=== PATIENT | female | born 1975 | race Caucasian/White ===

== ENCOUNTER 2016-11-12 19:14 | Emergency (ER) | payer OTHER ==
[2016-11-12] MEDS ORDERED: SODIUM CHLORIDE 0.9% 1,000 ML IV STA (20:38)
[2016-11-12] MEDS ORDERED: ONDANSETRON 4 MG/2 ML VIAL IVP STA (20:39)
[2016-11-12 20:53] LABS: Basophils # (A) 0.1 k/uL (0-0.2); Basophils % (A) 0 %; CH 33.6; Eosinophils # (A) 0.1 k/uL (0-0.7); Eosinophils % (A) 1 %; HCT 42.3 % (34.0-46.0); HDW 2.37; HGB 14.1 gm/dL (11.4-16.0); Luc # (Auto) 0.33; Luc % (Auto) 3; Lymphocytes # (A) 3.6 k/uL (1.0-4.8); Lymphocytes % (A) 29 %; MCH 33.1 pg (25.0-35.0); MCHC 33.4 g/dL (31.0-37.0); MCV 99.3 fL (80.0-100.0); Monocytes # (A) 0.6 k/uL (0-1.0); Monocytes % (A) 5 %; Neutrophils # (A) 7.9 k/uL (1.3-7.7); Neutrophils % (A) 63 %; RBC 4.26 m/uL (3.80-5.40); RDW 13.4 % (11.5-15.5); WBC 12.7 k/uL (3.8-10.6)
[2016-11-12 20:54] LABS: Appearance,Urine Clear (Clear); Bilirubin,Urine Negative (Negative); Glucose,Urine (UA) Negative (Negative); Ketones,Urine Negative (Negative); Leukocyte Esterase,Urine Negative (Negative); Nitrite,Urine Negative (Negative); PH, Urine 5.5 (5.0-8.0); Protein,Urine Negative (Negative); Specific Gravity,Urine 1.005 (1.001-1.035); UA Billing (MACRO vs. MICRO) CHEM; Urobilinogen,Urine <2.0 mg/dL (<2.0)
[2016-11-12 21:01] LABS: ALT 31 U/L (9-52); AST 17 U/L (14-36); Alkaline Phosphatase 68 U/L (38-126); Amylase <30 U/L (30-110); Anion Gap 12 mmol/L; Blood Urea Nitrogen 17 mg/dL (7-17); Calcium 9.4 mg/dL (8.4-10.2); Carbon Dioxide 19 mmol/L (22-30); Chloride 109 mmol/L (98-107); Glucose 88 mg/dL (74-99); INR 0.9 (<1.1); Non-African American GFR(MDRD) 55 (>60 ml/min/1.73 sqM); Partial Thromboplastin Time 25.3 sec (22.0-30.0); Potassium 4.7 mmol/L (3.5-5.1); Prothrombin Time 9.3 sec (9.0-12.0); Sodium 140 mmol/L (137-145); Total Bilirubin 0.3 mg/dL (0.2-1.3); Total Protein 7.2 g/dL (6.3-8.2)
--- NOTE | 2016-11-12 21:02 | XR ---
EXAMINATION TYPE: XR KUB DATE OF EXAM: 11/12/2016 8:57 PM COMPARISON: 07/12/2016 HISTORY: Abdominal pain TECHNIQUE: 2 views FINDINGS: There is no sign of intestinal obstruction or pneumoperitoneum. Fecal pattern is normal. Th ere are clips from cholecystectomy. There are clips from tubal ligation. There is no sign of a mass. There is a slight lumbar levoscoliosis. Lung bases are clear. IMPRESSION: Nonacute abdomen. No change.
[2016-11-12] MEDS ORDERED: MORPHINE SULFATE 4 MG/ML SYRINGE IVP STA (21:47)
[2016-11-12] MEDS ORDERED: METOCLOPRAMIDE 5 MG/ML 2 ML VIAL IVP STA (21:47)
--- NOTE | 2016-11-12 21:50 | ED ---
Abdominal Pain HPI - General Chief Complaint: Abdominal Pain Stated Complaint: Back Pain Time Seen by Provider: 11/12/16 20:34 Source: patient, RN notes reviewed Mode of arrival: ambulatory Limitations: no limitations - History of Present Illness Initial Comments: 41-year-old female presents emergency Department chief complaint abdominal pain. Patient states that she started having nausea vomiting swelling. Patient states her stomach feels upset. Patient denies chest pain or shortness breath. Patient has appears or chills. Patient states that she's had her prior cholecystomy, hernia repair. Patient states that she's had normal bowel movements. Patient states she had no fevers no chills no dysuria no hematuria. Patient denies any headache or dizziness. Nothing makes his symptoms feel better or worse at this time no sick contacts. - Related Data Home Medications Medication Instructions Recorded Confirmed Atenolol [Tenormin] 25 mg PO DAILY 05/13/14 11/12/16 Pantoprazole Sodium [Protonix] 40 mg PO BID 05/13/14 11/12/16 Spironolactone [Aldactone] 50 mg PO BID 05/13/14 11/12/16 Topiramate [Topamax] 100 mg PO BID 05/13/14 11/12/16 metFORMIN HCL [Glucophage] 500 mg PO BID 05/13/14 11/12/16 Fluticasone Nasal [place] [Flonase 1 spray EA NOSTRIL DAILY PRN 07/10/15 11/12/16 Nasal [place]] Levothyroxine Sodium [Synthroid] 88 mcg PO DAILY 07/10/15 11/12/16 Baclofen [Lioresal] 10 mg PO TID PRN 08/13/16 11/12/16 Loratadine 10 mg PO DAILY 08/13/16 11/12/16 Minocycline HCl [Minocin] 100 mg PO Q12HR 08/13/16 11/12/16 Acetaminophen with Codeine 1 - 2 tab PO Q4H PRN 11/12/16 11/12/16 [Tylenol w/codeine #3] Celecoxib [CeleBREX] 200 mg PO DAILY 11/12/16 11/12/16 Fluconazole [Diflucan] 150 mg PO ONCE 11/12/16 11/12/16 Nystatin 100,000 Unit/gm Powd 1 applic TOPICAL BID 11/12/16 11/12/16 [Mycostatin Powder] Previous Rx's Medication Instructions Recorded SILVER sulfADIAZINE CREAM 1 applic TOPICAL BID #1 tub 09/17/16 [Silvadene Cream] Ondansetron Odt [Zofran Odt] 4 mg PO Q8HR PRN #10 tab 11/12/16 Allergies Allergy/AdvReac Type Severity Reaction Status Date / Time prednisone Allergy CAUSES Verified 11/12/16 20:50 HANDS AND FEET TO SWELL sulfamethoxazole Allergy Anaphylaxis Verified 11/12/16 20:50 [From Bactrim] trimethoprim [From Bactrim] Allergy Anaphylaxis Verified 11/12/16 20:50 penicillin V AdvReac Unknown STATES IT Verified 11/12/16 20:50 REACTS WITH HER TENORMIN cephalexin monohydrate AdvReac " I AM Verified 11/12/16 20:50 [From Keflex] IMMUNE TO IT" PER PT Review of Systems ROS Statement: Those systems with pertinent positive or pertinent negative responses have been documented in the HPI. ROS Other: All systems not noted in ROS Statement are negative. Past Medical History Past Medical History: Diabetes Mellitus, GERD/Reflux, Hyperlipidemia, Hypertension, Osteoarthritis (OA), Skin Disorder, Thyroid Disorder Additional Past Medical History / Comment(s): HEART MURMUR, LEAKY HEART VALVES, (STATES PRE-MEDICATED PRIOR TO PROCEDURES) , HX OF DIVERTICULITIS, BRONCHIECTASIS, MIGRAINES, HX OF STOMACH ULCERS,OVARIAN SYNDROME, HIDRADENITIS ( SKIN DISORDER-TAKES MINOCIN FOR THIS), FINGER NAIL FUNGUS., PT STATES IRREGULAR HEART BEAT WITH 3 BEATS IN A ROW. History of Any Multi-Drug Resistant Organisms: None Reported Past Surgical History: Cholecystectomy, Hernia Repair, Orthopedic Surgery, Tubal Ligation, Uterine Ablation Additional Past Surgical History / Comment(s): lt foot surgery. lt bunionectomy. bilat CTR. colonoscopy,egd Past Anesthesia/Blood Transfusion Reactions: No Reported Reaction, Motion Sickness Past Psychological History: Anxiety Smoking Status: Current every day smoker Past Alcohol Use History: None Reported Additional Past Alcohol Use History / Comment(s): SMOKES 1PPD. STARTED SMOKING AT AGE 20. Past Drug Use History: None Reported - Past Family History Father Family Medical History: Cancer Additional Family Medical History / Comment(s): LIVER CANCER General Exam Limitations: no limitations General appearance: alert, in no apparent distress Head exam: Present: atraumatic, normocephalic, normal inspection Respiratory exam: Present: normal lung sounds bilaterally. Absent: respiratory distress, wheezes, rales, rhonchi, stridor Cardiovascular Exam: Present: regular rate, normal rhythm, normal heart sounds. Absent: systolic murmur, diastolic murmur, rubs, gallop, clicks GI/Abdominal exam: Present: soft, tenderness (Mild tenderness in the mid abdomen ), normal bowel sounds. Absent: distended, guarding, rebound, rigid Back exam: Present: full ROM. Absent: tenderness, CVA tenderness (R), CVA tenderness (L) Neurological exam: Present: alert, oriented X3, CN II-XII intact Skin exam: Present: warm, dry, intact, normal color. Absent: rash Course Vital Signs 11/12/16 19:24 Temperature 98.7 F Pulse Rate 70 Respiratory 20 Rate Blood Pressure 116/73 O2 Sat by Pulse 100 Oximetry Medical Decision Making - Medical Decision Making 41-year-old female presented emergency from for abdominal pain nausea vomiting. Patient x-ray does not show any evidence of obstruction. Patient's lab work within normal it's. Patient we discharge with antinausea medication. - Lab Data Result diagrams: 11/12/16 20:20 11/12/16 20:20 Lab Results 11/12/16 11/12/16 11/12/16 Range/Units 20:20 20:20 20:20 WBC 12.7 H (3.8-10.6) k/uL RBC 4.26 (3.80-5.40) m/uL Hgb 14.1 (11.4-16.0) gm/dL Hct 42.3 (34.0-46.0) % MCV 99.3 (80.0-100.0) fL MCH 33.1 (25.0-35.0) pg MCHC 33.4 (31.0-37.0) g/dL RDW 13.4 (11.5-15.5) % Plt Count 278 (150-450) k/uL Neutrophils % 63 % Lymphocytes % 29 % Monocytes % 5 % Eosinophils % 1 % Basophils % 0 % Neutrophils # 7.9 H (1.3-7.7) k/uL Lymphocytes # 3.6 (1.0-4.8) k/uL Monocytes # 0.6 (0-1.0) k/uL Eosinophils # 0.1 (0-0.7) k/uL Basophils # 0.1 (0-0.2) k/uL PT 9.3 (9.0-12.0) sec INR 0.9 (<1.1) APTT 25.3 (22.0-30.0) sec Sodium 140 (137-145) mmol/L Potassium 4.7 (3.5-5.1) mmol/L Chloride 109 H (98-107) mmol/L Carbon Dioxide 19 L (22-30) mmol/L Anion Gap 12 mmol/L BUN 17 (7-17) mg/dL Creatinine 1.10 H (0.52-1.04) mg/dL Est GFR (MDRD) Af Amer >60 (>60 ml/min/1.73 sqM) Est GFR (MDRD) Non-Af 55 (>60 ml/min/1.73 sqM) Glucose 88 (74-99) mg/dL Calcium 9.4 (8.4-10.2) mg/dL Total Bilirubin 0.3 (0.2-1.3) mg/dL AST 17 (14-36) U/L ALT 31 (9-52) U/L Alkaline Phosphatase 68 (38-126) U/L Troponin I (0.000-0.034) ng/mL Total Protein 7.2 (6.3-8.2) g/dL Albumin 4.0 (3.5-5.0) g/dL Amylase <30 L (30-110) U/L Lipase 188 (23-300) U/L Urine Color Urine Appearance (Clear) Urine pH (5.0-8.0) Ur Specific [place] (1.001-1.035) Urine Protein (Negative) Urine Glucose (UA) (Negative) Urine Ketones (Negative) Urine Blood (Negative) Urine Nitrate (Negative) Urine Bilirubin (Negative) Urine Urobilinogen (<2.0) mg/dL Ur Leukocyte Esterase (Negative) 11/12/16 11/12/16 Range/Units 20:20 20:20 WBC (3.8-10.6) k/uL RBC (3.80-5.40) m/uL Hgb (11.4-16.0) gm/dL Hct (34.0-46.0) % MCV (80.0-100.0) fL MCH (25.0-35.0) pg MCHC (31.0-37.0) g/dL RDW (11.5-15.5) % Plt Count (150-450) k/uL Neutrophils % % Lymphocytes % % Monocytes % % Eosinophils % % Basophils % % Neutrophils # (1.3-7.7) k/uL Lymphocytes # (1.0-4.8) k/uL Monocytes # (0-1.0) k/uL Eosinophils # (0-0.7) k/uL Basophils # (0-0.2) k/uL PT (9.0-12.0) sec INR (<1.1) APTT (22.0-30.0) sec Sodium (137-145) mmol/L Potassium (3.5-5.1) mmol/L Chloride (98-107) mmol/L Carbon Dioxide (22-30) mmol/L Anion Gap mmol/L BUN (7-17) mg/dL Creatinine (0.52-1.04) mg/dL Est GFR (MDRD) Af Amer (>60 ml/min/1.73 sqM) Est GFR (MDRD) Non-Af (>60 ml/min/1.73 sqM) Glucose (74-99) mg/dL Calcium (8.4-10.2) mg/dL Total Bilirubin (0.2-1.3) mg/dL AST (14-36) U/L ALT (9-52) U/L Alkaline Phosphatase (38-126) U/L Troponin I <0.012 (0.000-0.034) ng/mL Total Protein (6.3-8.2) g/dL Albumin (3.5-5.0) g/dL Amylase (30-110) U/L Lipase (23-300) U/L Urine Color Light Yellow Urine Appearance Clear (Clear) Urine pH 5.5 (5.0-8.0) Ur Specific [place] 1.005 (1.001-1.035) Urine Protein Negative (Negative) Urine Glucose (UA) Negative (Negative) Urine Ketones Negative (Negative) Urine Blood Negative (Negative) Urine Nitrate Negative (Negative) Urine Bilirubin Negative (Negative) Urine Urobilinogen <2.0 (<2.0) mg/dL Ur Leukocyte Esterase Negative (Negative) 11/12/16 21:49 EKG performed at 20:30 sinus bradycardia with a rate of 50. CO interval 172 QRS duration 92 QT/QTC 438/429 11/12/16 21:50 Disposition Clinical Impression: Abdominal pain, Nausea & vomiting Disposition: HOME SELF-CARE Condition: Stable Instructions: Abdominal Pain (ED) Additional Instructions: Please return to the Emergency Department if symptoms worsen or any other concerns. Prescriptions: Ondansetron Odt [Zofran Odt] 4 mg PO Q8HR PRN #10 tab PRN Reason: Nausea Time of Disposition: 21:49
[2016-11-12 22:23] VITALS: BP 132/65; PULSE 87; RESP 18; TEMP 97
== END 2016-11-12 22:33 | disposition home or self-care (01) ==
LOC: EC 19:14
DX: R10.9 Unspecified abdominal pain (principal); R11.2 Nausea with vomiting, unspecified; I10 Essential (primary) hypertension; Z79.899 Other long term (current) drug therapy; Z79.84 Long term (current) use of oral hypoglycemic drugs; E11.9 Type 2 diabetes mellitus without complications; E07.9 Disorder of thyroid, unspecified; Z88.0 Allergy status to penicillin; Z88.2 Allergy status to sulfonamides; Z88.8 Allergy status to other drugs, medicaments and biological substances; M19.90 Unspecified osteoarthritis, unspecified site; L73.2 Hidradenitis suppurativa; F41.9 Anxiety disorder, unspecified; F17.200 Nicotine dependence, unspecified, uncomplicated; K21.9 Gastro-esophageal reflux disease without esophagitis
CPT/HCPCS: 36415; 93005; 80053; 82150; 83690; 84484; 85025; 85610; 85730; 81003; 74000; 96374; 96375 ×2; 96361; 99284; J2270; J2765; J2405

== ENCOUNTER 2016-11-15 02:24 | Emergency (ER) | payer OTHER ==
[2016-11-15 02:30] VITALS: RESP 18
[2016-11-15] MEDS ORDERED: SODIUM CHLORIDE 0.9% 1,000 ML IV STA (03:01)
[2016-11-15] MEDS ORDERED: ONDANSETRON 4 MG/2 ML VIAL IVP STA (03:01)
[2016-11-15] MEDS ORDERED: HYDROmorphone 1 MG/ML 1 ML SYRINGE IVP STA (03:01)
[2016-11-15] MEDS ORDERED: MAG HYDROX/AL HYDROX/SIMETH 30 ML, HYOSCYAMINE ELIXIR 10 ML, CIMETIDINE HCL 300 MG PO STA ×3 (03:09)
[2016-11-15] MEDS ORDERED: SODIUM CHLORIDE 0.9% 1,000 ML IV ONE (03:10)
--- NOTE | 2016-11-15 03:16 | ED ---
Abdominal Pain HPI - General Chief Complaint: Abdominal Pain Stated Complaint: abd/back pain Time Seen by Provider: 11/15/16 02:57 Source: patient, RN notes reviewed, old records reviewed Mode of arrival: ambulatory Limitations: no limitations - History of Present Illness Initial Comments: Patient is a 41-year-old female with chief complaint of epigastric and right upper quadrant abdominal pain for the past 3 days. Patient reports that nothing changes the pain. She states that the same since she was seen in the 4 days ago. She also reports that she's not had a bowel movement in the past 3 days. Patient reports that she also has symptoms of GERD. She denies any fever or chills. She denies any dysuria or hematuria or vaginal discharge. She reports that she's had cholecystectomy, tubal ligation and knee repairs. She denies any vomiting or nausea since being prescribed the nausea medication at home. - Related Data Home Medications Medication Instructions Recorded Confirmed Atenolol [Tenormin] 25 mg PO DAILY 05/13/14 11/12/16 Pantoprazole Sodium [Protonix] 40 mg PO BID 05/13/14 11/12/16 Spironolactone [Aldactone] 50 mg PO BID 05/13/14 11/12/16 Topiramate [Topamax] 100 mg PO BID 05/13/14 11/12/16 metFORMIN HCL [Glucophage] 500 mg PO BID 05/13/14 11/12/16 Fluticasone Nasal [place] [Flonase 1 spray EA NOSTRIL DAILY PRN 07/10/15 11/12/16 Nasal [place]] Levothyroxine Sodium [Synthroid] 88 mcg PO DAILY 07/10/15 11/12/16 Baclofen [Lioresal] 10 mg PO TID PRN 08/13/16 11/12/16 Loratadine 10 mg PO DAILY 08/13/16 11/12/16 Minocycline HCl [Minocin] 100 mg PO Q12HR 08/13/16 11/12/16 Acetaminophen with Codeine 1 - 2 tab PO Q4H PRN 11/12/16 11/12/16 [Tylenol w/codeine #3] Celecoxib [CeleBREX] 200 mg PO DAILY 11/12/16 11/12/16 Fluconazole [Diflucan] 150 mg PO ONCE 11/12/16 11/12/16 Nystatin 100,000 Unit/gm Powd 1 applic TOPICAL BID 11/12/16 11/12/16 [Mycostatin Powder] Previous Rx's Medication Instructions Recorded SILVER sulfADIAZINE CREAM 1 applic TOPICAL BID #1 tub 09/17/16 [Silvadene Cream] Ondansetron Odt [Zofran Odt] 4 mg PO Q8HR PRN #10 tab 11/12/16 Allergies Allergy/AdvReac Type Severity Reaction Status Date / Time prednisone Allergy CAUSES Verified 11/15/16 02:30 HANDS AND FEET TO SWELL sulfamethoxazole Allergy Anaphylaxis Verified 11/15/16 02:30 [From Bactrim] trimethoprim [From Bactrim] Allergy Anaphylaxis Verified 11/15/16 02:30 penicillin V AdvReac Unknown STATES IT Verified 11/15/16 02:30 REACTS WITH HER TENORMIN cephalexin monohydrate AdvReac " I AM Verified 11/15/16 02:30 [From Keflex] IMMUNE TO IT" PER PT Review of Systems ROS Statement: Those systems with pertinent positive or pertinent negative responses have been documented in the HPI. ROS Other: All systems not noted in ROS Statement are negative. Past Medical History Past Medical History: Diabetes Mellitus, GERD/Reflux, Hyperlipidemia, Hypertension, Osteoarthritis (OA), Skin Disorder, Thyroid Disorder Additional Past Medical History / Comment(s): HEART MURMUR, LEAKY HEART VALVES, (STATES PRE-MEDICATED PRIOR TO PROCEDURES) , HX OF DIVERTICULITIS, BRONCHIECTASIS, MIGRAINES, HX OF STOMACH ULCERS,OVARIAN SYNDROME, HIDRADENITIS ( SKIN DISORDER-TAKES MINOCIN FOR THIS), FINGER NAIL FUNGUS., PT STATES IRREGULAR HEART BEAT WITH 3 BEATS IN A ROW. History of Any Multi-Drug Resistant Organisms: None Reported Past Surgical History: Cholecystectomy, Hernia Repair, Orthopedic Surgery, Tubal Ligation, Uterine Ablation Additional Past Surgical History / Comment(s): lt foot surgery. lt bunionectomy. bilat CTR. colonoscopy,egd Past Anesthesia/Blood Transfusion Reactions: No Reported Reaction, Motion Sickness Past Psychological History: Anxiety Smoking Status: Current every day smoker Past Alcohol Use History: None Reported Additional Past Alcohol Use History / Comment(s): SMOKES 1PPD. STARTED SMOKING AT AGE 20. Past Drug Use History: None Reported - Past Family History Father Family Medical History: Cancer Additional Family Medical History / Comment(s): LIVER CANCER General Exam - General Exam Comments Initial Comments: Patient is an obese 41 year old female, she is in no acute distress. Limitations: no limitations General appearance: alert, in no apparent distress Head exam: Present: atraumatic, normocephalic, normal inspection Eye exam: Present: normal appearance, PERRL, EOMI. Absent: scleral icterus, conjunctival injection, periorbital swelling ENT exam: Present: normal exam, mucous membranes moist, TM's normal bilaterally , normal external ear exam Neck exam: Present: normal inspection. Absent: tenderness, meningismus, lymphadenopathy Respiratory exam: Present: normal lung sounds bilaterally. Absent: respiratory distress, wheezes, rales, rhonchi, stridor Cardiovascular Exam: Present: regular rate, normal rhythm, normal heart sounds. Absent: systolic murmur, diastolic murmur, rubs, gallop, clicks GI/Abdominal exam: Present: soft, tenderness (mild epigastric tenderness.), normal bowel sounds. Absent: distended, guarding, rebound, rigid Extremities exam: Present: normal inspection, full ROM, normal capillary refill. Absent: tenderness, pedal edema, joint swelling, calf tenderness Back exam: Present: normal inspection Neurological exam: Present: alert, oriented X3, CN II-XII intact Psychiatric exam: Present: normal affect, normal mood Skin exam: Present: warm, dry, intact, normal color. Absent: rash Course Vital Signs 11/15/16 11/15/16 02:28 04:29 Temperature 98 F 97 F L Pulse Rate 66 78 Respiratory 18 18 Rate Blood Pressure 137/74 144/69 O2 Sat by Pulse 99 97 Oximetry Medical Decision Making - Medical Decision Making Patient is a 41 year old female with one week of epigastric abdominal pain, she denies vomiting, and last bowel movement was 3 days ago. PAtient was in the EC 3 days ago, labs compared to initial visit show no acute abnormality and are unchanged. Patient given pain medication, and nausea medication in EC. Patient advised to follow up with PCP. REturn parameters discussed. Patient has no significant tenderness in the EC and no signs of distress. Patient was arguing with daughter during entire EC stay. - Lab Data Result diagrams: 11/15/16 03:24 11/15/16 03:24 Lab Results 11/15/16 11/15/16 11/15/16 Range/Units 03:24 03:24 03:50 WBC 12.1 H (3.8-10.6) k/uL RBC 3.96 (3.80-5.40) m/uL Hgb 13.1 (11.4-16.0) gm/dL Hct 39.2 (34.0-46.0) % MCV 99.0 (80.0-100.0) fL MCH 33.0 (25.0-35.0) pg MCHC 33.4 (31.0-37.0) g/dL RDW 13.5 (11.5-15.5) % Plt Count 230 (150-450) k/uL Neutrophils % 66 % Lymphocytes % 25 % Monocytes % 5 % Eosinophils % 1 % Basophils % 1 % Neutrophils # 8.1 H (1.3-7.7) k/uL Lymphocytes # 3.1 (1.0-4.8) k/uL Monocytes # 0.7 (0-1.0) k/uL Eosinophils # 0.1 (0-0.7) k/uL Basophils # 0.1 (0-0.2) k/uL Sodium 138 (137-145) mmol/L Potassium 4.9 (3.5-5.1) mmol/L Chloride 108 H (98-107) mmol/L Carbon Dioxide 19 L (22-30) mmol/L Anion Gap 11 mmol/L BUN 14 (7-17) mg/dL Creatinine 1.00 (0.52-1.04) mg/dL Est GFR (MDRD) Af Amer >60 (>60 ml/min/1.73 sqM) Est GFR (MDRD) Non-Af >60 (>60 ml/min/1.73 sqM) Glucose 103 H (74-99) mg/dL Calcium 9.3 (8.4-10.2) mg/dL Total Bilirubin 0.4 (0.2-1.3) mg/dL AST 21 (14-36) U/L ALT 30 (9-52) U/L Alkaline Phosphatase 50 (38-126) U/L Total Protein 6.9 (6.3-8.2) g/dL Albumin 3.9 (3.5-5.0) g/dL Amylase <30 L (30-110) U/L Lipase 163 (23-300) U/L Urine Color Light Yellow Urine Appearance Clear (Clear) Urine pH 5.5 (5.0-8.0) Ur Specific [place] 1.005 (1.001-1.035) Urine Protein Negative (Negative) Urine Glucose (UA) Negative (Negative) Urine Ketones Negative (Negative) Urine Blood Negative (Negative) Urine Nitrate Negative (Negative) Urine Bilirubin Negative (Negative) Urine Urobilinogen <2.0 (<2.0) mg/dL Ur Leukocyte Esterase Negative (Negative) - Radiology Data Overall non obstructive bowel pattern. Disposition Clinical Impression: Abdominal pain, Constipation Disposition: HOME SELF-CARE Condition: Good Instructions: Abdominal Pain (ED), Constipation (ED) Additional Instructions: Patient advised to follow up with primary care provider within the next 2-3 days. Return to the EC if any alarming signs or symptoms occur. Continue at home nausea medication. Remain hydrated. advised to take stool softeners and to remain hydrated and have a diet rich in fruits and vegetables and high fiber foods. Referrals: Jose Lund MD [Primary Care Provider] - 1-2 days Time of Disposition: 04:20
[2016-11-15 03:36] LABS: Basophils # (A) 0.1 k/uL (0-0.2); Basophils % (A) 1 %; CH 33.7; CHCM 34.2; Eosinophils # (A) 0.1 k/uL (0-0.7); Eosinophils % (A) 1 %; HCT 39.2 % (34.0-46.0); HDW 2.47; HGB 13.1 gm/dL (11.4-16.0); Luc # (Auto) 0.15; Luc % (Auto) 1; Lymphocytes # (A) 3.1 k/uL (1.0-4.8); Lymphocytes % (A) 25 %; MCHC 33.4 g/dL (31.0-37.0); Mean Platelet Volume 7.9; Monocytes # (A) 0.7 k/uL (0-1.0); Monocytes % (A) 5 %; Neutrophils # (A) 8.1 k/uL (1.3-7.7); Neutrophils % (A) 66 %; RBC 3.96 m/uL (3.80-5.40); RDW 13.5 % (11.5-15.5); WBC 12.1 k/uL (3.8-10.6)
[2016-11-15 03:44] LABS: ALT 30 U/L (9-52); AST 21 U/L (14-36); Alkaline Phosphatase 50 U/L (38-126); Amylase <30 U/L (30-110); Anion Gap 11 mmol/L; Blood Urea Nitrogen 14 mg/dL (7-17); Calcium 9.3 mg/dL (8.4-10.2); Carbon Dioxide 19 mmol/L (22-30); Chloride 108 mmol/L (98-107); Glucose 103 mg/dL (74-99); Non-African American GFR(MDRD) >60 (>60 ml/min/1.73 sqM); Sodium 138 mmol/L (137-145); Total Bilirubin 0.4 mg/dL (0.2-1.3); Total Protein 6.9 g/dL (6.3-8.2)
[2016-11-15 03:45] LABS: Potassium 4.9 mmol/L (3.5-5.1)
--- NOTE | 2016-11-15 04:01 | XR ---
EXAMINATION TYPE: XR KUB DATE OF EXAM: 11/15/2016 3:31 AM CLINICAL HISTORY: Upper abdominal pain TECHNIQUE: Single supine KUB image of the abdomen is obtained. COMPARISON: 11/12/2016 FINDINGS: Scattered gas is seen in non-distended small bowel loops. Gas and fecal material is seen in non-distended colon. There is no visceromegaly, pneumoperitoneum, or abnormal calcification appr eciated. The lung bases are clear and the osseous structures are intact. Surgical clips are noted in the right upper abdomen with cholecystectomy changes. Tubal ligation clips are also noted in the pel vis. IMPRESSION: Overall nonobstructive bowel gas pattern. No significant interval change.
[2016-11-15 04:04] LABS: Appearance,Urine Clear (Clear); Bilirubin,Urine Negative (Negative); Glucose,Urine (UA) Negative (Negative); Ketones,Urine Negative (Negative); Leukocyte Esterase,Urine Negative (Negative); Nitrite,Urine Negative (Negative); PH, Urine 5.5 (5.0-8.0); Protein,Urine Negative (Negative); Specific Gravity,Urine 1.005 (1.001-1.035); UA Billing (MACRO vs. MICRO) CHEM; Urobilinogen,Urine <2.0 mg/dL (<2.0)
[2016-11-15 04:30] VITALS: BP 144/69; PULSE 78; TEMP 97
== END 2016-11-15 04:31 | disposition home or self-care (01) ==
LOC: EC 02:24
DX: K59.00 Constipation, unspecified (principal); E11.9 Type 2 diabetes mellitus without complications; K21.9 Gastro-esophageal reflux disease without esophagitis; I10 Essential (primary) hypertension; E07.9 Disorder of thyroid, unspecified; L73.2 Hidradenitis suppurativa; M19.90 Unspecified osteoarthritis, unspecified site; R01.1 Cardiac murmur, unspecified; I49.9 Cardiac arrhythmia, unspecified; F17.200 Nicotine dependence, unspecified, uncomplicated; Z88.0 Allergy status to penicillin; Z88.1 Allergy status to other antibiotic agents; Z88.2 Allergy status to sulfonamides; Z88.8 Allergy status to other drugs, medicaments and biological substances; Z79.84 Long term (current) use of oral hypoglycemic drugs; Z79.899 Other long term (current) drug therapy
CPT/HCPCS: 99284; 96374; 96375; 96361; 36415; 80053; 82150; 83690; 85025; 81003; 74000; J2405; J1170

== ENCOUNTER → 2016-11-25 | Outpatient (CLI) | payer OTHER ==
--- NOTE | 2016-11-25 08:25 | CT ---
EXAMINATION TYPE: CT abdomen pelvis wo con DATE OF EXAM: 11/25/2016 7:59 AM COMPARISON: 07/12/2016 HISTORY: Lt abdomen pain with nausea and vomiting since Ventral hernia Surgery, August 2016 CT DLP: 1094 mGycm Automated exposure control for dose reduction was used. TECHNIQUE: Helical acquisition of images was performed from the lung bases through the pelvis. FINDINGS: LUNG BASES- HEART: Enlarged there subsegmental atelectasis at both lung bases. LIVER/GB- Previous cholecystectomy noted. Liver measures 24 cm compatible with hepatomegaly PANCREAS- No gross abnormality is seen. SPLEEN- No gross abnormality is seen. ADRENALS- No gross abnormality is seen. KIDNEYS/BLADDER- no hydronephrosis nephrolithiasis or renal mass. BOWEL- bowel gas pattern nonspecific. Diverticulosis of the colon seen. LYMPH NODES- No greater than 1cm abdominal or pelvic lymph nodes are appreciated. OSSEOUS STRUCTURES- degenerative changes spine noted. Posterior disc bulging L2-3 and L3-4. Canal alem nosis not excluded. OTHER- there is small amount of remaining inflammation region of previous surgery for hernia. Tiny fa t-containing periumbilical hernia is also noted.. IMPRESSION: SMALL AMOUNT RESIDUAL INFLAMMATION IS SEEN AT THE SITE OF RECENT OR PREVIOUS SURGERY ALONG THE RIGHT ANTERIOR ABDOMINAL WALL. NO DEFINITE RECURRENT HERNIA. A GASTRIC DISTENTION CORRELATE FOR GASTROPARESIS. ALTHOUGH A GASTRIC OUTLET OBSTRUCTION NOT ENTIRELY EXCLUDED, NO DEFINITE EVIDENCE FOR OBSTRUCTION..
== END | disposition home or self-care (01) ==
LOC: RADCTMAIN 07:33
PROVIDERS: ATTEND Surgery
DX: K29.60 Other gastritis without bleeding (principal)
CPT/HCPCS: 74176

== ENCOUNTER → 2016-12-29 | Outpatient (CLI) | payer OTHER ==
--- NOTE | 2016-12-29 13:27 | FL ---
EXAMINATION TYPE: FL UGI DATE OF EXAM: 12/29/2016 12:25 PM COMPARISON: CT abdomen pelvis November 25, 2016. HISTORY: Nausea and vomiting for one month. History of GERD, ulcers, and IBS. On gastric medicine for long time. History of recent ventral wall hernia repair surgery one month ago. TECHNIQUE: A double contrast UGI study is performed. A total of 55 seconds of fluoroscopic time was utilized. FINDINGS: [employer] image of the abdomen shows no gross abnormality. Cholecystectomy clips are redemonst rated. The esophagus shows normal motility and emptying into the stomach. No evidence of hiatal hernia or s tricture noted. The stomach shows suboptimal distention with mild to moderate diffuse prominence of gastric folds. N o evidence of any mass or tho ulcer disease. A few episodes of gastroesophageal reflux are seen dur ing real-time performance of study. The duodenal bulb, sweep, and proximal small bowel loops are felt within normal limits. IMPRESSION: Mild to moderate diffuse gastritis with visualization of gastroesophageal reflux. No chanel k ulcer disease.
== END ==
LOC: RADFLWHC 11:11
PROVIDERS: ATTEND Internal Medicine Gastroenterology
DX: K29.70 Gastritis, unspecified, without bleeding (principal); K21.9 Gastro-esophageal reflux disease without esophagitis
CPT/HCPCS: 74240

== ENCOUNTER 2017-01-23 18:27 | Observation (INO) | payer OTHER ==
[2017-01-23] MEDS ORDERED: SODIUM CHLORIDE 0.9% 500 ML IV STA (18:46)
--- NOTE | 2017-01-23 18:55 | ED ---
General Adult HPI - General Chief complaint: Chest Pain Stated complaint: CHEST PAIN Time Seen by Provider: 01/23/17 18:38 Source: patient, RN notes reviewed Mode of arrival: wheelchair Limitations: no limitations - History of Present Illness Initial comments: Patient is a 41-year-old F[employer] chief complaint of chest pain radiating from her sternum towards the back of her spine for approximately one day. She reports that she has a heavy feeling on her chest. She reports also some left upper quadrant abdominal pain the past few days. Patient also reports is also had some neck pain and saw her neurologist in [place] and had a neck examined. Patient reports that since a neurologist pressed on her neck she's had slurred speech. She presents that she went to [facility] 2 days ago and had a full workup, including CT brain of her slurred speech. Patient reports that she sent home with Tylenol 3 for neck pain and discharged. Patient also reports that over the past few days she has been more forgetful. She reports that she has words that she wants to say what is unable to verbalize them. Patient denies any changes in vision, hearing taste bowel or bladder dysfunction. She reports she is able to walk without any dizziness or off balance is. She does state she does feel weak. Per [facility] medical chart she reported that she completed high school and has not been considered a special need individual. - Related Data Home Medications Medication Instructions Recorded Confirmed Atenolol [Tenormin] 25 mg PO DAILY 05/13/14 01/23/17 Pantoprazole Sodium [Protonix] 40 mg PO BID 05/13/14 01/23/17 Spironolactone [Aldactone] 50 mg PO BID 05/13/14 01/23/17 Topiramate [Topamax] 100 mg PO BID 05/13/14 01/23/17 metFORMIN HCL [Glucophage] 500 mg PO BID 05/13/14 01/23/17 Fluticasone Nasal [place] [Flonase 1 spray EA NOSTRIL DAILY PRN 07/10/15 01/23/17 Nasal [place]] Levothyroxine Sodium [Synthroid] 88 mcg PO DAILY 07/10/15 01/23/17 Baclofen [Lioresal] 10 mg PO TID PRN 08/13/16 01/23/17 Loratadine 10 mg PO DAILY 08/13/16 01/23/17 Minocycline HCl [Minocin] 100 mg PO Q12HR 08/13/16 01/23/17 Nystatin 100,000 Unit/gm Powd 1 applic TOPICAL BID 11/12/16 01/23/17 [Mycostatin Powder] Gemfibrozil [Lopid] 600 mg PO AC-BID 01/23/17 01/23/17 Ipratropium/Albuterol Sulfate 1 puff INHALATION RT-BID 01/23/17 01/23/17 [Combivent Respimat Inhaler] Lactulose 10 gm PO BID PRN 01/23/17 01/23/17 Sucralfate [Carafate] 1 gm PO ACHS 01/23/17 01/23/17 Allergies Allergy/AdvReac Type Severity Reaction Status Date / Time cephalexin monohydrate Allergy Rash/Hives Verified 01/23/17 19:50 [From Keflex] prednisone Allergy Swelling Verified 01/23/17 19:50 of Feet sulfamethoxazole Allergy Anaphylaxis Verified 01/23/17 19:50 [From Bactrim] trimethoprim [From Bactrim] Allergy Anaphylaxis Verified 01/23/17 19:50 penicillin V AdvReac Unknown STATES IT Verified 01/23/17 18:33 REACTS WITH HER TENORMIN Review of Systems ROS Statement: Those systems with pertinent positive or pertinent negative responses have been documented in the HPI. ROS Other: All systems not noted in ROS Statement are negative. Past Medical History Past Medical History: Diabetes Mellitus, GERD/Reflux, Hyperlipidemia, Hypertension, Osteoarthritis (OA), Skin Disorder, Thyroid Disorder Additional Past Medical History / Comment(s): HEART MURMUR, LEAKY HEART VALVES, (STATES PRE-MEDICATED PRIOR TO PROCEDURES) , HX OF DIVERTICULITIS, BRONCHIECTASIS, MIGRAINES, HX OF STOMACH ULCERS,OVARIAN SYNDROME, HIDRADENITIS ( SKIN DISORDER-TAKES MINOCIN FOR THIS), FINGER NAIL FUNGUS., PT STATES IRREGULAR HEART BEAT WITH 3 BEATS IN A ROW. History of Any Multi-Drug Resistant Organisms: None Reported Past Surgical History: Cholecystectomy, Hernia Repair, Orthopedic Surgery, Tubal Ligation, Uterine Ablation Additional Past Surgical History / Comment(s): lt foot surgery. lt bunionectomy. bilat CTR. colonoscopy,egd Past Anesthesia/Blood Transfusion Reactions: No Reported Reaction, Motion Sickness Past Psychological History: Anxiety Smoking Status: Current every day smoker Past Alcohol Use History: None Reported Additional Past Alcohol Use History / Comment(s): SMOKES 1PPD. STARTED SMOKING AT AGE 20. Past Drug Use History: None Reported - Past Family History Father Family Medical History: Cancer Additional Family Medical History / Comment(s): LIVER CANCER General Exam - General Exam Comments Initial Comments: 41-year-old female. Patient does not appear to be in any acute distress. Limitations: no limitations General appearance: alert, in no apparent distress Head exam: Present: atraumatic, normocephalic, normal inspection Eye exam: Present: normal appearance, PERRL, EOMI. Absent: scleral icterus, conjunctival injection, periorbital swelling ENT exam: Present: normal exam, normal oropharynx, mucous membranes moist Neck exam: Present: normal inspection. Absent: tenderness, meningismus, lymphadenopathy Respiratory exam: Present: normal lung sounds bilaterally. Absent: respiratory distress, wheezes, rales, rhonchi, stridor Cardiovascular Exam: Present: regular rate, normal rhythm, normal heart sounds. Absent: systolic murmur, diastolic murmur, rubs, gallop, clicks GI/Abdominal exam: Present: soft, normal bowel sounds. Absent: distended, tenderness, guarding, rebound, rigid Extremities exam: Present: normal inspection, full ROM, normal capillary refill. Absent: tenderness, pedal edema, joint swelling, calf tenderness Back exam: Present: normal inspection, full ROM Neurological exam: Present: alert, oriented X3, CN II-XII intact Expanded Patient oriented to: Present: person, place, time Speech: Absent: fluid speech (Patient has a slight slur to her speech.) Cranial nerves: EOM's Intact: Normal, Gag Reflex: Normal, Tongue Deviation: Normal, Facial Sensation: Normal Cerebellar function: Finger to Nose: Normal Upper motor neuron: Pronator Drift: Normal Sensory exam: Upper Extremity Light Touch: Normal, Lower Extremity Light Touch: Normal Motor strength exam: RUE: 5, LUE: 5, RLE: 5, LLE: 5 Eye Response: (4) open spontaneously Motor Response: (6) obeys commands Verbal Response: (5) oriented Garcia Total: 15 Psychiatric exam: Present: normal affect, normal mood Skin exam: Present: warm, dry, intact, normal color. Absent: rash Course Vital Signs 01/23/17 01/23/17 18:34 21:31 Temperature 98.2 F Pulse Rate 78 54 L Respiratory 20 16 Rate Blood Pressure 118/71 108/59 O2 Sat by Pulse 97 100 Oximetry EKG Findings - EKG Comments: EKG Findings:: EKG shows normal sinus rhythm. Consider ST and T wave abnormality consider anterior ischemia. Ventricular rate of 61 bpm. NV interval 142 ms. QRS duration 96 ms. QT/QTc is 448/450 ms. Patient does have T-wave inversion in V1 through V4. Medical Decision Making - Medical Decision Making Patient is a 41-year-old male multiple chief complaints including chest pain and some slurred speech. Records were obtained from [facility]. She did receive a CT of her brain at that time which showed no acute abnormalities. Patient's urine drug screen is also negative at that time. Lab work including heart enzymes 2 days ago were negative. Today lab work is all reviewed to be normal this time. Patient still continues to complain of the chest pain and heaviness. Patient has no significant neurological deficits at this time but there is evidence of a change in her speech. I reviewed the course from 2 days ago when she was seen in the [facility]. At that time they did talk to neurologist Dr. Hernandez. They considered a CTA of the head and neck the patient's GFR was decreased with an elevated creatinine. At that time they did not think the risk was low but is not warranted based on her minimal symptomology and the fact that she is beyond immediate treatment. There is possibility MRI could be completed. They discussed in their notes that she does have the slurred speech and it is unclear the exact cause of that. The emergency department at that time there was no significant recent cause a TIA including A. fib or swelling of her legs from a DVT. Patient at this time will be admitted with neurology consult due to her slurred speech and and repeat cardiac enzymes. Patient agrees with treatment plan will comply. - Lab Data Result diagrams: 01/23/17 19:00 01/23/17 19:00 Lab Results 01/23/17 01/23/17 01/23/17 Range/Units 19:00 19:00 19:00 WBC 10.2 (3.8-10.6) k/uL RBC 4.35 (3.80-5.40) m/uL Hgb 14.4 (11.4-16.0) gm/dL Hct 43.6 (34.0-46.0) % MCV 100.2 H (80.0-100.0) fL MCH 33.2 (25.0-35.0) pg MCHC 33.1 (31.0-37.0) g/dL RDW 13.2 (11.5-15.5) % Plt Count 240 (150-450) k/uL Neutrophils % 63 % Lymphocytes % 29 % Monocytes % 5 % Eosinophils % 1 % Basophils % 1 % Neutrophils # 6.5 (1.3-7.7) k/uL Lymphocytes # 2.9 (1.0-4.8) k/uL Monocytes # 0.5 (0-1.0) k/uL Eosinophils # 0.1 (0-0.7) k/uL Basophils # 0.1 (0-0.2) k/uL PT (9.0-12.0) sec INR (<1.1) APTT (22.0-30.0) sec Sodium 142 (137-145) mmol/L Potassium 4.7 (3.5-5.1) mmol/L Chloride 107 (98-107) mmol/L Carbon Dioxide 20 L (22-30) mmol/L Anion Gap 15 mmol/L BUN 14 (7-17) mg/dL Creatinine 1.10 H (0.52-1.04) mg/dL Est GFR (MDRD) Af Amer >60 (>60 ml/min/1.73 sqM) Est GFR (MDRD) Non-Af 55 (>60 ml/min/1.73 sqM) Glucose 88 (74-99) mg/dL Calcium 9.6 (8.4-10.2) mg/dL Magnesium 1.9 (1.6-2.3) mg/dL Total Bilirubin 0.7 (0.2-1.3) mg/dL AST 30 (14-36) U/L ALT 28 (9-52) U/L Alkaline Phosphatase 67 (38-126) U/L Total Creatine Kinase 82 (30-135) U/L CK-MB (CK-2) 0.4 (0.0-2.4) ng/mL CK-MB (CK-2) Rel Index 0.5 Troponin I <0.012 (0.000-0.034) ng/mL Total Protein 8.1 (6.3-8.2) g/dL Albumin 4.5 (3.5-5.0) g/dL Amylase 39 (30-110) U/L Lipase 165 (23-300) U/L 01/23/17 Range/Units 19:00 WBC (3.8-10.6) k/uL RBC (3.80-5.40) m/uL Hgb (11.4-16.0) gm/dL Hct (34.0-46.0) % MCV (80.0-100.0) fL MCH (25.0-35.0) pg MCHC (31.0-37.0) g/dL RDW (11.5-15.5) % Plt Count (150-450) k/uL Neutrophils % % Lymphocytes % % Monocytes % % Eosinophils % % Basophils % % Neutrophils # (1.3-7.7) k/uL Lymphocytes # (1.0-4.8) k/uL Monocytes # (0-1.0) k/uL Eosinophils # (0-0.7) k/uL Basophils # (0-0.2) k/uL PT 10.1 (9.0-12.0) sec INR 1.0 (<1.1) APTT 26.3 (22.0-30.0) sec Sodium (137-145) mmol/L Potassium (3.5-5.1) mmol/L Chloride (98-107) mmol/L Carbon Dioxide (22-30) mmol/L Anion Gap mmol/L BUN (7-17) mg/dL Creatinine (0.52-1.04) mg/dL Est GFR (MDRD) Af Amer (>60 ml/min/1.73 sqM) Est GFR (MDRD) Non-Af (>60 ml/min/1.73 sqM) Glucose (74-99) mg/dL Calcium (8.4-10.2) mg/dL Magnesium (1.6-2.3) mg/dL Total Bilirubin (0.2-1.3) mg/dL AST (14-36) U/L ALT (9-52) U/L Alkaline Phosphatase (38-126) U/L Total Creatine Kinase (30-135) U/L CK-MB (CK-2) (0.0-2.4) ng/mL CK-MB (CK-2) Rel Index Troponin I (0.000-0.034) ng/mL Total Protein (6.3-8.2) g/dL Albumin (3.5-5.0) g/dL Amylase (30-110) U/L Lipase (23-300) U/L Disposition Clinical Impression: Chest pain, Slurred speech Disposition: ADMITTED IP TO THIS HOSP Condition: Good Referrals: Jose Lund MD [Primary Care Provider] - 1-2 days Time of Disposition: 21:22
[2017-01-23 19:18] LABS: Basophils # (A) 0.1 k/uL (0-0.2); Basophils % (A) 1 %; CH 34.3; CHCM 34.3; Eosinophils # (A) 0.1 k/uL (0-0.7); Eosinophils % (A) 1 %; HCT 43.6 % (34.0-46.0); HDW 2.42; HGB 14.4 gm/dL (11.4-16.0); Luc # (Auto) 0.19; Luc % (Auto) 2; Lymphocytes # (A) 2.9 k/uL (1.0-4.8); Lymphocytes % (A) 29 %; MCH 33.2 pg (25.0-35.0); MCHC 33.1 g/dL (31.0-37.0); MCV 100.2 fL (80.0-100.0); Mean Platelet Volume 7.5; Monocytes # (A) 0.5 k/uL (0-1.0); Monocytes % (A) 5 %; Neutrophils # (A) 6.5 k/uL (1.3-7.7); Neutrophils % (A) 63 %; RBC 4.35 m/uL (3.80-5.40); RDW 13.2 % (11.5-15.5); WBC 10.2 k/uL (3.8-10.6); WBC (Perox) 9.88
[2017-01-23 19:29] LABS: Partial Thromboplastin Time 26.3 sec (22.0-30.0); Prothrombin Time 10.1 sec (9.0-12.0)
[2017-01-23] MEDS ORDERED: KETOROLAC 30 MG/ML 1 ML VIAL IVP STA (19:32)
[2017-01-23] MEDS ORDERED: MORPHINE SULFATE 2 MG/ML SYRINGE IVP ONE (19:32)
[2017-01-23 19:35] LABS: ALT 28 U/L (9-52); AST 30 U/L (14-36); Alkaline Phosphatase 67 U/L (38-126); Amylase 39 U/L (30-110); Anion Gap 15 mmol/L; Blood Urea Nitrogen 14 mg/dL (7-17); Calcium 9.6 mg/dL (8.4-10.2); Carbon Dioxide 20 mmol/L (22-30); Chloride 107 mmol/L (98-107); Glucose 88 mg/dL (74-99); Magnesium 1.9 mg/dL (1.6-2.3); Non-African American GFR(MDRD) 55 (>60 ml/min/1.73 sqM); Potassium 4.7 mmol/L (3.5-5.1); Sodium 142 mmol/L (137-145); Total Bilirubin 0.7 mg/dL (0.2-1.3); Total Protein 8.1 g/dL (6.3-8.2)
--- NOTE | 2017-01-23 19:37 | XR ---
EXAMINATION TYPE: XR chest 2V DATE OF EXAM: 01/23/2017 7:25 PM COMPARISON: 11/10/2015 HISTORY: Chest pain TECHNIQUE: Frontal and lateral views of the chest are obtained. FINDINGS: Heart and mediastinum are normal. Lungs are clear. Diaphragm is normal. Bony thorax is int act. There are chest leads. IMPRESSION: Normal chest. No change.
[2017-01-23 19:42] LABS: Creatine Kinase 82 U/L (30-135)
[2017-01-23 19:55] LABS: Creatine Kinase MB 0.4 ng/mL (0.0-2.4); Troponin I <0.012 ng/mL (0.000-0.034)
[2017-01-23] MEDS ORDERED: MORPHINE SULFATE 4 MG/ML SYRINGE IV PRN (21:22)
[2017-01-23] MEDS ORDERED: ONDANSETRON 4 MG/2 ML VIAL IVP PRN (21:22)
[2017-01-23] MEDS ORDERED: traMADol 50 MG TAB PO PRN (21:22)
[2017-01-23] MEDS ORDERED: NALOXONE 0.4 MG/ML 1 ML VIAL IV PRN (21:22)
[2017-01-23] MEDS ORDERED: ASPIRIN 81 MG CHEW PO STA (21:34)
[2017-01-23 22:39] VITALS: RESP 18; BMI 35.9
[2017-01-23] MEDS: SODIUM CHLORIDE 0.9% 1,000 ML IV SCH (23:05)
[2017-01-24 00:59] LABS: Creatine Kinase 58 U/L (30-135)
[2017-01-24 01:12] LABS: Creatine Kinase MB 0.3 ng/mL (0.0-2.4); Troponin I <0.012 ng/mL (0.000-0.034)
[2017-01-24] MEDS ORDERED: SODIUM CHLORIDE 0.9% 1,000 ML IV ONE (05:27)
[2017-01-24] MEDS: SODIUM CHLORIDE 0.9% 1,000 ML IV SCH ×2 (05:57→17:03)
[2017-01-24 06:22] LABS: Glucose,Whole Blood 83 mg/dL (75-99)
[2017-01-24 08:03] LABS: Creatine Kinase 64 U/L (30-135)
[2017-01-24 08:15] LABS: Creatine Kinase MB 0.4 ng/mL (0.0-2.4); Troponin I <0.012 ng/mL (0.000-0.034)
[2017-01-24] MEDS ORDERED: ENOXAPARIN 40 MG/0.4 ML SYRINGE SQ SCH (09:00)
[2017-01-24 10:58] LABS: Hemoglobin A1C 5.7 % (4.2-6.1)
[2017-01-24 11:56] LABS: Glucose,Whole Blood 109 mg/dL (75-99)
[2017-01-24] MEDS ORDERED: FLUTICASONE 50MCG/SPRAY NASAL 16GM EA NOSTRIL PRN (13:48)
[2017-01-24] MEDS ORDERED: LACTULOSE 20 GM/30 ML CUP PO PRN (13:48)
[2017-01-24] MEDS ORDERED: BACLOFEN 10 MG TAB PO PRN (13:48)
--- NOTE | 2017-01-24 14:57 | P.CNNES ---
History of Present Illness Consult date: 01/24/17 Requesting physician: Aisha Perry Reason for Consult: Slurred speech History of Present Illness: Patient is a pleasant 41-year-old female who is being evaluated by the neurology service today for 2016 per the request of Dr. Perry for slurred speech. Patient is known to our office and was recently seen for cervicalgia. Patient had seen a neurosurgeon in [place] as recommended and had a neck examination which she states caused her increased pain. Patient had increased neck pain 2 days ago and had full workup done at [facility] which was negative for any acute process. Patient complained of ongoing pain and came to [facility] for further investigation. On admission, WBCs were 10.2 rbc's were 4.35, hemoglobin 14.4, and hematocrit 43.6. BUN is 14 with creatinine of 1.1. As previously mentioned, recent studies were negative for any acute process. At the time of my evaluation, patient is resting comfortably in bed and appears to be in no acute distress. Review of Systems REVIEW OF SYSTEMS: Otherwise unremarkable and noncontributory. Past Medical History Past Medical History: Diabetes Mellitus, GERD/Reflux, Hyperlipidemia, Hypertension, Osteoarthritis (OA), Skin Disorder, Thyroid Disorder Additional Past Medical History / Comment(s): HEART MURMUR, LEAKY HEART VALVES, (STATES PRE-MEDICATED PRIOR TO PROCEDURES) , HX OF DIVERTICULITIS, BRONCHIECTASIS, MIGRAINES, HX OF STOMACH ULCERS,OVARIAN SYNDROME, HIDRADENITIS ( SKIN DISORDER-TAKES MINOCIN FOR THIS), FINGER NAIL FUNGUS, History of Any Multi-Drug Resistant Organisms: None Reported Past Surgical History: Cholecystectomy, Hernia Repair, Orthopedic Surgery, Tubal Ligation, Uterine Ablation Additional Past Surgical History / Comment(s): lt foot surgery. lt bunionectomy. bilat CTR. colonoscopy,egd Past Anesthesia/Blood Transfusion Reactions: No Reported Reaction Past Psychological History: Anxiety Smoking Status: Current every day smoker Past Alcohol Use History: None Reported Additional Past Alcohol Use History / Comment(s): SMOKES 1PPD. STARTED SMOKING AT AGE 20. Past Drug Use History: None Reported - Past Family History Mother Family Medical History: Myocardial Infarction (PR) Additional Family Medical History / Comment(s): pacemaker Father Family Medical History: Cancer Additional Family Medical History / Comment(s): LIVER CANCER Medications and Allergies Home Medications Medication Instructions Recorded Confirmed Type Pantoprazole Sodium [Protonix] 40 mg PO BID 05/13/14 01/23/17 History Topiramate [Topamax] 100 mg PO BID 05/13/14 01/23/17 History metFORMIN HCL [Glucophage] 500 mg PO BID 05/13/14 01/23/17 History Fluticasone Nasal [place] [Flonase 1 spray EA NOSTRIL DAILY PRN 07/10/15 01/23/17 History Nasal [place]] Levothyroxine Sodium [Synthroid] 88 mcg PO DAILY 07/10/15 01/23/17 History Baclofen [Lioresal] 10 mg PO TID PRN 08/13/16 01/23/17 History Loratadine 10 mg PO DAILY 08/13/16 01/23/17 History Minocycline HCl [Minocin] 100 mg PO Q12HR 08/13/16 01/23/17 History Nystatin 100,000 Unit/gm Powd 1 applic TOPICAL BID 11/12/16 01/23/17 History [Mycostatin Powder] Gemfibrozil [Lopid] 600 mg PO AC-BID 01/23/17 01/23/17 History Ipratropium/Albuterol Sulfate 1 puff INHALATION RT-BID 01/23/17 01/23/17 History [Combivent Respimat Inhaler] Lactulose 10 gm PO BID PRN 01/23/17 01/23/17 History Sucralfate [Carafate] 1 gm PO ACHS 01/23/17 01/23/17 History Allergies Allergy/AdvReac Type Severity Reaction Status Date / Time cephalexin monohydrate Allergy Rash/Hives Verified 01/23/17 19:50 [From Keflex] prednisone Allergy Swelling Verified 01/23/17 19:50 of Feet sulfamethoxazole Allergy Anaphylaxis Verified 01/23/17 19:50 [From Bactrim] trimethoprim [From Bactrim] Allergy Anaphylaxis Verified 01/23/17 19:50 penicillin V AdvReac Unknown Unknown Verified 01/23/17 22:59 Physical Examination - Vital Signs Vital Signs: Vital Signs Temp Pulse Pulse Resp BP BP Pulse Ox 01/24/17 12:00 98.0 F 69 18 99/53 01/24/17 08:00 97.0 F L 63 18 96/53 01/24/17 06:39 92/52 01/24/17 04:20 97.0 F L 54 L 18 82/38 99 01/24/17 04:15 54 L 18 01/23/17 22:30 97.2 F L 60 18 125/57 100 01/23/17 22:15 98.2 F 60 18 125/57 100 01/23/17 21:31 54 L 16 108/59 100 Intake and Output 01/23/17 01/24/17 01/24/17 22:59 06:59 14:59 Intake Total 1900 180 Balance 1900 180 Intake: Intake, IV Titration 1900 Amount Sodium Chloride 0.9% 1, 900 000 ml @ 120 mls/hr IV . Q8H20M VICKY Rx#:[id number] Sodium Chloride 0.9% 1, 1000 000 ml @ 999 mls/hr IV . Q1H1M ONE Rx#:[id number] Oral 180 Other: # Voids 0 0 1 Weight 89.2 kg 89.2 kg Patient Weight 01/25/17 06:59 Weight 89.2 kg PHYSICAL EXAM: GENERAL APPEARANCE: Patient is a well-developed, female who appears to be in no acute distress. HEENT: Normocephalic, atraumatic, no facial asymmetry is seen. Neck is supple with no masses felt. CARDIOVASCULAR: Regular rate and rhythm. ABDOMEN: Nontender, nondistended. EXTREMITIES: Show no edema or clubbing. NEUROLOGICAL EXAM: Patient is awake, alert, and oriented 3. Speech and language are normal. Strength is full in all 4 extremities. Sensory exam is normal to light touch in all 4 extremities. No facial asymmetry is seen on cranial nerve testing. No tremors or seizure-like activity is noted. Results - Laboratory Findings CBC and BMP: 01/23/17 19:00 01/23/17 19:00 Abnormal Lab Findings: Abnormal Labs 01/24/17 11:52 POC Glucose (mg/dL) 109 H Assessment and Plan Plan: Impression: 1. Slurred speech, resolved 2. Chest pain, resolved 3. Cervicalgia 4. Diabetes mellitus Recommendations: Patient has long history of cervicalgia and is seen in our office. Patient was advised to seek evaluation from neurosurgeon which she did downtown. Patient states after neurosurgery examination she experienced increased pain, slurred speech, and chest pain. [place] [facility] [place] and underwent full evaluation without any evidence of acute pathological process. Patient is stable for discharge at this time from a neurological standpoint. Patient is to follow-up in the office. Thank you for allowing me to participate in the care of your patient. Please feel free to call with any questions or concerns. I performed an examination of the patient and discussed the management with the [employer]. I have reviewed the [employer] P[employer]ER notes and agree with the findings and plan of care.
[2017-01-24 16:24] VITALS: BP 112/55; PULSE 63; TEMP 97.2
[2017-01-24 16:52] LABS: Glucose,Whole Blood 109 mg/dL (75-99)
--- NOTE | 2017-01-24 16:59 | HP ---
DATE OF ADMISSION: HISTORY AND PHYSICAL AND DISCHARGE SUMMARY Patient is a 41-year-old female who came in because of the neck pain and radiating to the chest area. Patient in the past evaluated by neurosurgery in [facility] and patient has chronic neck pain secondary to degenerative neck disease and patient came in with the same pain, which is radiating to the chest area. Patient has a constant pain, sharp in nature, reproducible chest pain, which has gotten better with aspirin and NSAID. Patient had an EKG. Patient denied any shortness of breath, diaphoresis, nausea, vomiting. EKG showed nonspecific ST-T wave changes. Patient denied any premature coronary artery disease. Patient's chest pain is clearly musculoskeletal in nature, will not need any further evaluation for cardiology. Patient had 3 sets of troponins that are negative. The patient was believed to have some speech abnormality, although on exam and as per the patient and patient had did not have any speech abnormality. Patient was evaluated by Neurology. They cleared her for discharge. Patient follows with Dr. Coppola as an outpatient. Patient has an appointment on Thursday. Case was discussed with Dr. Coppola by his nurse practitioner and patient will follow with Dr. Coppola as an outpatient and will be discharged with no further testing will be done. I discontinued patient's atenolol. Patient was on atenolol which I discontinued because of bradycardia, which is sinus bradycardia and also patient was hypotensive and that is contributing to some renal dysfunction as well. Patient takes spironolactone. She says for her pedal edema. Patient has some valvular abnormalities, but beyond that patient's EF is essentially within normal limits. Because of her hypotension and mild renal dysfunction, I am going ahead and discontinuing that medication as well. Patient's hemoglobin A1c is 5.7. REVIEW OF SYSTEMS: CONSTITUTIONAL: No fever, no malaise, no fatigue. HEENT: No recent visual problems or hearing problems. Denied any sore throat. CARDIOVASCULAR: As described in HPI. Patient denied any shortness of breath, orthopnea, PND or palpitations. PULMONARY: No shortness of breath, no cough, no hemoptysis. GASTROINTESTINAL: No diarrhea, no nausea, no vomiting, no abdominal pain. Normoactive bowel sounds. NEUROLOGICAL: As described in HPI. HEMATOLOGICAL: Denies any bleeding or petechiae. GENITOURINARY: Denies any burning micturition, frequency, or urgency. MUSCULOSKELETAL/RHEUMATOLOGICAL: As described in HPI. ENDOCRINE: Denies any polyuria or polydipsia. The rest of the 14 point review of systems is negative. PAST MEDICAL HISTORY: Gastroesophageal reflux disease, diabetes mellitus, hyperlipidemia, hypertension, osteoarthritis, and hypothyroidism. The patient has heart murmur and some valvular abnormalities, polycystic ovarian disease, cholecystectomy, hernia repair, orthopedic surgery, tubal ligation surgery and uterine ablation and anxiety disorder. SOCIAL HISTORY: The patient does smoke 1 pack per day. Denied any alcohol abuse or any drug abuse. FAMILY HISTORY: Mother had myocardial infarction and father had cancer. PHYSICAL EXAMINATION: VITAL SIGNS: Temperature 98.0, pulse of 69, respiratory rate of 18, blood pressure is 99/53, saturating at 99% on room. GENERAL: The patient is alert and oriented x3, not in any acute distress. Well developed, well nourished. HEENT: Pupils are round and equally reacting to light. EOMI. No scleral icterus. No conjunctival pallor. Normocephalic, atraumatic. No pharyngeal erythema. No thyromegaly. CARDIOVASCULAR: S1 and S2 present. No murmurs, rubs, or gallops. PULMONARY: Chest is clear to auscultation, no wheezing or crackles. ABDOMEN: Soft, nontender, nondistended, normoactive bowel sounds. No palpable organomegaly. MUSCULOSKELETAL: No joint swelling or deformity. EXTREMITIES: No cyanosis, clubbing, or pedal edema. NEUROLOGICAL: Gross neurological examination did not reveal any focal deficits. SKIN: No rashes. CHEST EXAMINATION: Patient has reproducible chest pain as well as neck pain. Breath sounds are present bilaterally. No wheezing, no crackles were appreciated. ASSESSMENT AND PLAN: 1. Neck pain and chest pain appears to be purely musculoskeletal, noncardiac in nature. Patient will follow with Dr. Bell as an outpatient. 2. Hypotension because of which I discontinued atenolol, which was started for premature ventricular contractions apparently as per the patient description and also spironolactone will discontinued, which she is using for pedal edema. 3. Questionable slurred speech, which on evaluation I do not believe patient has any slurred speech. Patient does not have any altered speech either. Neurology evaluated the patient. The patient will be discharged today. 4. Diabetes mellitus type 2 with fairly controlled blood sugars. Patient will continue her metformin. 5. Mild acute renal failure, which secondary to diuretic therapy and prerenal azotemia, which improved at this point of time. 6. Gastroesophageal reflux disease. 7. Chronic neck pain, which resolved at this point of time with aspirin and NSAIDs like tramadol which improves her pain. Patient will follow with Dr. Lund in 3 to 7 days; Dr. Coppola as scheduled and Dr. Jay Bell as scheduled. DISCHARGE DIET: Cardiac and ADA 1800 calorie diet.
[2017-01-24] MEDS ORDERED: GEMFIBROZIL 600 MG TAB PO SCH (17:30)
[2017-01-24] MEDS ORDERED: metFORMIN 500 MG TAB PO SCH (17:30)
[2017-01-24] MEDS ORDERED: SUCRALFATE 1 GM TAB PO SCH (17:30)
[2017-01-24] MEDS ORDERED: IPRATROPIUM-ALBUTEROL 3 ML NEB INHALATION SCH (20:00)
[2017-01-24] MEDS ORDERED: PANTOPRAZOLE 40 MG TABLET PO SCH (21:00)
[2017-01-24] MEDS ORDERED: MINOCYCLINE 50 MG CAP PO SCH (21:00)
[2017-01-24] MEDS ORDERED: TOPIRAMATE 100 MG TAB PO SCH (21:00)
[2017-01-24] MEDS ORDERED: NYSTATIN 100,000 UNIT/GM POWD 15 GM TOPICAL SCH (21:00)
[2017-01-25] MEDS ORDERED: LEVOTHYROXINE 88 MCG TAB PO SCH (06:30)
== END 2017-01-24 18:35 | disposition home or self-care (01) ==
LOC: EC 18:27 → 6SEL 21:18
PROVIDERS: ADMIT Internal Medicine; ATTEND Internal Medicine
DX: R07.89 Other chest pain (principal); M47.812 Spondylosis without myelopathy or radiculopathy, cervical region; R47.81 Slurred speech; R10.12 Left upper quadrant pain; E11.9 Type 2 diabetes mellitus without complications; K21.9 Gastro-esophageal reflux disease without esophagitis; E78.5 Hyperlipidemia, unspecified; M19.90 Unspecified osteoarthritis, unspecified site; L73.2 Hidradenitis suppurativa; Z80.0 Family history of malignant neoplasm of digestive organs; E03.9 Hypothyroidism, unspecified; E28.2 Polycystic ovarian syndrome; G89.29 Other chronic pain; I10 Essential (primary) hypertension; F41.9 Anxiety disorder, unspecified; N17.9 Acute kidney failure, unspecified; F17.200 Nicotine dependence, unspecified, uncomplicated; Z82.49 Family history of ischemic heart disease and other diseases of the circulatory system; Z90.49 Acquired absence of other specified parts of digestive tract; Z88.8 Allergy status to other drugs, medicaments and biological substances; Z87.11 Personal history of peptic ulcer disease; Z79.51 Long term (current) use of inhaled steroids; Z79.84 Long term (current) use of oral hypoglycemic drugs; Z88.2 Allergy status to sulfonamides; Z79.899 Other long term (current) drug therapy; Z88.3 Allergy status to other anti-infective agents
CPT/HCPCS: 99285 ×2; 96374 ×2; 96375 ×2; 96361 ×2; 36415; 93005; 80053; 82150; 83036; 82550 ×2; 82553 ×2; 83690; 83735; 84484 ×2; 85025; 85610; 85730; 71020; G0378 ×2; J1885; J2270

== ENCOUNTER → 2017-01-28 | Outpatient (CLI) | payer OTHER ==
--- NOTE | 2017-01-28 08:19 | MR ---
EXAMINATION TYPE: MR cervical spine wo con DATE OF EXAM: 01/28/2017 7:27 AM COMPARISON: NONE HISTORY: neck pain TECHNIQUE: Multiplanar, multisequence images of the cervical spine were acquired. FINDINGS: There is increased signal within the T2 vertebral body on T1 and T2-weighted sequences sugg estive for a hemangioma. C2-C3: No evidence for degenerative disc disease. No disc bulge/herniation or protrusion. No Canal stenosis. Foramina are patent bilaterally. C3-C4: No evidence for degenerative disc disease. No disc bulge/herniation or protrusion. No Canal stenosis. Foramina are patent bilaterally. C4-C5: There is a small left paracentral focal disc bulge with mild to moderate anterior thecal sac c ompression. No cord contact is evident. No spinal canal stenosis or neural foraminal stenosis is pres ent. C5-C6: Broad-based disc herniation is present within the central and left paracentral regions. This h as moderate anterior thecal sac compression. Cord contact is not identified on the left spinal cord f lattening is evident. C6-C7: There is right paracentral broad-based disc bulge with moderate anterior thecal sac compressio n. There may be some compression or displacement of the exiting right nerve root. Correlate with radi cular symptoms. C7-T1: Right paracentral disc bulging is present with mild to moderate anterior thecal sac compressio n. No cord contact is evident. No spinal canal stenosis or neural foraminal stenosis present. Cervical segments are intact. There is normal alignment. Cervical spinal cord is of normal signal. Craniovertebral junction relationships are within normal limits. IMPRESSION: 1. Moderate to large left paracentral disc herniation C5-C6 mass and cord compression. No signal abno rmality within the spinal cord is evident. 2. Multiple additional right paracentral disc bulges at C6-7 and C7-T1 are evident. 3. Small left paracentral focal bulge C4-C5 with moderate thecal sac compression without cord contact .
== END ==
LOC: RADMRIMAIN 06:54
PROVIDERS: ATTEND Internal Medicine
DX: M50.222 Other cervical disc displacement at C5-C6 level (principal)
CPT/HCPCS: 72141

== ENCOUNTER → 2017-02-11 | Outpatient (CLI) | payer OTHER ==
[2017-02-11 16:19] LABS: Blood Urea Nitrogen 12 mg/dL (7-17); Non-African American GFR(MDRD) 50 (>60 ml/min/1.73 sqM)
--- NOTE | 2017-02-12 07:51 | CT ---
CT angiogram of the neck HISTORY: Transient alteration of awareness, dizziness, R 42, R 40.4 Helical acquisition from the skull base through the upper chest following dynamic administration 65 c c Visipaque 320 IV. Three-dimensional reconstructions performed on an alternate workstation The thoracic aorta is patent. There is a two-vessel arch. Innominate artery, left and right common ca rotid arteries, left and right subclavian arteries are patent. The internal and external carotid cindy milan are widely patent bilaterally. Vertebral arteries are patent, the left vertebral artery is domin ant. No evident dissection or vascular malformation. The lung apices are unremarkable. Bones are within normal limits. Degenerative disc changes noted wit hin the spine. Skull base is normal. Orbits show a symmetric appearance. Salivary glands are symmetri c. The airway is patent. Level true and false cords are unremarkable. Thyroid is somewhat atrophic. IMPRESSION: Normal CT angiogram of the neck
== END | disposition home or self-care (01) ==
LOC: RADCTMAIN 15:47
PROVIDERS: ATTEND Psychiatry & Neurology Neurology
DX: R42 Dizziness and giddiness (principal)
CPT/HCPCS: 82565; 84520; 70498; 36415; Q9967

== ENCOUNTER 2017-02-19 15:54 | Emergency (ER) | payer OTHER ==
[2017-02-19 15:58] VITALS: BP 119/74; PULSE 85; RESP 20; TEMP 97.5
--- NOTE | 2017-02-19 16:29 | XR ---
EXAMINATION TYPE: XR hand complete RT DATE OF EXAM: 02/19/2017 4:26 PM CLINICAL HISTORY: pain TECHNIQUE: Frontal, lateral and oblique images of the right hand are obtained. COMPARISON: None. FINDINGS: There is no acute fracture/dislocation evident. The joint spaces appear within normal limi ts. The overlying soft tissue appears unremarkable. IMPRESSION: There is no acute fracture or dislocation ICD 10 NO FRACTURE, INITIAL EVALUATION
--- NOTE | 2017-02-19 16:37 | XR ---
EXAMINATION TYPE: XR lumbar spine 2 or 3V DATE OF EXAM: 02/19/2017 4:26 PM COMPARISON: NONE HISTORY: Pain TECHNIQUE: 3 views FINDINGS: Vertebra have normal alignment. There is narrowing at L5-S1 disc space. Posterior elements appear intact. I see no compression fracture. Sacroiliac joints are normal. IMPRESSION: Spondylosis at L5-S1. No fracture. No change.
--- NOTE | 2017-02-19 17:00 | ED ---
General Adult HPI - General Chief complaint: Fall Stated complaint: Fall. Hand injury Time Seen by Provider: 02/19/17 16:03 Source: patient, RN notes reviewed Mode of arrival: ambulatory Limitations: no limitations - History of Present Illness Initial comments: Patient is a 41-year-old female who presents emergency room today with a chief complaint of fall that occurred just prior to arrival. Doesn't that she fell landing on her butt and she did have her hand out behind her tried to catch himself. Doesn't pain to the right hand. Patient denies any other complaints or symptoms. Denies any head injury or loss consciousness. Patient denies any recent fever, chills, shortness of breath, chest pain, back pain, abdominal pain , nausea or vomiting, numbness or tingling, dysuria or hematuria, constipation or diarrhea, headaches or visual changes, or any other complaints. - Related Data Home Medications Medication Instructions Recorded Confirmed Pantoprazole Sodium [Protonix] 40 mg PO BID 05/13/14 01/23/17 Topiramate [Topamax] 100 mg PO BID 05/13/14 01/23/17 metFORMIN HCL [Glucophage] 500 mg PO BID 05/13/14 01/23/17 Fluticasone Nasal [place] [Flonase 1 spray EA NOSTRIL DAILY PRN 07/10/15 01/23/17 Nasal [place]] Levothyroxine Sodium [Synthroid] 88 mcg PO DAILY 07/10/15 01/23/17 Baclofen [Lioresal] 10 mg PO TID PRN 08/13/16 01/23/17 Loratadine 10 mg PO DAILY 08/13/16 01/23/17 Minocycline HCl [Minocin] 100 mg PO Q12HR 08/13/16 01/23/17 Nystatin 100,000 Unit/gm Powd 1 applic TOPICAL BID 11/12/16 01/23/17 [Mycostatin Powder] Gemfibrozil [Lopid] 600 mg PO AC-BID 01/23/17 01/23/17 Ipratropium/Albuterol Sulfate 1 puff INHALATION RT-BID 01/23/17 01/23/17 [Combivent Respimat Inhaler] Lactulose 10 gm PO BID PRN 01/23/17 01/23/17 Sucralfate [Carafate] 1 gm PO ACHS 01/23/17 01/23/17 Allergies Allergy/AdvReac Type Severity Reaction Status Date / Time cephalexin monohydrate Allergy Rash/Hives Verified 02/19/17 15:58 [From Keflex] prednisone Allergy Swelling Verified 02/19/17 15:58 of Feet sulfamethoxazole Allergy Anaphylaxis Verified 02/19/17 15:58 [From Bactrim] trimethoprim [From Bactrim] Allergy Anaphylaxis Verified 02/19/17 15:58 penicillin V AdvReac Unknown Unknown Verified 02/19/17 15:58 Review of Systems ROS Statement: Those systems with pertinent positive or pertinent negative responses have been documented in the HPI. ROS Other: All systems not noted in ROS Statement are negative. Past Medical History Past Medical History: Diabetes Mellitus, GERD/Reflux, Hyperlipidemia, Hypertension, Osteoarthritis (OA), Skin Disorder, Thyroid Disorder Additional Past Medical History / Comment(s): HEART MURMUR, LEAKY HEART VALVES, (STATES PRE-MEDICATED PRIOR TO PROCEDURES) , HX OF DIVERTICULITIS, BRONCHIECTASIS, MIGRAINES, HX OF STOMACH ULCERS,OVARIAN SYNDROME, HIDRADENITIS ( SKIN DISORDER-TAKES MINOCIN FOR THIS), FINGER NAIL FUNGUS, History of Any Multi-Drug Resistant Organisms: None Reported Past Surgical History: Cholecystectomy, Hernia Repair, Orthopedic Surgery, Tubal Ligation, Uterine Ablation Additional Past Surgical History / Comment(s): lt foot surgery. lt bunionectomy. bilat CTR. colonoscopy,egd Past Anesthesia/Blood Transfusion Reactions: No Reported Reaction Past Psychological History: Anxiety Smoking Status: Current every day smoker Past Alcohol Use History: None Reported Additional Past Alcohol Use History / Comment(s): SMOKES 1PPD. STARTED SMOKING AT AGE 20. Past Drug Use History: None Reported - Past Family History Mother Family Medical History: Myocardial Infarction ([place]) Additional Family Medical History / Comment(s): pacemaker Father Family Medical History: Cancer Additional Family Medical History / Comment(s): LIVER CANCER General Exam - General Exam Comments Initial Comments: General: The patient is awake and alert, in no distress, and does not appear acutely ill. Eye: Pupils are equal, round and reactive to light, extra-ocular movements are intact. No nystagmus. There is normal conjunctiva bilaterally. No signs of icterus. Ears, nose, mouth and throat: There are moist mucous membranes and no oral lesions. Neck: The neck is supple, there is no tenderness or JVD. Cardiovascular: There is a regular rate and rhythm. No murmur, rub or gallop is appreciated. Respiratory: Lungs are clear to auscultation, respirations are non-labored, breath sounds are equal. No wheezes, stridor, rales, or rhonchi. Musculoskeletal: normal appearance of thoracic and lumbar spine. No step-offs forms appreciated. Mild tenderness lower lumbar L3 L4 L5. Patient has normal appearance of the right hand no obvious swelling or bruising. It is tender snuffbox area. No other bony tenderness on exam. Strength 5/5. Sensation intact. Pulses equal bilaterally 2+. Neurological: A&O x 3. CN II-XII intact, There are no obvious motor or sensory deficits. Coordination appears grossly intact. Speech is normal. Skin: Skin is warm and dry and no rashes or lesions are noted. Psychiatric: Cooperative, appropriate mood & affect, normal judgment. Limitations: no limitations Course Vital Signs 02/19/17 15:56 Temperature 97.5 F L Pulse Rate 85 Respiratory 20 Rate Blood Pressure 119/74 O2 Sat by Pulse 100 Oximetry Medical Decision Making - Medical Decision Making x-rays reviewed no fracture of the lumbar spine. Patient's x-ray of the right hand negative. Patient is tender in snuffbox has been splinted in a short arm thumb spica splint. Neurovascular rechecked and intact. Patient will be discharged home and advised follow-up with orthopedics over the next 2 days. Disposition Clinical Impression: Fall, Back strain, Hand injury Disposition: HOME SELF-CARE Condition: Good Instructions: Hand Sprain (ED) Additional Instructions: Please follow-up with orthopedics over the next 2 days. Please see splinted on until follow-up with orthopedics. Please return to emergency room if the symptoms increase or worsen or for any other concerns. Referrals: Jose Lund MD [Primary Care Provider] - 1-2 days Vito Ornelas MD [Medical Doctor] - 1-2 days Time of Disposition: 16:59
== END 2017-02-19 17:10 | disposition home or self-care (01) ==
LOC: EC 15:54
DX: S69.91XA Unspecified injury of right wrist, hand and finger(s), initial encounter (principal); S39.012A Strain of muscle, fascia and tendon of lower back, initial encounter; E78.5 Hyperlipidemia, unspecified; E11.9 Type 2 diabetes mellitus without complications; K21.9 Gastro-esophageal reflux disease without esophagitis; E07.9 Disorder of thyroid, unspecified; L98.9 Disorder of the skin and subcutaneous tissue, unspecified; F17.200 Nicotine dependence, unspecified, uncomplicated; Z79.84 Long term (current) use of oral hypoglycemic drugs; Z79.899 Other long term (current) drug therapy; Z88.0 Allergy status to penicillin; Z88.1 Allergy status to other antibiotic agents; Z88.8 Allergy status to other drugs, medicaments and biological substances; Z87.19 Personal history of other diseases of the digestive system; Z87.09 Personal history of other diseases of the respiratory system; Z86.69 Personal history of other diseases of the nervous system and sense organs; W01.0XXA Fall on same level from slipping, tripping and stumbling without subsequent striking against object, initial encounter
CPT/HCPCS: 29125; 72100; 99283

== ENCOUNTER → 2017-06-26 | Outpatient (CLI) | payer OTHER ==
--- NOTE | 2017-06-26 11:24 | MM ---
Reason for exam: screening (asymptomatic). Last mammogram was performed 5 years and 5 months ago. History: Family history of breast cancer in maternal grandmother at age 50. Benign excisional biopsy of the left breast, July 2011. Benign excisional biopsy of the left breast, December 2010. Benign excisional biopsy of the left breast, 2009. Physical Findings: A clinical breast exam by your physician is recommended on an annual basis and results should be correlated with mammographic findings. MG Diagnostic Mammo w CAD CHAN Bilateral CC and MLO view(s) were taken. Prior study comparison: February 05, 2012, CAD bilateral diagnostic mammogram. January 14, 2010, mammogram, performed at [facility]. The breast tissue is heterogeneously dense. This may lower the sensitivity of mammography. No significant changes when compared with prior studies. ASSESSMENT: Benign, BI-RAD 2 RECOMMENDATION: Routine screening mammogram of both breasts in 1 year. Manage on a clinical basis with regard to nipple discharge.
== END | disposition home or self-care (01) ==
LOC: RADMAMWWP 10:15
PROVIDERS: ATTEND Obstetrics & Gynecology
DX: N64.52 Nipple discharge (principal)

== ENCOUNTER 2017-06-30 20:25 | Emergency (ER) | payer OTHER ==
[2017-06-30 20:33] VITALS: RESP 16; TEMP 97.9
[2017-06-30] MEDS ORDERED: KETOROLAC 30 MG/ML 1 ML VIAL IVP STA (20:47)
[2017-06-30] MEDS ORDERED: SODIUM CHLORIDE 0.9% 500 ML IV STA (20:47)
--- NOTE | 2017-06-30 20:55 | ED ---
Abdominal Pain HPI - General Chief Complaint: Abdominal Pain Stated Complaint: Abd Pain Time Seen by Provider: 06/30/17 20:41 Source: patient, RN notes reviewed Mode of arrival: ambulatory Limitations: no limitations - History of Present Illness Initial Comments: This a 41-year-old female presents emergency Department with chief complaint of lower abdominal pain. Patient states it's her suprapubic region and to her left. States slightly does raise her left flank. Patient denies any dysuria or hematuria. Patient states she's had history kidney stones and diverticulitis. Patient states that she has had some nausea vomiting today. She had no known fever denies any chills. Patient states that she's had multiple prior abdominal surgeries. Patient denies any melena, rectal bleeding. - Related Data Home Medications Medication Instructions Recorded Confirmed Pantoprazole Sodium [Protonix] 40 mg PO BID 05/13/14 06/30/17 Topiramate [Topamax] 100 mg PO BID 05/13/14 06/30/17 metFORMIN HCL [Glucophage] 500 mg PO BID 05/13/14 06/30/17 Fluticasone Nasal [place] [Flonase 2 spray EA NOSTRIL DAILY 07/10/15 06/30/17 Nasal [place]] Levothyroxine Sodium [Synthroid] 88 mcg PO DAILY 07/10/15 06/30/17 Baclofen [Lioresal] 10 mg PO TID PRN 08/13/16 06/30/17 Loratadine 10 mg PO DAILY 08/13/16 06/30/17 Gemfibrozil [Lopid] 600 mg PO AC-BID 01/23/17 06/30/17 Lactulose 10 gm PO BID 01/23/17 06/30/17 Acetaminophen Tab [Tylenol Tab] 1,000 mg PO Q6HR PRN 06/30/17 06/30/17 Dicyclomine [Bentyl] 10 mg PO TID 06/30/17 06/30/17 Furosemide [Lasix] 20 mg PO HS 06/30/17 06/30/17 Furosemide [Lasix] 40 mg PO QAM 06/30/17 06/30/17 Ondansetron [Zofran ODT] 4 mg PO Q8HR PRN 06/30/17 06/30/17 traMADol HCL [Ultram] 50 mg PO Q6HR PRN 06/30/17 06/30/17 Previous Rx's Medication Instructions Recorded Ciprofloxacin HCl [Cipro] 500 mg PO Q12HR #20 tablet 06/30/17 metroNIDAZOLE [Flagyl] 500 mg PO TID #30 tab 06/30/17 Allergies Allergy/AdvReac Type Severity Reaction Status Date / Time cephalexin monohydrate Allergy Rash/Hives Verified 06/30/17 20:51 [From Keflex] prednisone Allergy Swelling Verified 06/30/17 20:51 of Feet sulfamethoxazole Allergy Anaphylaxis Verified 06/30/17 20:51 [From Bactrim] trimethoprim [From Bactrim] Allergy Anaphylaxis Verified 06/30/17 20:51 penicillin V AdvReac Unknown Unknown Verified 06/30/17 20:51 Review of Systems ROS Statement: Those systems with pertinent positive or pertinent negative responses have been documented in the HPI. ROS Other: All systems not noted in ROS Statement are negative. Past Medical History Past Medical History: Diabetes Mellitus, GERD/Reflux, Hyperlipidemia, Hypertension, Osteoarthritis (OA), Skin Disorder, Thyroid Disorder Additional Past Medical History / Comment(s): HEART MURMUR, LEAKY HEART VALVES, (STATES PRE-MEDICATED PRIOR TO PROCEDURES) , HX OF DIVERTICULITIS, BRONCHIECTASIS, MIGRAINES, HX OF STOMACH ULCERS,OVARIAN SYNDROME, HIDRADENITIS ( SKIN DISORDER-TAKES MINOCIN FOR THIS), FINGER NAIL FUNGUS, History of Any Multi-Drug Resistant Organisms: None Reported Past Surgical History: Cholecystectomy, Hernia Repair, Orthopedic Surgery, Tubal Ligation, Uterine Ablation Additional Past Surgical History / Comment(s): lt foot surgery. lt bunionectomy. bilat CTR. colonoscopy,egd Past Anesthesia/Blood Transfusion Reactions: No Reported Reaction Past Psychological History: Anxiety Smoking Status: Current every day smoker Past Alcohol Use History: None Reported Past Drug Use History: None Reported - Past Family History Mother Family Medical History: Myocardial Infarction ([place]) Additional Family Medical History / Comment(s): pacemaker Father Family Medical History: Cancer Additional Family Medical History / Comment(s): LIVER CANCER General Exam Limitations: no limitations General appearance: alert, in no apparent distress Respiratory exam: Present: normal lung sounds bilaterally. Absent: respiratory distress, wheezes, rales, rhonchi, stridor Cardiovascular Exam: Present: regular rate, normal rhythm, normal heart sounds. Absent: systolic murmur, diastolic murmur, rubs, gallop, clicks GI/Abdominal exam: Present: soft, tenderness (Mild to moderate suprapubic left lower quadrant tenderness), normal bowel sounds. Absent: distended, guarding, rebound, rigid Back exam: Absent: CVA tenderness (R), CVA tenderness (L) Skin exam: Present: warm, dry, intact, normal color. Absent: rash Course Vital Signs 06/30/17 06/30/17 20:30 23:02 Temperature 97.9 F Pulse Rate 92 70 Respiratory 16 16 Rate Blood Pressure 121/75 97/57 O2 Sat by Pulse 100 100 Oximetry Medical Decision Making - Medical Decision Making 41-year-old female presented emergency Department chief complaint of lower abdominal pain. Patient appears to have uncomplicated diverticulitis and left ovarian cysts. Patient will be started on Cipro Flagyl. Patient with follow- up with primary care physician in one to 2 days return parameters were discussed. - Lab Data Result diagrams: 06/30/17 21:22 06/30/17 21:22 Lab Results 06/30/17 06/30/17 06/30/17 Range/Units 21:22 21:22 21:22 WBC 12.6 H (3.8-10.6) k/uL RBC 4.49 (3.80-5.40) m/uL Hgb 14.7 (11.4-16.0) gm/dL Hct 43.9 (34.0-46.0) % MCV 97.8 (80.0-100.0) fL MCH 32.7 (25.0-35.0) pg MCHC 33.5 (31.0-37.0) g/dL RDW 14.3 (11.5-15.5) % Plt Count 251 (150-450) k/uL Neutrophils % 72 % Lymphocytes % 19 % Monocytes % 5 % Eosinophils % 2 % Basophils % 0 % Neutrophils # 9.1 H (1.3-7.7) k/uL Lymphocytes # 2.5 (1.0-4.8) k/uL Monocytes # 0.7 (0-1.0) k/uL Eosinophils # 0.2 (0-0.7) k/uL Basophils # 0.1 (0-0.2) k/uL Sodium 141 (137-145) mmol/L Potassium 3.4 L (3.5-5.1) mmol/L Chloride 107 (98-107) mmol/L Carbon Dioxide 20 L (22-30) mmol/L Anion Gap 14 mmol/L BUN 8 (7-17) mg/dL Creatinine 1.20 H (0.52-1.04) mg/dL Est GFR (MDRD) Af Amer >60 (>60 ml/min/1.73 sqM) Est GFR (MDRD) Non-Af 50 (>60 ml/min/1.73 sqM) Glucose 100 H (74-99) mg/dL Calcium 9.3 (8.4-10.2) mg/dL Total Bilirubin 0.4 (0.2-1.3) mg/dL AST 25 (14-36) U/L ALT 43 (9-52) U/L Alkaline Phosphatase 106 (38-126) U/L Total Protein 7.8 (6.3-8.2) g/dL Albumin 4.4 (3.5-5.0) g/dL Amylase 30 (30-110) U/L Lipase 157 (23-300) U/L Urine Color Colorless Urine Appearance Clear (Clear) Urine pH 7.0 (5.0-8.0) Ur Specific [place] 1.001 (1.001-1.035) Urine Protein Negative (Negative) Urine Glucose (UA) Negative (Negative) Urine Ketones Negative (Negative) Urine Blood Negative (Negative) Urine Nitrite Negative (Negative) Urine Bilirubin Negative (Negative) Urine Urobilinogen <2.0 (<2.0) mg/dL Ur Leukocyte Esterase Negative (Negative) Disposition Clinical Impression: Diverticulitis, Ovarian cyst Disposition: HOME SELF-CARE Condition: Stable Instructions: Diverticulitis (ED) Additional Instructions: Please return to the Emergency Department if symptoms worsen or any other concerns. Prescriptions: Ciprofloxacin HCl [Cipro] 500 mg PO Q12HR #20 tablet metroNIDAZOLE [Flagyl] 500 mg PO TID #30 tab Referrals: Jose Lund MD [Primary Care Provider] - 1-2 days Time of Disposition: 23:57
[2017-06-30 21:36] LABS: Basophils # (A) 0.1 k/uL (0-0.2); Basophils % (A) 0 %; CH 34.8; CHCM 35.8; Eosinophils # (A) 0.2 k/uL (0-0.7); Eosinophils % (A) 2 %; HCT 43.9 % (34.0-46.0); HDW 2.66; HGB 14.7 gm/dL (11.4-16.0); Luc # (Auto) 0.14; Luc % (Auto) 1; Lymphocytes # (A) 2.5 k/uL (1.0-4.8); Lymphocytes % (A) 19 %; MCH 32.7 pg (25.0-35.0); MCHC 33.5 g/dL (31.0-37.0); MCV 97.8 fL (80.0-100.0); Mean Platelet Volume 7.9; Monocytes # (A) 0.7 k/uL (0-1.0); Monocytes % (A) 5 %; Neutrophils # (A) 9.1 k/uL (1.3-7.7); Neutrophils % (A) 72 %; RBC 4.49 m/uL (3.80-5.40); RDW 14.3 % (11.5-15.5); WBC 12.6 k/uL (3.8-10.6)
[2017-06-30 21:37] LABS: Appearance,Urine Clear (Clear); Bilirubin,Urine Negative (Negative); Glucose,Urine (UA) Negative (Negative); Ketones,Urine Negative (Negative); Leukocyte Esterase,Urine Negative (Negative); Nitrite,Urine Negative (Negative); Protein,Urine Negative (Negative); Specific Gravity,Urine 1.001 (1.001-1.035); UA Billing (MACRO vs. MICRO) CHEM; Urobilinogen,Urine <2.0 mg/dL (<2.0)
[2017-06-30 21:42] LABS: ALT 43 U/L (9-52); AST 25 U/L (14-36); Alkaline Phosphatase 106 U/L (38-126); Amylase 30 U/L (30-110); Anion Gap 14 mmol/L; Blood Urea Nitrogen 8 mg/dL (7-17); Calcium 9.3 mg/dL (8.4-10.2); Carbon Dioxide 20 mmol/L (22-30); Chloride 107 mmol/L (98-107); Glucose 100 mg/dL (74-99); Non-African American GFR(MDRD) 50 (>60 ml/min/1.73 sqM); Potassium 3.4 mmol/L (3.5-5.1); Sodium 141 mmol/L (137-145); Total Bilirubin 0.4 mg/dL (0.2-1.3); Total Protein 7.8 g/dL (6.3-8.2)
--- NOTE | 2017-06-30 21:43 | XR ---
EXAMINATION TYPE: XR KUB DATE OF EXAM: 06/30/2017 COMPARISON: NONE HISTORY: Pain TECHNIQUE: Single supine KUB image of the abdomen is obtained FINDINGS: Small bowel demonstrates no evidence for dilatation or air fluid levels. Gas and fecal material is seen in non-distended colon. No convincing evidence for pneumoperitoneum. No unusual calcifications. The lung bases are clear. Cholecystectomy clips. Tubal ligation clips. The osseous structures are intact. IMPRESSION: 1. Overall nonobstructive bowel gas pattern.
[2017-06-30] MEDS ORDERED: RX INFO: IV CONTRAST WAS GIVEN 1 EACH MISC MISCELLANE PRN (21:46)
[2017-06-30 23:06] VITALS: BP 97/57; PULSE 70
--- NOTE | 2017-06-30 23:11 | CT ---
EXAM: CT Abdomen and Pelvis With Intravenous Contrast CLINICAL HISTORY: Reason: Pain/hx of diverticulitis Pelvic and left flank pain. TECHNIQUE: Axial computed tomography images of the abdomen and pelvis with intravenous contrast. CTDI is 19.94 mGy and DLP is 1527 mGy-cm. This CT exam was performed using one or more of the following dose reduction techniques: automated exposure control, adjustment of the mA and/or kV according to patient size, and/or use of iterative reconstruction technique. COMPARISON: 11/25/16. FINDINGS: Lower thorax: No acute findings. ABDOMEN: Liver: Unremarkable. No mass. Gallbladder and bile ducts: Cholecystectomy. No ductal dilation. Pancreas: Unremarkable. No mass. No ductal dilation. Spleen: Unremarkable. No splenomegaly. Adrenals: Stable 1 cm left adrenal adenoma. Kidneys and ureters: Unremarkable. No solid mass. No hydronephrosis. Stomach and bowel: Sigmoid diverticulosis. No obstruction. No mucosal thickening. Appendix: Normal appendix. PELVIS: Bladder: Unremarkable. No mass. Reproductive: 3 cm left adnexal cystic lesion, likely left ovarian cyst, new since the prior. Mild adjacent fat stranding. Tubal ligation clips. ABDOMEN and PELVIS: Intraperitoneal space: Minimal free fluid pelvis. No free air. Bones/joints: Degenerative changes of the spine No acute fracture. No dislocation. Soft tissues: Unremarkable. Vasculature: Mild aortoiliac atherosclerotic calcifications. No abdominal aortic aneurysm. Lymph nodes: Unremarkable. No enlarged lymph nodes. IMPRESSION: 3 cm left adnexal cystic lesion, likely left ovarian cyst, new since the prior. Mild adjacent fat stranding. May relate to ruptured cyst or inflammatory process. Abscess left likely. Also consider early adjacent sigmoid diverticulitis in the pelvis. No free air
[2017-06-30] MEDS ORDERED: CIPROFLOXACIN HCL 500 MG TAB PO STA (23:57)
[2017-06-30] MEDS ORDERED: metroNIDAZOLE 500 MG TAB PO STA (23:57)
== END 2017-07-01 00:14 | disposition home or self-care (01) ==
LOC: EC 20:25
DX: K57.92 Diverticulitis of intestine, part unspecified, without perforation or abscess without bleeding (principal); N83.202 Unspecified ovarian cyst, left side; E11.9 Type 2 diabetes mellitus without complications; K21.9 Gastro-esophageal reflux disease without esophagitis; E78.5 Hyperlipidemia, unspecified; I10 Essential (primary) hypertension; E07.9 Disorder of thyroid, unspecified; Z86.69 Personal history of other diseases of the nervous system and sense organs; Z90.49 Acquired absence of other specified parts of digestive tract; Z98.890 Other specified postprocedural states; Z98.51 Tubal ligation status; F17.200 Nicotine dependence, unspecified, uncomplicated; Z79.84 Long term (current) use of oral hypoglycemic drugs; Z79.51 Long term (current) use of inhaled steroids; Z79.899 Other long term (current) drug therapy; Z88.0 Allergy status to penicillin; Z88.1 Allergy status to other antibiotic agents; Z88.2 Allergy status to sulfonamides; Z88.8 Allergy status to other drugs, medicaments and biological substances
CPT/HCPCS: 36415; 80053; 82150; 83690; 85025; 81003; 74000; 74177; 99284; 96374; 96361 ×2; Q9967; J1885

== ENCOUNTER 2017-07-15 07:57 | Day surgery (SDC) | payer OTHER ==
[2017-07-13 17:48] VITALS: BMI 32.9
[~2017-07-15 07:57] MED LIST: LACTATED RINGERS 1,000 ML IV SCH; LIDOCAINE 1% 20 ML VIAL (10MG/ML) FOR IV START INTRADERMA PRN
[2017-07-15 08:31] LABS: Glucose,Whole Blood 94 mg/dL (75-99)
[2017-07-15 08:32] VITALS: TEMP 97.7
[2017-07-15] MEDS ORDERED: PROPOFOL 10 MG/ML 20 ML VIAL IV ONE (08:39)
[2017-07-15] MEDS ORDERED: LIDOCAINE 1% INJ 10MG/ML (20 ML MDV) ONE (08:39)
--- NOTE | 2017-07-15 09:02 | P.PCN ---
Date of Procedure: 07/15/17 Procedure(s) Performed: BRIEF HISTORY: Patient is a 41-year-old pleasant white female, scheduled for an elective colonoscopy as a part of evaluation of acute recurrent diverticulitis. She had an episode about a year and half ago and the second episode was 3 weeks ago. She was treated with antibiotics and now doing well. She denies any abdominal pain or change in bowel habits. Denies any rectal bleeding. PROCEDURE PERFORMED: Colonoscopy. PREOPERATIVE DIAGNOSIS: Acute recurrent diverticulitis. IV sedation per Anesthesia. PROCEDURE: After informed consent was obtained, the patient, was brought into the endoscopy unit. IV sedation was administered by Anesthesia under continuous monitoring. Digital rectal examination was normal. Initially the Olympus CF- 160 flexible video colonoscope was then inserted in the rectum, gradually advanced into the cecum without any difficulty. Careful examination was performed as the scope was gradually being withdrawn. Ileocecal valve and the appendiceal orifice were visualized and appeared normal. Prep was excellent. Mucosa of the cecum, ascending colon, transverse colon, descending colon, sigmoid colon, and rectum appeared normal. Scattered sigmoid diverticulosis seen. Retroflexion was performed in the rectum and no lesions were seen. The patient tolerated the procedure well. IMPRESSION: Scattered sigmoid diverticulosis No evidence of colorectal neoplasia. RECOMMENDATIONS: Findings of this examination were discussed with the patient as well as her family. She was advised to be a high-fiber diet, and take fiber supplements regularly.
[2017-07-15 09:23] VITALS: BP 116/77; PULSE 70; RESP 18
== END 2017-07-15 10:05 | disposition home or self-care (01) ==
LOC: ORWHC2ENDO 07:57
PROVIDERS: ATTEND Internal Medicine Gastroenterology
DX: K57.30 Diverticulosis of large intestine without perforation or abscess without bleeding (principal); I10 Essential (primary) hypertension; E78.5 Hyperlipidemia, unspecified; I34.1 Nonrheumatic mitral (valve) prolapse; F17.200 Nicotine dependence, unspecified, uncomplicated; E07.9 Disorder of thyroid, unspecified; Z79.84 Long term (current) use of oral hypoglycemic drugs; Z79.83 Long term (current) use of bisphosphonates; Z79.891 Long term (current) use of opiate analgesic; Z79.51 Long term (current) use of inhaled steroids; Z79.899 Other long term (current) drug therapy; Z88.1 Allergy status to other antibiotic agents; Z88.0 Allergy status to penicillin; Z88.2 Allergy status to sulfonamides; Z88.8 Allergy status to other drugs, medicaments and biological substances
CPT/HCPCS: 45378; J2001; J2704

== ENCOUNTER → 2017-08-21 | Outpatient (CLI) | payer OTHER ==
--- NOTE | 2017-08-21 16:08 | US ---
EXAMINATION TYPE: US carotid duplex BILAT DATE OF EXAM: 08/21/2017 COMPARISON: CT angio neck CLINICAL HISTORY: R47.1 R42 Dizziness;. Dysarthria;; smoker x 24 years EXAM MEASUREMENTS: RIGHT: Peak Systolic Velocity (PSV) cm/sec ----- Right CCA: 73.8 ----- Right ICA: 68.6 ----- Right ECA: 60.7 ICA/CCA ratio: 0.9 RIGHT: End Diastole cm/sec ----- Right CCA: 20.6 ----- Right ICA: 18.0 ----- Right ECA: 9.2 LEFT: Peak Systolic Velocity (PSV) cm/sec ----- Left CCA: 73.3 ----- Left ICA: 63.8 ----- Left ECA: 54.6 ICA/CCA ratio: 0.9 LEFT: End Diastole cm/sec ----- Left CCA: 21.6 ----- Left ICA: 15.4 ----- Left ECA: 0.0 VERTEBRALS (direction of flow): Right Vertebral: Antegrade Left Vertebral: Antegrade Rhythm: Normal Very mild intimal thickening is noted at bilateral carotid bifurcation and PSV is wnl bilaterally. IMPRESSION: 1. Mild intimal thickening without significant flow-limiting stenosis. Criteria for Assigning % of Stenosis / Diameter reduction (Estimation based on the indirect measurements of the internal carotid artery velocities (ICA PSV). 1. Normal (no stenosis)=ICA PSV < 125 cm/s: ratio < 2.0: ICA EDV<40 cm/s. 2. Less than 50% stenosis=ICA PSV < 125 cm/s: ratio < 2.0: ICA EDV<40 cm/s. 3. 50 to 69% stenosis=ICA PSV of 125 to 230 cm/s: ration 2.0 ? 4.0: ICA EDV 40-100 cm/s. 4. Greater than 70% stenosis to near occlusion= ICA PSV > 230 cm/s: ratio > 4.0: ICA EDV > 100 cm/s. 5. Near occlusion= ICA PSV velocities may be low or undetectable: variable ratio and ICA EDV. 6. Total occlusion=unable to detect flow.
== END | disposition home or self-care (01) ==
LOC: RADUSWWP 14:14
PROVIDERS: ATTEND Psychiatry & Neurology Neurology
DX: I65.23 Occlusion and stenosis of bilateral carotid arteries (principal)
CPT/HCPCS: 93880

== ENCOUNTER → 2017-08-25 | Outpatient (CLI) | payer OTHER ==
--- NOTE | 2017-08-25 21:09 | MR ---
EXAMINATION TYPE: MR brain wo con DATE OF EXAM: 08/25/2017 COMPARISON: MRI brain November 02, 2009. HISTORY: Dizziness, slurred speech TECHNIQUE: Multiplanar, multisequence imaging of the brain and brainstem is performed without IV cont rast. FINDINGS: Diffusion weighted images demonstrate no evidence of a recent infarct or other diffusion abnormality. There is no worrisome extra-axial fluid collection. The ventricular system and cisternal spaces are normal in size and appearance. The brain volume is age appropriate. There are scattered foci T2 hype rintensity seen throughout the white matter bilaterally. Approximately 40-50 small scattered lesions are present. There are suspected some progression in number of lesions from prior MRI. For reference 10-15 focal lesions are seen on axial image 22. Largest lesions are seen in right frontal lobe on axi al image 23. Midline structures demonstrate normal morphology. The craniocervical junction appears within normal limits. Normal vascular flow voids are present. Dominant left vertebral artery is present. The visual ized sinuses are clear and the globes are intact. No suspicious fluid signal is seen in mastoid air c ells bilaterally. IMPRESSION: 1. No evidence of a recent infarct. 2. Moderate nonspecific white matter changes with progression from prior MRI 2009, among the broad di fferential product of demyelinating disease needs to be considered in patient this age though distrib ution of lesions is not typical. Other etiologies are not excluded.
== END | disposition home or self-care (01) ==
LOC: RADMRIMAIN 19:17
PROVIDERS: ATTEND Physician Assistant
DX: R90.82 White matter disease, unspecified (principal); M47.817 Spondylosis without myelopathy or radiculopathy, lumbosacral region; G43.909 Migraine, unspecified, not intractable, without status migrainosus; M79.1 Myalgia; M54.81 Occipital neuralgia; R20.2 Paresthesia of skin; M54.2 Cervicalgia; Z79.891 Long term (current) use of opiate analgesic
CPT/HCPCS: 70551

== ENCOUNTER 2018-01-16 13:57 | Emergency (ER) | payer OTHER ==
[2018-01-16 14:19] VITALS: BP 118/74; PULSE 87; RESP 18; TEMP 98.4
--- NOTE | 2018-01-16 15:44 | ED ---
General Adult HPI - General Chief complaint: Skin/Abscess/Foreign Body Stated complaint: Boil in tailbone Time Seen by Provider: 01/16/18 14:49 Source: patient Mode of arrival: ambulatory Limitations: no limitations - History of Present Illness Initial comments: 42-year-old female since the emergency department for chief complaint of abscess on the inner buttocks. Patient says she has had this before. Patient states she has been doing warm compresses and it is draining. Patient states she has seen a cardiac rehabilitation program director before for a similar abscess. Patient was wondering if she should be given antibiotics. Patient denies any fevers or chills. Patient is able to sit comfortably. Patient denies any spreading redness or worsening signs of infection. Patient states [employer] [employer] no longer works for her and she is ALLERGIC to Bactrim. - Related Data Home Medications Medication Instructions Recorded Confirmed Pantoprazole Sodium [Protonix] 40 mg PO BID 05/13/14 07/15/17 Topiramate [Topamax] 100 mg PO BID 05/13/14 07/15/17 metFORMIN HCL [Glucophage] 500 mg PO BID 05/13/14 07/15/17 Fluticasone Nasal [place] [Flonase 2 spray EA NOSTRIL DAILY 07/10/15 07/15/17 Nasal [place]] Levothyroxine Sodium [Synthroid] 88 mcg PO DAILY 07/10/15 07/15/17 Baclofen [Lioresal] 10 mg PO TID PRN 08/13/16 07/15/17 Loratadine 10 mg PO DAILY 08/13/16 07/15/17 Gemfibrozil [Lopid] 600 mg PO AC-BID 01/23/17 07/15/17 Lactulose 10 gm PO BID 01/23/17 07/15/17 Dicyclomine [Bentyl] 10 mg PO TID 06/30/17 07/15/17 Furosemide [Lasix] 20 mg PO HS 06/30/17 07/15/17 Furosemide [Lasix] 40 mg PO QAM 06/30/17 07/15/17 Ondansetron [Zofran ODT] 4 mg PO Q8HR PRN 06/30/17 07/15/17 traMADol HCL [Ultram] 50 mg PO Q6HR PRN 06/30/17 07/15/17 Ipratropium/Albuterol Sulfate 1 puff INHALATION QID 07/13/17 07/15/17 [Combivent Respimat Inhaler] Promethazine HCl [Promethazine HCl 1 - 2 tsp PO QID PRN 07/13/17 07/15/17 Syrup] Previous Rx's Medication Instructions Recorded Amoxicillin/Potassium Clav 1 tab PO Q12HR #20 tab 01/16/18 [Augmentin 875-125 Tablet] Allergies Allergy/AdvReac Type Severity Reaction Status Date / Time cephalexin monohydrate Allergy Rash/Hives Verified 01/16/18 14:19 [From Keflex] prednisone Allergy Swelling Verified 01/16/18 14:19 of Feet sulfamethoxazole Allergy Anaphylaxis Verified 01/16/18 14:19 [From Bactrim] trimethoprim [From Bactrim] Allergy Anaphylaxis Verified 01/16/18 14:19 penicillin V AdvReac Unknown Unknown Verified 01/16/18 14:19 Review of Systems ROS Statement: Those systems with pertinent positive or pertinent negative responses have been documented in the HPI. ROS Other: All systems not noted in ROS Statement are negative. Past Medical History Past Medical History: Diabetes Mellitus, GERD/Reflux, Hyperlipidemia, Hypertension, Mitral Valve Prolapse (MVP), Osteoarthritis (OA), Respiratory Disorder, Skin Disorder, Thyroid Disorder Additional Past Medical History / Comment(s): HEART MURMUR, LEAKY HEART VALVES ( STATES PRE-MEDICATED PRIOR TO PROCEDURES). HX OF DIVERTICULITIS. IBS. BRONCHIECTASIS. MIGRAINES. HX OF STOMACH ULCERS. OVARIAN SYNDROME. HIDRADENITIS, SKIN DISORDER. "LIVER INFLAMED." "KIDNEY FUNCTION @ 60%." EDEMA BLE, WEARING YRN HOSE. History of Any Multi-Drug Resistant Organisms: None Reported Past Surgical History: Cholecystectomy, Hernia Repair, Orthopedic Surgery, Tubal Ligation, Uterine Ablation Additional Past Surgical History / Comment(s): lt foot surgery, BUNIONECTOMY. Bilat CTR. Colonoscopy, egd Past Anesthesia/Blood Transfusion Reactions: Motion Sickness Past Psychological History: Anxiety Smoking Status: Current every day smoker Past Alcohol Use History: None Reported Past Drug Use History: None Reported - Past Family History Mother Family Medical History: Myocardial Infarction ([place]) Additional Family Medical History / Comment(s): pacemaker Father Family Medical History: Cancer Additional Family Medical History / Comment(s): LIVER CANCER General Exam Limitations: no limitations Respiratory exam: Present: normal lung sounds bilaterally. Absent: respiratory distress, wheezes, rales, rhonchi, stridor Cardiovascular Exam: Present: regular rate, normal rhythm, normal heart sounds. Absent: systolic murmur, diastolic murmur, rubs, gallop, clicks Skin exam: Present: other (There is a 1.5 cm abscess on the left inner buttock. Abscess is draining. There is no surrounding redness or streaking.) Course Vital Signs 01/16/18 14:16 Temperature 98.4 F Pulse Rate 87 Respiratory 18 Rate Blood Pressure 118/74 O2 Sat by Pulse 100 Oximetry Medical Decision Making - Medical Decision Making 42-year-old female sent to the emergency treatment for a chief complaint of abscess in the left buttock. Patient has had similar abscesses before for which she has seen dermatology. He shouldn't states she has applying warm compresses and it is draining. I discussed with the patient either opening it today with a scalpel for more drainage or she can continue the warm compresses with antibiotics. Patient declines having the abscess incised today and states she will continue the warm compresses as it is allowing the area to drain already. Patient will take Augmentin. Patient states Keflex no longer works but she is not ALLERGIC to it as it states in her record. She is ALLERGIC to Bactrim. She will follow up with primary care in 1-2 days and return to the emergency department if there are any worsening signs of infection or she begins to develop fevers. Disposition Clinical Impression: Abscess Disposition: HOME SELF-CARE Condition: Good Instructions: Abscess (ED) Additional Instructions: Please follow up with primary care provider in one to 2 days as discussed. Please take antibiotic as directed. Continue to apply warm compresses and take warm baths. Please return to the emergency Department if you notice any swelling, spreading infection, or develops fevers. Prescriptions: Amoxicillin/Potassium Clav [Augmentin 875-125 Tablet] 1 tab PO Q12HR #20 tab Referrals: Jose Lund MD [Primary Care Provider] - 1-2 days Time of Disposition: 15:44
== END 2018-01-16 15:55 | disposition home or self-care (01) ==
LOC: EC 13:57
DX: L02.31 Cutaneous abscess of buttock (principal); E11.9 Type 2 diabetes mellitus without complications; K21.9 Gastro-esophageal reflux disease without esophagitis; E78.5 Hyperlipidemia, unspecified; I10 Essential (primary) hypertension; I34.1 Nonrheumatic mitral (valve) prolapse; F17.200 Nicotine dependence, unspecified, uncomplicated; E07.9 Disorder of thyroid, unspecified; Z86.69 Personal history of other diseases of the nervous system and sense organs; Z79.84 Long term (current) use of oral hypoglycemic drugs; Z79.51 Long term (current) use of inhaled steroids; Z79.899 Other long term (current) drug therapy; Z88.1 Allergy status to other antibiotic agents; Z88.8 Allergy status to other drugs, medicaments and biological substances; Z88.2 Allergy status to sulfonamides; Z88.0 Allergy status to penicillin; Z53.29 Procedure and treatment not carried out because of patient's decision for other reasons
CPT/HCPCS: 99282

== ENCOUNTER → 2018-03-29 | Outpatient (CLI) | payer OTHER | END | disposition home or self-care (01) | LOC: LABWHC1 10:35 | PROVIDERS: ATTEND Nurse Practitioner Acute Care | DX: G35 Multiple sclerosis (principal); Z53.9 Procedure and treatment not carried out, unspecified reason ==

== ENCOUNTER → 2018-04-09 | Outpatient (CLI) | payer OTHER ==
--- NOTE | 2018-04-09 14:54 | US ---
EXAMINATION TYPE: US carotid duplex BILAT DATE OF EXAM: 04/09/2018 COMPARISON: Carotid ultrasound August 21, 2017 CLINICAL HISTORY: R42 Dizziness and giddiness. EXAM MEASUREMENTS: RIGHT: Peak Systolic Velocity (PSV) cm/sec ----- Right CCA: 127.1 ----- Right ICA: 130.3 ----- Right ECA: 140.0 ICA/CCA ratio: 1.0 RIGHT: End Diastole cm/sec ----- Right CCA: 34.9 ----- Right ICA: 33.3 ----- Right ECA: 23.6 LEFT: Peak Systolic Velocity (PSV) cm/sec ----- Left CCA: 100.5 ----- Left ICA: 84.4 ----- Left ECA: 131.3 ICA/CCA ratio: 0.8 LEFT: End Diastole cm/sec ----- Left CCA: 28.5 ----- Left ICA: 28.2 ----- Left ECA: 18.9 VERTEBRALS (direction of flow): Right Vertebral: Antegrade Left Vertebral: Antegrade Rhythm: Normal Grayscale images show no significant new plaque at carotid bulb level bilaterally. Increased peak sys tolic velocities bile common carotid arteries current study raises concern for underlying hypertensio n. There is no suspicious elevated velocities internal carotid arteries accounting for elevated commo n carotid artery velocities. IMPRESSION: No hemodynamically significant stenosis is seen in either internal carotid artery.
== END | disposition home or self-care (01) ==
LOC: RADUSWWP 14:25
PROVIDERS: ATTEND Psychiatry & Neurology Neurology
DX: R42 Dizziness and giddiness (principal)
CPT/HCPCS: 93880

== ENCOUNTER 2018-04-19 21:05 | Emergency (ER) | payer OTHER ==
[2018-04-19 21:46] VITALS: BP 126/69; PULSE 74; RESP 18; TEMP 99
--- NOTE | 2018-04-19 22:16 | ED ---
ENT HPI - General Chief complaint: ENT Stated complaint: Hand/Throat Pain Time Seen by Provider: 04/19/18 22:06 Source: patient, RN notes reviewed Mode of arrival: ambulatory Limitations: no limitations - History of Present Illness Initial comments: This is a 42-year-old female who presents to the emergency department with multiple complaints. Patient states that her throat started to hurt today. She also states that she spiked a fever of 100. She states that she had difficulty swallowing bread. Patient denies any runny nose, cough, ear pain, chest pain or shortness of breath, abdominal pain, vomiting, diarrhea or constipation. Patient also complains of right hand pain. She states that couple of days ago a door jam to between her fourth and fifth fingers on the right hand. She states that she is now having pain in this area. Patient has no other complaints. - Related Data Home Medications Medication Instructions Recorded Confirmed Pantoprazole Sodium [Protonix] 40 mg PO BID 05/13/14 07/15/17 Topiramate [Topamax] 100 mg PO BID 05/13/14 07/15/17 metFORMIN HCL [Glucophage] 500 mg PO BID 05/13/14 07/15/17 Fluticasone Nasal [place] [Flonase 2 spray EA NOSTRIL DAILY 07/10/15 07/15/17 Nasal [place]] Levothyroxine Sodium [Synthroid] 88 mcg PO DAILY 07/10/15 07/15/17 Baclofen [Lioresal] 10 mg PO TID PRN 08/13/16 07/15/17 Loratadine 10 mg PO DAILY 08/13/16 07/15/17 Gemfibrozil [Lopid] 600 mg PO AC-BID 01/23/17 07/15/17 Lactulose 10 gm PO BID 01/23/17 07/15/17 Dicyclomine [Bentyl] 10 mg PO TID 06/30/17 07/15/17 Furosemide [Lasix] 20 mg PO HS 06/30/17 07/15/17 Furosemide [Lasix] 40 mg PO QAM 06/30/17 07/15/17 Ondansetron [Zofran ODT] 4 mg PO Q8HR PRN 06/30/17 07/15/17 traMADol HCL [Ultram] 50 mg PO Q6HR PRN 06/30/17 07/15/17 Ipratropium/Albuterol Sulfate 1 puff INHALATION QID 07/13/17 07/15/17 [Combivent Respimat Inhaler] Promethazine HCl [Promethazine HCl 1 - 2 tsp PO QID PRN 07/13/17 07/15/17 Syrup] Previous Rx's Medication Instructions Recorded Amoxicillin/Potassium Clav 1 tab PO Q12HR #20 tab 01/16/18 [Augmentin 875-125 Tablet] Allergies Allergy/AdvReac Type Severity Reaction Status Date / Time cephalexin monohydrate Allergy Rash/Hives Verified 04/19/18 21:46 [From Keflex] prednisone Allergy Swelling Verified 04/19/18 21:46 of Feet sulfamethoxazole Allergy Anaphylaxis Verified 04/19/18 21:46 [From Bactrim] trimethoprim [From Bactrim] Allergy Anaphylaxis Verified 04/19/18 21:46 penicillin V AdvReac Unknown Unknown Verified 04/19/18 21:46 Review of Systems ROS Statement: Those systems with pertinent positive or pertinent negative responses have been documented in the HPI. ROS Other: All systems not noted in ROS Statement are negative. Past Medical History Past Medical History: Diabetes Mellitus, GERD/Reflux, Hyperlipidemia, Hypertension, Mitral Valve Prolapse (MVP), Osteoarthritis (OA), Respiratory Disorder, Skin Disorder, Thyroid Disorder Additional Past Medical History / Comment(s): HEART MURMUR, LEAKY HEART VALVES ( STATES PRE-MEDICATED PRIOR TO PROCEDURES). HX OF DIVERTICULITIS. IBS. BRONCHIECTASIS. MIGRAINES. HX OF STOMACH ULCERS. OVARIAN SYNDROME. HIDRADENITIS, SKIN DISORDER. "LIVER INFLAMED." "KIDNEY FUNCTION @ 60%." EDEMA BLE, WEARING YRN HOSE. History of Any Multi-Drug Resistant Organisms: None Reported Past Surgical History: Cholecystectomy, Hernia Repair, Orthopedic Surgery, Tubal Ligation, Uterine Ablation Additional Past Surgical History / Comment(s): lt foot surgery, BUNIONECTOMY. Bilat CTR. Colonoscopy, egd Past Anesthesia/Blood Transfusion Reactions: Motion Sickness Past Psychological History: Anxiety Smoking Status: Current every day smoker Past Alcohol Use History: None Reported Past Drug Use History: None Reported - Past Family History Mother Family Medical History: Myocardial Infarction ([place]) Additional Family Medical History / Comment(s): pacemaker Father Family Medical History: Cancer Additional Family Medical History / Comment(s): LIVER CANCER General Exam - General Exam Comments Initial Comments: General: Awake and alert, well-developed; in no apparent distress. Patient appears much older than stated age. Appears disheveled. HEENT: Head atraumatic, normocephalic. Pupils are equal, round and reactive to light. Extraocular movements intact. Oropharynx moist with mild erythema. No tonsillar enlargement, exudates or palatal petechiae. Neck: Supple. Normal ROM. Cardiovascular: Regular rate and rhythm. No murmurs, rubs or gallops. Chest symmetrical. Respiratory: Lungs clear to auscultation bilaterally. No wheezes, rales or rhonchi. Normal respiratory effort with no use of accessory muscles. Musculoskeletal: Normal range of motion of the right hand. There is tenderness proximal right fifth finger as well as the webbing between fingers 4 and 5. Mild bruising is noted. Sensation is intact. Radial pulses are 2+ equal and palpable bilaterally.. Ambulating normally. Skin: [place], warm and dry without rashes or lesions. Neurological: Alert and oriented x3. CN II-XII grossly intact. Speech is fluent and answers are appropriate. No focal neuro deficits. Psychiatric: Normal mood and affect. No overt signs of depression or anxiety noted. Limitations: no limitations Course Vital Signs 04/19/18 21:44 Temperature 99.0 F Pulse Rate 74 Respiratory 18 Rate Blood Pressure 126/69 O2 Sat by Pulse 100 Oximetry Procedures - Orthopedic Splinting/Casting Injury #1 Side: right Upper Extremity Injury Location: finger Upper Extremity Immobilizer: finger (other) Medical Decision Making - Medical Decision Making This is a 42-year-old female who presented to the emergency department with complaints of sore throat and right hand pain. On physical examination, oropharynx is mildly erythematous without exudates, tonsillar enlargement or palatal petechiae. Rapid strep is negative. Patient also complains of right hand pain between the webbing on her right hand of fingers 4 and 5. The proximal phalanx of the fifth digit is tender and there is bruising noted to the webbing between fingers 4 and 5. A hand x-ray was obtained which revealed a chip fracture of the proximal right fifth finger. A finger splint was placed and patient tolerated well without complication. She is neurovascularly intact. Recommended rest, ice and follow up with primary care provider within 1 -2 days. Recommended ibuprofen or Tylenol as needed for pain. Patient's vital signs are stable and she is in no acute chest. She will be discharged home at this time. All questions answered. - Lab Data Lab Results 04/19/18 Range/Units 22:14 Group A Strep Rapid Negative (Negative) - Radiology Data Radiology results: report reviewed, image reviewed X-ray right hand impression: Intra-articular chip fracture of the proximal phalanx of the little finger. Disposition Clinical Impression: Closed fracture of phalanx of right little finger Disposition: HOME SELF-CARE Condition: Good Instructions: Finger Fracture (ED) Additional Instructions: Please rest, ice and take ibuprofen or Tylenol as needed for pain. Please follow up with primary care provider within 1-2 days. Return to emergency department if symptoms should worsen or any concerns arise. Is patient prescribed a controlled substance at d/c from ED?: No Referrals: Jose Lund MD [Primary Care Provider] - 1-2 days Time of Disposition: 23:02
--- NOTE | 2018-04-19 22:44 | XR ---
EXAMINATION TYPE: XR hand complete RT DATE OF EXAM: 04/19/2018 COMPARISON: NONE HISTORY: Hand pain TECHNIQUE: 3 views FINDINGS: There is a 5 mm nondisplaced chip fracture of the base of the proximal phalanx of the littl e finger. There is no dislocation. Joint spaces are normal. IMPRESSION: Intra-articular chip fracture of the proximal phalanx of the little finger.
== END 2018-04-19 23:20 | disposition home or self-care (01) ==
LOC: EC 21:05
DX: S62.616A Displaced fracture of proximal phalanx of right little finger, initial encounter for closed fracture (principal); R07.0 Pain in throat; E11.9 Type 2 diabetes mellitus without complications; K21.9 Gastro-esophageal reflux disease without esophagitis; E78.5 Hyperlipidemia, unspecified; I10 Essential (primary) hypertension; E07.9 Disorder of thyroid, unspecified; F41.9 Anxiety disorder, unspecified; F17.200 Nicotine dependence, unspecified, uncomplicated; Z79.51 Long term (current) use of inhaled steroids; Z79.84 Long term (current) use of oral hypoglycemic drugs; Z79.899 Other long term (current) drug therapy; Z88.2 Allergy status to sulfonamides; Z88.0 Allergy status to penicillin; Z88.1 Allergy status to other antibiotic agents; Z88.8 Allergy status to other drugs, medicaments and biological substances; W23.0XXA Caught, crushed, jammed, or pinched between moving objects, initial encounter
CPT/HCPCS: 87081; 87430; 99283

== ENCOUNTER → 2018-05-10 | Outpatient (CLI) | payer OTHER ==
--- NOTE | 2018-05-10 12:49 | MR ---
EXAMINATION TYPE: MR brain/cspine wo/w DATE OF EXAM: 05/10/2018 COMPARISON: 08/25/2017 HISTORY: MS, dizziness, white matter changes TECHNIQUE: Multiplanar, multisequence images of the brain and brainstem is performed without and with IV contras t, utilizing 7.5 mL intravenous Gadavist . FINDINGS: Diffusion weighted images demonstrate no evidence of a recent infarct or other diffusion ab normality. There is partially empty sella turcica. No cerebellopontine angle mass. Nasal septal deviation noted. Craniocervical junction maintained. Following contrast administration there is no enhancing mass. White matter: There are approximately 60-70 focal areas of abnormal signal scattered throughout the white matter bi laterally. The largest measures 5 mm.. no lesions perpendicular to ventricular system. No enhancing lesions. No callosal lesions.. IMPRESSION: 1. Stable diffuse nonspecific white matter changes. Differential diagnosis would include demyelinatin g process. The number, size and morphology of the lesions is stable relative to the prior exam. 2. Partially empty sella turcica. EXAMINATION TYPE: MR brain/cspine wo/w DATE OF EXAM: 05/10/2018 COMPARISON: NONE HISTORY: MS, dizziness, white matter changes TECHNIQUE: T1 sagittal and coronal, T2 sagittal, and gradient echo axial views of the cervical spine are submitted. FINDINGS: The cranial cervical junction is preserved. Assessment spinal cord limited by motion artifa ct. Grossly no abnormal signal or enhancement identified.. Vertebral body hemangioma of T2 noted. Sub centimeter thyroid nodules incidentally noted. At C2-3 there is no disc herniation or canal stenosis. No foraminal encroachment At C3-4 there is no disc herniation or canal stenosis. No foraminal encroachment. At C4-5 there is central disc bulging with hypertrophic spondylosis. No Canal stenosis or foraminal e ncroachment. Degenerative disc disease noted. At C5-6 there is degenerative disc disease with large central and left paracentral disc herniation re sulting in anterior compression of the spinal cord. There is severe left-sided foraminal encroachment likely mass effect upon the left exiting nerve root. At C6-7 there is right paracentral disc herniation. No spinal cord contact. Neural foramina patent. At C7-T1 there is no disc herniation or canal stenosis. No foraminal encroachment. IMPRESSION: 1. At C5-C6 there is a large central left paracentral disc herniation with anterior compression the spinal cord and severe left-sided foraminal encroachment. 2. At C6-C7 there is a small right paracentral disc herniation with no spinal cord contact or foramin al encroachment. 3. Multilevel degenerative disc disease.
== END | disposition home or self-care (01) ==
LOC: RADMRIMAIN 10:44
PROVIDERS: ATTEND Psychiatry & Neurology Neurology
DX: R90.89 Other abnormal findings on diagnostic imaging of central nervous system (principal); M50.223 Other cervical disc displacement at C6-C7 level; M50.322 Other cervical disc degeneration at C5-C6 level
CPT/HCPCS: 70553; 72156; A9581

== ENCOUNTER → 2018-07-19 | Outpatient (CLI) | payer OTHER ==
--- NOTE | 2018-07-20 07:41 | MM ---
Reason for exam: clinical finding. Last mammogram was performed 1 year and 1 month ago. History: Family history of breast cancer in mother at age 62 and breast cancer in maternal grandmother at age 50. Benign excisional biopsy of the left breast, July 2011. Benign excisional biopsy of the left breast, December 2010. Benign excisional biopsy of the left breast, 2009. Physical Findings: Nurse did not find any significant physical abnormalities on exam. Bilateral tenderness noted on exam outer quadrants. [facility] Diagnostic Mammo w CAD CHAN Bilateral CC and MLO view(s) were taken. Technologist: RT Yoana (R)(M) Prior study comparison: June 26, 2017, bilateral MG diagnostic mammo w CAD CHAN. February 05, 2012, CAD bilateral diagnostic mammogram. There are scattered fibroglandular densities. There are linear calcifications in the lower inner quadrant of the periareolar left breast. These results were verbally communicated with the patient and result sheet given to the patient on 07/19/18. ASSESSMENT: Incomplete: need additional imaging evaluation, BI-RAD 0 RECOMMENDATION: Ultrasound of the left breast. (lower inner quadrant)
--- NOTE | 2018-07-20 07:44 | USB ---
Reason for exam: additional evaluation requested from abnormal screening. History: Family history of breast cancer in mother at age 62 and breast cancer in maternal grandmother at age 50. Benign excisional biopsy of the left breast, July 2011. Benign excisional biopsy of the left breast, December 2010. Benign excisional biopsy of the left breast, 2009. US Breast Limited LT Left limited breast ultrasound including focal area of concern, retroareolar and axilla demonstrates a 0.3 x 0.3 x 0.2cm oval, epidermal skin lesion at 10 o'clock retroarolar and a 0.5 x 0.5 x 0.3cm oval, solid, hyperechoic lesion with calcifications at the posterior nipple, suspicious, for which a biopsy is recommended. These results were verbally communicated with the patient and result sheet given to the patient on 07/19/18. ASSESSMENT: Suspicious, BI-RAD 4 RECOMMENDATION: Surgical consultation and ultrasound core biopsy of the left breast. Called Dr. Henao with mammographic findings and has scheduled an appointment for the patient for 08/05/18 at 10:[address] Salas. Biopsy scheduled for 07/27/18 at 2:00. PRELIMINARY REPORT CALLED AND FAXED TO DR. SALAS ON 07/20/18.
== END | disposition home or self-care (01) ==
LOC: RADMAMWWP 14:17
PROVIDERS: ATTEND Obstetrics & Gynecology
DX: N64.52 Nipple discharge (principal); R92.8 Other abnormal and inconclusive findings on diagnostic imaging of breast
CPT/HCPCS: 77066

== ENCOUNTER → 2018-07-27 | Day surgery (SDC) | payer OTHER ==
[2018-07-27 13:24] VITALS: TEMP 98.7; BMI 32.9
[2018-07-27 14:48] VITALS: BP 112/79; PULSE 65; RESP 14
--- NOTE | 2018-07-27 15:10 | USB ---
EXAMINATION TYPE: US biopsy breast VAD LT, MG diagnostic mammo LT wo CAD DATE OF EXAM: 07/27/2018 CLINICAL HISTORY: R92.8 Abnormal mammogram. TECHNIQUE: Ultrasound guided core biopsy of left breast. COMPARISON: 07/19/2018 FINDINGS: The procedure of ultrasound guided core biopsy was explained to the patient. Benefits, alternatives, and risks were discussed. An informed consent was then obtained. Preprocedural timeout was performed. The patient was placed in supine positioning for imaging and for the procedure. The overlying skin was prepped and draped in usual sterile fashion. 10 cc of lidocaine buffered with bicarbonate was used as anesthetic into the skin and subcutaneous tissue up to the proximal a 5 mm mass containing calcifications in the periareolar left breast. Approach from medial to lateral was obtained to avoid being directly posterior to the nipple. Under ultrasound guidance, a 12-gauge vacuum assisted biopsy gun device was used to obtain 3 core samples. Following this, a coil-shaped biopsy marker was left in adjacent to the mass on the post procedural lateral view and within the mass on the post procedural CC view (with respect to calcifications). The patient tolerated the procedure well without any immediate complication. The patient was kept in the radiology department for short stay after the procedure and then discharged home in stable condition. IMPRESSION: Successful, uncomplicated ultrasound guided core biopsy of the retroareolar 5 mm left breast mass containing internal calcifications, full pathology results to follow. Pathology Results: Benign BREAST, LEFT, CORE BIOPSY: Benign fibrous tissue with dense stromal fibrosis and prominent peripheral nerve bundles. See note. Recommendation Follow up ultrasound of the left breast in 6 months. MIRANDA
== END ==
LOC: RADUSWWP 12:58
PROVIDERS: ATTEND Surgery
DX: R92.8 Other abnormal and inconclusive findings on diagnostic imaging of breast (principal); N60.32 Fibrosclerosis of left breast
CPT/HCPCS: 88305; 77065; 19083; A4648; J2001

== ENCOUNTER → 2019-01-17 | Outpatient (CLI) | payer OTHER ==
--- NOTE | 2019-01-17 11:06 | MM ---
Reason for exam: follow-up at short interval from prior study. Last mammogram was performed 6 months ago. History: Family history of breast cancer in mother at age 62 and breast cancer in maternal grandmother at age 50. Benign US biopsy breast VAD LT of the left breast, July 27, 2018. Benign excisional biopsy of the left breast, July 2011. Benign excisional biopsy of the left breast, December 2010. Benign excisional biopsy of the left breast, 2009. Took hormonal contraceptives beginning at age 15. Physical Findings: Nurse did not find any significant physical abnormalities on exam. MG Diagnostic Mammo LT w CAD CC, MLO, and XCCL view(s) were taken of the left breast. Prior study comparison: July 27, 2018, left breast MG diagnostic mammo LT wo CAD. July 19, 2018, bilateral MG diagnostic mammo w CAD CHAN. No significant new findings when compared with previous films. These results were verbally communicated with the patient and result sheet given to the patient on 01/17/19. ASSESSMENT: Probably benign, BI-RAD 3 RECOMMENDATION: Follow-up diagnostic mammogram of both breasts in 6 months. Back on schedule.
--- NOTE | 2019-01-17 11:07 | USB ---
Reason for exam: follow-up at short interval from prior study. History: Family history of breast cancer in mother at age 62 and breast cancer in maternal grandmother at age 50. Benign US biopsy breast VAD LT of the left breast, July 27, 2018. Benign excisional biopsy of the left breast, July 2011. Benign excisional biopsy of the left breast, December 2010. Benign excisional biopsy of the left breast, 2009. Took hormonal contraceptives beginning at age 15. US Breast LT Left complete breast ultrasound includes all four quadrants, the retroareolar region and axilla. Finding demonstrates a 7 x 4 x 7mm oval, hyperechoic lesion at the posterior nipple. These results were verbally communicated with the patient and result sheet given to the patient on 01/17/19. ASSESSMENT: Probably benign, BI-RAD 3 RECOMMENDATION: Follow-up diagnostic mammogram of both breasts in 6 months. Back on schedule.
== END | disposition home or self-care (01) ==
LOC: RADMAMWWP 09:08
PROVIDERS: ATTEND Surgery
DX: R92.8 Other abnormal and inconclusive findings on diagnostic imaging of breast (principal)
CPT/HCPCS: 77065

== ENCOUNTER 2019-02-08 21:09 | Emergency (ER) | payer OTHER ==
[2019-02-08] MEDS ORDERED: MORPHINE SULFATE 4 MG/ML SYRINGE IV STA (22:35)
[2019-02-08 22:45] LABS: Basophils # (A) 0.1 k/uL (0-0.2); Basophils % (A) 0 %; Eosinophils # (A) 0.1 k/uL (0-0.7); Eosinophils % (A) 1 %; HGB 12.4 gm/dL (11.4-16.0); Lymphocytes # (A) 3.3 k/uL (1.0-4.8); Lymphocytes % (A) 27 %; MCH 34.1 pg (25.0-35.0); MCHC 33.5 g/dL (31.0-37.0); MCV 101.6 fL (80.0-100.0); Macrocytosis Slight; Mean Platelet Volume 7.1; Monocytes # (A) 0.6 k/uL (0-1.0); Monocytes % (A) 5 %; Neutrophils # (A) 7.7 k/uL (1.3-7.7); Neutrophils % (A) 65 %; Platelet Count 237 k/uL (150-450); RBC 3.65 m/uL (3.80-5.40); RDW 13.8 % (11.5-15.5); WBC 11.9 k/uL (3.8-10.6)
--- NOTE | 2019-02-08 22:47 | XR ---
History: ITS.REASON XR Reason: abdominal pain Exam: XR KUB 2 total upright images Comparison: 07/12/2016 FINDINGS: Nonspecific bowel gas pattern with paucity of small bowel gas. Gas and stool is seen in the colon. No evidence of free air. The lung bases are clear. No gaseous distention of bowel. Status post cholecystectomy. Bilateral pelvic metallic clips again noted. IMPRESSION: Nonspecific bowel gas pattern with paucity of small bowel gas. Gas and stool is seen in the colon. No evidence of free air. The lung bases are clear.
[2019-02-08 22:55] LABS: Albumin 3.5 g/dL (3.5-5.0); Calcium 8.9 mg/dL (8.4-10.2); Potassium 4.1 mmol/L (3.5-5.1); Total Bilirubin 0.2 mg/dL (0.2-1.3); Total Protein 6.1 g/dL (6.3-8.2)
--- NOTE | 2019-02-08 23:01 | ED ---
Abdominal Pain HPI - General Chief Complaint: Abdominal Pain Stated Complaint: Abd pain/back pain Time Seen by Provider: 02/08/19 21:44 Source: patient Mode of arrival: ambulatory Limitations: no limitations - History of Present Illness MD Complaint: abdominal pain, flank pain Onset/Timin -: days(s) Location: LUQ Radiation: L flank Migration to: no migration Severity: moderate Quality: sharp Consistency: intermittent Improves With: nothing Worsens With: nothing Associated Symptoms: denies other symptoms - Related Data Home Medications Medication Instructions Recorded Confirmed Pantoprazole Sodium [Protonix] 40 mg PO BID 05/13/14 02/08/19 Topiramate [Topamax] 100 mg PO BID 05/13/14 02/08/19 Fluticasone Nasal [place] [Flonase 2 spray EA NOSTRIL DAILY 07/10/15 02/08/19 Nasal [place]] Levothyroxine Sodium [Synthroid] 88 mcg PO DAILY 07/10/15 02/08/19 Baclofen [Lioresal] 10 mg PO TID PRN 08/13/16 02/08/19 Gemfibrozil [Lopid] 600 mg PO AC-BID 01/23/17 02/08/19 Lactulose 10 gm PO BID PRN 01/23/17 02/08/19 Dicyclomine [Bentyl] 10 mg PO TID 06/30/17 02/08/19 Ondansetron [Zofran ODT] 4 mg PO Q8HR PRN 06/30/17 02/08/19 Albuterol Inhaler [Ventolin Hfa 2 puff INHALATION RT-Q6H PRN 02/08/19 02/08/19 Inhaler] Spironolactone [Aldactone] 25 mg PO DAILY 02/08/19 02/08/19 Previous Rx's Medication Instructions Recorded Dicyclomine [Bentyl] 20 mg PO QID #15 tablet 02/09/19 Allergies Allergy/AdvReac Type Severity Reaction Status Date / Time cephalexin monohydrate Allergy Rash/Hives Verified 02/08/19 22:18 [From Keflex] prednisone Allergy Swelling Verified 02/08/19 22:18 of Feet sulfamethoxazole Allergy Anaphylaxis Verified 02/08/19 22:18 [From Bactrim] trimethoprim [From Bactrim] Allergy Anaphylaxis Verified 02/08/19 22:18 Review of Systems ROS Statement: Those systems with pertinent positive or pertinent negative responses have been documented in the HPI. ROS Other: All systems not noted in ROS Statement are negative. Constitutional: Denies: fever, chills Respiratory: Denies: cough, dyspnea Cardiovascular: Reports: edema (Left leg edema for "years"). Denies: chest pain, palpitations Gastrointestinal: Reports: abdominal pain. Denies: nausea, vomiting, diarrhea, constipation, melena, hematochezia Genitourinary: Denies: dysuria, hematuria Musculoskeletal: Denies: back pain Skin: Denies: rash Neurological: Denies: headache, weakness, numbness Past Medical History Past Medical History: Diabetes Mellitus, GERD/Reflux, Hyperlipidemia, Hypertension, Mitral Valve Prolapse (MVP), Osteoarthritis (OA), Respiratory Disorder, Skin Disorder, Thyroid Disorder Additional Past Medical History / Comment(s): HEART MURMUR, LEAKY HEART VALVES (STATES PRE-MEDICATED PRIOR TO PROCEDURES). HX OF DIVERTICULITIS. IBS. BRONCHIECTASIS. MIGRAINES. HX OF STOMACH ULCERS. OVARIAN SYNDROME. HIDRADENITIS, SKIN DISORDER. "LIVER INFLAMED." "KIDNEY FUNCTION @ 60%." EDEMA BLE, WEARING YRN HOSE. History of Any Multi-Drug Resistant Organisms: None Reported Past Surgical History: Cholecystectomy, Hernia Repair, Orthopedic Surgery, Tubal Ligation, Uterine Ablation Additional Past Surgical History / Comment(s): lt foot surgery, BUNIONECTOMY. Bilat CTR. Colonoscopy, egd Past Anesthesia/Blood Transfusion Reactions: Motion Sickness Past Psychological History: Anxiety Smoking Status: Current every day smoker Past Alcohol Use History: None Reported Past Drug Use History: None Reported - Past Family History Mother Family Medical History: Myocardial Infarction ([place]) Additional Family Medical History / Comment(s): pacemaker Father Family Medical History: Cancer Additional Family Medical History / Comment(s): LIVER CANCER General Exam Limitations: no limitations General appearance: alert, in no apparent distress Head exam: Present: atraumatic, normocephalic Eye exam: Present: normal appearance. Absent: scleral icterus, conjunctival injection Respiratory exam: Present: normal lung sounds bilaterally. Absent: respiratory distress, wheezes, rales, rhonchi, stridor Cardiovascular Exam: Present: regular rate, normal rhythm, normal heart sounds. Absent: systolic murmur, diastolic murmur, rubs, gallop GI/Abdominal exam: Present: soft. Absent: distended, tenderness, guarding, rebound, rigid, mass Extremities exam: Present: normal inspection, normal capillary refill. Absent: pedal edema, calf tenderness Back exam: Present: normal inspection. Absent: CVA tenderness (R), CVA tenderness (L) Neurological exam: Present: alert Skin exam: Present: warm, dry, intact, normal color. Absent: rash Course Vital Signs 02/08/19 02/08/19 02/08/19 21:28 22:45 23:48 Temperature 97.9 F 98 F Pulse Rate 70 82 76 Respiratory 18 18 16 Rate Blood Pressure 118/71 104/66 94/57 O2 Sat by Pulse 100 99 97 Oximetry Medical Decision Making - Lab Data Result diagrams: 02/08/19 22:23 02/08/19 22:23 Lab Results 02/08/19 02/08/19 02/08/19 Range/Units 21:55 21:55 22:23 WBC (3.8-10.6) k/uL RBC (3.80-5.40) m/uL Hgb (11.4-16.0) gm/dL Hct (34.0-46.0) % MCV (80.0-100.0) fL MCH (25.0-35.0) pg MCHC (31.0-37.0) g/dL RDW (11.5-15.5) % Plt Count (150-450) k/uL Neutrophils % % Lymphocytes % % Monocytes % % Eosinophils % % Basophils % % Neutrophils # (1.3-7.7) k/uL Lymphocytes # (1.0-4.8) k/uL Monocytes # (0-1.0) k/uL Eosinophils # (0-0.7) k/uL Basophils # (0-0.2) k/uL Macrocytosis Sodium 140 (137-145) mmol/L Potassium 4.1 (3.5-5.1) mmol/L Chloride 110 H (98-107) mmol/L Carbon Dioxide 23 (22-30) mmol/L Anion Gap 7 mmol/L BUN 13 (7-17) mg/dL Creatinine 1.12 H (0.52-1.04) mg/dL Est GFR (CKD-EPI)AfAm 71 (>60 ml/min/1.73 sqM) Est GFR (CKD-EPI)NonAf 61 (>60 ml/min/1.73 sqM) Glucose 90 (74-99) mg/dL Calcium 8.9 (8.4-10.2) mg/dL Total Bilirubin 0.2 (0.2-1.3) mg/dL AST 15 (14-36) U/L ALT 30 (9-52) U/L Alkaline Phosphatase 64 (38-126) U/L Total Protein 6.1 L (6.3-8.2) g/dL Albumin 3.5 (3.5-5.0) g/dL Amylase 35 (30-110) U/L Lipase 208 (23-300) U/L Urine Color Yellow Urine Appearance Clear (Clear) Urine pH 6.0 (5.0-8.0) Ur Specific [place] 1.017 (1.001-1.035) Urine Protein Negative (Negative) Urine Glucose (UA) Negative (Negative) Urine Ketones Negative (Negative) Urine Blood Negative (Negative) Urine Nitrite Negative (Negative) Urine Bilirubin Negative (Negative) Urine Urobilinogen <2.0 (<2.0) mg/dL Ur Leukocyte Esterase Negative (Negative) Urine HCG, Qual Not Detected (Not Detectd) 02/08/19 Range/Units 22:23 WBC 11.9 H (3.8-10.6) k/uL RBC 3.65 L (3.80-5.40) m/uL Hgb 12.4 (11.4-16.0) gm/dL Hct 37.0 (34.0-46.0) % MCV 101.6 H (80.0-100.0) fL MCH 34.1 (25.0-35.0) pg MCHC 33.5 (31.0-37.0) g/dL RDW 13.8 (11.5-15.5) % Plt Count 237 (150-450) k/uL Neutrophils % 65 % Lymphocytes % 27 % Monocytes % 5 % Eosinophils % 1 % Basophils % 0 % Neutrophils # 7.7 (1.3-7.7) k/uL Lymphocytes # 3.3 (1.0-4.8) k/uL Monocytes # 0.6 (0-1.0) k/uL Eosinophils # 0.1 (0-0.7) k/uL Basophils # 0.1 (0-0.2) k/uL Macrocytosis Slight Sodium (137-145) mmol/L Potassium (3.5-5.1) mmol/L Chloride (98-107) mmol/L Carbon Dioxide (22-30) mmol/L Anion Gap mmol/L BUN (7-17) mg/dL Creatinine (0.52-1.04) mg/dL Est GFR (CKD-EPI)AfAm (>60 ml/min/1.73 sqM) Est GFR (CKD-EPI)NonAf (>60 ml/min/1.73 sqM) Glucose (74-99) mg/dL Calcium (8.4-10.2) mg/dL Total Bilirubin (0.2-1.3) mg/dL AST (14-36) U/L ALT (9-52) U/L Alkaline Phosphatase (38-126) U/L Total Protein (6.3-8.2) g/dL Albumin (3.5-5.0) g/dL Amylase (30-110) U/L Lipase (23-300) U/L Urine Color Urine Appearance (Clear) Urine pH (5.0-8.0) Ur Specific [place] (1.001-1.035) Urine Protein (Negative) Urine Glucose (UA) (Negative) Urine Ketones (Negative) Urine Blood (Negative) Urine Nitrite (Negative) Urine Bilirubin (Negative) Urine Urobilinogen (<2.0) mg/dL Ur Leukocyte Esterase (Negative) Urine HCG, Qual (Not Detectd) Disposition Clinical Impression: Abdominal pain, Ovarian cyst Disposition: HOME SELF-CARE Condition: Good Instructions (If sedation given, give patient instructions): Abdominal Pain (ED), Ovarian Cyst (ED) Prescriptions: Dicyclomine [Bentyl] 20 mg PO QID #15 tablet Is patient prescribed a controlled substance at d/c from ED?: No Referrals: Jose Lund MD [Primary Care Provider] - 1-2 days
[2019-02-08 23:36] LABS: Appearance,Urine Clear (Clear); Bilirubin,Urine Negative (Negative); Blood,Urine Negative (Negative); Color,Urine Yellow; Glucose,Urine (UA) Negative (Negative); Ketones,Urine Negative (Negative); Leukocyte Esterase,Urine Negative (Negative); Nitrite,Urine Negative (Negative); Protein,Urine Negative (Negative); Specific Gravity,Urine 1.017 (1.001-1.035); Urobilinogen,Urine <2.0 mg/dL (<2.0)
--- NOTE | 2019-02-08 23:36 | CT ---
History: ITS.REASON CT Reason: Pain Exam: CT ABDOMEN + PELVIS Without Contrast Technique more: CTDI is 15.1 mGy and DLP is 866.4 mGy-cm. Technique more: This CT exam was performed using one or more of the following dose reduction techniques: automated exposure control, adjustment of the mA and/or kV according to patient size, and/or use of iterative reconstruction technique. Comparison: 06/30/2017 FINDINGS: Mild dependent basilar atelectasis. Abdominal solid organs and abdominal aorta appear within limits on noncontrast imaging. Note of a Morgan's lobe again seen, anatomic variant. No renal stones, hydronephrosis or perinephric stranding. No evidence of ureteral or bladder stone. Status post cholecystectomy. No bowel dilation or free air. Moderate colonic stool without wall thickening or pericolonic inflammatory change. Normal caliber appendix without secondary signs. There is now a cystic lesion right ovary measuring up to 4 cm axial 127. May correlate further with pelvic ultrasound. Bilateral tubal ligation clips again noted. The left ovary, uterus and bladder appear within limits. Diverticulosis without diverticulitis. No free fluid. Lumbar spondylosis/discogenic change again noted. IMPRESSION: There is now a cystic lesion right ovary measuring up to 4 cm axial 127. May correlate further with pelvic ultrasound. No free fluid. Status post cholecystectomy. Moderate colonic stool without wall thickening or pericolonic inflammatory change. Diverticulosis without diverticulitis.
[2019-02-09] MEDS ORDERED: MAGNESIUM CITRATE 296 ML BOTTLE PO ONE (00:54)
[2019-02-09 01:38] VITALS: BP 122/76; PULSE 85; RESP 19; TEMP 97.9
== END 2019-02-09 01:21 | disposition home or self-care (01) ==
LOC: EC 21:09
DX: N83.201 Unspecified ovarian cyst, right side (principal); R10.12 Left upper quadrant pain; M54.9 Dorsalgia, unspecified; R41.82 Altered mental status, unspecified; E11.9 Type 2 diabetes mellitus without complications; K21.9 Gastro-esophageal reflux disease without esophagitis; E78.5 Hyperlipidemia, unspecified; I10 Essential (primary) hypertension; F17.200 Nicotine dependence, unspecified, uncomplicated; Z79.890 Hormone replacement therapy; Z88.1 Allergy status to other antibiotic agents; Z88.2 Allergy status to sulfonamides; N83.209 Unspecified ovarian cyst, unspecified side; Z79.51 Long term (current) use of inhaled steroids; Z79.899 Other long term (current) drug therapy; Z80.0 Family history of malignant neoplasm of digestive organs; Z90.49 Acquired absence of other specified parts of digestive tract; Z98.51 Tubal ligation status
CPT/HCPCS: 36415; 80053; 82150; 83690; 85025; 81003; 81025; 74018; 74176; 99284; 96374; J2270

== ENCOUNTER → 2019-02-16 | Outpatient (CLI) | payer OTHER ==
--- NOTE | 2019-02-16 11:19 | US ---
EXAMINATION TYPE: US venous doppler duplex LE LT DATE OF EXAM: 02/16/2019 10:19 AM COMPARISON: NONE CLINICAL HISTORY: 43-year-old female M79.662 R22.42 Pain swelling Left Leg. Pain, swelling, on wate r pills, no hx of blood clots, no blood thinners, no redness SIDE PERFORMED: Left TECHNIQUE: The lower extremity deep venous system is examined utilizing real time linear array sonog willam with graded compression, doppler sonography and color-flow sonography. FINDINGS: VESSELS IMAGED: External Iliac Vein (EIV) Common Femoral Vein Deep Femoral Vein Greater Saphenous Vein * Femoral Vein Popliteal Vein Small Saphenous Vein *- limited visualization Proximal Calf Veins (* superficial vessels) Left Leg: Negative for DVT IMPRESSION: No evidence for DVT within the left lower extremity imaged from the groin to the upper calf.
== END | disposition home or self-care (01) ==
LOC: RADUSWWP 09:57
PROVIDERS: ATTEND Internal Medicine
DX: M79.662 Pain in left lower leg (principal); R22.42 Localized swelling, mass and lump, left lower limb

== ENCOUNTER 2019-03-18 10:10 | Observation (INO) | payer OTHER ==
--- NOTE | 2019-03-18 11:00 | ED ---
General Adult HPI - General Chief complaint: Chest Pain Stated complaint: ASHU, abd pain Time Seen by Provider: 03/18/19 10:23 Source: patient Mode of arrival: ambulatory Limitations: no limitations - History of Present Illness Initial comments: 43-year-old female presenting for multiple complaints. Patient states she has history of congestive heart failure with "leaky valves". She states she follows cardiology with an upcoming appointment this April she states her last visit was December 2017. She states that she has had leg swelling bilaterally for quite some time now she states the past week there's been increasing shortness of breath with walking with today was more than usual. She states this is similar to when she's had exacerbations of CHF in the past. Patient states she has also noticed for the past 1-2 weeks pain in the upper abdomen near where she had a previous repair of a hernia, she states it hurt and ortiz with certain positions, and when she pushes on the area she can pin point a specific area of pain. Patient states she has been constipated for the past 4 days and states she struggles with constipation chronically. She states she hasnt been able to have a BM with lactulose. Patient states she has been compliant with her 40mg of lasix daily as prescribed by Dr. Lund for patients b/l leg swelling. Pt denies chest pain, nausea, back pain, vomiting, fever, chills. Patient is an everyday smoker. When symptoms persisted this morning patient presented to the ER for evaluation. Upon arrival patient appears well. - Related Data Home Medications Medication Instructions Recorded Confirmed Pantoprazole Sodium [Protonix] 40 mg PO BID 05/13/14 03/18/19 Topiramate [Topamax] 100 mg PO BID 05/13/14 03/18/19 Fluticasone Nasal [place] [Flonase 2 spray EA NOSTRIL DAILY 07/10/15 03/18/19 Nasal [place]] Levothyroxine Sodium [Synthroid] 88 mcg PO DAILY 07/10/15 03/18/19 Baclofen [Lioresal] 10 mg PO TID PRN 08/13/16 03/18/19 Gemfibrozil [Lopid] 600 mg PO AC-BID 01/23/17 03/18/19 Lactulose 10 gm PO BID PRN 01/23/17 03/18/19 Dicyclomine [Bentyl] 10 mg PO TID 06/30/17 03/18/19 Ondansetron [Zofran ODT] 4 mg PO Q8HR PRN 06/30/17 03/18/19 Albuterol Inhaler [Ventolin Hfa 2 puff INHALATION RT-Q6H PRN 02/08/19 03/18/19 Inhaler] Calcium Polycarbophil [Fiber-Lax] 1,875 mg PO DAILY 03/18/19 03/18/19 Furosemide [Lasix] 20 mg PO AC-BID 03/18/19 03/18/19 Allergies Allergy/AdvReac Type Severity Reaction Status Date / Time cephalexin monohydrate Allergy Rash/Hives Verified 03/18/19 10:40 [From Keflex] prednisone Allergy Swelling Verified 03/18/19 10:40 of Feet sulfamethoxazole Allergy Anaphylaxis Verified 03/18/19 10:40 [From Bactrim] trimethoprim [From Bactrim] Allergy Anaphylaxis Verified 03/18/19 10:40 Review of Systems ROS Statement: Those systems with pertinent positive or pertinent negative responses have been documented in the HPI. ROS Other: All systems not noted in ROS Statement are negative. Past Medical History Past Medical History: Diabetes Mellitus, GERD/Reflux, Hyperlipidemia, Hypertension, Mitral Valve Prolapse (MVP), Osteoarthritis (OA), Respiratory Disorder, Skin Disorder, Thyroid Disorder Additional Past Medical History / Comment(s): HEART MURMUR, LEAKY HEART VALVES (STATES PRE-MEDICATED PRIOR TO PROCEDURES). HX OF DIVERTICULITIS. IBS. BRO NCHIECTASIS. MIGRAINES. HX OF STOMACH ULCERS. OVARIAN SYNDROME. HIDRADENITIS, SKIN DISORDER. "LIVER INFLAMED." "KIDNEY FUNCTION @ 60%." EDEMA BLE, WEARING YRN HOSE. History of Any Multi-Drug Resistant Organisms: None Reported Past Surgical History: Cholecystectomy, Hernia Repair, Orthopedic Surgery, Tubal Ligation, Uterine Ablation Additional Past Surgical History / Comment(s): lt foot surgery, BUNIONECTOMY. Bilat CTR. Colonoscopy, egd Past Anesthesia/Blood Transfusion Reactions: Motion Sickness Past Psychological History: Anxiety Smoking Status: Current every day smoker Past Alcohol Use History: None Reported Past Drug Use History: None Reported - Past Family History Mother Family Medical History: Myocardial Infarction ([place]) Additional Family Medical History / Comment(s): pacemaker Father Family Medical History: Cancer Additional Family Medical History / Comment(s): LIVER CANCER General Exam Limitations: no limitations Course Vital Signs 03/18/19 03/18/19 03/18/19 10:17 11:00 11:30 Temperature 98.3 F Pulse Rate 67 64 56 L Respiratory 18 18 19 Rate Blood Pressure 125/77 104/54 108/63 O2 Sat by Pulse 100 100 100 Oximetry 03/18/19 03/18/19 12:00 12:30 Temperature Pulse Rate 58 L 63 Respiratory 16 17 Rate Blood Pressure 94/47 106/76 O2 Sat by Pulse 100 100 Oximetry EKG Findings - EKG Comments: EKG Findings:: Ventricular rate 60 bpm, NH interval 158 ms, QRS duration 94 ms, QT/QTC 462/462 ms. Normal sinus rhythm. No ST elevation or depression. EKG was compared to that of 01/2017-no acute changes. EKG was interpretted by myself and reviewed by attending provider. Medical Decision Making - Medical Decision Making 43-year-old feel present for multiple complaints. Patient states she's been short of breath for days. Patient states she does have epigastric pain. Patient states is near the area about old hernia repair. EKG revealed no acute findings in comparison with previous. Initial troponin negative. Patient is diabetic and has hypertension. Patient's lungs are clear to auscultation. Chest x-ray revealed no acute other modalities no pleural effusions evidence of pneumonia. Patient denies history of fever or cough. Patient is an every day smoker. Dimer was obtained, returned elevated--CTA (-). BNP within acceptable limits, not compatible with acute CHF exacerbation. Patient does have bilateral lower extremity edema, she states this is chronic, on 40mg Lasix daily. Cr appears to be at baseline. At this time given patient history, risk factors patient willl be admitted to observation for serial troponins and further revaluation. Dr. Monteiro accepted admission. Pt agreeable - Lab Data Result diagrams: 03/18/19 11:05 03/18/19 11:05 Lab Results 03/18/19 03/18/19 03/18/19 Range/Units 11:05 11:05 11:05 WBC 12.0 H (3.8-10.6) k/uL RBC 3.92 (3.80-5.40) m/uL Hgb 13.1 (11.4-16.0) gm/dL Hct 39.6 (34.0-46.0) % MCV 100.9 H (80.0-100.0) fL MCH 33.5 (25.0-35.0) pg MCHC 33.2 (31.0-37.0) g/dL RDW 14.3 (11.5-15.5) % Plt Count 224 (150-450) k/uL Neutrophils % 71 % Lymphocytes % 21 % Monocytes % 4 % Eosinophils % 2 % Basophils % 0 % Neutrophils # 8.6 H (1.3-7.7) k/uL Lymphocytes # 2.5 (1.0-4.8) k/uL Monocytes # 0.5 (0-1.0) k/uL Eosinophils # 0.3 (0-0.7) k/uL Basophils # 0.0 (0-0.2) k/uL Macrocytosis Slight PT 9.4 (9.0-12.0) sec INR 0.9 (<1.2) APTT 25.0 (22.0-30.0) sec D-Dimer (<0.60) mg/L FEU Sodium 142 (137-145) mmol/L Potassium 4.6 (3.5-5.1) mmol/L Chloride 111 H (98-107) mmol/L Carbon Dioxide 23 (22-30) mmol/L Anion Gap 8 mmol/L BUN 23 H (7-17) mg/dL Creatinine 1.38 H (0.52-1.04) mg/dL Est GFR (CKD-EPI)AfAm 55 (>60 ml/min/1.73 sqM) Est GFR (CKD-EPI)NonAf 48 (>60 ml/min/1.73 sqM) Glucose 95 (74-99) mg/dL Calcium 8.9 (8.4-10.2) mg/dL Magnesium 1.9 (1.6-2.3) mg/dL Total Bilirubin 0.4 (0.2-1.3) mg/dL AST 17 (14-36) U/L ALT 16 (9-52) U/L Alkaline Phosphatase 69 (38-126) U/L Troponin I (0.000-0.034) ng/mL NT-Pro-B Natriuret Pep pg/mL Total Protein 6.6 (6.3-8.2) g/dL Albumin 3.7 (3.5-5.0) g/dL Lipase 205 (23-300) U/L 03/18/19 03/18/19 03/18/19 Range/Units 11:05 11:05 11:05 WBC (3.8-10.6) k/uL RBC (3.80-5.40) m/uL Hgb (11.4-16.0) gm/dL Hct (34.0-46.0) % MCV (80.0-100.0) fL MCH (25.0-35.0) pg MCHC (31.0-37.0) g/dL RDW (11.5-15.5) % Plt Count (150-450) k/uL Neutrophils % % Lymphocytes % % Monocytes % % Eosinophils % % Basophils % % Neutrophils # (1.3-7.7) k/uL Lymphocytes # (1.0-4.8) k/uL Monocytes # (0-1.0) k/uL Eosinophils # (0-0.7) k/uL Basophils # (0-0.2) k/uL Macrocytosis PT (9.0-12.0) sec INR (<1.2) APTT (22.0-30.0) sec D-Dimer 1.01 H (<0.60) mg/L FEU Sodium (137-145) mmol/L Potassium (3.5-5.1) mmol/L Chloride (98-107) mmol/L Carbon Dioxide (22-30) mmol/L Anion Gap mmol/L BUN (7-17) mg/dL Creatinine (0.52-1.04) mg/dL Est GFR (CKD-EPI)AfAm (>60 ml/min/1.73 sqM) Est GFR (CKD-EPI)NonAf (>60 ml/min/1.73 sqM) Glucose (74-99) mg/dL Calcium (8.4-10.2) mg/dL Magnesium (1.6-2.3) mg/dL Total Bilirubin (0.2-1.3) mg/dL AST (14-36) U/L ALT (9-52) U/L Alkaline Phosphatase (38-126) U/L Troponin I <0.012 (0.000-0.034) ng/mL NT-Pro-B Natriuret Pep 69 pg/mL Total Protein (6.3-8.2) g/dL Albumin (3.5-5.0) g/dL Lipase (23-300) U/L Disposition Clinical Impression: Shortness of breath, Epigastric pain Disposition: ADMITTED IP TO THIS HOSP Condition: Stable Is patient prescribed a controlled substance at d/c from ED?: No Referrals: Jose Lund MD [Primary Care Provider] - 1-2 days Time of Disposition: 14:43 Decision to Admit Reason: Admit from EC Decision Date: 03/18/19 Decision Time: 14:44
[2019-03-18 11:19] LABS: Basophils % (A) 0 %; Eosinophils # (A) 0.3 k/uL (0-0.7); Eosinophils % (A) 2 %; HCT 39.6 % (34.0-46.0); HGB 13.1 gm/dL (11.4-16.0); Lymphocytes # (A) 2.5 k/uL (1.0-4.8); Lymphocytes % (A) 21 %; MCH 33.5 pg (25.0-35.0); MCHC 33.2 g/dL (31.0-37.0); MCV 100.9 fL (80.0-100.0); Macrocytosis Slight; Mean Platelet Volume 8.1; Monocytes # (A) 0.5 k/uL (0-1.0); Monocytes % (A) 4 %; Neutrophils # (A) 8.6 k/uL (1.3-7.7); Neutrophils % (A) 71 %; Platelet Count 224 k/uL (150-450); RBC 3.92 m/uL (3.80-5.40); RDW 14.3 % (11.5-15.5)
[2019-03-18 11:29] LABS: INR 0.9 (<1.2); Prothrombin Time 9.4 sec (9.0-12.0)
[2019-03-18 11:41] LABS: Albumin 3.7 g/dL (3.5-5.0); Calcium 8.9 mg/dL (8.4-10.2); Magnesium 1.9 mg/dL (1.6-2.3); Potassium 4.6 mmol/L (3.5-5.1); Total Bilirubin 0.4 mg/dL (0.2-1.3); Total Protein 6.6 g/dL (6.3-8.2)
--- NOTE | 2019-03-18 11:42 | XR ---
EXAMINATION TYPE: XR chest 2V DATE OF EXAM: 03/18/2019 COMPARISON: 01/23/2017 HISTORY: Shortness of breath TECHNIQUE: Frontal and lateral views of the chest are obtained. FINDINGS: There is no focal air space opacity, pleural effusion, or pneumothorax seen. No pulmonary vascular congestion. The cardiac silhouette size is within normal limits. The osseous structures a re intact. IMPRESSION: No acute cardiopulmonary process.
--- NOTE | 2019-03-18 14:04 | CT ---
EXAMINATION TYPE: CT chest angio for PE DATE OF EXAM: 03/18/2019 COMPARISON: Chest x-ray same date HISTORY: pain, SOB CT DLP: 2431.5 (CTA chest, CT abd pelvis) mGycm Automated exposure control for dose reduction was used. CONTRAST: CT Chest for pulmonary embolism performed with with IV Contrast, patient injected with 80 mL of Isovu e 370. FINDINGS: LUNGS: The lungs are remarkable for scattered areas of groundglass opacity in the upper lobes, possib le mosaic perfusion, consider COPD, there is no concerning parenchymal mass or nodule identified. T here is no pleural effusion or pneumothorax seen. The tracheobronchial tree is patent. MEDIASTINUM: There is satisfactory enhancement of the pulmonary artery and its branches, there is no CT evidence for pulmonary embolism. There are no greater than 1 cm hilar or mediastinal lymph nodes. No pericardial effusion is seen. AORTA: No additional significant abnormality is seen. OTHER: Patient is post cholecystectomy. Liver shows low attenuation likely due to hepatic steatosis, liver may be enlarged. IMPRESSION: No evident pulmonary embolism. Findings in the lungs as described. Additional findings above.
--- NOTE | 2019-03-18 14:10 | CT ---
EXAMINATION TYPE: CT abdomen pelvis w con DATE OF EXAM: 03/18/2019 COMPARISON: CT 02/08/2019 HISTORY: pain, SOB CT DLP: 2431.5 (CTA chest, CT abd pelvis) mGycm Automated exposure control for dose reduction was used. TECHNIQUE: Helical acquisition of images from the lung bases through the pelvis have been completed. CONTRAST: Performed without Oral Contrast and with IV Contrast, patient injected with 80 mL of Isovue 370. FINDINGS: Small umbilical hernia contains fat. LUNG BASES: No significant abnormality is appreciated. AORTA: No significant abnormality is appreciated. LIVER/GB: Liver is enlarged and shows low attenuation compatible with hepatic steatosis. Gallbladder is absent. PANCREAS: No significant abnormality is seen. SPLEEN: No significant abnormality is seen. ADRENALS: No significant abnormality is seen. KIDNEYS: No significant abnormality is seen. REPRODUCTIVE ORGANS: Cystic right adnexal foci are present, bilateral tubal ligation changes are pres ent. Right adnexal cystic foci measure approximately 2.9 cm respectively. Uterus is unremarkable. BOWEL: Small duodenal diverticulum suspected at the head of the pancreas. Small bowel loops show jaci e thickening in the left upper quadrant. Diverticular changes associated with the sigmoid colon. The appendix is normal. FREE AIR: No Free Air visible. ASCITES: None visible. PELVIC ADENOPATHY: None visualized. RETROPERITONEAL ADENOPATHY: No Retroperitoneal Adenopathy visible. URINARY BLADDER: No significant abnormality is seen. OSSEOUS STRUCTURES: No significant interval change is seen. IMPRESSION: HEPATOMEGALY AND HEPATIC STEATOSIS. POSTOP CHANGES. DIVERTICULOSIS. CORRELATE FOR POSSIBLE ENTERITIS. Cystic right adnexal lesions may represent ovarian cysts, consider follow-up.
[2019-03-18] MEDS ORDERED: ALBUTEROL NEBULIZED 2.5 MG/3 ML INHALATION PRN (17:23)
[2019-03-18] MEDS ORDERED: LACTULOSE 20 GM/30 ML CUP PO PRN (17:23)
[2019-03-18] MEDS ORDERED: BACLOFEN 10 MG TAB PO PRN (17:23)
[2019-03-18] MEDS ORDERED: ONDANSETRON ODT 4 MG TAB PO PRN (17:23)
[2019-03-18] MEDS ORDERED: HYDROmorphone 0.5 MG/0.5 ML SYRINGE IVP PRN (17:25)
[2019-03-18] MEDS ORDERED: HYDROcodone/APAP 5-325MG 1 EACH TAB PO PRN (17:25)
[2019-03-18] MEDS ORDERED: TEMAZEPAM 15 MG CAP PO PRN (17:25)
--- NOTE | 2019-03-18 20:06 | HP ---
HISTORY AND PHYSICAL CHIEF COMPLAINTS: Chest pain and epigastric pain. HISTORY OF PRESENT ILLNESS: This 43-year-old woman with a past medical history of multiple medical problems, diabetes, GERD, hypertension, hyperlipidemia, mitral valve prolapse being followed by Dr. Ludn in the outpatient setting was complaining of shortness of breath and as well as epigastric pain. Patient apparently had CHF resulting in a leaky valve. The patient had some leg swelling also. The patient is complaining of epigastric and lower chest pain about 1-2 weeks duration with some pressure type and burning-type pain. The patient came to [facility] and admitted to the hospital for further evaluation and treatment. Multiple evaluations including chest x-ray done in the ER. Chest x-ray showed no acute cardiopulmonary lesions. An abdominal pelvis CAT scan was done which showed hepatomegaly and hepatic steatosis and chest CTA showed no evidence of pulmonary embolism. Patient admitted for further evaluation and treatment. There is no history of fever, rigors or chills. No history of headache, loss of consciousness or seizures. PAST MEDICAL HISTORY: History of GERD, diabetes, hypertension, hyperlipidemia, mitral valve prolapse, DJD, history of respiratory disorder, cholecystectomy. MEDICATIONS: Prior to admission home medications are: 1. Topamax 100 mg p.o. b.i.d. 2. Protonix 40 mg p.o. b.i.d. 3. Zofran 4 mg q.8 p.r.n. 4. Synthroid 18 mcg p.o. daily. 5. Lactulose 10 mg b.i.d. p.r.n. 6. Lopid 600 mg a.c. b.i.d. 7. Lasix 20 mg a.c. b.i.d. 8. Flonase 2 sprays daily. 9. Bentyl 20 mg p.o. t.i.d. 10.Fiber-Lax 1875 mg p.o. daily. 12.Ventolin HFA 2 puffs q.6h p.r.n. ALLERGIES: PREDNISONE, BACTRIM. FAMILY HISTORY: History of lung cancer in the family. SOCIAL HISTORY: History of smoking, continued ongoing. REVIEW OF SYSTEMS: ENT: Diminished vision. Diminished hearing. CARDIOVASCULAR SYSTEM: As mentioned earlier. RESPIRATORY: As mentioned earlier. GI no nausea or vomiting. no dysuria or hematuria. CENTRAL NERVOUS SYSTEM: No numbness or weakness. ALLERGY/IMMUNOLOGY: No asthma or hayfever. MUSCULOSKELETAL as mentioned earlier. HEMATOLOGY: No history of anemia. ENDOCRINE as mentioned earlier. CONSTITUTIONAL: As mentioned earlier. DERMATOLOGY: Negative. RHEUMATOLOGY: Negative. PSYCHIATRY: As mentioned earlier. PHYSICAL EXAMINATION: Alert and oriented times three. Pulse 58, blood pressure 94/50, respiration 16, temperature 98.2. Pulse ox 100 percent on room air. HEENT: Conjunctivae normal. NECK: No jugular venous distention. CARDIOVASCULAR: S1, S2. RESPIRATORY: Breath sounds diminished in the bases. A few scattered rhonchi. No crackles. ABDOMEN: Soft. Mild diffuse discomfort in the epigastrium. No mass palpable. LEGS: Minimal edema. NERVOUS SYSTEM as mentioned earlier. Moves all 4 limbs. No focal motor or sensory deficits. LYMPHATICS: No lymph nodes palpable in the neck or axilla. SKIN: No ulcer, rash or bleeding. JOINTS: No active deforming arthropathy. LAB STUDIES: WBC 12, hemoglobin 13.1 and sodium 140. Potassium 4.6, creatinine is 1.38. ASSESSMENT: 1. Chest pain for evaluation, rule out unstable angina, possible gastroesophageal reflux disease. 2. History of congestive heart failure, ejection fraction unknown. 3. Diabetes type 2. 4. Gastroesophageal reflux disease. 5. Hypertension. 6. Hyperlipidemia. 7. Chronic kidney disease stage III. 8. Mitral valve prolapse. 9. Degenerative joint disease. 10.History of hypothyroidism. 11.History of cardiac murmur. 12.History of diverticulitis. 13.History of irritable bowel syndrome. 14.History of stomach ulcer. 15.History of hydradenitis. 16.History of cholecystectomy. 17.History of anxiety. 18.History of nicotine dependence. RECOMMENDATIONS AND DISCUSSION: In this 43-year-old woman who presented with multiple complex medical issues, we will monitor the patient closely, continue the current medications, management and symptomatic treatment. Otherwise at this time, proton pump inhibitors. Cardiology consultation. Rule out myocardial infarction. Resume the home medications. Prognosis guarded because of multiple complex medical issues. Further recommendations to follow. Copy of dictation being forwarded to Dr. Lund who is the primary care physician. MMODL / IJN: [id number] / MTDD
[2019-03-18 20:34] LABS: Glucose,Whole Blood 83 mg/dL (75-99)
[2019-03-18] MEDS: TOPIRAMATE 100 MG TAB PO SCH (21:36)
[2019-03-18] MEDS: DICYCLOMINE 10 MG CAP PO SCH (21:37)
[2019-03-18] MEDS: PANTOPRAZOLE 40 MG/10 ML VIAL IVP SCH (21:38)
[2019-03-18] MEDS: FUROSEMIDE 20 MG TAB PO SCH (21:38)
[2019-03-19] MEDS ORDERED: LEVOTHYROXINE 88 MCG TAB PO SCH (06:30)
[2019-03-19 06:48] LABS: Glucose,Whole Blood 90 mg/dL (75-99)
[2019-03-19 07:41] VITALS: BP 100/68; RESP 18; TEMP 97.7
[2019-03-19 07:56] LABS: Basophils % (A) 0 %; Eosinophils # (A) 0.2 k/uL (0-0.7); Eosinophils % (A) 2 %; HCT 37.2 % (34.0-46.0); HGB 12.2 gm/dL (11.4-16.0); Lymphocytes # (A) 2.4 k/uL (1.0-4.8); Lymphocytes % (A) 29 %; MCH 33.2 pg (25.0-35.0); MCHC 32.7 g/dL (31.0-37.0); MCV 101.6 fL (80.0-100.0); Macrocytosis Slight; Mean Platelet Volume 7.7; Monocytes # (A) 0.5 k/uL (0-1.0); Monocytes % (A) 6 %; Neutrophils % (A) 61 %; Platelet Count 216 k/uL (150-450); RBC 3.66 m/uL (3.80-5.40); RDW 14.6 % (11.5-15.5); WBC 8.3 k/uL (3.8-10.6)
[2019-03-19 08:05] VITALS: PULSE 76
[2019-03-19 08:07] LABS: Calcium 8.5 mg/dL (8.4-10.2); Potassium 4.1 mmol/L (3.5-5.1)
[2019-03-19] MEDS ORDERED: FENOFIBRATE 160 MG TAB PO SCH (09:00)
[2019-03-19] MEDS ORDERED: ASPIRIN 325 MG TAB PO SCH (09:00)
[2019-03-19] MEDS ORDERED: FLUTICASONE 50MCG/SPRAY NASAL 16GM EA NOSTRIL SCH (09:00)
[2019-03-19] MEDS ORDERED: CALCIUM POLYCARBOPHIL 625 MG TAB PO SCH (09:00)
[2019-03-19] MEDS: DICYCLOMINE 10 MG CAP PO SCH (09:11)
[2019-03-19] MEDS: FUROSEMIDE 20 MG TAB PO SCH (09:11)
[2019-03-19] MEDS: PANTOPRAZOLE 40 MG/10 ML VIAL IVP SCH (09:11)
[2019-03-19] MEDS: TOPIRAMATE 100 MG TAB PO SCH (09:11)
--- NOTE | 2019-03-20 07:30 | DS ---
DISCHARGE SUMMARY DATE OF SERVICE: 03/19/2019. FINAL DIAGNOSES: 1. Epigastric pain, possible gastroesophageal reflux disease, myocardial infarction ruled out. 2. History of congestive heart failure, ejection fraction unknown. 3. Diabetes mellitus type 2. 4. Gastroesophageal reflux disease. 5. Hypertension. 6. Hyperlipidemia. 7. Chronic kidney stage III. 8. Mitral prolapse. 9. History degenerative joint disease. 10.History of hypothyroidism. 11.History of cardiac murmur. 12.History of diverticulitis. 13.History of irritable bowel syndrome. 14.History of stomach ulcer. 15.History of hidradenitis. 16.History of cholecystectomy. 17.History of anxiety. 18.History of nicotine dependence. DISCHARGE DISPOSITION: The patient is being discharged in stable condition with guarded prognosis. HISTORY OF PRESENT ILLNESS: This 43-year-old woman with a past medical history of multiple medical problems admitted with epigastric pain. Myocardial infarction ruled out. Patient improved significantly. The patient had an appoint with Dr. Bell on Thursday, recommend possible EGD by Dr. Bell in the outpatient setting and closely follow with Dr. Lund in the outpatient setting as well. DISCHARGE ADVICE/MEDICATION: 1. Diet is cardiac diet. 2. Activity limited until followup. 3. Follow up with Dr. Lund 2-3 days. 4. Follow up with Dr. Bell as advised. DISCHARGE MEDICATIONS: 1. Bentyl 10 mg p.o. t.i.d. p.r.n. 2. Fiber-Lax daily. 3. Flonase nasal spray daily. 4. Lactulose 10 mg p.o. b.i.d. p.r.n. 5. Lasix 20 mg a.c. b.i.d. 6. Lioresal 10 mg t.i.d. p.r.n. 7. Lopid 600 mg a.c. b.i.d. 8. Protonix 40 mg b.i.d. 9. Synthroid 88 mcg p.o. daily. 10.Topamax 100 mg p.o. b.i.d. 11.Ventolin 2 puffs q.6h p.r.n. 12.Zofran 4 mg q.8 p.r.n. Once again the patient is being discharged in stable condition with guarded prognosis. MMODL / IJN: [id number] /
== END 2019-03-19 12:20 | disposition home or self-care (01) ==
LOC: EC 10:10 → 1SOBS 15:14
PROVIDERS: ADMIT Hospitalist; ATTEND Hospitalist
DX: R10.13 Epigastric pain (principal); R06.02 Shortness of breath; R07.89 Other chest pain; I13.0 Hypertensive heart and chronic kidney disease with heart failure and stage 1 through stage 4 chronic kidney disease, or unspecified chronic kidney disease; I50.9 Heart failure, unspecified; N18.3 Chronic kidney disease, stage 3 (moderate); E11.22 Type 2 diabetes mellitus with diabetic chronic kidney disease; K21.9 Gastro-esophageal reflux disease without esophagitis; E78.5 Hyperlipidemia, unspecified; I34.1 Nonrheumatic mitral (valve) prolapse; M19.90 Unspecified osteoarthritis, unspecified site; E03.9 Hypothyroidism, unspecified; K58.1 Irritable bowel syndrome with constipation; K57.90 Diverticulosis of intestine, part unspecified, without perforation or abscess without bleeding; L73.2 Hidradenitis suppurativa; Z90.49 Acquired absence of other specified parts of digestive tract; F41.9 Anxiety disorder, unspecified; K76.0 Fatty (change of) liver, not elsewhere classified; R79.89 Other specified abnormal findings of blood chemistry; G43.909 Migraine, unspecified, not intractable, without status migrainosus; J47.9 Bronchiectasis, uncomplicated; Z79.890 Hormone replacement therapy; Z79.899 Other long term (current) drug therapy; Z88.1 Allergy status to other antibiotic agents; Z88.2 Allergy status to sulfonamides; Z88.8 Allergy status to other drugs, medicaments and biological substances; Z87.11 Personal history of peptic ulcer disease; Z98.51 Tubal ligation status; Z80.1 Family history of malignant neoplasm of trachea, bronchus and lung; Z82.49 Family history of ischemic heart disease and other diseases of the circulatory system; Z80.0 Family history of malignant neoplasm of digestive organs
CPT/HCPCS: 96374; 96376; 99285; 36415; 94640; 94760; 85379; 83880; 80061; 80053; 80048; 83690; 83735; 84484; 85025 ×2; 85610; 85730; 71046; 71275; 74177; G0378 ×2; C9113 ×2; Q9967

== ENCOUNTER → 2019-03-21 | Outpatient (CLI) | payer OTHER ==
[2019-03-21 11:21] LABS: Basophils % (A) 0 %; Eosinophils # (A) 0.2 k/uL (0-0.7); Eosinophils % (A) 2 %; HCT 40.3 % (34.0-46.0); HGB 13.6 gm/dL (11.4-16.0); Lymphocytes # (A) 2.2 k/uL (1.0-4.8); Lymphocytes % (A) 26 %; MCH 34.5 pg (25.0-35.0); MCHC 33.8 g/dL (31.0-37.0); Macrocytosis Slight; Mean Platelet Volume 7.7; Monocytes # (A) 0.5 k/uL (0-1.0); Monocytes % (A) 6 %; Neutrophils # (A) 5.3 k/uL (1.3-7.7); Neutrophils % (A) 64 %; Platelet Count 242 k/uL (150-450); RBC 3.95 m/uL (3.80-5.40); RDW 13.3 % (11.5-15.5); WBC 8.3 k/uL (3.8-10.6)
[2019-03-21 16:42] LABS: Carbon Dioxide 24.5 mmol/L (21.6-31.8); Potassium 4.3 mmol/L (3.5-5.5)
[2019-03-21 16:43] LABS: African American GFR (CKD) 49.6 (60.0-200.0); Anion Gap 6.5 mmol/L (4.00-12.00)
== END | disposition home or self-care (01) ==
LOC: LABWHC1 10:41
PROVIDERS: ATTEND Hospitalist
DX: R79.89 Other specified abnormal findings of blood chemistry (principal)
CPT/HCPCS: 36415; 80048; 85025

== ENCOUNTER → 2019-04-29 | Outpatient (CLI) | payer OTHER ==
--- NOTE | 2019-04-30 19:30 | US ---
EXAMINATION TYPE: US kidneys/renal and bladder DATE OF EXAM: 04/29/2019 COMPARISON: NONE CLINICAL HISTORY: N17.9 Acute kidney injury. EXAM MEASUREMENTS: Right Kidney: 10.0 x 3.1 x 4.0 cm Left Kidney: 10.7 x 4.5 x 3.6 cm Right Kidney: No hydronephrosis or masses seen Left Kidney: No hydronephrosis or masses seen Bladder: wnl Bilateral Jets seen: Yes There is no evidence for hydronephrosis at this point in time. No nephrolithiasis is seen. No robert s are identified. The urinary bladder is anechoic. Bilateral ureteral jets are seen. IMPRESSION: Negative exam. No evidence of renal mass or obstruction.
== END | disposition home or self-care (01) ==
LOC: RADUSWWP 16:01
PROVIDERS: ATTEND Internal Medicine Nephrology
DX: N17.9 Acute kidney failure, unspecified (principal)
CPT/HCPCS: 76770

== ENCOUNTER → 2019-05-10 | Outpatient (CLI) | payer OTHER ==
[2019-05-10 16:18] LABS: Basophils # (A) 0.1 k/uL (0-0.2); Basophils % (A) 1 %; Eosinophils # (A) 0.1 k/uL (0-0.7); Eosinophils % (A) 1 %; HCT 41.9 % (34.0-46.0); Lymphocytes # (A) 2.9 k/uL (1.0-4.8); Lymphocytes % (A) 26 %; MCH 34.3 pg (25.0-35.0); MCHC 33.5 g/dL (31.0-37.0); MCV 102.4 fL (80.0-100.0); Macrocytosis Slight; Monocytes # (A) 0.6 k/uL (0-1.0); Monocytes % (A) 5 %; Neutrophils # (A) 7.3 k/uL (1.3-7.7); Neutrophils % (A) 66 %; Platelet Count 232 k/uL (150-450); RBC 4.09 m/uL (3.80-5.40); RDW 13.9 % (11.5-15.5); WBC 11.2 k/uL (3.8-10.6)
[2019-05-10 16:21] LABS: Appearance,Urine Cloudy (Clear); Bilirubin,Urine Negative (Negative); Blood,Urine Negative (Negative); Color,Urine Yellow; Glucose,Urine (UA) Negative (Negative); Hyaline Casts,Urine 16 /lpf (0-2); Ketones,Urine Negative (Negative); Leukocyte Esterase,Urine Negative (Negative); Mucus,Urine Rare /hpf; Nitrite,Urine Negative (Negative); Protein,Urine Negative (Negative); RBC,Urine 1 /hpf (0-5); Specific Gravity,Urine 1.014 (1.001-1.035); Squamous Epithelial Cell,Urine 3 /hpf (0-4); Urobilinogen,Urine <2.0 mg/dL (<2.0); WBC,Urine 1 /hpf (0-5)
[2019-05-11 01:57] LABS: Creatinine,Urine Random 107.1 mg/dL; Total Protein,Urine Random 10.9 mg/dL (0.0-13.5)
[2019-05-11 03:22] LABS: Albumin 4.4 g/dL (3.80-4.90); Anion Gap 11.3 mmol/L (4.00-12.00); BUN/Creat Ratio 9.17 Ratio (12.00-20.00); Calcium 9.1 mg/dL (8.7-10.3); Carbon Dioxide 21.7 mmol/L (21.6-31.8); Iron Saturation 18.9 (12.00-45.00); Magnesium 1.8 mg/dL (1.5-2.4); Phosphorus 3.6 mg/dL (2.4-5.1); Potassium 3.6 mmol/L (3.5-5.5); Uric Acid 6.7 mg/dL (2.9-7.7)
[2019-05-11 04:33] LABS: Vitamin D 25 Hydroxy 9.5 ng/mL (30.0-100.0)
== END | disposition home or self-care (01) ==
LOC: LABWHC1 15:26
PROVIDERS: ATTEND Internal Medicine Nephrology
DX: N17.9 Acute kidney failure, unspecified (principal); N25.89 Other disorders resulting from impaired renal tubular function; M10.9 Gout, unspecified; N39.0 Urinary tract infection, site not specified; D64.9 Anemia, unspecified; R80.9 Proteinuria, unspecified; E55.9 Vitamin D deficiency, unspecified
CPT/HCPCS: 36415; 80048; 81001; 82040; 82306; 82570; 82728; 83540; 83550; 83735; 83970; 84100; 84156; 84550; 85025

== ENCOUNTER 2019-05-23 18:39 | Emergency (ER) | payer OTHER ==
[2019-05-23 18:48] VITALS: BP 151/90; PULSE 87; RESP 18; TEMP 98.1
[2019-05-23] MEDS ORDERED: AMOXIC-POT CLAV 875MG STARTER 2 EACH TABLET PO STA (19:45)
--- NOTE | 2019-05-23 19:45 | ED ---
General Adult HPI - General Chief complaint: ENT Stated complaint: poss ear & sinus infection Time Seen by Provider: 05/23/19 18:53 Source: patient, RN notes reviewed Mode of arrival: ambulatory Limitations: no limitations - History of Present Illness Initial comments: 43-year-old female with a past medical history of GERD, hyperlipidemia, hypertension, MVP presents to the emergency department for a chief complaint of congestion. Patient states she no longer has history of diabetes notices diet controlled. Patient states she has had congestion for about 3 days. States that she has had postnasal drip. States that she has pain radiating from her right sinus to her right ear. Denies fevers or chills. Does admit to minimal dry cough.Patient has no other complaints at this time including shortness of breath, chest pain, abdominal pain, nausea or vomiting, headache, or visual changes. - Related Data Home Medications Medication Instructions Recorded Confirmed Pantoprazole Sodium [Protonix] 40 mg PO BID 05/13/14 03/18/19 Topiramate [Topamax] 100 mg PO BID 05/13/14 03/18/19 Fluticasone Nasal [place] [Flonase 2 spray EA NOSTRIL DAILY 07/10/15 03/18/19 Nasal [place]] Levothyroxine Sodium [Synthroid] 88 mcg PO DAILY 07/10/15 03/18/19 Baclofen [Lioresal] 10 mg PO TID PRN 08/13/16 03/18/19 Gemfibrozil [Lopid] 600 mg PO AC-BID 01/23/17 03/18/19 Lactulose 10 gm PO BID PRN 01/23/17 03/18/19 Dicyclomine [Bentyl] 10 mg PO TID 06/30/17 03/18/19 Ondansetron [Zofran ODT] 4 mg PO Q8HR PRN 06/30/17 03/18/19 Albuterol Inhaler [Ventolin Hfa 2 puff INHALATION RT-Q6H PRN 02/08/19 03/18/19 Inhaler] Calcium Polycarbophil [Fiber-Lax] 1,875 mg PO DAILY 03/18/19 03/18/19 Furosemide [Lasix] 20 mg PO AC-BID 03/18/19 03/18/19 Previous Rx's Medication Instructions Recorded Amoxicillin/Potassium Clav 1 tab PO Q12HR #20 tab 05/23/19 [Augmentin 875-125 Tablet] Allergies Allergy/AdvReac Type Severity Reaction Status Date / Time cephalexin monohydrate Allergy Rash/Hives Verified 05/23/19 18:48 [From Keflex] prednisone Allergy Swelling Verified 05/23/19 18:48 of Feet sulfamethoxazole Allergy Anaphylaxis Verified 05/23/19 18:48 [From Bactrim] trimethoprim [From Bactrim] Allergy Anaphylaxis Verified 05/23/19 18:48 Review of Systems ROS Statement: Those systems with pertinent positive or pertinent negative responses have been documented in the HPI. ROS Other: All systems not noted in ROS Statement are negative. Past Medical History Past Medical History: Diabetes Mellitus, GERD/Reflux, Hyperlipidemia, Hypertension, Mitral Valve Prolapse (MVP), Osteoarthritis (OA), Respiratory Disorder, Skin Disorder, Thyroid Disorder Additional Past Medical History / Comment(s): HEART MURMUR, LEAKY HEART VALVES (STATES PRE-MEDICATED PRIOR TO PROCEDURES). HX OF DIVERTICULITIS. IBS. BRONCHIECTASIS. MIGRAINES. HX OF STOMACH ULCERS. OVARIAN SYNDROME. HIDRADENI TIS, SKIN DISORDER. "LIVER INFLAMED." "KIDNEY FUNCTION @ 60%." EDEMA BLE, WEARING YRN HOSE. History of Any Multi-Drug Resistant Organisms: None Reported Past Surgical History: Cholecystectomy, Hernia Repair, Orthopedic Surgery, Tubal Ligation, Uterine Ablation Additional Past Surgical History / Comment(s): lt foot surgery, BUNIONECTOMY. Bilat CTR. Colonoscopy, egd Past Anesthesia/Blood Transfusion Reactions: Motion Sickness Past Psychological History: Anxiety Smoking Status: Current every day smoker Past Alcohol Use History: None Reported Past Drug Use History: None Reported - Past Family History Mother Family Medical History: Myocardial Infarction ([place]) Additional Family Medical History / Comment(s): pacemaker Father Family Medical History: Cancer Additional Family Medical History / Comment(s): LIVER CANCER General Exam Limitations: no limitations General appearance: alert, in no apparent distress Head exam: Present: atraumatic, normocephalic, normal inspection Eye exam: Present: normal appearance, PERRL, EOMI. Absent: scleral icterus, conjunctival injection, periorbital swelling ENT exam: Present: normal exam, normal oropharynx (Uvula midline, no tonsillar exudates noted bilaterally.), mucous membranes moist, TM's normal bilaterally, normal external ear exam, other (Patient has minimal edema present to the right maxillary sinus area with mild tenderness. No erythema whatsoever.) Neck exam: Present: normal inspection, full ROM. Absent: tenderness, meningismus, lymphadenopathy Respiratory exam: Present: normal lung sounds bilaterally. Absent: respiratory distress, wheezes, rales, rhonchi, stridor Cardiovascular Exam: Present: regular rate, normal rhythm, normal heart sounds. Absent: systolic murmur, diastolic murmur, rubs, gallop, clicks GI/Abdominal exam: Present: soft, normal bowel sounds. Absent: distended, tenderness, guarding, rebound, rigid Neurological exam: Present: alert Psychiatric exam: Present: normal affect, normal mood Course Vital Signs 05/23/19 18:46 Temperature 98.1 F Pulse Rate 87 Respiratory 18 Rate Blood Pressure 151/90 O2 Sat by Pulse 99 Oximetry Medical Decision Making - Medical Decision Making 43-year-old female presents to the emergency department for congestion 3 days. Patient also has minimal cough and postnasal drip. No fevers or chills. No headache or neck pain. On exam patient is minimal edema present of the right maxillary sinus area with mild tenderness over this area. No erythema or increased warmth of this area. Right ear appears normal. No bulging of the tympanic membranes. No purulent material behind the eardrum. At this time patient will be started on Augmentin. However I discussed her to return parameters with her including worsening swelling or pain, fevers, headaches. She does agree to return if these occur. She will follow up with primary care in 1-2 days as well. Disposition Clinical Impression: Sinusitis Disposition: HOME SELF-CARE Condition: Good Instructions (If sedation given, give patient instructions): Sinusitis (ED) Additional Instructions: Please take antibiotic as directed. Please follow-up with primary care in 1-2 days. If you develop any fevers or worsening swelling or any other worsening symptoms return immediately to the nearest emergency department. Prescriptions: Amoxicillin/Potassium Clav [Augmentin 875-125 Tablet] 1 tab PO Q12HR #20 tab Is patient prescribed a controlled substance at d/c from ED?: No Referrals: Jose Lund MD [Primary Care Provider] - 1-2 days Time of Disposition: 19:44
== END 2019-05-23 19:55 | disposition home or self-care (01) ==
LOC: EC 18:39
DX: J32.9 Chronic sinusitis, unspecified (principal); K21.9 Gastro-esophageal reflux disease without esophagitis; E78.5 Hyperlipidemia, unspecified; I10 Essential (primary) hypertension; E07.9 Disorder of thyroid, unspecified; K58.9 Irritable bowel syndrome, unspecified; F17.200 Nicotine dependence, unspecified, uncomplicated; Z88.1 Allergy status to other antibiotic agents; Z88.2 Allergy status to sulfonamides; Z88.8 Allergy status to other drugs, medicaments and biological substances; Z79.51 Long term (current) use of inhaled steroids; Z79.890 Hormone replacement therapy; Z79.899 Other long term (current) drug therapy; Z86.69 Personal history of other diseases of the nervous system and sense organs
CPT/HCPCS: 99283

== ENCOUNTER → 2019-07-20 | Outpatient (CLI) | payer OTHER ==
--- NOTE | 2019-07-20 12:04 | MM ---
Reason for exam: follow-up at short interval from prior study. Last mammogram was performed 6 months ago. History: Family history of breast cancer in mother at age 62 and breast cancer in maternal grandmother at age 50. Benign US biopsy breast VAD LT of the left breast, July 27, 2018. Benign excisional biopsy of the left breast, July 2011. Benign excisional biopsy of the left breast, December 2010. Benign excisional biopsy of the left breast, 2009. Took hormonal contraceptives beginning at age 15. Physical Findings: Nurse did not find any significant physical abnormalities on exam. MG Diagnostic Mammo w CAD CHAN Bilateral CC, MLO, and XCCL view(s) were taken. LM and spot compression MLO view(s) were taken of the left breast. Prior study comparison: January 17, 2019, left breast MG diagnostic mammo LT w CAD. July 27, 2018, left breast MG diagnostic mammo LT wo CAD. There are scattered fibroglandular densities. Left biopsy marker and retroareolar calcifications are stable. Left superior asymmetry at posterior depth appears as a vessel on additional 3D views. These results were verbally communicated with the patient and result sheet given to the patient on 07/20/19. ASSESSMENT: Benign, BI-RAD 2 RECOMMENDATION: Routine screening mammogram of both breasts in 1 year.
== END | disposition home or self-care (01) ==
LOC: RADMAMWWP 10:39
PROVIDERS: ATTEND Surgery
DX: R92.8 Other abnormal and inconclusive findings on diagnostic imaging of breast (principal)
CPT/HCPCS: 77066

== ENCOUNTER → 2019-12-02 | Outpatient (CLI) | payer OTHER ==
--- NOTE | 2019-12-02 16:21 | US ---
LOWER EXTREMITY VENOUS INSUFFICIENCY CLINICAL HISTORY: I70.213 Atherosclerosis of [place] arteries. Left leg swelling SIDE PERFORMED: Left 1) Color flow is present and patency is documented in the following vessels. No DVT or SVT is noted . EIV Common Femoral Vein Deep Femoral Vein Femoral Vein Popliteal Vein Proximal Calf Veins Greater Saph Vein Upper Small Saph Vein 2) There is venous reflux noted at the following venous levels: none IMPRESSION: 1. No suspicious venous reflux evident within the bilateral lower extremities.
--- NOTE | 2019-12-07 11:52 | P.ARTDOP ---
Arterial Doppler LOWER EXTREMITY ARTERIAL DOPPLER: DATE OF SERVICE: 12/02/2019 Reason for study: Suspected PAD. Doppler waveforms: Multiphasic bilaterally throughout. Pulse volume recording: Mildly blunted digital waveforms. Pressure gradients: None. Ankle-brachial indices: Greater than 1 bilaterally. Toe brachial indices: 0.55 on the right, 0.77 on the left Impression: Normal study. Mildly decreased toe pressure on the right of uncertain significance..
== END | disposition home or self-care (01) ==
LOC: RADUSWWP 12:54
PROVIDERS: ATTEND Internal Medicine
DX: I87.2 Venous insufficiency (chronic) (peripheral) (principal); I70.213 Atherosclerosis of native arteries of extremities with intermittent claudication, bilateral legs
CPT/HCPCS: 93922; 93923; 93970

== ENCOUNTER 2020-07-10 18:13 | Observation (INO) | payer OTHER ==
--- NOTE | 2020-07-10 19:05 | ED ---
Chest Pain HPI - General Chief Complaint: Chest Pain Stated Complaint: CHEST PAIN Time Seen by Provider: 07/10/20 18:20 Source: patient Mode of arrival: wheelchair Limitations: no limitations - History of Present Illness Initial Comments: 44-year-old female past history of diabetes, hypertension, mitral valve prolapse presents to the emergency room with reported chest pain and shortness of breath. She reports that her symptoms started earlier today. Reports that the shortness of breath and chest pain is exertional. Also has presyncopal sensation. No history of underlying lung conditions. Does report a history of mitral valve prolapse. Denies history of coronary disease. Reports that her last stress test was earlier this year. She denies any fevers or chills. No cough or hemoptysis. Patient also reports to right ear pain and right-sided sore throat. No nausea or vomiting. No other alleviating, precipitating or modifying factors - Related Data Home Medications Medication Instructions Recorded Confirmed Topiramate [Topamax] 100 mg PO DAILY 05/13/14 07/10/20 Fluticasone Nasal [place] [Flonase 1 spray EA NOSTRIL BID 07/10/15 07/10/20 Nasal [place]] Levothyroxine Sodium [Synthroid] 88 mcg PO DAILY 07/10/15 07/10/20 Baclofen [Lioresal] 10 mg PO BID 08/13/16 07/10/20 Lactulose 10 gm PO BID 01/23/17 07/10/20 gemfibroziL [Lopid] 600 mg PO BID 01/23/17 07/10/20 Dicyclomine [Bentyl] 10 mg PO TID PRN 06/30/17 07/10/20 Acetaminophen Tab [Tylenol] 650 mg PO Q6H PRN 07/10/20 07/10/20 Ergocalciferol [Vitamin D2 50,000 unit PO Q14D 07/10/20 07/10/20 (DRISDOL)] Ipratropium/Albuterol Sulfate 1 puff INHALATION RT-QID 07/10/20 07/10/20 [Combivent Respimat Inhaler] Omeprazole 20 mg PO BID 07/10/20 07/10/20 Previous Rx's Medication Instructions Recorded Meclizine [Antivert] 25 mg PO TID #15 tab 07/12/20 Allergies Allergy/AdvReac Type Severity Reaction Status Date / Time cephalexin monohydrate Allergy Rash/Hives Verified 07/10/20 19:22 [From Keflex] losartan Allergy Anaphylaxis Verified 07/10/20 19:22 prednisone Allergy Swelling Verified 07/10/20 19:22 of Feet sulfamethoxazole Allergy Anaphylaxis Verified 07/10/20 19:22 [From Bactrim] trimethoprim [From Bactrim] Allergy Anaphylaxis Verified 07/10/20 19:22 Review of Systems ROS Statement: Those systems with pertinent positive or pertinent negative responses have been documented in the HPI. ROS Other: All systems not noted in ROS Statement are negative. EKG Findings - EKG Comments: EKG Findings:: EKG demonstrates a normal sinus rhythm with a ventricular rate of 74. IA interval 144. QRS 102. QTC of 444. No acute ST segment elevations. Mild ST depression in lead 3 and aVF Past Medical History Past Medical History: Diabetes Mellitus, GERD/Reflux, Hyperlipidemia, Hypertension, Mitral Valve Prolapse (MVP), Osteoarthritis (OA), Respiratory Disorder, Skin Disorder, Thyroid Disorder Additional Past Medical History / Comment(s): HEART MURMUR, LEAKY HEART VALVES (STATES PRE-MEDICATED PRIOR TO PROCEDURES). HX OF DIVERTICULITIS. IBS. BRONCHIECTASIS. MIGRAINES. HX OF STOMACH ULCERS. OVARIAN SYNDROME. HIDRADENITIS, SKIN DISORDER. "LIVER INFLAMED." "KIDNEY FUNCTION @ 60%." EDEMA BLE, WEARING YRN HOSE. History of Any Multi-Drug Resistant Organisms: None Reported Past Surgical History: Cholecystectomy, Hernia Repair, Orthopedic Surgery, Tubal Ligation, Uterine Ablation Additional Past Surgical History / Comment(s): lt foot surgery, BUNIONECTOMY. Bilat CTR. Colonoscopy, egd Past Anesthesia/Blood Transfusion Reactions: Motion Sickness Past Psychological History: Anxiety Smoking Status: Current every day smoker Past Alcohol Use History: None Reported Past Drug Use History: None Reported - Past Family History Mother Family Medical History: Myocardial Infarction ([place]) Additional Family Medical History / Comment(s): pacemaker Father Family Medical History: Cancer Additional Family Medical History / Comment(s): LIVER CANCER General Exam Limitations: no limitations General appearance: alert, in no apparent distress Head exam: Present: atraumatic, normocephalic, normal inspection Eye exam: Present: normal appearance, PERRL, EOMI. Absent: scleral icterus, conjunctival injection, periorbital swelling ENT exam: Present: normal exam, mucous membranes moist Neck exam: Present: normal inspection. Absent: tenderness, meningismus, lymphadenopathy Respiratory exam: Present: normal lung sounds bilaterally. Absent: respiratory distress, wheezes, rales, rhonchi, stridor Cardiovascular Exam: Present: regular rate, normal rhythm, normal heart sounds. Absent: systolic murmur, diastolic murmur, rubs, gallop, clicks GI/Abdominal exam: Present: soft, normal bowel sounds. Absent: distended, tenderness, guarding, rebound, rigid Extremities exam: Present: normal inspection, full ROM, normal capillary refill. Absent: tenderness, pedal edema, joint swelling, calf tenderness Back exam: Present: normal inspection Neurological exam: Present: alert, oriented X3, CN II-XII intact Psychiatric exam: Present: normal affect, normal mood Skin exam: Present: warm, dry, intact, normal color. Absent: rash Course Vital Signs 07/10/20 07/10/20 18:16 20:41 Temperature 98.5 F Pulse Rate 91 64 Respiratory 18 18 Rate Blood Pressure 134/86 102/65 O2 Sat by Pulse 100 98 Oximetry Chest Pain MDM - MDM Upon arrival the patient was placed into room 6. A thorough history and phy sical exam was performed. PIV is established. Laboratory studies were conducted. Patient remained on continuous pulse ox and cardiac monitoring. 12- lead EKG was performed. Laboratory studies are unremarkable. Chest x-ray was performed which demonstrates no active cardiopulmonary disease. Patient continues to saturate 100% on room air with no increased work of breathing. Because the patient is reporting chest pain, did recommend hospital admission for to patient did agree to. I discussed the case with Bobby from [facility] who accepted admission. Patient is currently awaiting a bed on the floor Disposition Clinical Impression: Chest pain Disposition: ADMITTED IP TO THIS HOSP Condition: Stable Is patient prescribed a controlled substance at d/c from ED?: No Decision to Admit Reason: Admit from EC Decision Date: 07/10/20 Decision Time: 20:28
[2020-07-10] MEDS ORDERED: LIDOCAINE VISCOUS 2% 15 ML CUP MUCOUS MEM ONE (19:08)
--- NOTE | 2020-07-10 19:12 | XR ---
EXAMINATION TYPE: XR chest 2V DATE OF EXAM: 07/10/2020 COMPARISON: 03/18/2019 HISTORY: Chest pain TECHNIQUE: FINDINGS: Heart is normal. Lungs are clear of infiltrate. There is no heart failure. There are chest leads. Costophrenic angles are clear. IMPRESSION: No active cardiopulmonary disease. Normal heart. No change.
[2020-07-10 19:25] LABS: Basophils % (A) 0 %; Eosinophils # (A) 0.1 k/uL (0-0.7); Eosinophils % (A) 1 %; HCT 42.9 % (34.0-46.0); Lymphocytes # (A) 3.4 k/uL (1.0-4.8); Lymphocytes % (A) 31 %; MCH 32.6 pg (25.0-35.0); MCHC 32.7 g/dL (31.0-37.0); MCV 99.6 fL (80.0-100.0); Mean Platelet Volume 7.8; Monocytes # (A) 0.7 k/uL (0-1.0); Monocytes % (A) 6 %; Neutrophils # (A) 6.6 k/uL (1.3-7.7); Neutrophils % (A) 61 %; Platelet Count 228 k/uL (150-450); RBC 4.31 m/uL (3.80-5.40); RDW 12.4 % (11.5-15.5); WBC 10.9 k/uL (3.8-10.6)
[2020-07-10 19:33] LABS: Albumin 4.4 g/dL (3.5-5.0); Calcium 9.3 mg/dL (8.4-10.2); Potassium 4.2 mmol/L (3.5-5.1); Total Bilirubin 0.4 mg/dL (0.2-1.3); Total Protein 7.5 g/dL (6.3-8.2)
[2020-07-10 20:02] LABS: INR 0.9 (<1.2); Partial Thromboplastin Time 24.1 sec (22.0-30.0); Prothrombin Time 9.4 sec (9.0-12.0)
[2020-07-10] MEDS ORDERED: NALOXONE 0.4 MG/ML 1 ML VIAL IV PRN (20:29)
[2020-07-10] MEDS ORDERED: DICYCLOMINE 10 MG CAP PO PRN (23:30)
[2020-07-11] MEDS: PANTOPRAZOLE 40 MG TABLET PO SCH ×3 (00:53→22:05)
[2020-07-11] MEDS: LACTULOSE 20 GM/30 ML CUP PO SCH ×3 (00:53→22:05)
[2020-07-11] MEDS: FENOFIBRATE 160 MG TAB PO SCH ×2 (00:54→08:59)
[2020-07-11] MEDS: BACLOFEN 10 MG TAB PO SCH ×3 (00:54→22:05)
[2020-07-11] MEDS: LEVOTHYROXINE 88 MCG TAB PO SCH (06:14)
[2020-07-11] MEDS: IPRATROPIUM-ALBUTEROL 3 ML NEB INHALATION SCH ×4 (07:01→20:27)
[2020-07-11] MEDS ORDERED: DOBUTamine DRIP for NUC MED 500 MG in DEXTROSE/WATER 1 250ML.BAG IV ONE (08:07)
[2020-07-11] MEDS: TOPIRAMATE 100 MG TAB PO SCH (08:59)
[2020-07-11] MEDS: FLUTICASONE 50MCG/SPRAY NASAL 16GM EA NOSTRIL SCH ×2 (08:59→22:05)
[2020-07-11 09:13] LABS: Basophils % (A) 0 %; Eosinophils # (A) 0.1 k/uL (0-0.7); Eosinophils % (A) 1 %; HCT 42.3 % (34.0-46.0); HGB 13.4 gm/dL (11.4-16.0); Lymphocytes # (A) 2.5 k/uL (1.0-4.8); Lymphocytes % (A) 33 %; MCHC 31.8 g/dL (31.0-37.0); MCV 100.7 fL (80.0-100.0); Mean Platelet Volume 7.6; Monocytes # (A) 0.4 k/uL (0-1.0); Monocytes % (A) 5 %; Neutrophils # (A) 4.4 k/uL (1.3-7.7); Neutrophils % (A) 59 %; Platelet Count 205 k/uL (150-450); RBC 4.19 m/uL (3.80-5.40); RDW 12.4 % (11.5-15.5); WBC 7.5 k/uL (3.8-10.6)
[2020-07-11 09:25] LABS: Potassium 4.3 mmol/L (3.5-5.1)
--- NOTE | 2020-07-11 10:39 | P.CRDCN ---
History of Present Illness History of present illness: HISTORY OF PRESENTING ILLNESS This is a pleasant 44-year-old female past medical history significant for aortic stenosis and aortic regurgitation, dyslipidemia, chronic nicotine de pendence, obesity and polycystic ovarian syndrome. She follows in the office with Dr. Bell. We have been asked to see in consultation for chest pain. She presented to the hospital yesterday with symptoms of cough, headache, shortness of breath and chest pain. She states she feels like every time she gets up and moves she becomes short of breath and has a tight sensation in her chest. At times her chest discomfort is exacerbated by deep inspiration. Her cough is dry and nonproductive. She also complains of a sore throat. DIAGNOSTICS EKG reveals sinus mechanism with mild nonspecific ST abnormalities in the inferior leads. Chest xray negative for an acute cardiopulmonary process. Laboratory reviewed, WBC on admission 10.9 and repeat today 7.5, hemoglobin 13.4, platelets 205, d-dimer 0.6, sodium 141, potassium 4.3, creatinine 1.29, magnesium 2.0, cardiac enzymes negative 3, NT proBNP 24. Current cardiac medications include Lasix 20 mg daily and Lopid 600 mg twice a day. Most recent echocardiogram obtained in the office January 2018 reveals preserved LV systolic function with ejection fraction 50%, grade 1 diastolic dysfunction, aortic valve is trileaflet with mild aortic regurgitation and mild stenosis with a mean gradient of 9 mmHg and a valve area of 1.49 cm REVIEW OF SYSTEMS At the time of my exam: CONSTITUTIONAL: Denies fever or chills. CARDIOVASCULAR: Denies chest pain, shortness of breath, orthopnea, PND or palpitations. RESPIRATORY: Denies cough. GASTROINTESTINAL: Denies abdominal pain, diarrhea, constipation, nausea or vomiting. MUSCULOSKELETAL: Denies myalgias. NEUROLOGIC: Denies numbness, tingling or weakness. ENDOCRINE: Denies fatigue, weight change, polydipsia or polyurina. GENITOURINARY: Denies burning, hematuria or urgency with micturation. HEMATOLOGIC: Denies history of anemia or bleeding. PHYSICAL EXAMINATION Blood pressure 95/64 heart rate 66 afebrile and maintaining oxygen saturation on room air. CONSTITUTIONAL: No apparent distress. HEENT: Head is normocephalic. Pupils are equal, round. Sclerae anicteric. Mucous membranes of the mouth are moist. No JVD. No carotid bruit. CHEST EXAMINATION: Lungs are clear to auscultation. No chest wall tenderness is noted on palpation or with deep breathing. HEART EXAMINATION: Regular rate and rhythm. S1, S2 heard. Systolic ejection murmur at the base, no gallops or rub. ABDOMEN: Soft, nontender. Positive bowel sounds. EXTREMITIES: 2+ peripheral pulses, no lower extremity edema and no calf tenderness. NEUROLOGIC EXAMINATION: Patient is awake, alert and oriented x3. ASSESSMENT Chest pain, atypical for angina. An acute coronary event has been ruled out Dyslipidemia Valvular heart disease Chronic nicotine dependence PLAN An acute coronary event has been ruled out. Pain is atypical for angina. Obtain 2-D echocardiogram and Doppler study to assess cardiac structure and function. Perform dobutamine stress echocardiogram to assess for stress-induced ischemia. If stress test is normal she is stable for discharge from a cardiac perspective. Ongoing medical management and evaluation. Follow-up the office with Dr. Bell in 2 weeks. Thank you kindly for this consultation. Nurse Practitioner note has been reviewed, I agree with a documented findings and plan of care. Patient was seen and examined. Past Medical History Past Medical History: Diabetes Mellitus, GERD/Reflux, Hyperlipidemia, Hypertension, Mitral Valve Prolapse (MVP), Osteoarthritis (OA), Respiratory Disorder, Skin Disorder, Thyroid Disorder Additional Past Medical History / Comment(s): HEART MURMUR, LEAKY HEART VALVES (STATES PRE-MEDICATED PRIOR TO PROCEDURES). HX OF DIVERTICULITIS. IBS. BRONCHIECTASIS. MIGRAINES. HX OF STOMACH ULCERS. OVARIAN SYNDROME. HIDRADENITIS, SKIN DISORDER. "LIVER INFLAMED." "KIDNEY FUNCTION @ 60%." EDEMA BLE, WEARING YRN HOSE. History of Any Multi-Drug Resistant Organisms: None Reported Past Surgical History: Cholecystectomy, Hernia Repair, Orthopedic Surgery, Tubal Ligation, Uterine Ablation Additional Past Surgical History / Comment(s): lt foot surgery, BUNIONECTOMY. Bilat CTR. Colonoscopy, egd Past Anesthesia/Blood Transfusion Reactions: Motion Sickness Past Psychological History: Anxiety Smoking Status: Current some day smoker Past Alcohol Use History: None Reported Additional Past Alcohol Use History / Comment(s): SMOKES 0.5PPD. STARTED SMOKING AT AGE 18. Past Drug Use History: None Reported - Past Family History Mother Family Medical History: Myocardial Infarction ([place]) Additional Family Medical History / Comment(s): pacemaker Father Family Medical History: Cancer Additional Family Medical History / Comment(s): LIVER CANCER Medications and Allergies Home Medications Medication Instructions Recorded Confirmed Type Topiramate [Topamax] 100 mg PO DAILY 05/13/14 07/10/20 History Fluticasone Nasal [place] [Flonase 1 spray EA NOSTRIL BID 07/10/15 07/10/20 History Nasal [place]] Levothyroxine Sodium [Synthroid] 88 mcg PO DAILY 07/10/15 07/10/20 History Baclofen [Lioresal] 10 mg PO BID 08/13/16 07/10/20 History Lactulose 10 gm PO BID 01/23/17 07/10/20 History gemfibroziL [Lopid] 600 mg PO BID 01/23/17 07/10/20 History Dicyclomine [Bentyl] 10 mg PO TID PRN 06/30/17 07/10/20 History Furosemide [Lasix] 20 mg PO DAILY 03/18/19 07/10/20 History Acetaminophen Tab [Tylenol] 650 mg PO Q6H PRN 07/10/20 07/10/20 History Ergocalciferol [Vitamin D2] 50,000 unit PO Q14D 07/10/20 07/10/20 History Ipratropium/Albuterol Sulfate 1 puff INHALATION RT-QID 07/10/20 07/10/20 History [Combivent Respimat Inhaler] Omeprazole 20 mg PO BID 07/10/20 07/10/20 History Allergies Allergy/AdvReac Type Severity Reaction Status Date / Time cephalexin monohydrate Allergy Rash/Hives Verified 07/10/20 19:22 [From Keflex] losartan Allergy Anaphylaxis Verified 07/10/20 19:22 prednisone Allergy Swelling Verified 07/10/20 19:22 of Feet sulfamethoxazole Allergy Anaphylaxis Verified 07/10/20 19:22 [From Bactrim] trimethoprim [From Bactrim] Allergy Anaphylaxis Verified 07/10/20 19:22 Physical Exam Vitals: Vital Signs Temp Pulse Pulse Resp BP BP Pulse Ox 07/11/20 07:11 80 07/11/20 07:02 80 07/11/20 04:55 97.8 F 72 16 104/70 99 07/10/20 21:40 97.8 F 76 16 114/77 100 07/10/20 21:30 16 07/10/20 20:41 64 18 102/65 98 07/10/20 18:16 98.5 F 91 18 134/86 100 Intake and Output 07/10/20 07/11/20 07/11/20 22:59 06:59 14:59 Other: Voiding Method Toilet Toilet # Voids 1 1 Weight 93.894 kg Results 07/11/20 08:16 07/11/20 08:16 Cardiac Enzymes 07/10/20 07/10/20 07/10/20 Range/Units 18:45 18:45 21:18 AST 26 (14-36) U/L Troponin I <0.012 <0.012 (0.000-0.034) ng/mL 07/10/20 Range/Units 23:52 AST (14-36) U/L Troponin I <0.012 (0.000-0.034) ng/mL Coagulation 07/10/20 Range/Units 18:45 PT 9.4 (9.0-12.0) sec APTT 24.1 (22.0-30.0) sec CBC 07/10/20 Range/Units 18:45 WBC 10.9 H (3.8-10.6) k/uL RBC 4.31 (3.80-5.40) m/uL Hgb 14.0 (11.4-16.0) gm/dL Hct 42.9 (34.0-46.0) % Plt Count 228 (150-450) k/uL Comprehensive Metabolic Panel 07/10/20 Range/Units 18:45 Sodium 139 (137-145) mmol/L Potassium 4.2 (3.5-5.1) mmol/L Chloride 107 (98-107) mmol/L Carbon Dioxide 22 (22-30) mmol/L BUN 16 (7-17) mg/dL Creatinine 1.27 H (0.52-1.04) mg/dL Glucose 96 (74-99) mg/dL Calcium 9.3 (8.4-10.2) mg/dL AST 26 (14-36) U/L ALT 22 (4-34) U/L Alkaline Phosphatase 65 (38-126) U/L Total Protein 7.5 (6.3-8.2) g/dL Albumin 4.4 (3.5-5.0) g/dL Current Medications Generic Name Dose Route Start Last Admin Trade Name Freq PRN Reason Stop Dose Admin Acetaminophen 650 mg 07/10/20 23:15 Acetaminophen Tab 325 Mg Tab PO Q6H PRN Pain Albuterol/Ipratropium 3 ml 07/11/20 08:00 07/11/20 07:01 Ipratropium-Albuterol 3 Ml Neb INHALATION 3 ml RT-QID VICKY Administration Baclofen 10 mg 07/10/20 23:21 07/11/20 08:59 Baclofen 10 Mg Tab PO 10 mg BID VICKY Administration Dicyclomine HCl 10 mg 07/10/20 23:30 07/11/20 00:53 Dicyclomine 10 Mg Cap PO 10 mg TID PRN Administration GI Upset Fenofibrate 160 mg 07/10/20 23:45 07/11/20 08:59 Fenofibrate 160 Mg Tab PO 160 mg DAILY VICKY Administration Fluticasone Propionate 1 spray 07/11/20 09:00 07/11/20 08:59 Fluticasone 50mcg/[place] Nasal 16gm EA NOSTRIL 1 spray BID VICKY Administration Dobutamine HCl/Dextrose 500 mg 250 mls @ 28.168 mls/hr 07/11/20 08:07 / IV Solution IV 07/11/20 16:59 .[id number] ONE Protocol 10 MCG/KG/MIN Lactulose 10 gm 07/10/20 23:25 07/11/20 08:59 Lactulose 20 Gm/30 Ml Cup PO 10 gm BID VICKY Administration Levothyroxine Sodium 88 mcg 07/11/20 06:30 07/11/20 06:14 Levothyroxine 88 Mcg Tab PO 88 mcg DAILY@0630 VICKY Administration Naloxone HCl 0.2 mg 07/10/20 20:29 Naloxone 0.4 Mg/Ml 1 Ml Vial IV Q2M PRN Opioid Reversal Pantoprazole Sodium 40 mg 07/10/20 23:45 07/11/20 08:59 Pantoprazole 40 Mg Tablet PO 40 mg BID VICKY Administration Topiramate 100 mg 07/11/20 09:00 07/11/20 08:59 Topiramate 100 Mg Tab PO 100 mg DAILY VICKY Administration Intake and Output 07/10/20 07/11/20 07/11/20 22:59 06:59 14:59 Other: Voiding Method Toilet Toilet # Voids 1 1 Weight 93.894 kg 07/10/20 18:45 07/10/20 18:45
--- NOTE | 2020-07-11 11:23 | ECHOF ---
Referral Reason:cp, sob MEASUREMENTS -------- HEIGHT: 157.5 cm WEIGHT: 93.9 kg BP: 104/70 RVIDd: 3.0 cm (< 3.3) IVSd: 1.3 cm (0.6 - 1.1) LVIDd: 4.2 cm (3.9 - 5.3) LVPWd: 1.3 cm (0.6 - 1.1) IVSs: 1.6 cm LVIDs: 2.7 cm LVPWs: 1.3 cm LA Diam: 3.3 cm (2.7 - 3.8) LAESV Index (A-L): 22.79 ml/m Ao Diam: 2.8 cm (2.0 - 3.7) AV Cusp: 1.7 cm (1.5 - 2.6) MV EXCURSION: 19.132 mm (> 18.000) MV EF SLOPE: 102 mm/s (70 - 150) EPSS: 0.4 cm MV E Micky: 0.90 m/s MV DecT: 211 ms MV A Micky: 0.53 m/s MV E/A Ratio: 1.69 AV maxP.40 mmHg AV meanP.91 mmHg AR PHT: 786 ms RAP: 5.00 mmHg RVSP: 24.55 mmHg FINDINGS -------- Sinus rhythm. This was a technically adequate study. The left ventricular size is normal. There is mild concentric left ventricular hypertrophy. Overa ll left ventricular systolic function is normal with, an EF between 60 - 65 %. The right ventricle is normal in size. Normal LA size by volume 22+/-6 ml/m2. The right atrium is normal in size. Interatrial and interventricular septum intact. There is mild aortic valve sclerosis. There is mild aortic regurgitation. Peak/mean gradient acro ss the Aortic Valve is 18.40mmHg / 10.91mmHg. Mild mitral annular calcification present. There is trace mitral regurgitation. Mild tricuspid regurgitation present. Right ventricular systolic pressure is normal at < 35 mmHg. There is no pulmonic regurgitation present. The aortic root size is normal. Normal inferior vena cava with normal inspiratory collapse consistent with estimated right atrial pre ssure of 5 mmHg. There is no pericardial effusion. CONCLUSIONS -------- 1. The left ventricular size is normal. 2. There is mild concentric left ventricular hypertrophy. 3. Overall left ventricular systolic function is normal with, an EF between 60 - 65 %. 4. There is mild aortic valve sclerosis. 5. There is mild aortic regurgitation. 6. Peak/mean gradient across the Aortic Valve is 18.40mmHg / 10.91mmHg. 7. Mild mitral annular calcification present. 8. There is trace mitral regurgitation. 9. Mild tricuspid regurgitation present. 10. There is no pulmonic regurgitation present. 11. There is no pericardial effusion. [employer]GRAM[employer]RY [employer] PILOT: Lavern Roman RDCS
--- NOTE | 2020-07-11 15:51 | NM ---
EXAMINATION TYPE: NM pul vent and perfuse DATE OF EXAM: 07/11/2020 COMPARISON: Chest x-ray from yesterday. HISTORY: Elevated d-dimer, chest pain, shortness of breath. TECHNIQUE: Utilizing inhalation of 32.5 mCi Tc 99m DTPA aerosol and intravenous injection of 4.8 mCi of Tc 99m MAA, ventilation and perfusion images are acquired post injection in multiple projections. FINDINGS: Normal radiotracer distribution is noted in the lungs on the perfusion images. Poor uptake counts on ventilation images particularly upper lungs could be product of patient's large body habitus. There i s no evidence of mismatched defects. IMPRESSION: Very low suspicion for acute pulmonary embolism.
--- NOTE | 2020-07-11 17:33 | ECHOS ---
STRESS ECHOCARDIOGRAM DOBUTAMINE STRESS ECHOCARDIOGRAM: LUMASON: @@ Vial INDICATIONS: Chest pain. MEDICATIONS: BASELINE HEART RATE: 76 BASELINE BLOOD PRESSURE: 106/59 MAXIMUM HEART RATE: 148 MAXIMUM BLOOD PRESSURE: 209/47 85% MPHR: 151 100% MPHR: 178 METS: MAXIMUM STAGE REACHED: 5 TOTAL EXERCISE TIME: 13 minutes. CLINICAL INFORMATION: Baseline EKG shows sinus rhythm, normal axis, normal intervals, with nonspecific ST-T wave changes. Patient was given intravenous dobutamine over a period of 13 minutes as per protocol, achieving 83% of predicted maximal heart rate without chest pain or diagnostic ST-segment depression. Baseline echo shows normal left ventricular size, wall motion and systolic function. Post dobutamine, there is normal hyperdynamic response of all segments of myocardium noted. Patient was given Lumason contrast for better endocardial visualization. CONCLUSIONS: 1. Inconclusive EKG part of the stress test due to baseline EKG abnormalities. 2. Negative dobutamine stress echo at 83% of predicted maximal heart rate. MMODL / IJN: [id number] /
--- NOTE | 2020-07-11 20:47 | P.HPIM ---
History of Present Illness This is a pleasant 44 years old female with past medical history of hypertension, hyperlipidemia, diabetes mellitus, gastroesophageal reflux disease, mitral valve prolapse, osteoarthritis, hypothyroidism. Migraine. History of gastric ulcer. Anxiety and cigarette smoker about half pack per day. She is a patient of Dr. Leigh Presents because of chest pain of 2 days duration on the left side nonradiating felt like burning and sharp about 56-6/10 in severity associated with some sweating, pain is nonradiating and localized. S he's been evaluated by tanning solution maker underwent stress test which was negative, her d-dimer was slightly elevated and she has some dyspnea and some VQ scan was ordered and it was very low probability for PE. Also patient was complaining of from dizziness which was nonspecific for 2 days as well without weakness or numbness or blurred vision or slurred speech so give the patient and the observation unit for further monitoring Vital signs stable. Labs show an unremarkable CBC, creatinine is slightly elevated 1.27 and 1.29, baseline is 1.1-1.2. D-dimer is elevated at 0.6. Serial troponins are negative. chest x-ray: No acute process. EKG showing normal sinus rhythm at 74. Project Program Manager already evaluated the patient and recommended echocardiogram and stress test to be done and if stress test is normal then she is stable for discharge as per cardiology team recommendation from their perspective. Review of Systems CONSTITUTIONAL: No fever, no malaise, no fatigue. HEENT: No recent visual problems or hearing problems. Denied any sore throat. CARDIOVASCULAR: No orthopnea, PND, no palpitations, no syncope. PULMONARY: No shortness of breath, no cough, no hemoptysis. GASTROINTESTINAL: No diarrhea, no nausea, no vomiting, no abdominal pain. Normoactive bowel sounds. NEUROLOGICAL: No headaches, no weakness, no numbness. HEMATOLOGICAL: Denies any bleeding or petechiae. GENITOURINARY: Denies any burning micturition, frequency, or urgency. MUSCULOSKELETAL/RHEUMATOLOGICAL: Denies any joint pain, swelling, or any muscle pain. ENDOCRINE: Denies any polyuria or polydipsia. Past Medical History Past Medical History: Diabetes Mellitus, GERD/Reflux, Hyperlipidemia, Hypertension, Mitral Valve Prolapse (MVP), Osteoarthritis (OA), Respiratory Disorder, Skin Disorder, Thyroid Disorder Additional Past Medical History / Comment(s): HEART MURMUR, LEAKY HEART VALVES (STATES PRE-MEDICATED PRIOR TO PROCEDURES). HX OF DIVERTICULITIS. IBS. BRONCHIECTASIS. MIGRAINES. HX OF STOMACH ULCERS. OVARIAN SYNDROME. HIDRADENITIS, SKIN DISORDER. "LIVER INFLAMED." "KIDNEY FUNCTION @ 60%." EDEMA BLE, WEARING YRN HOSE. History of Any Multi-Drug Resistant Organisms: None Reported Past Surgical History: Cholecystectomy, Hernia Repair, Orthopedic Surgery, Tubal Ligation, Uterine Ablation Additional Past Surgical History / Comment(s): lt foot surgery, BUNIONECTOMY. Bilat CTR. Colonoscopy, egd Past Anesthesia/Blood Transfusion Reactions: Motion Sickness Past Psychological History: Anxiety Smoking Status: Current some day smoker Past Alcohol Use History: None Reported Additional Past Alcohol Use History / Comment(s): SMOKES 0.5PPD. STARTED SMOKING AT AGE 18. Past Drug Use History: None Reported - Past Family History Mother Family Medical History: Myocardial Infarction ([place]) Additional Family Medical History / Comment(s): pacemaker Father Family Medical History: Cancer Additional Family Medical History / Comment(s): LIVER CANCER Medications and Allergies Home Medications Medication Instructions Recorded Confirmed Type Topiramate [Topamax] 100 mg PO DAILY 05/13/14 07/10/20 History Fluticasone Nasal [place] [Flonase 1 spray EA NOSTRIL BID 07/10/15 07/10/20 History Nasal [place]] Levothyroxine Sodium [Synthroid] 88 mcg PO DAILY 07/10/15 07/10/20 History Baclofen [Lioresal] 10 mg PO BID 08/13/16 07/10/20 History Lactulose 10 gm PO BID 01/23/17 07/10/20 History gemfibroziL [Lopid] 600 mg PO BID 01/23/17 07/10/20 History Dicyclomine [Bentyl] 10 mg PO TID PRN 06/30/17 07/10/20 History Furosemide [Lasix] 20 mg PO DAILY 03/18/19 07/10/20 History Acetaminophen Tab [Tylenol] 650 mg PO Q6H PRN 07/10/20 07/10/20 History Ergocalciferol [Vitamin D2] 50,000 unit PO Q14D 07/10/20 07/10/20 History Ipratropium/Albuterol Sulfate 1 puff INHALATION RT-QID 07/10/20 07/10/20 History [Combivent Respimat Inhaler] Omeprazole 20 mg PO BID 07/10/20 07/10/20 History Allergies Allergy/AdvReac Type Severity Reaction Status Date / Time cephalexin monohydrate Allergy Rash/Hives Verified 07/10/20 19:22 [From Keflex] losartan Allergy Anaphylaxis Verified 07/10/20 19:22 prednisone Allergy Swelling Verified 07/10/20 19:22 of Feet sulfamethoxazole Allergy Anaphylaxis Verified 07/10/20 19:22 [From Bactrim] trimethoprim [From Bactrim] Allergy Anaphylaxis Verified 07/10/20 19:22 Physical Exam Vitals: Vital Signs Temp Pulse Pulse Resp BP BP Pulse Ox 07/11/20 10:52 86 07/11/20 10:42 84 07/11/20 09:00 66 14 07/11/20 08:59 98.0 F 66 14 95/64 99 07/11/20 07:11 80 07/11/20 07:02 80 07/11/20 04:55 97.8 F 72 16 104/70 99 07/10/20 21:40 97.8 F 76 16 114/77 100 07/10/20 21:30 16 07/10/20 20:41 64 18 102/65 98 07/10/20 18:16 98.5 F 91 18 134/86 100 Intake and Output 07/10/20 07/11/20 07/11/20 22:59 06:59 14:59 Other: Voiding Method Toilet Toilet Toilet # Voids 1 1 Weight 93.894 kg GENERAL: The patient is alert and oriented x3, not in any acute distress. Well developed, well nourished. HEENT: Pupils are round and equally reacting to light. EOMI. No scleral icterus. No conjunctival pallor. Normocephalic, atraumatic. No pharyngeal erythema. No thyromegaly. CARDIOVASCULAR: S1 and S2 present. No murmurs, rubs, or gallops. PULMONARY: Chest is clear to auscultation, no wheezing or crackles. ABDOMEN: Soft, nontender, nondistended, normoactive bowel sounds. No palpable organomegaly. MUSCULOSKELETAL: No joint swelling or deformity. EXTREMITIES: No cyanosis, clubbing, or pedal edema. NEUROLOGICAL: Gross neurological examination did not reveal any focal deficits. SKIN: No rashes. No petechiae Results CBC & Chem 7: 07/11/20 08:16 07/11/20 08:16 Labs: Abnormal Lab Results - Last 24 Hours (Table) 07/10/20 07/10/20 07/11/20 Range/Units 18:45 18:45 08:16 WBC 10.9 H (3.8-10.6) k/uL MCV 100.7 H (80.0-100.0) fL D-Dimer (<0.60) mg/L FEU Chloride (98-107) mmol/L Creatinine 1.27 H (0.52-1.04) mg/dL Glucose (74-99) mg/dL 07/11/20 07/11/20 Range/Units 08:16 08:16 WBC (3.8-10.6) k/uL MCV (80.0-100.0) fL D-Dimer 0.60 H (<0.60) mg/L FEU Chloride 108 H (98-107) mmol/L Creatinine 1.29 H (0.52-1.04) mg/dL Glucose 102 H (74-99) mg/dL Thrombosis Risk Factor Assmnt - Choose All That Apply Each Factor Represents 1 point: Age 41-60 years, Obesity (BMI >25) Thrombosis Risk Factor Assessment Total Risk Factor Score: 2 Thrombosis Risk Factor Assessment Level: Low Risk Assessment and Plan Assessment: Chest pain, cardiac and pulmonary causes ruled out Nonspecific dizziness with no weakness and other neurological symptoms Chronic kidney disease Elevated d-dimer. Very low probability of PE by We'll check VQ scan Hypertension Hyperlipidemia Diabetes mellitus GERD Osteoarthritis Hypothyroidism History of migraine Plan: This is a pleasant 44 years old female who presents with chest pain, and dizziness. Cardiac causes and PE have been ruled out and chest pain improved. However with The patient for monitoring for her dizziness. We'll check orthostatic vitals. If meclizine as needed and some IV fluids. Labs and medication were reviewed.. Continue same treatment. Continue with symptomatic treatment. Resume home medication. Monitor lytes and vitals. DVT and GI prophylaxis. Further recommendations depends on the clinical course of the patient DVT prophylaxis: Subcutaneous heparin GI Prophylaxis: Pepcid PT/OT: Pending Prognosis is guarded
[2020-07-11] MEDS ORDERED: MECLIZINE 25 MG TAB PO PRN (22:00)
[2020-07-11] MEDS: DEXTROSE 5%-0.9% NACL 1,000 ML IV SCH (22:07)
[2020-07-11] MEDS: ACETAMINOPHEN TAB 325 MG TAB PO PRN (23:39)
[2020-07-12] MEDS: IPRATROPIUM-ALBUTEROL 3 ML NEB INHALATION SCH (06:57)
[2020-07-12] MEDS: LEVOTHYROXINE 88 MCG TAB PO SCH (07:05)
[2020-07-12 07:08] LABS: Glucose,Whole Blood 106 mg/dL (75-99)
[2020-07-12] MEDS: PANTOPRAZOLE 40 MG TABLET PO SCH (08:00)
[2020-07-12] MEDS: FENOFIBRATE 160 MG TAB PO SCH (08:00)
[2020-07-12] MEDS: FLUTICASONE 50MCG/SPRAY NASAL 16GM EA NOSTRIL SCH (08:00)
[2020-07-12] MEDS: BACLOFEN 10 MG TAB PO SCH (08:00)
[2020-07-12] MEDS: LACTULOSE 20 GM/30 ML CUP PO SCH (08:00)
[2020-07-12] MEDS: TOPIRAMATE 100 MG TAB PO SCH (08:01)
[2020-07-12] MEDS: DEXTROSE 5%-0.9% NACL 1,000 ML IV SCH (08:01)
[2020-07-12] MEDS: ACETAMINOPHEN TAB 325 MG TAB PO PRN (08:06)
[2020-07-12 09:11] VITALS: BP 105/68; RESP 14; TEMP 97.6
[2020-07-12 09:20] VITALS: PULSE 90
--- NOTE | 2020-07-12 10:31 | P.PN ---
Subjective HISTORY OF PRESENTING ILLNESS This is a pleasant 44-year-old female past medical history significant for aortic stenosis and aortic regurgitation, dyslipidemia, chronic nicotine dependence, obesity and polycystic ovarian syndrome. She follows in the office with Dr. Bell. She is seen and examined resting comfortably in no acute distres s. She denies any further symptoms of chest pain. Breathing is stable. Stress test yesterday was normal. She continues to feel dizziness intermittently. Blood pressure 105/68 heart rate 66 afebrile maintaining oxygen saturation on room air. Orthostatic vital signs unremarkable. Telemetry tracings unremarkable for any acute arrhythmia. PHYSICAL EXAMINATION CONSTITUTIONAL: No apparent distress. HEENT: Head is normocephalic. Pupils are equal, round. Sclerae anicteric. Mucous membranes of the mouth are moist. No JVD. No carotid bruit. CHEST EXAMINATION: Lungs are clear to auscultation. No chest wall tenderness is noted on palpation or with deep breathing. HEART EXAMINATION: Regular rate and rhythm. S1, S2 heard. Systolic ejection murmur at the base, no gallops or rub. EXTREMITIES: 2+ peripheral pulses, no lower extremity edema and no calf tenderness. ASSESSMENT Chest pain, atypical for angina. An acute coronary event has been ruled out Dyslipidemia Valvular heart disease Chronic nicotine dependence PLAN Stable for discharge from a cardiac perspective, ongoing medical management. We will follow along as needed. Follow-up the office with Dr. Bell in 2 weeks. Nurse Practitioner note has been reviewed, I agree with a documented findings and plan of care. Patient was seen and examined. Objective - Vital Signs Vital signs: Vital Signs Temp 97.6 F 07/12/20 08:00 Pulse 90 07/12/20 09:00 Resp 14 07/12/20 09:00 BP 105/68 07/12/20 08:00 Pulse Ox 99 07/12/20 08:00 Intake & Output 07/11/20 07/12/20 07/12/20 18:59 06:59 18:59 Intake Total 200 600 200 Balance 200 600 200 Weight 93.89 kg Intake: Intake, IV Titration 600 Amount Dextrose 5%-0.9% NaCl 1, 600 000 ml @ 75 mls/hr IV . [id number] VICKY Rx#:[id number] Oral 200 200 Other: Voiding Method Toilet Toilet Toilet # Voids 2 3 - Labs CBC & Chem 7: 07/11/20 08:16 07/11/20 08:16 Labs: Abnormal Lab Results - Last 24 Hours (Table) 07/12/20 Range/Units 07:07 POC Glucose (mg/dL) 106 H (75-99) mg/dL
--- NOTE | 2020-07-13 07:01 | P.DS ---
Providers Date of admission: 07/10/20 20:29 Attending physician: Yovany Monteiro Consults: 07/10/20 20:33 Consult Physician Urgent Consulting Provider: [facility] Consult Reason/Comments: acute chest pain, hx valvular disease Do you want consulting provider notified?: Yes Primary care physician: Kevon Garcia [facility] Course: Diagnoses: Chest pain, cardiac and pulmonary causes ruled out.Patient has low probability VQ scan for PE and negative stress test. Chest pain resolved prior to discharge Nonspecific dizziness with no weakness and other neurological symptoms. Secondary to dehydration improved with IV fluid Chronic kidney disease Hypertension Hyperlipidemia Diabetes mellitus GERD Osteoarthritis Hypothyroidism History of migraine Hospital course: This is a pleasant 44 years old female with past medical history of hypertension, hyperlipidemia, diabetes mellitus, gastroesophageal reflux disease, mitral valve prolapse, osteoarthritis, hypothyroidism. Migraine. History of gastric ulcer. Anxiety and cigarette smoker about half pack per day. She is a patient of Dr. Leigh Presents because of chest pain of 2 days duration. She's been evaluated by cook supervisor. Yesterday patient underwent stress test by cardiology team which was normal, due to mildly elevated d-dimer, VQ scan showed low probability for PE. Since yesterday her chest pain has resolved however she was complaining of from some dizziness with no specific weakness, orthostatic vitals checked were negative. Patient is him some IV fluids and meclizine, patient thinks meclizine Her a lot and this morning she denies any dizziness, no other symptoms. On the day of discharge she denies chest pain or dyspnea, no change in urine or bowel habits. No fever Patient was cleared for discharge by cook supervisor Problems and management plan were discussed with the patient and he verbalized understanding and acceptance Patient was found stable and can be discharged home however he needs follow-up as an outpatient. Patient was instructed to follow up with PCP Dr. Leigh within one week and patient agrees. Patient also was instructed to follow up with cook supervisor Dr. Lee assembler unit Dr. De Jesus in 2 weeks and she agrees to call and make appointments Gen: patient is a AAOx3, no distress CVS: S1-S2, RRR, no murmur Lungs: B/L CTA, no wheezing Abdomen: soft, no distention, no tenderness, positive bowel sounds Extremity: no leg edema or induration Time spent more than 35 minutes Patient Condition at Discharge: Stable Plan - Discharge Summary Discharge Rx Participant: No New Discharge Prescriptions: New Meclizine [Antivert] 25 mg PO TID #15 tab Continue Topiramate [Topamax] 100 mg PO DAILY Levothyroxine Sodium [Synthroid] 88 mcg PO DAILY Fluticasone Nasal [place] [Flonase Nasal [place]] 1 spray EA NOSTRIL BID Baclofen [Lioresal] 10 mg PO BID gemfibroziL [Lopid] 600 mg PO BID Lactulose 10 gm PO BID Dicyclomine [Bentyl] 10 mg PO TID PRN PRN Reason: Gi Upset Ergocalciferol [Vitamin D2 (DRISDOL)] 50,000 unit PO Q14D Omeprazole 20 mg PO BID Acetaminophen Tab [Tylenol] 650 mg PO Q6H PRN PRN Reason: Pain Ipratropium/Albuterol Sulfate [Combivent Respimat Inhaler] 1 puff INHALATION RT-QID Discontinued Furosemide [Lasix] 20 mg PO DAILY Discharge Medication List Topiramate [Topamax] 100 mg PO DAILY 05/13/14 [History] Fluticasone Nasal [place] [Flonase Nasal [place]] 1 spray EA NOSTRIL BID 07/10/15 [History] Levothyroxine Sodium [Synthroid] 88 mcg PO DAILY 07/10/15 [History] Baclofen [Lioresal] 10 mg PO BID 08/13/16 [History] Lactulose 10 gm PO BID 01/23/17 [History] gemfibroziL [Lopid] 600 mg PO BID 01/23/17 [History] Dicyclomine [Bentyl] 10 mg PO TID PRN 06/30/17 [History] Acetaminophen Tab [Tylenol] 650 mg PO Q6H PRN 07/10/20 [History] Ergocalciferol [Vitamin D2 (DRISDOL)] 50,000 unit PO Q14D 07/10/20 [History] Ipratropium/Albuterol Sulfate [Combivent Respimat Inhaler] 1 puff INHALATION RT- QID 07/10/20 [History] Omeprazole 20 mg PO BID 07/10/20 [History] Meclizine [Antivert] 25 mg PO TID #15 tab 07/12/20 [Rx] Follow up Appointment(s)/Referral(s): Jose Lund MD [Primary Care Provider] - 1-2 days Sachin De Jesus DO [STAFF PHYSICIAN] - 2 Weeks (or ) Jay Bell MD [STAFF PHYSICIAN] - 08/10/20 10:00 am Activity/Diet/Wound Care/Special Instructions: Heart healthy diet Activities Limited till you see your doctor Discharge Disposition: HOME SELF-CARE
== END 2020-07-12 11:14 | disposition home or self-care (01) ==
LOC: EC 18:13 → 3NCARDOBS 20:29
PROVIDERS: ADMIT Hospitalist; ATTEND Hospitalist
DX: R07.9 Chest pain, unspecified (principal); E03.9 Hypothyroidism, unspecified; E11.22 Type 2 diabetes mellitus with diabetic chronic kidney disease; E78.5 Hyperlipidemia, unspecified; E86.0 Dehydration; F17.210 Nicotine dependence, cigarettes, uncomplicated; F41.9 Anxiety disorder, unspecified; G43.909 Migraine, unspecified, not intractable, without status migrainosus; I08.0 Rheumatic disorders of both mitral and aortic valves; Z20.828 Contact with and (suspected) exposure to other viral communicable diseases; I12.9 Hypertensive chronic kidney disease with stage 1 through stage 4 chronic kidney disease, or unspecified chronic kidney disease; K21.9 Gastro-esophageal reflux disease without esophagitis; M19.90 Unspecified osteoarthritis, unspecified site; N18.9 Chronic kidney disease, unspecified; Z79.890 Hormone replacement therapy; Z79.899 Other long term (current) drug therapy; Z80.0 Family history of malignant neoplasm of digestive organs; Z82.49 Family history of ischemic heart disease and other diseases of the circulatory system; Z87.11 Personal history of peptic ulcer disease
CPT/HCPCS: 99285; 36415; 94640 ×3; 93005; 93306; 85379; 83880; 80053; 80048; 83735; 84484; 85025 ×2; 85610; 85730; 84703; 71046; 78582; G0378 ×3; C8930; U0003; A9540; A9567; J1250; 93351

== ENCOUNTER → 2020-08-16 | Outpatient (CLI) | payer OTHER ==
[2020-08-16 14:10] LABS: Creatinine,Urine Random 62.1 mg/dL; Protein/Creatinine Ratio,Urine 0.161
[2020-08-16 14:34] LABS: Basophils % (A) 0 %; Eosinophils % (A) 0 %; HCT 44.6 % (34.0-46.0); HGB 14.3 gm/dL (11.4-16.0); Lymphocytes # (A) 2.1 k/uL (1.0-4.8); Lymphocytes % (A) 7 %; MCH 33.5 pg (25.0-35.0); MCHC 32.1 g/dL (31.0-37.0); MCV 104.2 fL (80.0-100.0); Macrocytosis Slight; Mean Platelet Volume 8.5; Monocytes # (A) 1.1 k/uL (0-1.0); Monocytes % (A) 4 %; Neutrophils # (A) 25.3 k/uL (1.3-7.7); Neutrophils % (A) 88 %; Platelet Count 266 k/uL (150-450); RBC 4.28 m/uL (3.80-5.40); RDW 12.9 % (11.5-15.5); WBC 28.7 k/uL (3.8-10.6)
[2020-08-16 15:21] LABS: Anisocytosis (M) Present; Toxic Granulation Present
[2020-08-16 20:36] LABS: African American GFR (CKD) 71.2 (60.0-200.0); Albumin 4.7 g/dL (3.80-4.90); Albumin/Globulin Ratio 1.74 (1.60-3.17); Anion Gap 12.3 mmol/L (4.00-12.00); BUN/Creat Ratio 15.45 Ratio (12.00-20.00); Calcium 9.5 mg/dL (8.7-10.3); Carbon Dioxide 18.7 mmol/L (21.6-31.8); Chol/HDL Ratio 4.17; Globulin 2.7 g/dL (1.6-3.3); LDL Cholesterol,Calculated 118.6 mg/dL (0.0-131.0); Non-African American GFR(CKD) 61.4 (60.0-200.0); Potassium 4.1 mmol/L (3.5-5.5); Total Bilirubin 0.3 mg/dL (0.3-1.2); Total Protein 7.4 g/dL (6.2-8.2); VLDL Calculation 33.4 mg/dL (5.00-40.00)
[2020-08-16 21:08] LABS: T4, Free (Free Thyroxine) 0.9 ng/dL (0.80-1.80)
[2020-08-16 22:19] LABS: Hemoglobin A1C 5.5 % (4.0-6.0)
== END | disposition home or self-care (01) ==
LOC: LABWHC1 12:12
PROVIDERS: ATTEND Nurse Practitioner Family
DX: Z00.00 Encounter for general adult medical examination without abnormal findings (principal); N18.30 Chronic kidney disease, stage 3 unspecified; L73.9 Follicular disorder, unspecified; F17.200 Nicotine dependence, unspecified, uncomplicated
CPT/HCPCS: 36415; 80053; 80061; 82570; 83036; 84156; 84439; 84443; 84481; 85025

== ENCOUNTER 2020-08-17 16:38 | Emergency (ER) | payer OTHER ==
[2020-08-17 16:52] VITALS: TEMP 98.9
[2020-08-17] MEDS ORDERED: IBUPROFEN 600 MG TAB PO STA (18:25)
[2020-08-17] MEDS ORDERED: ACETAMINOPHEN TAB 500 MG TAB PO STA (18:25)
[2020-08-17] MEDS ORDERED: SODIUM CHLORIDE 0.9% 500 ML 500 ML IV SCH (18:30)
[2020-08-17] MEDS ORDERED: SODIUM CHLORIDE 0.9% 1,000 ML IV SCH (18:30)
--- NOTE | 2020-08-17 18:33 | ED ---
Recheck HPI - General Chief Complaint: Recheck/Abnormal Lab/Rx Stated Complaint: Sent by PCP - High WBC Time Seen by Provider: 08/17/20 18:09 Source: patient, RN notes reviewed, old records reviewed Mode of arrival: ambulatory Limitations: no limitations - History of Present Illness Initial Comments: 45-year-old female presents emergency department today for evaluation for abnormal blood work. She had blood work performed her primary care doctor's of [place] yesterday for routine checkup. She was found to have significant leukocytosis and was sent to the ER today for evaluation. She denies any significant symptoms of fever or chills or source of infection at this time. - Related Data Home Medications Medication Instructions Recorded Confirmed Topiramate [Topamax] 100 mg PO DAILY 05/13/14 08/17/20 Fluticasone Nasal [place] [Flonase 1 spray EA NOSTRIL BID 07/10/15 08/17/20 Nasal [place]] Levothyroxine Sodium [Synthroid] 88 mcg PO DAILY 07/10/15 08/17/20 Baclofen [Lioresal] 10 mg PO BID 08/13/16 08/17/20 Lactulose 10 gm PO BID 01/23/17 08/17/20 gemfibroziL [Lopid] 600 mg PO BID 01/23/17 08/17/20 Dicyclomine [Bentyl] 10 mg PO BID 06/30/17 08/17/20 Ergocalciferol [Vitamin D2 50,000 unit PO Q14D 07/10/20 08/17/20 (DRISDOL)] Ipratropium/Albuterol Sulfate 2 puff INHALATION RT-QID PRN 07/10/20 08/17/20 [Combivent Respimat Inhaler] Omeprazole 20 mg PO BID 07/10/20 08/17/20 Acetaminophen Tab [Tylenol Tab] 1,000 mg PO Q8H PRN 08/17/20 08/17/20 Doxycycline Hyclate [Vibramycin] 100 mg PO BID 08/17/20 08/17/20 Furosemide [Lasix] 20 mg PO BID 08/17/20 08/17/20 Linaclotide [Linzess] 145 mcg PO DAILY 08/17/20 08/17/20 Loratadine 10 mg PO DAILY PRN 08/17/20 08/17/20 Allergies Allergy/AdvReac Type Severity Reaction Status Date / Time cephalexin monohydrate Allergy Rash/Hives Verified 08/17/20 18:36 [From Keflex] losartan Allergy Anaphylaxis Verified 08/17/20 18:36 prednisone Allergy Swelling Verified 08/17/20 18:36 of Feet sulfamethoxazole Allergy Anaphylaxis Verified 08/17/20 18:36 [From Bactrim] trimethoprim [From Bactrim] Allergy Anaphylaxis Verified 08/17/20 18:36 Review of Systems ROS Statement: Those systems with pertinent positive or pertinent negative responses have been documented in the HPI. ROS Other: All systems not noted in ROS Statement are negative. Past Medical History Past Medical History: Diabetes Mellitus, GERD/Reflux, Hyperlipidemia, Hypertension, Mitral Valve Prolapse (MVP), Osteoarthritis (OA), Renal Disease, Respiratory Disorder, Skin Disorder, Thyroid Disorder Additional Past Medical History / Comment(s): HEART MURMUR, LEAKY HEART VALVES (STATES PRE-MEDICATED PRIOR TO PROCEDURES). HX OF DIVERTICULITIS. IBS. BRONCHIECTASIS. MIGRAINES. HX OF STOMACH ULCERS. OVARIAN SYNDROME. HIDRADENITIS, SKIN DISORDER. "LIVER INFLAMED." "KIDNEY FUNCTION @ 60%." EDEMA BLE, WEARING YRN HOSE. History of Any Multi-Drug Resistant Organisms: None Reported Past Surgical History: Cholecystectomy, Hernia Repair, Orthopedic Surgery, Tubal Ligation, Uterine Ablation Additional Past Surgical History / Comment(s): lt foot surgery, BUNIONECTOMY. Bilat CTR. Colonoscopy, egd Past Anesthesia/Blood Transfusion Reactions: Motion Sickness Past Psychological History: Anxiety Smoking Status: Current every day smoker Past Alcohol Use History: None Reported Past Drug Use History: None Reported - Past Family History Mother Family Medical History: Myocardial Infarction ([place]) Additional Family Medical History / Comment(s): pacemaker Father Family Medical History: Cancer Additional Family Medical History / Comment(s): LIVER CANCER General Exam - General Exam Comments Initial Comments: 45 year old female, no distress. Limitations: no limitations General appearance: alert, in no apparent distress Head exam: Present: atraumatic, normocephalic, normal inspection Eye exam: Present: normal appearance, PERRL, EOMI. Absent: scleral icterus, con junctival injection, periorbital swelling ENT exam: Present: normal exam, mucous membranes moist Neck exam: Present: normal inspection. Absent: tenderness, meningismus, lymphadenopathy Respiratory exam: Present: normal lung sounds bilaterally. Absent: respiratory distress, wheezes, rales, rhonchi, stridor Cardiovascular Exam: Present: regular rate, normal rhythm, normal heart sounds. Absent: systolic murmur, diastolic murmur, rubs, gallop, clicks GI/Abdominal exam: Present: soft, normal bowel sounds. Absent: distended, tenderness, guarding, rebound, rigid Extremities exam: Present: normal inspection, full ROM, normal capillary refill. Absent: tenderness, pedal edema, joint swelling, calf tenderness Back exam: Present: normal inspection Neurological exam: Present: alert, oriented X3, CN II-XII intact Psychiatric exam: Present: normal affect, normal mood Course Vital Signs 08/17/20 08/17/20 16:47 20:18 Temperature 98.9 F Pulse Rate 73 63 Respiratory 20 16 Rate Blood Pressure 121/85 120/74 O2 Sat by Pulse 100 100 Oximetry Medical Decision Making - Medical Decision Making 45 year old femael presented for concern of leukocytosis from routine lab work yesterday. WBC was 28K. PT has no symptoms or source of infection and no fever. LAbs today show WBC 13K, UA and chem is normal. Discussed possible lab error, but with normal labs and no symptoms pt can be discharged home. Discussed return parameters - Lab Data Result diagrams: 08/17/20 18:26 08/17/20 18:26 Lab Results 08/17/20 08/17/20 08/17/20 Range/Units 18:26 18:26 18:26 WBC 13.3 H (3.8-10.6) k/uL RBC 4.04 (3.80-5.40) m/uL Hgb 13.5 (11.4-16.0) gm/dL Hct 41.9 (34.0-46.0) % MCV 103.7 H (80.0-100.0) fL MCH 33.3 (25.0-35.0) pg MCHC 32.2 (31.0-37.0) g/dL RDW 13.7 (11.5-15.5) % Plt Count 256 (150-450) k/uL Neutrophils % 58 % Lymphocytes % 35 % Monocytes % 4 % Eosinophils % 1 % Basophils % 0 % Neutrophils # 7.8 H (1.3-7.7) k/uL Lymphocytes # 4.6 (1.0-4.8) k/uL Monocytes # 0.6 (0-1.0) k/uL Eosinophils # 0.1 (0-0.7) k/uL Basophils # 0.1 (0-0.2) k/uL Macrocytosis Slight PT 9.9 (9.0-12.0) sec INR 0.9 (<1.2) APTT 23.6 (22.0-30.0) sec Sodium (137-145) mmol/L Potassium (3.5-5.1) mmol/L Chloride (98-107) mmol/L Carbon Dioxide (22-30) mmol/L Anion Gap mmol/L BUN (7-17) mg/dL Creatinine (0.52-1.04) mg/dL Est GFR (CKD-EPI)AfAm (>60 ml/min/1.73 sqM) Est GFR (CKD-EPI)NonAf (>60 ml/min/1.73 sqM) Glucose (74-99) mg/dL Plasma Lactic Acid Rob (0.7-2.0) mmol/L Calcium (8.4-10.2) mg/dL Total Bilirubin (0.2-1.3) mg/dL AST (14-36) U/L ALT (4-34) U/L Alkaline Phosphatase (38-126) U/L Total Protein (6.3-8.2) g/dL Albumin (3.5-5.0) g/dL Urine Color Light Yellow Urine Appearance Clear (Clear) Urine pH 5.0 (5.0-8.0) Ur Specific [place] 1.011 (1.001-1.035) Urine Protein Negative (Negative) Urine Glucose (UA) Negative (Negative) Urine Ketones Negative (Negative) Urine Blood Negative (Negative) Urine Nitrite Negative (Negative) Urine Bilirubin Negative (Negative) Urine Urobilinogen <2.0 (<2.0) mg/dL Ur Leukocyte Esterase Negative (Negative) 08/17/20 08/17/20 Range/Units 18:26 18:26 WBC (3.8-10.6) k/uL RBC (3.80-5.40) m/uL Hgb (11.4-16.0) gm/dL Hct (34.0-46.0) % MCV (80.0-100.0) fL MCH (25.0-35.0) pg MCHC (31.0-37.0) g/dL RDW (11.5-15.5) % Plt Count (150-450) k/uL Neutrophils % % Lymphocytes % % Monocytes % % Eosinophils % % Basophils % % Neutrophils # (1.3-7.7) k/uL Lymphocytes # (1.0-4.8) k/uL Monocytes # (0-1.0) k/uL Eosinophils # (0-0.7) k/uL Basophils # (0-0.2) k/uL Macrocytosis PT (9.0-12.0) sec INR (<1.2) APTT (22.0-30.0) sec Sodium 138 (137-145) mmol/L Potassium 4.1 (3.5-5.1) mmol/L Chloride 112 H (98-107) mmol/L Carbon Dioxide 20 L (22-30) mmol/L Anion Gap 6 mmol/L BUN 15 (7-17) mg/dL Creatinine 1.22 H (0.52-1.04) mg/dL Est GFR (CKD-EPI)AfAm 63 (>60 ml/min/1.73 sqM) Est GFR (CKD-EPI)NonAf 54 (>60 ml/min/1.73 sqM) Glucose 90 (74-99) mg/dL Plasma Lactic Acid Rob 1.0 (0.7-2.0) mmol/L Calcium 8.7 (8.4-10.2) mg/dL Total Bilirubin 0.2 (0.2-1.3) mg/dL AST 24 (14-36) U/L ALT 23 (4-34) U/L Alkaline Phosphatase 70 (38-126) U/L Total Protein 6.7 (6.3-8.2) g/dL Albumin 3.6 (3.5-5.0) g/dL Urine Color Urine Appearance (Clear) Urine pH (5.0-8.0) Ur Specific [place] (1.001-1.035) Urine Protein (Negative) Urine Glucose (UA) (Negative) Urine Ketones (Negative) Urine Blood (Negative) Urine Nitrite (Negative) Urine Bilirubin (Negative) Urine Urobilinogen (<2.0) mg/dL Ur Leukocyte Esterase (Negative) - EKG Data EKG Comments: EKG performed showed normal sinus rhythm normal EKG. Ventricular rate of 62 bpm. Verbal is 154 ms. QS duration is 96 most seconds. QT QTc is 442/448 ms. Disposition Clinical Impression: Suspected condition not found Disposition: HOME SELF-CARE Condition: Good Instructions (If sedation given, give patient instructions): Leukocytosis (ED) Additional Instructions: Today the white blood cell count was normal. Advised to recheck with your primary care doctor they may want repeat blood testing in another week. Return to the ED if any alarming signs or symptoms occur. Return to the emergency department if any alarming signs or symptoms occur. Is patient prescribed a controlled substance at d/c from ED?: No Referrals: Jose Lund MD [Primary Care Provider] - 1-2 days Time of Disposition: 20:02
[2020-08-17 19:31] LABS: Appearance,Urine Clear (Clear); Bilirubin,Urine Negative (Negative); Blood,Urine Negative (Negative); Color,Urine Light Yellow; Glucose,Urine (UA) Negative (Negative); Ketones,Urine Negative (Negative); Leukocyte Esterase,Urine Negative (Negative); Nitrite,Urine Negative (Negative); Protein,Urine Negative (Negative); Specific Gravity,Urine 1.011 (1.001-1.035); Urobilinogen,Urine <2.0 mg/dL (<2.0)
[2020-08-17 19:32] LABS: Albumin 3.6 g/dL (3.5-5.0); Basophils # (A) 0.1 k/uL (0-0.2); Basophils % (A) 0 %; Calcium 8.7 mg/dL (8.4-10.2); Eosinophils # (A) 0.1 k/uL (0-0.7); Eosinophils % (A) 1 %; HCT 41.9 % (34.0-46.0); HGB 13.5 gm/dL (11.4-16.0); Lymphocytes # (A) 4.6 k/uL (1.0-4.8); Lymphocytes % (A) 35 %; MCH 33.3 pg (25.0-35.0); MCHC 32.2 g/dL (31.0-37.0); MCV 103.7 fL (80.0-100.0); Macrocytosis Slight; Mean Platelet Volume 7.9; Monocytes # (A) 0.6 k/uL (0-1.0); Monocytes % (A) 4 %; Neutrophils # (A) 7.8 k/uL (1.3-7.7); Neutrophils % (A) 58 %; Platelet Count 256 k/uL (150-450); Potassium 4.1 mmol/L (3.5-5.1); RBC 4.04 m/uL (3.80-5.40); RDW 13.7 % (11.5-15.5); Total Bilirubin 0.2 mg/dL (0.2-1.3); Total Protein 6.7 g/dL (6.3-8.2); WBC 13.3 k/uL (3.8-10.6)
[2020-08-17 19:37] LABS: INR 0.9 (<1.2); Partial Thromboplastin Time 23.6 sec (22.0-30.0); Prothrombin Time 9.9 sec (9.0-12.0)
--- NOTE | 2020-08-17 19:53 | XR ---
EXAMINATION TYPE: XR chest 2V DATE OF EXAM: 08/17/2020 COMPARISON: 07/10/2020 HISTORY: Fever TECHNIQUE: FINDINGS: Heart and mediastinum are normal. Lungs are clear. Diaphragm is normal. Bony thorax appears normal. IMPRESSION: Normal chest. No change.
[2020-08-17 20:23] VITALS: BP 120/74; PULSE 63; RESP 16
== END 2020-08-17 20:24 | disposition home or self-care (01) ==
LOC: EC 16:38
DX: Z04.9 Encounter for examination and observation for unspecified reason (principal); E11.9 Type 2 diabetes mellitus without complications; K21.9 Gastro-esophageal reflux disease without esophagitis; E78.5 Hyperlipidemia, unspecified; I10 Essential (primary) hypertension; E07.9 Disorder of thyroid, unspecified; F41.9 Anxiety disorder, unspecified; F17.200 Nicotine dependence, unspecified, uncomplicated; Z79.899 Other long term (current) drug therapy; Z79.51 Long term (current) use of inhaled steroids; Z79.890 Hormone replacement therapy; Z88.1 Allergy status to other antibiotic agents; Z88.2 Allergy status to sulfonamides; Z88.8 Allergy status to other drugs, medicaments and biological substances
CPT/HCPCS: 36415; 71046; 80053; 81003; 83605; 85025; 85610; 85730; 87040; 93005; 96360; 99284

== ENCOUNTER → 2020-10-09 | Outpatient (CLI) | payer OTHER ==
--- NOTE | 2020-10-15 10:41 | MM ---
Reason for exam: screening (asymptomatic). Last mammogram was performed 1 year and 3 months ago. History: Family history of breast cancer in mother at age 62 and breast cancer in maternal grandmother at age 50. Benign US biopsy breast VAD LT of the left breast, July 27, 2018. Benign excisional biopsy of the left breast, July 2011. Benign excisional biopsy of the left breast, December 2010. Benign excisional biopsy of the left breast, 2009. Took hormonal contraceptives beginning at age 15. Physical Findings: A clinical breast exam by your physician is recommended on an annual basis and results should be correlated with mammographic findings. MG Screening Mammo w CAD Bilateral CC and MLO view(s) were taken. XCCL view(s) were taken of the right breast. Prior study comparison: July 20, 2019, bilateral MG diagnostic mammo w CAD CHAN. January 17, 2019, left breast MG diagnostic mammo LT w CAD. There are scattered fibroglandular densities. Previous mammotome biopsy in the left breast with stable adjacent subareolar asymmetric density on the CC view. No significant changes when compared with prior studies. ASSESSMENT: Benign, BI-RAD 2 RECOMMENDATION: Routine screening mammogram of both breasts in 1 year.
== END | disposition home or self-care (01) ==
LOC: RADMAMWWP 13:47
PROVIDERS: ATTEND Surgery
DX: Z12.31 Encounter for screening mammogram for malignant neoplasm of breast (principal)
CPT/HCPCS: 77067

== ENCOUNTER → 2020-11-09 | Outpatient (CLI) | payer OTHER ==
--- NOTE | 2020-11-09 12:02 | USB ---
Reason for exam: clinical finding. History: Family history of breast cancer in mother at age 62 and breast cancer in maternal grandmother at age 50. Benign US biopsy breast VAD LT of the left breast, July 27, 2018. Benign excisional biopsy of the left breast, July 2011. Benign excisional biopsy of the left breast, December 2010. Benign excisional biopsy of the left breast, 2009. Took hormonal contraceptives beginning at age 15. Indicated problem(s): bloody discharge in the left breast. Physical Findings: Nurse Summary: Patient complains of left breast lump x 3 months with spontaneous green, sometimes bloody nipple discharge (nurse mj). US Breast Limited BILAT Right limited breast ultrasound including focal area of concern, retroareolar and axilla demonstrates a 0.6 x 0.4 x 0.5cm oval, solid, hyperechoic lesion at 9 o'clock and a 3.0 x 2.3 x 0.9cm oval lymph node at the axilla. Left complete breast ultrasound includes all four quadrants, the retroareolar region and axilla. Finding demonstrates a 1.4 x 1.8 x 0.5cm oval, mixed, hypoechoic lesion at 12 o'clock areola for which a biopsy is recommended, a 0.6 x 0.6 x 0.5cm oval, solid lesion at the nipple and a 2.3 x 1.7 x 1.1cm largest lymph node at the axilla. These results were verbally communicated with the patient and result sheet given to the patient on 11/09/20. ASSESSMENT: Suspicious, BI-RAD 4 RECOMMENDATION: Ultrasound core biopsy of the left breast. (12 o'clock) Called office with mammographic findings and has scheduled an appointment for the patient for 11/24/20 at 2:[address] Ann. PRELIMINARY REPORT CALLED AND FAXED TO DR. ANN ON 11/09/20.
== END | disposition home or self-care (01) ==
LOC: RADUSWWP 10:02
PROVIDERS: ATTEND Surgery
DX: N64.52 Nipple discharge (principal)

== ENCOUNTER → 2020-11-21 | Day surgery (SDC) | payer OTHER ==
[2020-11-21 12:05] VITALS: RESP 16
[2020-11-21 14:21] VITALS: BP 113/75; PULSE 71; TEMP 97.9
--- NOTE | 2020-11-21 15:12 | USB ---
EXAMINATION TYPE: US biopsy breast VAD LT, MG post biopsy diagnostic mammo LT wo CAD DATE OF EXAM: 11/21/2020 CLINICAL HISTORY: 45-year-old female patient reports spontaneous left nipple discharge of varying colors, including bloody discharge. R92.8 ABNORMAL ULTRASOUND OF BREAST. TECHNIQUE: Ultrasound guided core biopsy of the left breast COMPARISON: 10/09/2020 FINDINGS: The procedure of ultrasound guided core biopsy was explained to the patient. Benefits, alternatives, and risks were discussed. An informed consent was then obtained. Initial scanning redemonstrated the 7 mm round echogenic area with posterior through transmission and the subareolar region that was previously biopsied on 07/27/2013. Incidentally, there is an adjacent cyst measuring 1 cm that can be reassessed by ultrasound in 3 months. The hypoechoic area measuring 1 cm at the 12:00 subareolar position was identified and targeted for biopsy. The patient was placed in supine positioning for imaging and for the procedure. The overlying skin was prepped and draped in usual sterile fashion. Lidocaine was used as anesthetic into the skin and subcutaneous tissue up to area of concern in the 12:00 subareolar left breast. Under ultrasound guidance, a 13-gauge vacuum-assisted mammotome Elite biopsy gun was used to obtain 4 core samples. Following this, a ribbon clip was left in lesion. The patient tolerated the procedure well without any immediate complication. The patient was kept in the radiology department for short stay after the procedure and then discharged home in stable condition. Post procedure mammogram shows ribbon clip at the site of mammographic asymmetric density. The more anterior subareolar coil placement related to the prior biopsy. Punctate calcifications just deep to the nipple are unchanged. IMPRESSION: Successful, uncomplicated ultrasound guided core biopsy of indeterminate 1 cm hypoechoic area in the 12:00 subareolar left breast; full pathology results to follow. RECOMMENDATION: 1. Await pathology results. 2. Three-month follow-up ultrasound to reassess the 1 cm subareolar cyst and correlation to exclude any signs/symptoms of infection. 3. Surgical consultation if suspicious nipple discharge persists. Pathology Results: Benign LEFT BREAST, TWELVE OCLOCK, CORE BIOPSY: Fibrosis and benign adenosis with focal mild usual ductal hyperplasia and columnar cell hyperplasia with focal minute suggestive microcalcification (see note). Negative for in situ or invasive carcinoma. Recommendation Follow up ultrasound of the left breast in 3 months. Three month follow up to reassess the biopsy site and the 1cm subareolar cystic area. Correlate with patient's signs/symptoms to exclude infection. MTDD
== END ==
LOC: RADUSWWP 11:33
PROVIDERS: ATTEND Surgery
DX: N60.32 Fibrosclerosis of left breast (principal); N60.22 Fibroadenosis of left breast; R89.7 Abnormal histological findings in specimens from other organs, systems and tissues
CPT/HCPCS: 88305; 77065; 19083; A4648; J2001

== ENCOUNTER → 2020-11-28 | Outpatient (CLI) | payer OTHER ==
[2020-11-28 14:50] LABS: Creatinine,Urine Random 129.3 mg/dL; Protein/Creatinine Ratio,Urine 0.062
[2020-11-28 20:14] LABS: Basophils # (A) 0.02 X 10*3/uL (0.00-0.10); Basophils % (A) 0.1 %; Eosinophils # (A) 0 X 10*3/uL (0.04-0.35); Eosinophils % (A) 0 %; HCT 42.1 % (37.2-46.3); HGB 13.7 g/dL (12.0-15.0); Lymphocytes # (A) 3.91 X 10*3/uL (0.90-5.00); Lymphocytes % (A) 26.2 %; MCH 33.7 pg (27.0-32.0); MCHC 32.5 g/dL (32.0-37.0); MCV 103.7 fL (80.0-97.0); Mean Platelet Volume 10.8 fL (9.5-12.2); Monocytes # (A) 0.85 X 10*3/uL (0.20-1.00); Monocytes % (A) 5.7 %; Neutrophils # (A) 10.09 X 10*3/uL (1.80-7.70); Neutrophils % (A) 67.6 %; Platelet Count 247 X 10*3/uL (140-440); RBC 4.06 X 10*6/uL (4.10-5.20); RDW 12.9 % (11.5-14.5); WBC 14.93 X 10*3/uL (4.50-10.00)
[2020-11-28 20:40] LABS: % Iron Saturation 23.55 (12.00-45.00); African American GFR (CKD) 58.2 (60.0-200.0); Anion Gap 7.7 mmol/L (4.00-12.00); BUN/Creat Ratio 16.92 Ratio (12.00-20.00); Calcium 9.3 mg/dL (8.7-10.3); Carbon Dioxide 23.3 mmol/L (21.6-31.8); Non-African American GFR(CKD) 50.2 (60.0-200.0); Potassium 4.4 mmol/L (3.5-5.5)
== END ==
LOC: LABWHC1 11:53
PROVIDERS: ATTEND Nurse Practitioner Family
DX: N18.30 Chronic kidney disease, stage 3 unspecified (principal); D64.9 Anemia, unspecified; N17.9 Acute kidney failure, unspecified
CPT/HCPCS: 36415; 80048; 82570; 83540; 83550; 84156; 85025

== ENCOUNTER → 2020-11-30 | Outpatient (CLI) | payer OTHER | END | disposition home or self-care (01) | LOC: LABPAT 15:15 | PROVIDERS: ATTEND Surgery | DX: Z20.822 Contact with and (suspected) exposure to COVID-19 (principal) | CPT/HCPCS: U0003; C9803 ==

== ENCOUNTER 2020-12-06 09:22 | Day surgery (SDC) | payer OTHER ==
[2020-12-03 11:34] VITALS: BMI 38.5
[~2020-12-06 09:22] MED LIST changes: +DEXAMETHASONE SOD PHOSPHATE 4 MG/ML 1 ML VIAL IV ONE; +HYDROmorphone 0.5 MG/0.5 ML SYRINGE IVP PRN; +LIDOCAINE 1% (10MG/ML) FOR IV START INTRADERMA PRN; -LIDOCAINE 1% 20 ML VIAL (10MG/ML) FOR IV START INTRADERMA PRN; +ONDANSETRON 4 MG/2 ML VIAL IVP ONE; +SCOPOLAMINE 1.5MG/72HR PATCH TRANSDERM ONE; +VANCOMYCIN 1,500 MG in SODIUM CHLORIDE 0.9% 250 ML IVPB PRN
[2020-12-06 09:51] VITALS: TEMP 97.4
[2020-12-06 10:04] LABS: Glucose,Whole Blood 88 mg/dL (75-99)
[2020-12-06] MEDS ORDERED: MIDAZOLAM 2 MG/2 ML VIAL ONE (10:35)
[2020-12-06] MEDS ORDERED: SUCCINYLCHOLINE CHLORIDE 100 MG/5 ML SYR IV ONE (10:35)
[2020-12-06] MEDS ORDERED: fentaNYL (PF) 50 MCG/ML 2 ML AMP ONE (10:35)
[2020-12-06] MEDS ORDERED: LIDOCAINE 1% INJ 10MG/ML (20 ML MDV) ONE (10:35)
[2020-12-06] MEDS ORDERED: PROPOFOL 10 MG/ML 20 ML VIAL IV ONE (10:35)
[2020-12-06] MEDS ORDERED: BUPIVACAINE (PF) 0.25% 30 ML VIAL SQ ONE ×2 (10:56)
--- NOTE | 2020-12-06 11:24 | P.OP ---
Date of Procedure: 12/06/20 Preoperative Diagnosis: Bloody discharge, left nipple Postoperative Diagnosis: Bloody discharge, left nipple Palpable ductal lesion Procedure(s) Performed: Left breast, central duct exploration and excision of lesion Anesthesia: JAMI Surgeon: Nicole Wilder Estimated Blood Loss (ml): 5 Pathology: other (Left breast ductal lesion) Condition: stable Disposition: same day Indications for Procedure: 45-year-old female presented to the surgery clinic with complaints of left breas t nipple discharge that was bloody in nature. She was noted to have recent normal finding on mammogram. She is sent for ultrasound with recommendation for ultrasound core biopsy. Core biopsy was completed and was noted to be a benign finding. The patient did return with continued bloody discharge and a palpable lesion in the retroareolar space that was concerning for ductal lesion. Secondary to this, plan is for central duct exploration and excision of this lesion. The patient was explained the risks, benefits and alternatives to the procedure did provide consent prior to attending the operating suite. Operative Findings: Palpable lesion in the retroareolar in the central ductal region Description of Procedure: Patient was brought to the operating suite and placed in supine position on the operating table. Sedation was provided by anesthesia and the patient underwent endotracheal intubation. The patient was then prepped and draped in regular sterile fashion. The palpable lesion was noted to be retroareolar. A curvilinear incision was made along the border of the areola in the superior portion of the left nipple. Dissection was carried towards the central duct and this palpable lesion. Using a cautery the palpable lesion was dissected from surrounding rest tissue and excised in completion. It was noted to be retroa reolar and adhered to the dermal layer. Hemostasis was noted to be maintained. The wound was then irrigated. It was closed in layers with 30 and 4-0 Vicryl subcuticular suture. The patient was awakened in the operating suite and taken to postanesthesia care unit in stable condition.
[2020-12-06 12:37] VITALS: BP 127/81; PULSE 67; RESP 20
== END 2020-12-06 12:45 | disposition home or self-care (01) ==
LOC: OR 09:22
PROVIDERS: ATTEND Surgery
DX: N60.32 Fibrosclerosis of left breast (principal); N62 Hypertrophy of breast; M19.90 Unspecified osteoarthritis, unspecified site; E11.9 Type 2 diabetes mellitus without complications; K57.90 Diverticulosis of intestine, part unspecified, without perforation or abscess without bleeding; K21.9 Gastro-esophageal reflux disease without esophagitis; R01.1 Cardiac murmur, unspecified; E78.00 Pure hypercholesterolemia, unspecified; N28.9 Disorder of kidney and ureter, unspecified; G43.909 Migraine, unspecified, not intractable, without status migrainosus; E03.9 Hypothyroidism, unspecified; Z90.49 Acquired absence of other specified parts of digestive tract; I34.1 Nonrheumatic mitral (valve) prolapse; I10 Essential (primary) hypertension; E78.5 Hyperlipidemia, unspecified; F17.200 Nicotine dependence, unspecified, uncomplicated; Z79.890 Hormone replacement therapy; Z98.890 Other specified postprocedural states; Z79.899 Other long term (current) drug therapy; Z88.1 Allergy status to other antibiotic agents; Z88.2 Allergy status to sulfonamides; Z88.8 Allergy status to other drugs, medicaments and biological substances
CPT/HCPCS: 86850; 86900; 86901; 88305

== ENCOUNTER 2020-12-07 15:28 | Emergency (ER) | payer OTHER ==
[2020-12-07 15:37] VITALS: TEMP 98.6
--- NOTE | 2020-12-07 16:02 | ED ---
General Adult HPI - General Chief complaint: Chest Pain Stated complaint: Chest pain Time Seen by Provider: 12/07/20 15:35 Source: patient, RN notes reviewed, old records reviewed Mode of arrival: ambulatory Limitations: no limitations - History of Present Illness Initial comments: This is a 45-year-old female presents emergency Department complaining of some sharp chest pain. Patient states it occurs with deep breathing. Patient states she's resting it doesn't occur. Patient denies any difficulty breathing or shortness of breath. Patient states she's also had some left calf pain. Patient states she had surgery yesterday on her left breast but around the breast area it does not hurt it's in the center of her chest where she gets the sharp pain. Patient denies any recent fever chills or cough per patient denies headache patient denies numbness weakness per patient denies lightheadedness or dizziness. Patient denies any nausea vomiting or diarrhea. - Related Data Home Medications Medication Instructions Recorded Confirmed Topiramate [Topamax] 50 mg PO BID 05/13/14 12/06/20 Fluticasone Nasal [place] [Flonase 1 spray EA NOSTRIL BID 07/10/15 12/06/20 Nasal [place]] Levothyroxine Sodium [Synthroid] 88 mcg PO DAILY 07/10/15 12/06/20 Baclofen [Lioresal] 10 mg PO TID 08/13/16 12/06/20 gemfibroziL [Lopid] 600 mg PO BID 01/23/17 12/06/20 Dicyclomine [Bentyl] 10 mg PO BID 06/30/17 12/06/20 Ergocalciferol [Vitamin D2 50,000 unit PO Q14D 07/10/20 12/06/20 (DRISDOL)] Ipratropium/Albuterol Sulfate 2 puff INHALATION RT-QID PRN 07/10/20 12/06/20 [Combivent Respimat Inhaler] Omeprazole 20 mg PO BID 07/10/20 12/06/20 Acetaminophen Tab [Tylenol] 1,000 mg PO Q8H PRN 08/17/20 12/06/20 Furosemide [Lasix] 20 mg PO BID 08/17/20 12/06/20 Linaclotide [Linzess] 145 mcg PO DAILY 08/17/20 12/06/20 Previous Rx's Medication Instructions Recorded HYDROcodone/APAP 5-325MG [[place] 1 tab PO Q6HR PRN 3 Days #12 tab 12/06/20 5-325] Ibuprofen [Motrin] 600 mg PO Q6HR PRN #20 tab 12/07/20 Allergies Allergy/AdvReac Type Severity Reaction Status Date / Time cephalexin monohydrate Allergy Rash/Hives Verified 12/07/20 15:38 [From Keflex] losartan Allergy Anaphylaxis Verified 12/07/20 15:38 prednisone Allergy Swelling Verified 12/07/20 15:38 of Feet sulfamethoxazole Allergy Anaphylaxis Verified 12/07/20 15:38 [From Bactrim] trimethoprim [From Bactrim] Allergy Anaphylaxis Verified 12/07/20 15:38 Review of Systems ROS Statement: Those systems with pertinent positive or pertinent negative responses have been documented in the HPI. ROS Other: All systems not noted in ROS Statement are negative. Past Medical History Past Medical History: Diabetes Mellitus, GERD/Reflux, Hyperlipidemia, Hypertension, Mitral Valve Prolapse (MVP), Osteoarthritis (OA), Renal Disease, Respiratory Disorder, Skin Disorder, Thyroid Disorder Additional Past Medical History / Comment(s): HEART MURMUR, LEAKY HEART VALVES (STATES PRE-MEDICATED PRIOR TO PROCEDURES). HX OF DIVERTICULITIS. IBS. BRONCHIECTASIS. MIGRAINES. HX OF STOMACH ULCERS. OVARIAN SYNDROME. HID RADENITIS, SKIN DISORDER. "LIVER INFLAMED." "KIDNEY FUNCTION @ 60%." EDEMA BLE, WEARING YRN HOSE. Hx of herniated discs History of Any Multi-Drug Resistant Organisms: None Reported Past Surgical History: Cholecystectomy, Hernia Repair, Orthopedic Surgery, Tubal Ligation, Uterine Ablation Additional Past Surgical History / Comment(s): lt foot surgery, BUNIONECTOMY. Bilat CTR. Colonoscopy, egd Past Anesthesia/Blood Transfusion Reactions: Motion Sickness Past Psychological History: Anxiety Smoking Status: Current every day smoker Past Alcohol Use History: None Reported Past Drug Use History: None Reported - Past Family History Mother Family Medical History: Myocardial Infarction ([place]) Additional Family Medical History / Comment(s): Pacemaker. Father Family Medical History: Cancer Additional Family Medical History / Comment(s): LIVER CANCER. General Exam - General Exam Comments Initial Comments: GENERAL: Patient is well-developed and well-nourished. Patient is nontoxic and well-h ydrated and is in no acute distress. ENT: Neck is soft and supple. No significant lymphadenopathy is noted. Oropharynx is clear. Moist mucous membranes. Neck has full range of motion without elic iting any pain. There is no thyroid enlargement and no masses were felt. EYES: The sclera were anicteric and conjunctiva were pink and moist. Extraocular movements were intact and pupils were equal round and reactive to light. Eyelids were unremarkable. PULMONARY: Unlabored respirations. Good breath sounds bilaterally. No audible rales rhonchi or wheezing was noted. CARDIOVASCULAR: There is a regular rate and rhythm without any murmurs gallops or rubs. ABDOMEN: Soft and nontender with normal bowel sounds. No palpable organomegaly was noted. There is no palpable pulsatile mass. SKIN: Skin is clear with no lesions or rashes and otherwise unremarkable. NEUROLOGIC: Patient is alert and oriented x3. Cranial nerves II through XII are grossly intact. Motor and sensory are also intact. Normal speech, volume and content. Symmetrical smile. MUSCULOSKELETAL: Normal extremities with adequate strength and full range of motion. No lower extremity swelling or edema. No calf tenderness. LYMPHATICS: No significant lymphadenopathy is noted PSYCHIATRIC: Normal psychiatric evaluation. Limitations: no limitations Course Vital Signs 12/07/20 12/07/20 15:35 18:57 Temperature 98.6 F Pulse Rate 59 L 54 L Respiratory 20 18 Rate Blood Pressure 141/83 120/75 O2 Sat by Pulse 100 100 Oximetry Medical Decision Making - Medical Decision Making EKG shows normal sinus rhythm at 62 bpm MS interval 146 dresses 96 QT interval 420 QTC is 434. Patient's EKG shows no ST segment elevation or depression. - Lab Data Result diagrams: 12/07/20 17:24 12/07/20 16:51 Lab Results 12/07/20 12/07/20 12/07/20 Range/Units 16:51 16:51 17:24 WBC 13.2 H (3.8-10.6) k/uL RBC 4.00 (3.80-5.40) m/uL Hgb 13.3 (11.4-16.0) gm/dL Hct 39.8 (34.0-46.0) % MCV 99.4 (80.0-100.0) fL MCH 33.4 (25.0-35.0) pg MCHC 33.5 (31.0-37.0) g/dL RDW 12.5 (11.5-15.5) % Plt Count 217 (150-450) k/uL MPV 7.5 Neutrophils % 61 % Lymphocytes % 32 % Monocytes % 5 % Eosinophils % 1 % Basophils % 0 % Neutrophils # 8.0 H (1.3-7.7) k/uL Lymphocytes # 4.2 (1.0-4.8) k/uL Monocytes # 0.7 (0-1.0) k/uL Eosinophils # 0.1 (0-0.7) k/uL Basophils # 0.0 (0-0.2) k/uL PT (9.0-12.0) sec INR (<1.2) APTT (22.0-30.0) sec D-Dimer (<0.60) mg/L FEU Sodium 140 (137-145) mmol/L Potassium 4.3 (3.5-5.1) mmol/L Chloride 111 H (98-107) mmol/L Carbon Dioxide 23 (22-30) mmol/L Anion Gap 6 mmol/L BUN 14 (7-17) mg/dL Creatinine 1.14 H (0.52-1.04) mg/dL Est GFR (CKD-EPI)AfAm 68 (>60 ml/min/1.73 sqM) Est GFR (CKD-EPI)NonAf 59 (>60 ml/min/1.73 sqM) Glucose 93 (74-99) mg/dL Calcium 9.0 (8.4-10.2) mg/dL Magnesium 1.9 (1.6-2.3) mg/dL Total Bilirubin 0.4 (0.2-1.3) mg/dL AST 32 (14-36) U/L ALT 20 (4-34) U/L Alkaline Phosphatase 59 (38-126) U/L Troponin I <0.012 (0.000-0.034) ng/mL Total Protein 6.7 (6.3-8.2) g/dL Albumin 3.8 (3.5-5.0) g/dL 12/07/20 Range/Units 17:24 WBC (3.8-10.6) k/uL RBC (3.80-5.40) m/uL Hgb (11.4-16.0) gm/dL Hct (34.0-46.0) % MCV (80.0-100.0) fL MCH (25.0-35.0) pg MCHC (31.0-37.0) g/dL RDW (11.5-15.5) % Plt Count (150-450) k/uL MPV Neutrophils % % Lymphocytes % % Monocytes % % Eosinophils % % Basophils % % Neutrophils # (1.3-7.7) k/uL Lymphocytes # (1.0-4.8) k/uL Monocytes # (0-1.0) k/uL Eosinophils # (0-0.7) k/uL Basophils # (0-0.2) k/uL PT 9.8 (9.0-12.0) sec INR 0.9 (<1.2) APTT 21.3 L (22.0-30.0) sec D-Dimer 0.46 (<0.60) mg/L FEU Sodium (137-145) mmol/L Potassium (3.5-5.1) mmol/L Chloride (98-107) mmol/L Carbon Dioxide (22-30) mmol/L Anion Gap mmol/L BUN (7-17) mg/dL Creatinine (0.52-1.04) mg/dL Est GFR (CKD-EPI)AfAm (>60 ml/min/1.73 sqM) Est GFR (CKD-EPI)NonAf (>60 ml/min/1.73 sqM) Glucose (74-99) mg/dL Calcium (8.4-10.2) mg/dL Magnesium (1.6-2.3) mg/dL Total Bilirubin (0.2-1.3) mg/dL AST (14-36) U/L ALT (4-34) U/L Alkaline Phosphatase (38-126) U/L Troponin I (0.000-0.034) ng/mL Total Protein (6.3-8.2) g/dL Albumin (3.5-5.0) g/dL Disposition Clinical Impression: Pleuritic chest pain Disposition: HOME SELF-CARE Condition: Good Instructions (If sedation given, give patient instructions): Pleurisy (ED) Prescriptions: Ibuprofen [Motrin] 600 mg PO Q6HR PRN #20 tab PRN Reason: For pain Is patient prescribed a controlled substance at d/c from ED?: No Referrals: Jose Lund MD [Primary Care Provider] - 1-2 days Time of Disposition: 19:11
[2020-12-07 17:07] LABS: Albumin 3.8 g/dL (3.5-5.0); Magnesium 1.9 mg/dL (1.6-2.3); Potassium 4.3 mmol/L (3.5-5.1); Total Bilirubin 0.4 mg/dL (0.2-1.3); Total Protein 6.7 g/dL (6.3-8.2)
--- NOTE | 2020-12-07 17:09 | XR ---
EXAMINATION TYPE: XR chest 2V DATE OF EXAM: 12/07/2020 COMPARISON: 08/17/2020. HISTORY: Chest pain. TECHNIQUE: Frontal and lateral views of the chest are obtained. FINDINGS: There is no focal air space opacity, pleural effusion, or pneumothorax seen. The cardiac silhouette size is within normal limits. The osseous structures are intact. IMPRESSION: No acute cardiopulmonary process.
[2020-12-07 17:35] LABS: Basophils % (A) 0 %; Eosinophils # (A) 0.1 k/uL (0-0.7); Eosinophils % (A) 1 %; HCT 39.8 % (34.0-46.0); HGB 13.3 gm/dL (11.4-16.0); Lymphocytes # (A) 4.2 k/uL (1.0-4.8); Lymphocytes % (A) 32 %; MCH 33.4 pg (25.0-35.0); MCHC 33.5 g/dL (31.0-37.0); MCV 99.4 fL (80.0-100.0); Mean Platelet Volume 7.5; Monocytes # (A) 0.7 k/uL (0-1.0); Monocytes % (A) 5 %; Neutrophils % (A) 61 %; Platelet Count 217 k/uL (150-450); RDW 12.5 % (11.5-15.5); WBC 13.2 k/uL (3.8-10.6)
[2020-12-07 17:55] LABS: D-Dimer 0.46 mg/L FEU (<0.60); INR 0.9 (<1.2); Partial Thromboplastin Time 21.3 sec (22.0-30.0); Prothrombin Time 9.8 sec (9.0-12.0)
--- NOTE | 2020-12-07 18:20 | US ---
EXAMINATION TYPE: US venous doppler duplex LE LT DATE OF EXAM: 12/07/2020 4:00 PM COMPARISON: US 2019 CLINICAL HISTORY: Pain in calf. Left calf pain x 1 day SIDE PERFORMED: Left TECHNIQUE: The lower extremity deep venous system is examined utilizing real time linear array sonog willam with graded compression, doppler sonography and color-flow sonography. VESSELS IMAGED: Common Femoral Vein Deep Femoral Vein Greater Saphenous Vein * Femoral Vein Popliteal Vein Small Saphenous Vein * Proximal Calf Veins (* superficial vessels) Left Leg: Appears negative for DVT IMPRESSION: No evidence of left lower extremity DVT.
[2020-12-07 18:57] VITALS: BP 120/75; PULSE 54; RESP 18
== END 2020-12-07 19:21 | disposition home or self-care (01) ==
LOC: EC 15:28
DX: R07.81 Pleurodynia (principal); I10 Essential (primary) hypertension; K21.9 Gastro-esophageal reflux disease without esophagitis; E07.9 Disorder of thyroid, unspecified; E78.5 Hyperlipidemia, unspecified; F17.200 Nicotine dependence, unspecified, uncomplicated; Z79.890 Hormone replacement therapy; Z79.899 Other long term (current) drug therapy; Z79.51 Long term (current) use of inhaled steroids; Z88.1 Allergy status to other antibiotic agents; Z88.8 Allergy status to other drugs, medicaments and biological substances; Z88.2 Allergy status to sulfonamides
CPT/HCPCS: 36415; 71046; 80053; 83735; 84484; 85025; 85379; 85610; 85730; 93005; 99285

== ENCOUNTER 2020-12-18 12:55 | Emergency (ER) | payer OTHER ==
--- NOTE | 2020-12-18 14:07 | ED ---
Skin/Abscess/FB HPI - General Chief complaint: Skin/Abscess/Foreign Body Stated complaint: post op infection Time Seen by Provider: 12/18/20 13:20 Source: patient Mode of arrival: ambulatory Limitations: no limitations - History of Present Illness Initial comments: Patient is a 45-year-old female presenting to the emergency department with concerns for possible infection on her left breast. Patient states on id , she had a cyst removed from her breast by Dr. Wilder. She states she has been recovering well, there was a drain tube present. Over the last few days she's noticed a little bit of redness and increased drainage from the area. She does have a follow-up appointment tomorrow with Dr. Wilder felt like she could not wait. She denies any fever or chills, no nausea or vomiting, no other complaints at this time. Upon arrival to the ER, her vital signs are stable. - Related Data Home Medications Medication Instructions Recorded Confirmed Topiramate [Topamax] 50 mg PO BID 05/13/14 12/06/20 Fluticasone Nasal [place] [Flonase 1 spray EA NOSTRIL BID 07/10/15 12/06/20 Nasal [place]] Levothyroxine Sodium [Synthroid] 88 mcg PO DAILY 07/10/15 12/06/20 Baclofen [Lioresal] 10 mg PO TID 08/13/16 12/06/20 gemfibroziL [Lopid] 600 mg PO BID 01/23/17 12/06/20 Dicyclomine [Bentyl] 10 mg PO BID 06/30/17 12/06/20 Ergocalciferol [Vitamin D2 50,000 unit PO Q14D 07/10/20 12/06/20 (DRISDOL)] Ipratropium/Albuterol Sulfate 2 puff INHALATION RT-QID PRN 07/10/20 12/06/20 [Combivent Respimat Inhaler] Omeprazole 20 mg PO BID 07/10/20 12/06/20 Acetaminophen Tab [Tylenol] 1,000 mg PO Q8H PRN 08/17/20 12/06/20 Furosemide [Lasix] 20 mg PO BID 08/17/20 12/06/20 Linaclotide [Linzess] 145 mcg PO DAILY 08/17/20 12/06/20 Previous Rx's Medication Instructions Recorded HYDROcodone/APAP 5-325MG [[place] 1 tab PO Q6HR PRN 3 Days #12 tab 12/06/20 5-325] Ibuprofen [Motrin] 600 mg PO Q6HR PRN #20 tab 12/07/20 Clindamycin HCl 300 mg PO BID 5 Days #10 cap 12/18/20 Allergies Allergy/AdvReac Type Severity Reaction Status Date / Time cephalexin monohydrate Allergy Rash/Hives Verified 12/18/20 13:17 [From Keflex] losartan Allergy Anaphylaxis Verified 12/18/20 13:17 prednisone Allergy Swelling Verified 12/18/20 13:17 of Feet sulfamethoxazole Allergy Anaphylaxis Verified 12/18/20 13:17 [From Bactrim] trimethoprim [From Bactrim] Allergy Anaphylaxis Verified 12/18/20 13:17 ibuprofen AdvReac kidney Verified 12/18/20 13:17 disease Review of Systems ROS Statement: Those systems with pertinent positive or pertinent negative responses have been documented in the HPI. ROS Other: All systems not noted in ROS Statement are negative. Past Medical History Past Medical History: Diabetes Mellitus, GERD/Reflux, Hyperlipidemia, Hypertension, Mitral Valve Prolapse (MVP), Osteoarthritis (OA), Renal Disease, Respiratory Disorder, Skin Disorder, Thyroid Disorder Additional Past Medical History / Comment(s): HEART MURMUR, LEAKY HEART VALVES (STATES PRE-MEDICATED PRIOR TO PROCEDURES). HX OF DIVERTICULITIS. IBS. BRONCHIECTASIS. MIGRAINES. HX OF STOMACH ULCERS. OVARIAN SYNDROME. HIDRADENITIS, SKIN DISORDER. "LIVER INFLAMED." "KIDNEY FUNCTION @ 60%." EDEMA BLE, WEARING YRN HOSE. Hx of herniated discs History of Any Multi-Drug Resistant Organisms: None Reported Past Surgical History: Cholecystectomy, Hernia Repair, Orthopedic Surgery, Tubal Ligation, Uterine Ablation Additional Past Surgical History / Comment(s): lt foot surgery, BUNIONECTOMY, Bilat CTR Colonoscopy, egd, left brest lesion removal Past Anesthesia/Blood Transfusion Reactions: Motion Sickness Past Psychological History: Anxiety Smoking Status: Current every day smoker Past Alcohol Use History: None Reported Past Drug Use History: None Reported - Past Family History Mother Family Medical History: Myocardial Infarction ([place]) Additional Family Medical History / Comment(s): Pacemaker. Father Family Medical History: Cancer Additional Family Medical History / Comment(s): LIVER CANCER. General Exam - General Exam Comments Initial Comments: GENERAL: Patient is well-developed and well-nourished. Patient is nontoxic and in no acute distress. HEAD: Atraumatic, normocephalic. EYES: Pupils equal round and reactive to light, extraocular movements intact, sclera anicteric, conjunctiva are normal. Eyelids were unremarkable. ENT: Nares patent, oropharynx clear without exudates. Moist mucous membranes. NECK: Normal range of motion, supple without lymphadenopathy or JVD. LUNGS: Unlabored respirations. Breath sounds clear to auscultation bilaterally and equal. No wheezes rales or rhonchi. HEART: Regular rate and rhythm without murmurs, rubs or gallops. ABDOMEN: Soft, nontender, normoactive bowel sounds. No guarding, no rebound. No masses appreciated. : Deferred MUSCULOSKELETAL: Normal extremities with adequate strength and normal range of motion, no pitting or edema. No clubbing or cyanosis. NEUROLOGICAL: Patient is alert and oriented x 3. Motor and sensory are also intact. Normal speech, normal gait. PSYCH: Normal mood, normal affect. SKIN: Warm, Dry, normal turgor,. Patient has some mild erythema around the left nipple, there is a drain hole present, there is some very mild drainage, no surrounding erythema, no pain in the breasts, no abscess seen or felt. Limitations: no limitations Course Vital Signs 12/18/20 13:13 Temperature 98.1 F Pulse Rate 72 Respiratory 18 Rate Blood Pressure 128/79 O2 Sat by Pulse 100 Oximetry Medical Decision Making - Medical Decision Making Patient is a 45-year-old female here with concerns of an infection of her left breast. She had a cyst removed of her left breast and fibroid [address] Wilder. She is not currently on antibiotics. She has a very mild erythema and drainage from the area, no surrounding erythema. Patient was very concerned with infection, I will start her on clindamycin and she will follow up with Dr. Wilder tomorrow. She is in agreement with this plan of care. She stable for discharge. Return parameters were discussed with the patient she verbalized understanding. Case discussed with Dr. Thomas. Disposition Clinical Impression: Breast pain, left Disposition: HOME SELF-CARE Condition: Stable Instructions (If sedation given, give patient instructions): Normal Exam (ED) Additional Instructions: Please return to the Emergency Department if symptoms worsen or any other concerns. Take antibiotics as prescribed. Follow up with your surgeon tomorrow. Prescriptions: Clindamycin HCl 300 mg PO BID 5 Days #10 cap Is patient prescribed a controlled substance at d/c from ED?: No Referrals: Jose Lund MD [Primary Care Provider] - 1-2 days Nicole Wilder DO [Doctor of Osteopathic Medicine] - 1-2 days
[2020-12-18 14:44] VITALS: BP 126/80; PULSE 74; RESP 16; TEMP 98.7
== END 2020-12-18 14:20 | disposition home or self-care (01) ==
LOC: EC 12:55
DX: N64.4 Mastodynia (principal); E11.9 Type 2 diabetes mellitus without complications; E78.5 Hyperlipidemia, unspecified; F17.200 Nicotine dependence, unspecified, uncomplicated; I10 Essential (primary) hypertension; K21.9 Gastro-esophageal reflux disease without esophagitis; M19.90 Unspecified osteoarthritis, unspecified site; Z79.1 Long term (current) use of non-steroidal anti-inflammatories (NSAID); F41.9 Anxiety disorder, unspecified
CPT/HCPCS: 99282

== ENCOUNTER 2021-01-30 13:38 | Emergency (ER) | payer OTHER ==
[2021-01-30 13:43] VITALS: BP 125/73; PULSE 72; RESP 17; TEMP 97.9
[2021-01-30] MEDS ORDERED: LIDOCAINE 1% INJ 10MG/ML (20 ML MDV) SQ ONE (14:52)
--- NOTE | 2021-01-30 15:15 | ED ---
General Adult HPI - General Chief complaint: Skin/Abscess/Foreign Body Stated complaint: sore on leg Time Seen by Provider: 01/30/21 14:22 Source: patient Mode of arrival: ambulatory Limitations: no limitations - History of Present Illness Initial comments: 45-year-old female with a past medical history of diabetes mellitus, hyperlipidemia, hypertension, hidradenitis presents to the emergency room for a chief complaint of abscess. Patient states she has an abscess on the right labia that has been there for a few days now. She states that she is supposed to be on minocycline daily however her doctors have not been prescribing her this. Patient denies any fevers. States it is painful.Patient has no other complaints at this time including shortness of breath, chest pain, abdominal pain, nausea or vomiting, headache, or visual changes. - Related Data Home Medications Medication Instructions Recorded Confirmed Topiramate [Topamax] 50 mg PO BID 05/13/14 12/06/20 Fluticasone Nasal [place] [Flonase 1 spray EA NOSTRIL BID 07/10/15 12/06/20 Nasal [place]] Levothyroxine Sodium [Synthroid] 88 mcg PO DAILY 07/10/15 12/06/20 Baclofen [Lioresal] 10 mg PO TID 08/13/16 12/06/20 gemfibroziL [Lopid] 600 mg PO BID 01/23/17 12/06/20 Dicyclomine [Bentyl] 10 mg PO BID 06/30/17 12/06/20 Ergocalciferol [Vitamin D2 50,000 unit PO Q14D 07/10/20 12/06/20 (DRISDOL)] Ipratropium/Albuterol Sulfate 2 puff INHALATION RT-QID PRN 07/10/20 12/06/20 [Combivent Respimat Inhaler] Omeprazole 20 mg PO BID 07/10/20 12/06/20 Acetaminophen Tab [Tylenol] 1,000 mg PO Q8H PRN 08/17/20 12/06/20 Furosemide [Lasix] 20 mg PO BID 08/17/20 12/06/20 Linaclotide [Linzess] 145 mcg PO DAILY 08/17/20 12/06/20 Previous Rx's Medication Instructions Recorded HYDROcodone/APAP 5-325MG [[place] 1 tab PO Q6HR PRN 3 Days #12 tab 02/25/21 5-325] Ibuprofen [Motrin] 600 mg PO Q6HR PRN #20 tab 12/07/20 Clindamycin HCl 300 mg PO BID 5 Days #10 cap 12/18/20 Clindamycin [Cleocin] 450 mg PO Q8H 7 Days #63 cap 01/30/21 Allergies Allergy/AdvReac Type Severity Reaction Status Date / Time cephalexin monohydrate Allergy Rash/Hives Verified 12/18/20 13:17 [From Keflex] losartan Allergy Anaphylaxis Verified 12/18/20 13:17 prednisone Allergy Swelling Verified 12/18/20 13:17 of Feet sulfamethoxazole Allergy Anaphylaxis Verified 12/18/20 13:17 [From Bactrim] trimethoprim [From Bactrim] Allergy Anaphylaxis Verified 12/18/20 13:17 ibuprofen AdvReac kidney Verified 12/18/20 13:17 disease Review of Systems ROS Statement: Those systems with pertinent positive or pertinent negative responses have been documented in the HPI. ROS Other: All systems not noted in ROS Statement are negative. Past Medical History Past Medical History: Diabetes Mellitus, GERD/Reflux, Hyperlipidemia, Hypertension, Mitral Valve Prolapse (MVP), Osteoarthritis (OA), Renal Disease, Respiratory Disorder, Skin Disorder, Thyroid Disorder Additional Past Medical History / Comment(s): HEART MURMUR, LEAKY HEART VALVES (STATES PRE-MEDICATED PRIOR TO PROCEDURES). HX OF DIVERTICULITIS. IBS. BRONCHIECTASIS. MIGRAINES. HX OF STOMACH ULCERS. OVARIAN SYNDROME. HIDRADENITIS, SKIN DISORDER. "LIVER INFLAMED." "KIDNEY FUNCTION @ 60%." EDEMA BLE, WEARING YRN HOSE. Hx of herniated discs History of Any Multi-Drug Resistant Organisms: None Reported Past Surgical History: Cholecystectomy, Hernia Repair, Orthopedic Surgery, Tubal Ligation, Uterine Ablation Additional Past Surgical History / Comment(s): lt foot surgery, BUNIONECTOMY, Bilat CTR Colonoscopy, egd, left brest lesion removal Past Anesthesia/Blood Transfusion Reactions: Motion Sickness Past Psychological History: Anxiety Smoking Status: Current every day smoker Past Alcohol Use History: None Reported Past Drug Use History: None Reported - Past Family History Mother Family Medical History: Myocardial Infarction ([place]) Additional Family Medical History / Comment(s): Pacemaker. Father Family Medical History: Cancer Additional Family Medical History / Comment(s): LIVER CANCER. General Exam Limitations: no limitations General appearance: alert, in no apparent distress Head exam: Present: atraumatic Eye exam: Present: normal appearance, PERRL, EOMI. Absent: scleral icterus, conjunctival injection, periorbital swelling ENT exam: Present: normal exam, mucous membranes moist Neck exam: Present: normal inspection, full ROM. Absent: tenderness, meningismus, lymphadenopathy Respiratory exam: Present: normal lung sounds bilaterally. Absent: respiratory distress, wheezes, rales, rhonchi, stridor Cardiovascular Exam: Present: regular rate, normal rhythm, normal heart sounds. Absent: systolic murmur, diastolic murmur, rubs, gallop, clicks GI/Abdominal exam: Present: soft, normal bowel sounds. Absent: distended, tenderness, guarding, rebound, rigid External exam: Present: normal external exam, swelling (abscess to the right labia 1 cm x 1 cm). Absent: erythema, lesions, lacerations, ecchymosis Course Vital Signs 01/30/21 13:39 Temperature 97.9 F Pulse Rate 72 Respiratory 17 Rate Blood Pressure 125/73 O2 Sat by Pulse 100 Oximetry Procedures - Incision & Drainage Consent Obtained: verbal consent Indication: labia Site: vulva/vagina Size (cm): 1 Anesthetic Used: lidocaine 1% Amount (mLs): 1 I&D Cleaning Method: Chloroprep Sterile Field Used?: Yes Scalpel Used: #11 I&D Drainage Obtained: Pus Patient Tolerated Procedure: well, no complications Medical Decision Making - Medical Decision Making Abscess was incised and drained. Purulent material expelled. She was put on antibiotics tailored to her ALLERGIES. She will follow up with primary care. She'll return here to the emergency room. Patient was referring to intertrigo of the right thigh when she referred to yeast infection in the [place]. She has no vaginal discharge. Patient already applies nystatin cream to the area which she will continue to do. Disposition Clinical Impression: Abscess Disposition: HOME SELF-CARE Condition: Good Instructions (If sedation given, give patient instructions): Abscess Incision and Drainage (ED) Additional Instructions: Please take antibiotic as directed. Do warm compresses and sitz baths. Follow- up with your doctor. Return to the emergency room for any worsening symptoms. Prescriptions: Clindamycin [Cleocin] 450 mg PO Q8H 7 Days #63 cap Is patient prescribed a controlled substance at d/c from ED?: No Referrals: Jose Lund MD [Primary Care Provider] - 1-2 days Time of Disposition: 15:15
== END 2021-01-30 15:28 | disposition home or self-care (01) ==
LOC: EC 13:38
DX: N76.4 Abscess of vulva (principal); E11.9 Type 2 diabetes mellitus without complications; K21.9 Gastro-esophageal reflux disease without esophagitis; E78.5 Hyperlipidemia, unspecified; M19.90 Unspecified osteoarthritis, unspecified site; I10 Essential (primary) hypertension; F41.9 Anxiety disorder, unspecified; F17.200 Nicotine dependence, unspecified, uncomplicated
CPT/HCPCS: 99283; 56405; J2001

== ENCOUNTER 2021-03-19 17:43 | Observation (INO) | payer OTHER ==
[2021-03-19] MEDS ORDERED: ASPIRIN 81 MG PO STA (18:07)
[2021-03-19] MEDS ORDERED: diphenhydrAMINE 50 MG/ML 1 ML VIAL IVP STA (18:08)
[2021-03-19] MEDS ORDERED: FAMOTIDINE 20 MG/2 ML VIAL IV STA (18:08)
[2021-03-19] MEDS ORDERED: METOCLOPRAMIDE 5 MG/ML 2 ML VIAL IVP STA (18:08)
[2021-03-19] MEDS ORDERED: MAG HYDROX/AL HYDROX/SIMETH 30 ML CUP PO ONE (18:15)
--- NOTE | 2021-03-19 18:29 | ED ---
Abdominal Pain HPI - General Chief Complaint: Abdominal Pain Stated Complaint: SOB Time Seen by Provider: 03/19/21 17:56 Source: patient Mode of arrival: wheelchair Limitations: no limitations - History of Present Illness Initial Comments: Patient is a 45-year-old female with past medical history remarkable for [id number] diabetes, GERD, acid reflux, hypertension, hyperlipidemia, CKD, gastroenteritis, current tobacco use with bronchitis/COPD, thyroid disorder, heart murmur, mitral valve prolapse, osteoarthritis presents emergency Department with the chief complaint chest pain, abdominal pain. Patient states that this is been ongoing for approximately 8 days. She last received her COVID-19 vaccine the second dose on March 12 and since that time has had intermittent nausea, vomiting, epigastric, pending, as well as intermittent chest discomfort. She describes the chest discomfort as a bilateral pain that does change position. She describes it as an achy sharp sensation and burning. She denies any known palliative or provocative factors. She denies any back pain. She states it does slightly get worse with deep inspiration. It is not reproducible on palpation. This is also complaining of a burning epigastric abdominal pain that is somewhat similar to her prior acid reflux. She is on Protonix at home for this but states that they're changing her medication at this time. She endorses 3 episodes of emesis yesterday that was nonbilious and nonbloody. She also endorses diarrhea after vaccine 1 week ago which is nonbloo dy. She has poor by mouth intake over the last few days. This is secondary to her nausea and abdominal discomfort. She otherwise has no acute crisis time. She denies any fevers, chills, sick contacts. She denies any cough. She denies any weakness, hormonal therapy, hemoptysis, history of blood clots. She is no other acute complaints at this time. - Related Data Home Medications Medication Instructions Recorded Confirmed Fluticasone Nasal Hall [Flonase 1 spray EA NOSTRIL BID 07/10/15 03/19/21 Nasal Hall] Levothyroxine Sodium [Synthroid] 88 mcg PO DAILY 07/10/15 03/19/21 Baclofen [Lioresal] 10 mg PO TID PRN 08/13/16 03/19/21 gemfibroziL [Lopid] 600 mg PO BID 01/23/17 03/19/21 Dicyclomine [Bentyl] 10 mg PO TID PRN 06/30/17 03/19/21 Ergocalciferol [Vitamin D2 50,000 unit PO Q14D 07/10/20 03/19/21 (DRISDOL)] Ipratropium/Albuterol Sulfate 2 puff INHALATION RT-BID PRN 07/10/20 03/19/21 [Combivent Respimat Inhaler] Acetaminophen Tab [Tylenol] 1,000 mg PO BID 08/17/20 03/19/21 Furosemide [Lasix] 20 mg PO BID PRN 08/17/20 03/19/21 Linaclotide [Linzess] 145 mcg PO DAILY 08/17/20 03/19/21 Hydrocortisone Cream 1 applic TOPICAL BID PRN 03/19/21 03/19/21 [Hydrocortisone 2.5% Cream] Ketoconazole 2% Cream [Nizoral 2%] 1 applic TOPICAL BID PRN 03/19/21 03/19/21 Loratadine [Claritin] 10 mg PO DAILY 03/19/21 03/19/21 Ondansetron Odt [Zofran Odt] 4 mg PO Q8HR PRN 03/19/21 03/19/21 Pantoprazole [Protonix] 40 mg PO BID 03/19/21 03/19/21 Topiramate [Topamax] 50 mg PO BID 03/19/21 03/19/21 Allergies Allergy/AdvReac Type Severity Reaction Status Date / Time cephalexin monohydrate Allergy Rash/Hives Verified 03/19/21 17:55 [From Keflex] losartan Allergy Anaphylaxis Verified 03/19/21 17:55 prednisone Allergy Swelling Verified 03/19/21 17:55 of Feet sulfamethoxazole Allergy Anaphylaxis Verified 03/19/21 17:55 [From Bactrim] trimethoprim [From Bactrim] Allergy Anaphylaxis Verified 03/19/21 17:55 ibuprofen AdvReac kidney Verified 03/19/21 17:55 disease Review of Systems ROS Statement: Those systems with pertinent positive or pertinent negative responses have been documented in the HPI. Review of Systems: CONST: Denies fever EYES: Denies blurry vision ENT: Denies nasal congestion C/V: Endorses chest pain RESP: Endorses shortness of breath GI: Endorses abdominal pain : Denies dysuria SKIN: Denies rash. MSK: Denies joint pain. NEURO: Denies headache ROS Other: All systems not noted in ROS Statement are negative. Past Medical History Past Medical History: Diabetes Mellitus, GERD/Reflux, Hyperlipidemia, Hypertension, Mitral Valve Prolapse (MVP), Osteoarthritis (OA), Renal Disease, Respiratory Disorder, Skin Disorder, Thyroid Disorder Additional Past Medical History / Comment(s): HEART MURMUR, LEAKY HEART VALVES (STATES PRE-MEDICATED PRIOR TO PROCEDURES). HX OF DIVERTICULITIS. IBS. BRONCHIECTASIS. MIGRAINES. HX OF STOMACH ULCERS. OVARIAN SYNDROME. HIDRADENI TIS, SKIN DISORDER. "LIVER INFLAMED." "KIDNEY FUNCTION @ 60%." EDEMA BLE, WEARING YRN HOSE. Hx of herniated discs History of Any Multi-Drug Resistant Organisms: None Reported Past Surgical History: Cholecystectomy, Hernia Repair, Orthopedic Surgery, Tubal Ligation, Uterine Ablation Additional Past Surgical History / Comment(s): lt foot surgery, BUNIONECTOMY, Bilat CTR Colonoscopy, egd, left brest lesion removal Past Anesthesia/Blood Transfusion Reactions: Motion Sickness Past Psychological History: Anxiety Smoking Status: Current every day smoker Past Alcohol Use History: None Reported Past Drug Use History: None Reported - Past Family History Mother Family Medical History: Myocardial Infarction (PR) Additional Family Medical History / Comment(s): Pacemaker. Father Family Medical History: Cancer Additional Family Medical History / Comment(s): LIVER CANCER. General Exam - General Exam Comments Initial Comments: Constitutional: Blood pressure was 125/83, pulse was 81, respirations were 16, pulse oximetry was 100% on room, temperature was 98.1. General: Appears in no acute distress. HEAD: Normal with no signs of head trauma. EYES: PERRLA, EOMI, conjunctiva normal, no discharge. ENT: Hearing grossly intact, normal oropharynx. RESPIRATORY: Clear breath sounds bilaterally. No wheezes, rales, or rhonchi. No increased work of breathing. C/V: Regular rate and rhythm. S1 and S2 auscultated, peripheral pulses 2+ and intact throughout. Patient does have bilateral lower extremity pitting edema that is approximately 2+ and half-way up the calf. She has no calf tenderness to palpation. Swelling does appear symmetrical bilaterally. Chest pain is not reproducible on palpation. ABD: Abdomen is soft, nondistended. Patient is mildly tender to palpation in the epigastric region. There is no guarding. There are no peritoneal signs. There is no CVA tenderness to percussion. EXT: Normal range of motion, no obvious deformity SKIN: No rashes or lesions observed on exposed skin. NEURO: Alert and Oriented 4. No focal sensory or strength deficits appreciat ed. Limitations: no limitations Course Vital Signs 03/19/21 03/19/21 17:53 20:03 Temperature 98.1 F Pulse Rate 81 63 Respiratory 16 18 Rate Blood Pressure 125/83 103/57 O2 Sat by Pulse 100 100 Oximetry Medical Decision Making - Medical Decision Making Based on the patient's presentation and physical exam, I'm concerned for possible cardiac acute abdominal pathology for her current symptoms. She is having a burning mildly pleuritic chest pain with associated epigastric discomfort. There is burning in nature and she does have a history of MS refl ex. However cannot rule out cardiac etiology at this time. Patient is low risk for pulmonary embolism at this time based on well's score, however we will rule out with a d-dimer. She'll be connected to continuous cardiac monitoring and we will obtain abdominal and cardiac telemetry studies troponin, CMP. Chest x-ray and EKG will be obtained. IV access will be obtained. She'll be symptomatica lly treated with IV Benadryl, IV famotidine, IV Reglan. By mouth Maalox also be provided. Aspirin will be provided for the chest pain. Urinalysis will be obtained as she does have a history of UTIs. She also has a history of diabetes which she states "is cured". Therefore we will obtain POC glucose as well as electrolytes to rule out acute metabolic process. She was in agreement this plan. Patient's laboratory studies are remarkable for normal urinalysis. Patient's electrolytes look relatively unremarkable with a mildly elevated chloride of 110 and mildly elevated creatinine 1.4 and a sinus EKG. Patient's troponin is elevated to 0.074, which is atypical as the patient previously had normal troponins on other visits. Chest x-ray revealed no acute cardiopulmonary process. EKG was obtained and was within normal limits with no signs of acute ischemia with no st segment changes or t wave changes. Patient's d-dimer is within normal limits. The remainder of the laboratory studies are unremarkable. On reevaluation, patient still had persistently having some chest pain. Her nausea is improved as well as her abdominal pain. I discussed with her the results for laboratory studies and imaging. I did recommend that we admit her to the hospital for telemetry monitoring and troponin trending as concerned that she may be having an episode of ACS, possibly in an STEMI. I did discuss this with her and she was in agreement with the plan. I will provide the patient with 2 mg of IV morphine for pain management at this time. She already received an aspirin. Every 3 hours troponins are ordered. I did speak with cardiology over the phone, Dr. Almonte who agreed to evaluate the patient. He was in agreement with the plan and recommended troponin trending and starting heparin IV, which was ordered for the patient's suspected NSTEMI. I spoke with the admitting nurse practitioner, Santi, who accepted the patient. Patient will therefore be admitted as a full admission with telemetry monitoring in serious condition. - Lab Data Result diagrams: 03/19/21 18:29 03/19/21 18:29 Lab Results 03/19/21 03/19/21 03/19/21 Range/Units 02:24 18:29 18:29 WBC 8.6 (3.8-10.6) k/uL RBC 3.82 (3.80-5.40) m/uL Hgb 13.2 (11.4-16.0) gm/dL Hct 37.6 (34.0-46.0) % MCV 98.6 (80.0-100.0) fL MCH 34.7 (25.0-35.0) pg MCHC 35.2 (31.0-37.0) g/dL RDW 12.7 (11.5-15.5) % Plt Count 220 (150-450) k/uL MPV 7.5 Neutrophils % 64 % Lymphocytes % 28 % Monocytes % 5 % Eosinophils % 1 % Basophils % 0 % Neutrophils # 5.6 (1.3-7.7) k/uL Lymphocytes # 2.4 (1.0-4.8) k/uL Monocytes # 0.5 (0-1.0) k/uL Eosinophils # 0.1 (0-0.7) k/uL Basophils # 0.0 (0-0.2) k/uL PT 10.1 (9.0-12.0) sec INR 0.9 (<1.2) APTT 24.5 (22.0-30.0) sec D-Dimer 0.59 (<0.60) mg/L FEU Sodium (137-145) mmol/L Potassium (3.5-5.1) mmol/L Chloride (98-107) mmol/L Carbon Dioxide (22-30) mmol/L Anion Gap mmol/L BUN (7-17) mg/dL Creatinine (0.52-1.04) mg/dL Est GFR (CKD-EPI)AfAm (>60 ml/min/1.73 sqM) Est GFR (CKD-EPI)NonAf (>60 ml/min/1.73 sqM) Glucose (74-99) mg/dL Calcium (8.4-10.2) mg/dL Magnesium (1.6-2.3) mg/dL Total Bilirubin (0.2-1.3) mg/dL AST (14-36) U/L ALT (4-34) U/L Alkaline Phosphatase (38-126) U/L Troponin I (0.000-0.034) ng/mL Total Protein (6.3-8.2) g/dL Albumin (3.5-5.0) g/dL Lipase (23-300) U/L Urine Color Yellow Urine Appearance Cloudy H (Clear) Urine pH 6.0 (5.0-8.0) Ur Specific Smilax 1.034 (1.001-1.035) Urine Protein 1+ H (Negative) Urine Glucose (UA) Negative (Negative) Urine Ketones Negative (Negative) Urine Blood Negative (Negative) Urine Nitrite Negative (Negative) Urine Bilirubin Negative (Negative) Urine Urobilinogen 3.0 (<2.0) mg/dL Ur Leukocyte Esterase Trace H (Negative) Urine WBC 3 (0-5) /hpf Ur Squamous Epith Cells 10 H (0-4) /hpf Urine Bacteria Rare H (None) /hpf Urine Mucus Rare H (None) /hpf 03/19/21 03/19/21 Range/Units 18:29 18:29 WBC (3.8-10.6) k/uL RBC (3.80-5.40) m/uL Hgb (11.4-16.0) gm/dL Hct (34.0-46.0) % MCV (80.0-100.0) fL MCH (25.0-35.0) pg MCHC (31.0-37.0) g/dL RDW (11.5-15.5) % Plt Count (150-450) k/uL MPV Neutrophils % % Lymphocytes % % Monocytes % % Eosinophils % % Basophils % % Neutrophils # (1.3-7.7) k/uL Lymphocytes # (1.0-4.8) k/uL Monocytes # (0-1.0) k/uL Eosinophils # (0-0.7) k/uL Basophils # (0-0.2) k/uL PT (9.0-12.0) sec INR (<1.2) APTT (22.0-30.0) sec D-Dimer (<0.60) mg/L FEU Sodium 138 (137-145) mmol/L Potassium 4.0 (3.5-5.1) mmol/L Chloride 110 H (98-107) mmol/L Carbon Dioxide 20 L (22-30) mmol/L Anion Gap 8 mmol/L BUN 12 (7-17) mg/dL Creatinine 1.24 H (0.52-1.04) mg/dL Est GFR (CKD-EPI)AfAm 62 (>60 ml/min/1.73 sqM) Est GFR (CKD-EPI)NonAf 53 (>60 ml/min/1.73 sqM) Glucose 96 (74-99) mg/dL Calcium 9.1 (8.4-10.2) mg/dL Magnesium 1.9 (1.6-2.3) mg/dL Total Bilirubin 0.2 (0.2-1.3) mg/dL AST 30 (14-36) U/L ALT 20 (4-34) U/L Alkaline Phosphatase 73 (38-126) U/L Troponin I 0.074 H* (0.000-0.034) ng/mL Total Protein 6.7 (6.3-8.2) g/dL Albumin 3.9 (3.5-5.0) g/dL Lipase 136 (23-300) U/L Urine Color Urine Appearance (Clear) Urine pH (5.0-8.0) Ur Specific Smilax (1.001-1.035) Urine Protein (Negative) Urine Glucose (UA) (Negative) Urine Ketones (Negative) Urine Blood (Negative) Urine Nitrite (Negative) Urine Bilirubin (Negative) Urine Urobilinogen (<2.0) mg/dL Ur Leukocyte Esterase (Negative) Urine WBC (0-5) /hpf Ur Squamous Epith Cells (0-4) /hpf Urine Bacteria (None) /hpf Urine Mucus (None) /hpf - EKG Data -: EKG Interpreted by Me EKG Comments: 12-lead Electrocardiogram Interpretation Note EKG was reviewed and interpreted by myself. 12-lead ECG performed at 1827 is interpreted by me as revealing normal sinus rhythm at a rate of 1827 beats per minute. Dyer is normal. MI interval is 152 ms, QRS duration is 102 ms, QTC is 393 ms.. There were no ST or T wave abnormalities to suggest myocardial ischemia or injury. R wave progression across the precordium was satisfactory. By my interpretation this EKG is non-diagnostic for acute ischemia. Disposition Clinical Impression: Chest pain, Elevated troponin, NSTEMI (non-ST elevated myocardial infarction), Abdominal pain, CKD (chronic kidney disease) Disposition: ADMITTED IP TO THIS [facility] Condition: Serious Referrals: Jose Lund MD [Primary Care Provider] - 1-2 days
--- NOTE | 2021-03-19 18:47 | XR ---
EXAMINATION TYPE: XR chest 1V portable DATE OF EXAM: 03/19/2021 COMPARISON: 12/07/2020 HISTORY: Chest pain TECHNIQUE: FINDINGS: Heart and mediastinum are normal. Lungs are clear. Diaphragm is normal. Bony thorax appears normal. There are chest leads. IMPRESSION: Normal chest. No change.
[2021-03-19 18:56] LABS: Basophils % (A) 0 %; Eosinophils # (A) 0.1 k/uL (0-0.7); Eosinophils % (A) 1 %; HCT 37.6 % (34.0-46.0); HGB 13.2 gm/dL (11.4-16.0); Lymphocytes # (A) 2.4 k/uL (1.0-4.8); Lymphocytes % (A) 28 %; MCH 34.7 pg (25.0-35.0); MCHC 35.2 g/dL (31.0-37.0); MCV 98.6 fL (80.0-100.0); Mean Platelet Volume 7.5; Monocytes # (A) 0.5 k/uL (0-1.0); Monocytes % (A) 5 %; Neutrophils # (A) 5.6 k/uL (1.3-7.7); Neutrophils % (A) 64 %; Platelet Count 220 k/uL (150-450); RBC 3.82 m/uL (3.80-5.40); RDW 12.7 % (11.5-15.5); WBC 8.6 k/uL (3.8-10.6)
[2021-03-19 19:06] LABS: Albumin 3.9 g/dL (3.5-5.0); Calcium 9.1 mg/dL (8.4-10.2); Magnesium 1.9 mg/dL (1.6-2.3); Total Bilirubin 0.2 mg/dL (0.2-1.3); Total Protein 6.7 g/dL (6.3-8.2)
[2021-03-19 19:14] LABS: Appearance,Urine Cloudy (Clear); Bacteria,Urine Rare /hpf; Bilirubin,Urine Negative (Negative); Blood,Urine Negative (Negative); Color,Urine Yellow; Glucose,Urine (UA) Negative (Negative); Ketones,Urine Negative (Negative); Leukocyte Esterase,Urine Trace (Negative); Mucus,Urine Rare /hpf; Nitrite,Urine Negative (Negative); Protein,Urine 1+ (Negative); Specific Gravity,Urine 1.034 (1.001-1.035); Squamous Epithelial Cell,Urine 10 /hpf (0-4); WBC,Urine 3 /hpf (0-5)
[2021-03-19 19:56] LABS: D-Dimer 0.59 mg/L FEU (<0.60); INR 0.9 (<1.2); Partial Thromboplastin Time 24.5 sec (22.0-30.0); Prothrombin Time 10.1 sec (9.0-12.0)
[2021-03-19] MEDS ORDERED: HEPARIN SODIUM 1,000 UN/ML (10ML VL) IV PRN (20:17)
[2021-03-19] MEDS ORDERED: HEPARIN SODIUM 1,000 UN/ML (10ML VL) IV ONE (20:17)
[2021-03-19] MEDS ORDERED: DOCUSATE 100 MG CAP PO PRN (20:23)
[2021-03-19] MEDS ORDERED: MAG HYDROX/AL HYDROX/SIMETH 30 ML CUP PO PRN (20:23)
[2021-03-19] MEDS ORDERED: ONDANSETRON 4 MG/2 ML VIAL IVP PRN (20:23)
[2021-03-19] MEDS ORDERED: ACETAMINOPHEN TAB 325 MG TAB PO PRN (20:23)
[2021-03-19] MEDS ORDERED: HEPARIN SOD,PORK IN 0.45% NACL 25,000 UNIT in 0.45% NACL 1 250ML.BAG IV SCH (20:30)
[2021-03-19] MEDS ORDERED: MORPHINE SULFATE 2 MG/ML SYRINGE IVP STA (20:31)
[2021-03-19] MEDS ORDERED: FUROSEMIDE 20 MG TAB PO PRN (20:32)
[2021-03-19] MEDS: FAMOTIDINE 20 MG TAB PO SCH (21:55)
[2021-03-20 02:21] LABS: Basophils % (A) 1 %; Eosinophils % (A) 0 %; HCT 36.9 % (34.0-46.0); HGB 12.7 gm/dL (11.4-16.0); Lymphocytes # (A) 3.3 k/uL (1.0-4.8); Lymphocytes % (A) 38 %; MCHC 34.4 g/dL (31.0-37.0); Mean Platelet Volume 7.8; Monocytes # (A) 0.5 k/uL (0-1.0); Monocytes % (A) 6 %; Neutrophils # (A) 4.6 k/uL (1.3-7.7); Neutrophils % (A) 53 %; Platelet Count 205 k/uL (150-450); RBC 3.73 m/uL (3.80-5.40); RDW 12.9 % (11.5-15.5); WBC 8.7 k/uL (3.8-10.6)
[2021-03-20 02:31] LABS: INR 0.9 (<1.2)
[2021-03-20 02:54] LABS: Calcium 8.8 mg/dL (8.4-10.2); Potassium 3.8 mmol/L (3.5-5.1)
[2021-03-20 06:13] LABS: Glucose,Whole Blood 107 mg/dL (75-99)
[2021-03-20] MEDS: LEVOTHYROXINE 88 MCG TAB PO SCH (06:32)
[2021-03-20] MEDS: FAMOTIDINE 20 MG TAB PO SCH ×2 (07:36→20:03)
[2021-03-20] MEDS: IPRATROPIUM-ALBUTEROL 3 ML NEB INHALATION PRN ×2 (11:26→21:57)
[2021-03-20 11:46] LABS: Glucose,Whole Blood 89 mg/dL (75-99)
--- NOTE | 2021-03-20 13:21 | ECHOF ---
Referral Reason:chest pain, LV function MEASUREMENTS -------- HEIGHT: 157.5 cm WEIGHT: 94.3 kg BP: 98/58 IVSd: 1.1 cm (0.6 - 1.1) LVIDd: 4.0 cm (3.9 - 5.3) LVPWd: 1.4 cm (0.6 - 1.1) IVSs: 1.7 cm LVIDs: 2.9 cm LVPWs: 1.4 cm Ao Diam: 3.2 cm (2.0 - 3.7) AV Cusp: 1.3 cm (1.5 - 2.6) LA Diam: 2.6 cm (2.7 - 3.8) MV EXCURSION: 17.354 mm (> 18.000) MV EF SLOPE: 128 mm/s (70 - 150) EPSS: 1.4 cm MV E Micky: 0.86 m/s MV DecT: 187 ms MV A Micky: 0.43 m/s MV E/A Ratio: 1.99 AV maxP.84 mmHg AV meanP.78 mmHg RAP: 5.00 mmHg RVSP: 22.70 mmHg FINDINGS -------- This was a technically difficult study with suboptimal views. The left ventricular size is normal. There is mild concentric left ventricular hypertrophy. Overa ll left ventricular systolic function is normal with, an EF between 55 - 60 %. The right ventricle is normal in size. The left atrial size is normal. The right atrium was not well visualized. Lumason used Aortic valve is trileaflet and is mildly thickened. There is mild aortic stenosis present. Peak/m diaz gradient across the Aortic Valve is 16.84mmHg / 12.78mmHg. The mitral valve is normal. There is trace mitral regurgitation. The tricuspid valve appears structurally normal. Trace tricuspid regurgitation present. Right blaise tricular systolic pressure is normal at < 35 mmHg. There is no pulmonic regurgitation present. The aortic root size is normal. IVC Not well visulized. There is no pericardial effusion. CONCLUSIONS -------- 1. The left ventricular size is normal. 2. There is mild concentric left ventricular hypertrophy. 3. Overall left ventricular systolic function is normal with, an EF between 55 - 60 %. 4. Aortic valve is trileaflet and is mildly thickened. 5. There is mild aortic stenosis present. 6. Peak/mean gradient across the Aortic Valve is 16.84mmHg / 12.78mmHg. 7. There is trace mitral regurgitation. 8. Trace tricuspid regurgitation present. 9. There is no pericardial effusion. ACTUARIAL CLERK: Gladys Holguin RDCS
[2021-03-20] MEDS ORDERED: BACLOFEN 10 MG TAB PO PRN (13:35)
[2021-03-20] MEDS ORDERED: CLOTRIMAZOLE 1% CREAM 30 GM TUBE TOPICAL PRN (13:35)
[2021-03-20] MEDS ORDERED: TRIAMCINOLONE 0.1% CREAM 80 GM TUBE TOPICAL PRN (13:35)
[2021-03-20] MEDS ORDERED: DICYCLOMINE 10 MG CAP PO PRN (13:35)
--- NOTE | 2021-03-20 13:36 | P.CRDCN ---
History of Present Illness Consult date: 03/20/21 History of present illness: HISTORY OF PRESENT ILLNESS: This is a 45-year-old female with a past medical history significant for diabetes mellitus, valvular heart disease, nicotine dependence, and obesity. Patient follows in the office with Dr. Bell. We have been asked to see the patient in consultation for elevated troponins. Patient examined at the bedside. Patient states that she had to call the vaccine approximately one week ago. She reports 2 days ago she began having chest pain and she was walking around her house. She states this was a burning sensation in the middle of her chest and also went across both sides of her chest. She states pain went down both of her arms. She denies any radiation to the neck, jaw, or back. She denies feeling short of breath. She also reports having nausea vomiting and diarrhea for the past few days. She states that pain was worse with deep inspiration. She also states her chest was tender to touch. Patient received morphine and aspirin in the emergency room which patient states relieved her symptoms and she has had not had any recurrence of any of her symptoms since that time. EKG reveals sinus mechanism with T-wave inversions in the inferior leads which was seen on previous EKGs Chest xray negative for acute process Laboratory data: WBC 8.7. Hemoglobin 12.7. Platelet count 205. Sodium 139. Potassium 3.8. BUN 12. Creatinine 1.18. Troponin 0.07. 0.09. 0.08. Current home cardiac medications include Lasix 20 mg twice a day as needed Echocardiogram completed revealed ejection fraction 55-60%, trileaflet aortic valve which is mildly thickened, mild aortic stenosis, trace mitral regurgitation, and trace tricuspid regurgitation. Patient underwent dobutamine stress test in June 2020 area patient reached 83% of her predicted maximum heart rate and no ischemic changes were noted at that time. REVIEW OF SYSTEMS: At the time of my exam: CONSTITUTIONAL: Denies fever or chills. HEENT: Denies blurred vision, vision changes, or eye pain. Denies hemoptysis CARDIOVASCULAR: Denies chest pain. Denies orthopnea. Denies PND. Denies pa lpitations RESPIRATORY: Denies shortness of breath. GASTROINTESTINAL: Denies abdominal pain. Denies nausea or vomiting. HEMATOLOGIC: Denies bleeding disorders. GENITOURINARY: Denies any blood in urine. SKIN: Denies pruitis. Denies rash. PHYSICAL EXAM: VITAL SIGNS: Reviewed. GENERAL: Well-developed in no acute distress. HEENT: Head is normocephalic. Pupils are equal, round. Sclerae anicteric. Mucous membranes of the mouth are moist. Neck supple. No JVD or thyromegaly LUNGS: Respirations even and unlabored. Lungs essentially clear to auscultation bilaterally. HEART: Regular rate and rhythm. S1 and S2 heard. Systolic murmur noted. ABDOMEN: Soft. Nondistended. Nontender. EXTREMITIES: Normal range of motion. No clubbing or cyanosis. Peripheral pulses intact. Trace bilateral lower extremity edema NEUROLOGIC: Awake and alert. Oriented x 3. ASSESSMENT: Chest pain, atypical for angina with pleuritic symptoms; reproducible with inspiration and palpation Nausea, vomiting, and diarrhea x 3 days Mild aortic stenosis Abnormal troponins, not suggestive of ACS Nicotine dependence Obesity PLAN: Discontinue IV heparin 2D echo reviewed Patient had dobutamine stress test in 06/2020 and reached 83% max predicted heart rate with no ischemic changes noted Patient may be discharged home from a cardiac standpoint per Dr. Villasenor and follow up outpatient with Dr. Blel Further recommendations pending patient course Nurse practitioner note has been reviewed by physician. Signing provider agrees with the documented findings, assessment, and plan of care. Past Medical History Past Medical History: Diabetes Mellitus, GERD/Reflux, Hyperlipidemia, Hypertension, Mitral Valve Prolapse (MVP), Osteoarthritis (OA), Renal Disease, Respiratory Disorder, Skin Disorder, Thyroid Disorder Additional Past Medical History / Comment(s): HEART MURMUR, LEAKY HEART VALVES (STATES PRE-MEDICATED PRIOR TO PROCEDURES). HX OF DIVERTICULITIS. IBS. B RONCHIECTASIS. MIGRAINES. HX OF STOMACH ULCERS. OVARIAN SYNDROME. HIDRADENITIS, SKIN DISORDER. "LIVER INFLAMED." "KIDNEY FUNCTION @ 60%." EDEMA BLE, WEARING YRN HOSE. Hx of herniated discs History of Any Multi-Drug Resistant Organisms: None Reported Past Surgical History: Cholecystectomy, Hernia Repair, Orthopedic Surgery, Tubal Ligation, Uterine Ablation Additional Past Surgical History / Comment(s): lt foot surgery, BUNIONECTOMY, Bilat CTR Colonoscopy, egd, left brest lesion removal Past Anesthesia/Blood Transfusion Reactions: Motion Sickness Past Psychological History: Anxiety Smoking Status: Current every day smoker Past Alcohol Use History: None Reported Additional Past Alcohol Use History / Comment(s): SMOKES 0.5PPD. STARTED SMOKING AT AGE 18. Past Drug Use History: None Reported - Past Family History Mother Family Medical History: Myocardial Infarction ([place]) Additional Family Medical History / Comment(s): Pacemaker. Father Family Medical History: Cancer Additional Family Medical History / Comment(s): LIVER CANCER. Medications and Allergies Home Medications Medication Instructions Recorded Confirmed Type Fluticasone Nasal [place] [Flonase 1 spray EA NOSTRIL BID 07/10/15 03/19/21 History Nasal [place]] Levothyroxine Sodium [Synthroid] 88 mcg PO DAILY 07/10/15 03/19/21 History Baclofen [Lioresal] 10 mg PO TID PRN 08/13/16 03/19/21 History gemfibroziL [Lopid] 600 mg PO BID 01/23/17 03/19/21 History Dicyclomine [Bentyl] 10 mg PO TID PRN 06/30/17 03/19/21 History Ergocalciferol [Vitamin D2 50,000 unit PO Q14D 07/10/20 03/19/21 History (DRISDOL)] Ipratropium/Albuterol Sulfate 2 puff INHALATION RT-BID PRN 07/10/20 03/19/21 History [Combivent Respimat Inhaler] Acetaminophen Tab [Tylenol] 1,000 mg PO BID 08/17/20 03/19/21 History Furosemide [Lasix] 20 mg PO BID PRN 08/17/20 03/19/21 History Linaclotide [Linzess] 145 mcg PO DAILY 08/17/20 03/19/21 History Hydrocortisone Cream 1 applic TOPICAL BID PRN 03/19/21 03/19/21 History [Hydrocortisone 2.5% Cream] Ketoconazole 2% Cream [Nizoral 2%] 1 applic TOPICAL BID PRN 03/19/21 03/19/21 History Loratadine [Claritin] 10 mg PO DAILY 03/19/21 03/19/21 History Ondansetron Odt [Zofran Odt] 4 mg PO Q8HR PRN 03/19/21 03/19/21 History Pantoprazole [Protonix] 40 mg PO BID 03/19/21 03/19/21 History Topiramate [Topamax] 50 mg PO BID 03/19/21 03/19/21 History Allergies Allergy/AdvReac Type Severity Reaction Status Date / Time cephalexin monohydrate Allergy Rash/Hives Verified 03/19/21 17:55 [From Keflex] losartan Allergy Anaphylaxis Verified 03/19/21 17:55 prednisone Allergy Swelling Verified 03/19/21 17:55 of Feet sulfamethoxazole Allergy Anaphylaxis Verified 03/19/21 17:55 [From Bactrim] trimethoprim [From Bactrim] Allergy Anaphylaxis Verified 03/19/21 17:55 ibuprofen AdvReac kidney Verified 03/19/21 17:55 disease Physical Exam Vitals: Vital Signs Temp Pulse Pulse Resp BP BP Pulse Ox 03/20/21 11:37 60 03/20/21 11:26 60 03/20/21 07:55 61 03/20/21 07:35 97.7 F 61 18 98/58 98 03/20/21 04:00 60 18 90/50 98 03/20/21 00:00 59 L 18 101/59 97 03/19/21 21:32 98.1 F 65 18 120/74 100 03/19/21 21:30 97.9 F 65 18 124/75 100 03/19/21 21:07 65 18 120/74 100 03/19/21 20:03 63 18 103/57 100 03/19/21 17:53 98.1 F 81 16 125/83 100 Intake and Output 03/19/21 03/20/21 03/20/21 22:59 06:59 14:59 Intake Total 480 64.365 625.222 Balance 480 64.365 625.222 Intake: Intake, IV Titration 64.365 85.222 Amount Heparin Sod,Pork in 0.45% 64.365 85.222 NaCl 25,000 unit In 0.45 % NaCl 1 250ml.bag @ 10 UNITS/KG/HR 9.979 mls/hr IV .Q24H [facility] Rx#: [id number] Oral 480 0 540 Other: Voiding Method Toilet Toilet # Voids 2 2 Weight 99.79 kg 94.8 kg Results 03/20/21 02:00 03/20/21 02:00 Cardiac Enzymes 03/19/21 03/19/21 03/19/21 Range/Units 18:29 18:29 21:38 AST 30 (14-36) U/L Troponin I 0.074 H* 0.090 H* (0.000-0.034) ng/mL 03/20/21 Range/Units 00:05 AST (14-36) U/L Troponin I 0.082 H* (0.000-0.034) ng/mL Coagulation 03/19/21 03/20/21 03/20/21 Range/Units 18:29 02:00 04:38 PT 10.1 10.0 (9.0-12.0) sec APTT 24.5 36.0 H 67.5 H (22.0-30.0) sec 03/20/21 Range/Units 09:20 PT (9.0-12.0) sec APTT 38.2 H (22.0-30.0) sec CBC 03/19/21 03/20/21 Range/Units 18:29 02:00 WBC 8.6 8.7 (3.8-10.6) k/uL RBC 3.82 3.73 L (3.80-5.40) m/uL Hgb 13.2 12.7 (11.4-16.0) gm/dL Hct 37.6 36.9 (34.0-46.0) % Plt Count 220 205 (150-450) k/uL Comprehensive Metabolic Panel 03/19/21 03/20/21 Range/Units 18:29 02:00 Sodium 138 139 (137-145) mmol/L Potassium 4.0 3.8 (3.5-5.1) mmol/L Chloride 110 H 113 H (98-107) mmol/L Carbon Dioxide 20 L 20 L (22-30) mmol/L BUN 12 12 (7-17) mg/dL Creatinine 1.24 H 1.18 H (0.52-1.04) mg/dL Glucose 96 97 (74-99) mg/dL Calcium 9.1 8.8 (8.4-10.2) mg/dL AST 30 (14-36) U/L ALT 20 (4-34) U/L Alkaline Phosphatase 73 (38-126) U/L Total Protein 6.7 (6.3-8.2) g/dL Albumin 3.9 (3.5-5.0) g/dL Current Medications Generic Name Dose Route Start Last Admin Trade Name Freq PRN Reason Stop Dose Admin Acetaminophen 650 mg 03/19/21 20:23 Acetaminophen Tab 325 Mg Tab PO Q6HR PRN Mild Pain or Fever > 100.5 Al Hydroxide/Mg Hydroxide 15 ml 03/19/21 20:23 Mag Hydrox/Al Hydrox/Simeth 30 Ml Cup PO Q6HR PRN Indigestion Albuterol/Ipratropium 3 ml 03/19/21 20:32 03/20/21 11:26 Ipratropium-Albuterol 3 Ml Neb INHALATION 3 ml RT-BID PRN Administration Shortness Of Breath Docusate Sodium 100 mg 03/19/21 20:23 Docusate 100 Mg Cap PO BID PRN Constipation Famotidine 20 mg 03/19/21 21:00 03/20/21 07:36 Famotidine 20 Mg Tab PO 20 mg BID VICKY Administration Furosemide 20 mg 03/19/21 20:32 Furosemide 20 Mg Tab PO BID PRN Edema Heparin Sodium (Porcine) 0 unit 03/19/21 20:17 03/20/21 03:31 Heparin Sodium 1,000 Un/Ml (10ml Vl) IV 2,500 unit PER PROTOCOL PRN Administration Low PTT Protocol Heparin Sodium/Sodium Chloride 250 mls @ 9.979 mls/hr 03/19/21 20:30 03/20/21 10:38 25,000 unit/ Sodium Chloride IV 14 units/kg/hr .Q24H [facility] 13.971 mls/hr Titration Protocol 10 UNITS/KG/HR Levothyroxine Sodium 88 mcg 03/20/21 06:30 03/20/21 06:32 Levothyroxine 88 Mcg Tab PO 88 mcg DAILY@0630 VICKY Administration Ondansetron HCl 4 mg 03/19/21 20:23 Ondansetron 4 Mg/2 Ml Vial IVP Q8HR PRN Nausea And Vomiting Intake and Output 03/19/21 03/20/21 03/20/21 22:59 06:59 14:59 Intake Total 480 64.365 625.222 Balance 480 64.365 625.222 Intake: Intake, IV Titration 64.365 85.222 Amount Heparin Sod,Pork in 0.45% 64.365 85.222 NaCl 25,000 unit In 0.45 % NaCl 1 250ml.bag @ 10 UNITS/KG/HR 9.979 mls/hr IV .Q24H [facility] Rx#: [id number] Oral 480 0 540 Other: Voiding Method Toilet Toilet # Voids 2 2 Weight 99.79 kg 94.8 kg 03/20/21 02:00 03/20/21 02:00
--- NOTE | 2021-03-20 14:30 | HP ---
HISTORY AND PHYSICAL DATE OF SERVICE: 03/20/2021 CHIEF COMPLAINT: Chest pain. HISTORY OF PRESENT ILLNESS: This 45-year-old woman with a past medical history of multiple medical problems including diabetes mellitus, GERD, hypertension, hyperlipidemia, mitral valve prolapse, history of respiratory disorder, history of thyroid disorders, heart murmur, history of stomach ulcers, history of hydradenitis suppurative, history of polyps, history of anxiety being followed by Dr. Lund in the outpatient setting was complaining of chest pain. The patient reports the pain is felt in the anterior part of the chest, 10 out of 10 associated with rather burning character. The patient also had received a second dose of Covid 19 vaccine on March 12 and she had some intermittent abdominal discomfort, nausea, vomiting and epigastric discomfort subsequent to that, but currently the pain is localized in the chest and the patient was admitted to the hospital for further evaluation. Troponin is found to be 0.09, 0.07, 0.090 and 0.82. The EKG was reviewed showed nonspecific ST-T changes. A 2D echo with Doppler was done by Cardiology showed ejection fraction 55-60% and mild aortic stenosis. Peak gradient was 16 and 12.8. Patient closely monitored at this time. There is no history of fever, rigors or chills. No history of headache, loss of consciousness or seizures. PAST MEDICAL HISTORY: Diabetes type 2, GERD, hypertension, hyperlipidemia, history of myocardial infarction, DJD, history of skin disorders, anxiety. MEDICATIONS ARE: Zofran, ketoconazole, Combivent, hydrocortisone, Lasix, Bentyl, Lioresal, Topamax, Protonix, vitamin D2, Claritin, Synthroid, Flonase, Lopid, Linzess, Tylenol. Doses reviewed. ALLERGIES: Cephalexin, losartan, prednisone, Bactrim, ibuprofen. FAMILY HISTORY: History of liver cancer in the family. SOCIAL HISTORY: History of continued smoking. REVIEW OF SYSTEMS: ENT: No diminished vision. No diminished hearing. Cardiovascular as mentioned. Respiratory as mentioned earlier. GI: As mentioned earlier. : No dysuria. NERVOUS SYSTEM: No numbness or weakness. Allergy/Immunology: No history of asthma or hayfever. Musculoskeletal: As mentioned earlier. Hematology/Oncology: No history of anemia. ENDOCRINE: As mentioned earlier. CONSTITUTIONAL: As mentioned earlier. DERMATOLOGY: Negative. RHEUMATOLOGY: Negative. PSYCHIATRIC: As mentioned earlier. PHYSICAL EXAMINATION: Alert and oriented times three. Pulse 61, blood pressure 98/58, respiration 18, temperature 97.7, pulse ox 98 percent on room air. HEENT: Conjunctivae normal. NECK: No JVD. CARDIOVASCULAR: S1, S2 muffled. Ejection systolic murmur. RESPIRATORY: Breath sound diminished in the bases. No rhonchi. No crackles. ABDOMEN: Soft. Nontender. No mass palpable. LEGS no edema. No swelling. NERVOUS SYSTEM: Higher functions as mentioned. Moves all 4 limbs. No focal motor or sensory deficits. LYMPHATICS: No lymph nodes palpable in the neck, axillae or groin. SKIN no ulcer, no rash and no bleeding. JOINTS: No active deforming arthropathy. LABS: WBC 8.2, hemoglobin 12.7, sodium 139, potassium 3.8, creatinine is 1.18. Troponin is noted. ASSESSMENT: 1. Chest pain with troponin 0.090 possible acute [id number]-elevation myocardial infarction. 2. Elevated creatinine with possibly chronic kidney disease stage 2. 3. History of diabetes type 2. 4. Gastroesophageal reflux disease. 5. Hypertension. 6. Hyperlipidemia. 7. Mitral valve prolapse. 8. History of degenerative joint disease. 9. History of mild aortic stenosis. 10.History of diverticulosis. 11.History of bronchiectasis. 12.History of hidradenitis suppurativa. 13.History of degenerative joint disease. 14.History of cholecystectomy. 15.History of tubal ligation. 16.History of anxiety. 17.History of nicotine dependence. 18.Obesity with body mass of 38.2. 19.FULL CODE. RECOMMENDATIONS AND DISCUSSION: This 45-year-old woman who presented with multiple complex medical issues, we will monitor the patient closely and unstable angina protocol. The patient has several risk factors for coronary artery disease. I would recommend to follow the patient closely along with Cardiology. The patient apparently had a stress test last year. The patient had a dobutamine stress echo which was negative for any reversible ischemia. EKG was inconclusive and shows ST changes currently. Continue to monitor. Prognosis guarded. Further recommendations to follow. A copy of this dictation being forwarded to Dr. Lund who is the primary physician. We will discuss with cardiology. MMODL / IJN: [id number] /
[2021-03-20] MEDS: PANTOPRAZOLE 40 MG TABLET PO SCH (20:03)
[2021-03-20] MEDS: FLUTICASONE 50MCG/SPRAY NASAL 16GM EA NOSTRIL SCH (20:03)
[2021-03-20] MEDS: TOPIRAMATE 25 MG TAB PO SCH (20:03)
[2021-03-21] MEDS ORDERED: AMINOPHYLLINE 500 MG/20 ML VIAL IV PRN (06:00)
[2021-03-21] MEDS ORDERED: CAFFEINE CITRATE 60 MG/3 ML VIAL IV PRN (06:00)
[2021-03-21] MEDS ORDERED: REGADENOSON 0.4 MG/5 ML SYRINGE IV PRN (06:00)
[2021-03-21] MEDS: LEVOTHYROXINE 88 MCG TAB PO SCH (06:08)
[2021-03-21] MEDS: IPRATROPIUM-ALBUTEROL 3 ML NEB INHALATION PRN (07:59)
[2021-03-21 08:43] VITALS: RESP 16; TEMP 98.2
[2021-03-21] MEDS ORDERED: LORATADINE 10 MG TAB PO SCH (09:00)
[2021-03-21] MEDS ORDERED: FENOFIBRATE 160 MG TAB PO SCH (09:00)
[2021-03-21] MEDS ORDERED: NON FORMULARY DRUG (Linaclotide [Linzess] 145 MCG Capsule) PO SCH (09:00)
[2021-03-21 10:27] LABS: Basophils % (A) 0 %; Eosinophils % (A) 0 %; HCT 38.3 % (34.0-46.0); Lymphocytes # (A) 1.6 k/uL (1.0-4.8); Lymphocytes % (A) 22 %; MCH 33.7 pg (25.0-35.0); MCHC 33.9 g/dL (31.0-37.0); MCV 99.3 fL (80.0-100.0); Mean Platelet Volume 7.4; Monocytes # (A) 0.4 k/uL (0-1.0); Monocytes % (A) 5 %; Neutrophils # (A) 5.2 k/uL (1.3-7.7); Neutrophils % (A) 71 %; Platelet Count 219 k/uL (150-450); RBC 3.85 m/uL (3.80-5.40); RDW 12.7 % (11.5-15.5); WBC 7.3 k/uL (3.8-10.6)
[2021-03-21 10:34] LABS: Calcium 8.7 mg/dL (8.4-10.2); Potassium 4.3 mmol/L (3.5-5.1)
[2021-03-21 10:54] VITALS: BP 128/75; PULSE 69
[2021-03-21] MEDS: PANTOPRAZOLE 40 MG TABLET PO SCH (10:57)
[2021-03-21] MEDS: FAMOTIDINE 20 MG TAB PO SCH (10:57)
[2021-03-21] MEDS: TOPIRAMATE 25 MG TAB PO SCH (10:58)
[2021-03-21] MEDS: FLUTICASONE 50MCG/SPRAY NASAL 16GM EA NOSTRIL SCH (10:58)
--- NOTE | 2021-03-21 11:15 | P.NPCON ---
History of Present Illness - Reason for Consult chronic renal failure - History of Present Illness Reason for consultation: Chronic kidney disease History of present illness: Patient is a 45-year-old female seen in consultation for chronic kidney disease. Patient has chronic kidney disease stage IIIa with baseline creatinine the range of 1-1.2. Etiology is chronic interstitial nephritis secondary to n onsteroidal use. Patient's creatinine is stable at 1.2 today. She presented to the hospital due to chest pain. Patient states the chest pain began about a week ago and is in the center of her chest. She describes the pain as heavy. Also admits to abdominal discomfort mostly in the upper abdomen. She denies any vomiting or diarrhea. No fever or chills. Oral intake is good. Good urine output. No hematuria or dysuria. Denies use of nonsteroidals. Patient states she has no edema in her legs and if she does it improves by elevating her legs. She has Lasix at home but states hasn't taken it for quite some time. She does have history of diabetes and was diagnosed at the age of 32. She underwent a stress test this morning. Cardiology is following. Vital signs are stable. General: The patient appeared well nourished and normally developed. HEENT: Head exam is unremarkable. Neck is without jugular venous distension. LUNGS: Breath sounds decreased. HEART: Rate and Rhythm are regular. ABDOMEN: Soft, no distention. Obese. EXTREMITITES: No edema. Past Medical History Past Medical History: Diabetes Mellitus, GERD/Reflux, Hyperlipidemia, Hypertension, Mitral Valve Prolapse (MVP), Osteoarthritis (OA), Renal Disease, Respiratory Disorder, Skin Disorder, Thyroid Disorder Additional Past Medical History / Comment(s): HEART MURMUR, LEAKY HEART VALVES (STATES PRE-MEDICATED PRIOR TO PROCEDURES). HX OF DIVERTICULITIS. IBS. BRONCHIECTASIS. MIGRAINES. HX OF STOMACH ULCERS. OVARIAN SYNDROME. HIDRADENITIS, SKIN DISORDER. "LIVER INFLAMED." "KIDNEY FUNCTION @ 60%." EDEMA BLE, WEARING YRN HOSE. Hx of herniated discs History of Any Multi-Drug Resistant Organisms: None Reported Past Surgical History: Cholecystectomy, Hernia Repair, Orthopedic Surgery, Tubal Ligation, Uterine Ablation Additional Past Surgical History / Comment(s): lt foot surgery, BUNIONECTOMY, Bilat CTR Colonoscopy, egd, left brest lesion removal Past Anesthesia/Blood Transfusion Reactions: Motion Sickness Past Psychological History: Anxiety Smoking Status: Current every day smoker Past Alcohol Use History: None Reported Additional Past Alcohol Use History / Comment(s): SMOKES 0.5PPD. STARTED SMOKING AT AGE 18. Past Drug Use History: None Reported - Past Family History Mother Family Medical History: Myocardial Infarction ([place]) Additional Family Medical History / Comment(s): Pacemaker. Father Family Medical History: Cancer Additional Family Medical History / Comment(s): LIVER CANCER. Medications and Allergies Home Medications Medication Instructions Recorded Confirmed Type Fluticasone Nasal [place] [Flonase 1 spray EA NOSTRIL BID 07/10/15 03/19/21 History Nasal [place]] Levothyroxine Sodium [Synthroid] 88 mcg PO DAILY 07/10/15 03/19/21 History Baclofen [Lioresal] 10 mg PO TID PRN 08/13/16 03/19/21 History gemfibroziL [Lopid] 600 mg PO BID 01/23/17 03/19/21 History Dicyclomine [Bentyl] 10 mg PO TID PRN 06/30/17 03/19/21 History Ergocalciferol [Vitamin D2 50,000 unit PO Q14D 07/10/20 03/19/21 History (DRISDOL)] Ipratropium/Albuterol Sulfate 2 puff INHALATION RT-BID PRN 07/10/20 03/19/21 History [Combivent Respimat Inhaler] Acetaminophen Tab [Tylenol] 1,000 mg PO BID 08/17/20 03/19/21 History Furosemide [Lasix] 20 mg PO BID PRN 08/17/20 03/19/21 History Linaclotide [Linzess] 145 mcg PO DAILY 08/17/20 03/19/21 History Hydrocortisone Cream 1 applic TOPICAL BID PRN 03/19/21 03/19/21 History [Hydrocortisone 2.5% Cream] Ketoconazole 2% Cream [Nizoral 2%] 1 applic TOPICAL BID PRN 03/19/21 03/19/21 History Loratadine [Claritin] 10 mg PO DAILY 03/19/21 03/19/21 History Ondansetron Odt [Zofran Odt] 4 mg PO Q8HR PRN 03/19/21 03/19/21 History Pantoprazole [Protonix] 40 mg PO BID 03/19/21 03/19/21 History Topiramate [Topamax] 50 mg PO BID 03/19/21 03/19/21 History Allergies Allergy/AdvReac Type Severity Reaction Status Date / Time cephalexin monohydrate Allergy Rash/Hives Verified 03/19/21 17:55 [From Keflex] losartan Allergy Anaphylaxis Verified 03/19/21 17:55 prednisone Allergy Swelling Verified 03/19/21 17:55 of Feet sulfamethoxazole Allergy Anaphylaxis Verified 03/19/21 17:55 [From Bactrim] trimethoprim [From Bactrim] Allergy Anaphylaxis Verified 03/19/21 17:55 ibuprofen AdvReac kidney Verified 03/19/21 17:55 disease Physical Exam Vitals: Vital Signs Temp Pulse Pulse Resp BP Pulse Ox 03/21/21 10:53 69 16 128/75 97 03/21/21 08:07 58 L 03/21/21 08:00 98.2 F 54 L 16 115/62 98 03/21/21 07:59 54 L 03/21/21 04:00 98.1 F 64 18 92/57 100 03/21/21 02:00 66 18 03/20/21 23:42 97.7 F 66 18 110/61 97 03/20/21 22:09 66 03/20/21 21:58 66 03/20/21 20:00 98.0 F 55 L 18 124/61 99 03/20/21 16:00 97.9 F 56 L 18 109/69 98 03/20/21 13:58 65 03/20/21 12:00 97.8 F 65 18 92/55 98 03/20/21 11:37 60 03/20/21 11:26 60 Intake and Output 03/20/21 03/21/21 03/21/21 22:59 06:59 14:59 Intake Total 130 0 Balance 130 0 Intake: IV 10 0.9 10 Oral 120 0 Other: Voiding Method Toilet Toilet # Voids 1 1 Weight 95.1 kg 95.1 kg Results - Lab Results Most recent lab results Calcium 8.7 mg/dL (8.4-10.2) 03/21/21 09:07 Magnesium 2.0 mg/dL (1.6-2.3) 03/20/21 02:00 03/21/21 09:07 03/21/21 09:07 Assessment and Plan Plan: Assessment: 1. Chronic kidney disease stage IIIa with baseline creatinine near 1.2 se condary to chronic interstitial nephritis. UA this admission shows 1+ protein with several squamous cells. Prior UA has been benign. 2. Chest pain. Cardiology following. Had stress test this morning. 3. Diabetes mellitus. Plan: Hold off on diuretics at this time. Check renal ultrasound. Avoid nephrotoxins. Thank you for the consultation. I will continue to follow the patient with you during her hospital stay.
--- NOTE | 2021-03-21 13:13 | NM ---
EXAMINATION TYPE: NM stress lexiscan cardiolite DATE OF EXAM: 03/21/2021 COMPARISON: NONE HISTORY: Elevated troponins. History of angina, hypercholesterolemia, COPD, and tobacco use presents with chest pain and difficulty breathing along with palpitations TECHNIQUE: After the intravenous administration of 9.5 mCi Tc 99m Sestamibi - Cardiolite resting SPE CT images acquired 45 minutes post injection. The patient received 0.4mg Lexiscan, 24.8 mCi Tc 99m Sestamibi - Stress images obtained [address] injection FINDINGS: Review of stress and rest SPECT images demonstrates no distinct perfusion abnormality. Gated analysi s shows normal wall motion with an estimated left ventricular ejection fraction of 63 %. IMPRESSION: No scintigraphic evidence for reversible ischemia.
--- NOTE | 2021-03-21 13:24 | P.PN ---
Subjective Progress Note Date: 03/21/21 HISTORY OF PRESENT ILLNESS: This is a 45-year-old female with a past medical history significant for diabetes mellitus, valvular heart disease, nicotine dependence, and obesity. Patient follows in the office with Dr. Bell. We have been asked to see the patient in consultation for elevated troponins. Patient examined at the bedside. Patient states that she had to call the vaccine approximately one week ago. She reports 2 days ago she began having chest pain and she was walking around her house. She states this was a burning sensation in the middle of her chest and also went across both sides of her chest. She states pain went down both of her arms. She denies any radiation to the neck, jaw, or back. She denies feeling short of breath. She also reports having nausea vomiting and diarrhea for the past few days. She states that pain was worse with deep inspiration. She also states her chest was tender to touch. Patient received morphine and aspirin in the emergency room which patient states relieved her symptoms and she has had not had any recurrence of any of her symptoms since that time. EKG reveals sinus mechanism with T-wave inversions in the inferior leads which was seen on previous EKGs Chest xray negative for acute process Laboratory data: WBC 8.7. Hemoglobin 12.7. Platelet count 205. Sodium 139. Potassium 3.8. BUN 12. Creatinine 1.18. Troponin 0.07. 0.09. 0.08. Current home cardiac medications include Lasix 20 mg twice a day as needed Echocardiogram completed revealed ejection fraction 55-60%, trileaflet aortic valve which is mildly thickened, mild aortic stenosis, trace mitral regurgitation, and trace tricuspid regurgitation. Patient underwent dobutamine stress test in June 2020 area patient reached 83% of her predicted maximum heart rate and no ischemic changes were noted at that time. 03/21/2021 Patient examined at the bedside. She remains stable. Patient underwent Lexiscan stress test today which was negative for reversible ischemia. PHYSICAL EXAM: VITAL SIGNS: Reviewed. GENERAL: Well-developed in no acute distress. HEENT: Head is normocephalic. Pupils are equal, round. Sclerae anicteric. Mucous membranes of the mouth are moist. Neck supple. No JVD or thyromegaly LUNGS: Respirations even and unlabored. Lungs essentially clear to auscultation bilaterally. HEART: Regular rate and rhythm. S1 and S2 heard. Systolic murmur noted. ABDOMEN: Soft. Nondistended. Nontender. EXTREMITIES: Normal range of motion. No clubbing or cyanosis. Peripheral pulses intact. Trace bilateral lower extremity edema NEUROLOGIC: Awake and alert. Oriented x 3. ASSESSMENT: Chest pain, atypical for angina with pleuritic symptoms; reproducible with inspiration and palpation Nausea, vomiting, and diarrhea x 3 days Mild aortic stenosis Abnormal troponins, not suggestive of ACS Nicotine dependence Obesity PLAN: Lexiscan stress test negative for ischemia Patient may be discharged home today and follow up with Dr. Bell We will sign off Nurse practitioner note has been reviewed by physician. Signing provider agrees with the documented findings, assessment, and plan of care. Objective - Vital Signs Vital signs: Vital Signs Temp 98.2 F 03/21/21 08:00 Pulse 69 03/21/21 10:53 Resp 16 03/21/21 10:53 BP 128/75 03/21/21 10:53 Pulse Ox 97 03/21/21 10:53 Intake & Output 03/20/21 03/21/21 03/21/21 18:59 06:59 18:59 Intake Total 745.222 10 0 Balance 745.222 10 0 Weight 95.1 kg 95.1 kg Intake: IV 10 0.9 10 Intake, IV Titration 85.222 Amount Heparin Sod,Pork in 0.45% 85.222 NaCl 25,000 unit In 0.45 % NaCl 1 250ml.bag @ 10 UNITS/KG/HR 9.979 mls/hr IV .Q24H VICKY Rx#: [id number] Oral 660 0 Other: Voiding Method Toilet # Voids 2 1 - Labs CBC & Chem 7: 03/21/21 09:07 03/21/21 09:07 Labs: Abnormal Lab Results - Last 24 Hours (Table) 03/21/21 Range/Units 09:07 Chloride 112 H (98-107) mmol/L Creatinine 1.20 H (0.52-1.04) mg/dL Glucose 100 H (74-99) mg/dL
--- NOTE | 2021-03-21 13:25 | US ---
EXAMINATION TYPE: US kidneys/renal and bladder DATE OF EXAM: 03/21/2021 COMPARISON: CT abdomen and pelvis March 18, 2019 CLINICAL HISTORY: jayleen. EXAM MEASUREMENTS: Right Kidney: 10.9 x 3.5 x 4.4 cm Left Kidney: 11.2 x 4.4 x 4.6 cm Patient of very large body habitus, limited views, technically difficult. Right Kidney: No hydronephrosis or masses seen, limited views Left Kidney: No hydronephrosis or masses seen, limited views Bladder: not distended There is no evidence for hydronephrosis at this point in time. No nephrolithiasis is seen. No robert s are identified. The urinary bladder is not greatly distended and is thus suboptimally evaluated. Bilateral ureteral jets are not seen. IMPRESSION: Suboptimal study without hydronephrosis seen bilaterally.
--- NOTE | 2021-03-21 14:24 | EST ---
EXERCISE STRESS DATE OF SERVICE: 03/21/21 AGE: 45 SEX: Female HT: 62" WT: 209 PROTOCOL: Lexiscan Cardiolite STAGE: @@ DURATION OF EXERCISE: @@ HEART RATE REST: @@ BLOOD PRESSURE REST: @@ MAXIMUM HEART RATE ACHIEVED: @@ MAXIMUM BLOOD PRESSURE: @@ 85% MPHR: @@ 100% MPHR: @@ METS: @@ INDICATIONS: @@ CLINICAL INFORMATION: @@ STRESS DATA: Heart rate 63, pressure is 133/77 mmHg. Baseline EKG showed sinus mechanism. 0.4 mg of Lexiscan given over 15 seconds per protocol. Max heart rate was 93 beats per minute and maximum pressure was 153/82 mmHg. Clinically, the patient did not have any symptoms of chest pain or chest discomfort and the EKG did not show any significant ST or T-wave abnormalities concerning for ischemia. CONCLUSION: 1. Nondiagnostic electrocardiogram stress testing in response to Lexiscan. 2. Please follow up on the Cardiolite portion on a separate report. MMODL / IJN: [id number] / MIRANDA
--- NOTE | 2021-03-22 07:27 | DS ---
DISCHARGE SUMMARY FINAL DIAGNOSIS: 1. Chest pain, possibly gastroesophageal reflux disease. Negative stress test. 2. Troponin 0.090 of undetermined etiology with negative stress. 3. Possible myopericarditis. 4. Elevated creatinine with possibly chronic kidney stage 2. 5. History of diabetes mellitus type 2. 6. Gastroesophageal reflux disease. 7. Hypertension. 8. Hyperlipidemia. 9. History of mitral valve prolapse. 10.History of degenerative joint disease. 11.History of mild aortic stenosis. 12.History of diverticulosis. 13.History of bronchiectasis. 14.History of hidradenitis suppurativa. 15.History of degenerative joint disease. 16.History of cholecystectomy. 17.History of tubal ligation. 18.History of anxiety. 19.History of nicotine dependence. 20.Obesity with body mass index of 38.6. 21.FULL CODE. DISCHARGE DISPOSITION: Patient will be discharged in stable and with guarded prognosis. HISTORY OF PRESENT ILLNESS: This 45-year-old woman with a past medical history of multiple medical problems was admitted with chest pain. Troponins as noted above. Dr. Lund is following the patient closely. Cardiology saw the patient. A Lexiscan stress test was negative. The possibility of myocarditis was also considered by Cardiology. Please refer to Cardiology notes for further information. Patient recently received first dose of COVID vaccine also. Patient is asymptomatic at this time. PHYSICAL EXAMINATION: On exam, vitals are stable. Cardiovascular S1 and S2. Abdomen soft. Nervous system no focal deficits. DISCHARGE INSTRUCTIONS: Diet is cardiac. Activity is limited until followup. Follow up with Dr. Lund in 2-3 days. Follow up with Cardiology as recommended. Follow up with GI as recommended. DISCHARGE MEDICATIONS ARE: 1. Bentyl 10 mg t.i.d. p.r.n. 2. Claritin 10 mg p.o. daily. 3. Combivent 2 puffs q.i.d. p.r.n. 4. Fluticasone nasal spray. 5. Hydrocortisone cream. 6. Lasix 20 mg b.i.d. p.r.n. 7. Linzess 145 mcg p.o. daily. 8. Lioresal 10 mg t.i.d. p.r.n. 9. Lopid 600 mg p.o. b.i.d. 10.Ketoconazole cream. 11.Protonix 40 mg p.o. b.i.d. 12.Synthroid 88 mcg p.o. daily. 13.Topamax 50 mg p.o. b.i.d. 14.Tylenol 500 mg daily. 15.Vitamin D2 50,000 p.o. daily. 16.Zofran 4 mg p.o. q.8 p.r.n. Once again the patient will be discharged in stable condition with guarded prognosis. MMODL / IJN: [id number] /
[2021-03-28] MEDS ORDERED: ERGOCALCIFEROL 1,250 MCG (50,000 IU) CAPSULE PO SCH (09:00)
== END 2021-03-21 14:10 | disposition home or self-care (01) ==
LOC: EC 17:43 → INTOOBSV 20:23 → 3SCARD 20:23 → OBSVTOIN 20:23 → UNDODISIN 03-21 14:10
PROVIDERS: ADMIT Hospitalist; ATTEND Hospitalist
DX: R10.13 Epigastric pain (principal); K21.9 Gastro-esophageal reflux disease without esophagitis; R79.89 Other specified abnormal findings of blood chemistry; E11.22 Type 2 diabetes mellitus with diabetic chronic kidney disease; N18.31 Chronic kidney disease, stage 3a; I12.9 Hypertensive chronic kidney disease with stage 1 through stage 4 chronic kidney disease, or unspecified chronic kidney disease; M19.90 Unspecified osteoarthritis, unspecified site; Z20.822 Contact with and (suspected) exposure to COVID-19; I34.1 Nonrheumatic mitral (valve) prolapse; E78.5 Hyperlipidemia, unspecified; F17.200 Nicotine dependence, unspecified, uncomplicated; L73.2 Hidradenitis suppurativa; J44.9 Chronic obstructive pulmonary disease, unspecified; I25.2 Old myocardial infarction; R01.1 Cardiac murmur, unspecified; R22.43 Localized swelling, mass and lump, lower limb, bilateral; E07.9 Disorder of thyroid, unspecified; E66.9 Obesity, unspecified; Z68.38 Body mass index [BMI] 38.0-38.9, adult; K58.0 Irritable bowel syndrome with diarrhea; N11.9 Chronic tubulo-interstitial nephritis, unspecified; F41.9 Anxiety disorder, unspecified; Z79.899 Other long term (current) drug therapy; Z88.1 Allergy status to other antibiotic agents; Z88.8 Allergy status to other drugs, medicaments and biological substances; Z88.2 Allergy status to sulfonamides; Z88.6 Allergy status to analgesic agent; Z79.890 Hormone replacement therapy; Z87.11 Personal history of peptic ulcer disease; Z86.010 Personal history of colon polyps; Z90.49 Acquired absence of other specified parts of digestive tract; Z98.51 Tubal ligation status; Z87.440 Personal history of urinary (tract) infections; Z87.09 Personal history of other diseases of the respiratory system; Z87.19 Personal history of other diseases of the digestive system; Z86.69 Personal history of other diseases of the nervous system and sense organs; Z82.49 Family history of ischemic heart disease and other diseases of the circulatory system; Z80.0 Family history of malignant neoplasm of digestive organs
CPT/HCPCS: 96374; 96375; 99285; 36415; 94640 ×3; 93005; 93017; 85379; 80053; 80048 ×2; 83690; 83735 ×2; 84484 ×2; 85025 ×3; 85610 ×2; 85730 ×2; 81001; 87635; 71045; 76770; 78452; G0378 ×3; C8929; A9500; J1200; J2765; J2270; J1644 ×3; J2785; Q9950; 93306

== ENCOUNTER → 2021-03-27 | Outpatient (CLI) | payer OTHER ==
[2021-03-27 17:45] LABS: Basophils # (A) 0.04 X 10*3/uL (0.00-0.10); Basophils % (A) 0.4 %; Eosinophils # (A) 0.01 X 10*3/uL (0.04-0.35); Eosinophils % (A) 0.1 %; HCT 43.9 % (37.2-46.3); HGB 14.3 g/dL (12.0-15.0); Lymphocytes # (A) 2.67 X 10*3/uL (0.90-5.00); MCH 33.3 pg (27.0-32.0); MCHC 32.6 g/dL (32.0-37.0); MCV 102.3 fL (80.0-97.0); Mean Platelet Volume 10.9 fL (9.5-12.2); Monocytes # (A) 0.72 X 10*3/uL (0.20-1.00); Monocytes % (A) 7.6 %; Neutrophils # (A) 6.04 X 10*3/uL (1.80-7.70); Neutrophils % (A) 63.4 %; Platelet Count 227 X 10*3/uL (140-440); RBC 4.29 X 10*6/uL (4.10-5.20); RDW 13.2 % (11.5-14.5); WBC 9.53 X 10*3/uL (4.50-10.00)
[2021-03-27 23:13] LABS: African American GFR (CKD) 58.2 (60.0-200.0); Anion Gap 11.2 mmol/L (4.00-12.00); BUN/Creat Ratio 14.62 Ratio (12.00-20.00); Calcium 9.3 mg/dL (8.7-10.3); Carbon Dioxide 18.8 mmol/L (21.6-31.8); Non-African American GFR(CKD) 50.2 (60.0-200.0)
== END | disposition home or self-care (01) ==
LOC: LABWHC1 10:03
PROVIDERS: ATTEND Hospitalist
DX: D64.9 Anemia, unspecified (principal)
CPT/HCPCS: 36415; 80048; 85025

== ENCOUNTER → 2021-06-07 | Outpatient (CLI) | payer OTHER ==
[2021-06-07 18:20] LABS: Creatinine,Urine Random 149.4 mg/dL
[2021-06-07 18:30] LABS: Protein/Creatinine Ratio,Urine 0.033
[2021-06-07 20:57] LABS: African American GFR (CKD) 53.2 (60.0-200.0); BUN/Creat Ratio 16.43 Ratio (12.00-20.00); Calcium 8.3 mg/dL (8.7-10.3); Magnesium 1.9 mg/dL (1.5-2.4); Non-African American GFR(CKD) 45.9 (60.0-200.0); Phosphorus 4.6 mg/dL (2.4-5.1); Potassium 4.7 mmol/L (3.5-5.5)
== END | disposition home or self-care (01) ==
LOC: LABWHC1 14:36
PROVIDERS: ATTEND Nurse Practitioner Family
DX: N18.30 Chronic kidney disease, stage 3 unspecified (principal); E55.9 Vitamin D deficiency, unspecified; N25.81 Secondary hyperparathyroidism of renal origin; R80.9 Proteinuria, unspecified
CPT/HCPCS: 36415; 80048; 82306; 82570; 83735; 83970; 84100; 84156; 87205

== ENCOUNTER → 2021-06-14 | Outpatient (CLI) | payer OTHER ==
--- NOTE | 2021-06-18 07:45 | MM ---
Reason for exam: follow-up at short interval from prior study. Last mammogram was performed 7 months ago. History: Family history of breast cancer in mother at age 62 and breast cancer in maternal grandmother at age 50. Benign US biopsy breast VAD LT of the left breast, November 21, 2020. Benign US biopsy breast VAD LT of the left breast, July 27, 2018. Benign excisional biopsy of the left breast, July 2011. Benign excisional biopsy of the left breast, December 2010. Benign excisional biopsy of the left breast, 2009. Took hormonal contraceptives beginning at age 15. Physical Findings: Nurse Summary: 1.5cm nodule in the left breast at 1-2 o'clock (nurse db). [facility] Diagnostic Mammo LT w CAD CC, MLO, and XCCL view(s) were taken of the left breast. Prior study comparison: November 21, 2020, left breast MG diagnostic mammo LT wo CAD. The breast tissue is almost entirely fat. There is no discrete abnormality including area of concern marked and palpable. These results were verbally communicated with the patient and result sheet given to the patient on 06/14/21. ASSESSMENT: Incomplete: need additional imaging evaluation, BI-RAD 0 RECOMMENDATION: Ultrasound of the left breast.
--- NOTE | 2021-06-18 07:47 | USB ---
Reason for exam: additional evaluation requested from abnormal screening. History: Family history of breast cancer in mother at age 62 and breast cancer in maternal grandmother at age 50. Benign US biopsy breast VAD LT of the left breast, November 21, 2020. Benign US biopsy breast VAD LT of the left breast, July 27, 2018. Benign excisional biopsy of the left breast, July 2011. Benign excisional biopsy of the left breast, December 2010. Benign excisional biopsy of the left breast, 2009. Took hormonal contraceptives beginning at age 15. US Breast Limited LT Left limited breast ultrasound including focal area of concern, retroareolar and axilla demonstrates a 1.4 x 1.1 x 1.0cm largest of 4 normal appearing nodes at 1 o'clock palpable and a 3.2 x 3.1 x 0.8cm lymph node, fatty hilum at the axilla. These results were verbally communicated with the patient and result sheet given to the patient on 06/14/21. ASSESSMENT: Benign, BI-RAD 2 RECOMMENDATION: Return to routine screening mammogram schedule for both breasts. Manage patient on a clinical basis.
== END | disposition home or self-care (01) ==
LOC: RADMAMWWP 13:32
PROVIDERS: ATTEND Surgery
DX: N63.21 Unspecified lump in the left breast, upper outer quadrant (principal); Z80.3 Family history of malignant neoplasm of breast; Z79.3 Long term (current) use of hormonal contraceptives
CPT/HCPCS: 77065

== ENCOUNTER 2021-06-20 17:21 | Observation (INO) | payer OTHER ==
[2021-06-20 18:50] LABS: Basophils % (A) 0 %; Eosinophils # (A) 0.1 k/uL (0-0.7); Eosinophils % (A) 1 %; HCT 41.5 % (34.0-46.0); HGB 14.2 gm/dL (11.4-16.0); Lymphocytes # (A) 1.3 k/uL (1.0-4.8); Lymphocytes % (A) 11 %; MCH 34.5 pg (25.0-35.0); MCHC 34.2 g/dL (31.0-37.0); MCV 100.8 fL (80.0-100.0); Mean Platelet Volume 7.8; Monocytes # (A) 0.2 k/uL (0-1.0); Monocytes % (A) 2 %; Neutrophils # (A) 10.3 k/uL (1.3-7.7); Neutrophils % (A) 86 %; Platelet Count 232 k/uL (150-450); RBC 4.12 m/uL (3.80-5.40); RDW 12.6 % (11.5-15.5); WBC 12.1 k/uL (3.8-10.6)
[2021-06-20] MEDS ORDERED: ASPIRIN 81 MG PO STA (18:54)
[2021-06-20] MEDS ORDERED: NITROGLYCERIN OINT 1 INCH/GM PACKET TOPICAL STA (18:55)
[2021-06-20 18:59] LABS: Albumin 4.1 g/dL (3.5-5.0); Calcium 9.5 mg/dL (8.4-10.2); INR 0.9 (<1.2); Magnesium 1.9 mg/dL (1.6-2.3); Partial Thromboplastin Time 24.9 sec (22.0-30.0); Potassium 4.7 mmol/L (3.5-5.1); Prothrombin Time 9.8 sec (9.0-12.0); Total Bilirubin 0.2 mg/dL (0.2-1.3); Total Protein 7.3 g/dL (6.3-8.2)
--- NOTE | 2021-06-20 19:09 | ED ---
General Adult HPI - General Chief complaint: Chest Pain Stated complaint: Chest Pain/Urogenital Time Seen by Provider: 06/20/21 18:05 Source: patient, RN notes reviewed, old records reviewed Mode of arrival: wheelchair Limitations: no limitations - History of Present Illness Initial comments: Is a 45-year-old female presents emergency Department complaining of chest pain. Patient's had intermittent chest pain for the last 3 days but much worse this a fternoon. Patient states the pain is in the center of her chest and it is associated with some shortness of breath per patient denies any diaphoretic episodes. Patient denies any nausea. Patient states she does have a history of smoking and high cholesterol she also has a family history is strong with heart disease. Patient denies any lightheadedness dizziness. Patient denies any numbness or weakness. Patient denies any abdominal pain patient denies any vomiting or diarrhea. Patient denies any swelling to her legs or calf tenderness. Patient did not notice any worsening pain with walking or resting. - Related Data Home Medications Medication Instructions Recorded Confirmed Fluticasone Nasal Grady [Flonase 1 spray EA NOSTRIL BID 07/10/15 03/19/21 Nasal Grady] Levothyroxine Sodium [Synthroid] 88 mcg PO DAILY 07/10/15 03/19/21 Baclofen [Lioresal] 10 mg PO TID PRN 08/13/16 03/19/21 gemfibroziL [Lopid] 600 mg PO BID 01/23/17 03/19/21 Dicyclomine [Bentyl] 10 mg PO TID PRN 06/30/17 03/19/21 Ergocalciferol [Vitamin D2 50,000 unit PO Q14D 07/10/20 03/19/21 (DRISDOL)] Ipratropium/Albuterol Sulfate 2 puff INHALATION RT-BID PRN 07/10/20 03/19/21 [Combivent Respimat Inhaler] Acetaminophen Tab [Tylenol] 1,000 mg PO BID 08/17/20 03/19/21 Furosemide [Lasix] 20 mg PO BID PRN 08/17/20 03/19/21 Linaclotide [Linzess] 145 mcg PO DAILY 08/17/20 03/19/21 Hydrocortisone Cream 1 applic TOPICAL BID PRN 03/19/21 03/19/21 [Hydrocortisone 2.5% Cream] Ketoconazole 2% Cream [Nizoral 2%] 1 applic TOPICAL BID PRN 03/19/21 03/19/21 Loratadine [Claritin] 10 mg PO DAILY 03/19/21 03/19/21 Ondansetron Odt [Zofran ODT] 4 mg PO Q8HR PRN 03/19/21 03/19/21 Topiramate [Topamax] 50 mg PO BID 03/19/21 03/19/21 Previous Rx's Medication Instructions Recorded Pantoprazole Sodium [Protonix] 40 mg PO DAILY #30 tablet. 03/21/21 Allergies Allergy/AdvReac Type Severity Reaction Status Date / Time cephalexin monohydrate Allergy Rash/Hives Verified 06/20/21 18:04 [From Keflex] losartan Allergy Anaphylaxis Verified 06/20/21 18:04 prednisone Allergy Swelling Verified 06/20/21 18:04 of Feet sulfamethoxazole Allergy Anaphylaxis Verified 06/20/21 18:04 [From Bactrim] trimethoprim [From Bactrim] Allergy Anaphylaxis Verified 06/20/21 18:04 ibuprofen AdvReac kidney Verified 06/20/21 18:04 disease Review of Systems ROS Statement: Those systems with pertinent positive or pertinent negative responses have been documented in the HPI. ROS Other: All systems not noted in ROS Statement are negative. Past Medical History Past Medical History: Diabetes Mellitus, GERD/Reflux, Hyperlipidemia, Hypertension, Mitral Valve Prolapse (MVP), Osteoarthritis (OA), Renal Disease, Respiratory Disorder, Skin Disorder, Thyroid Disorder Additional Past Medical History / Comment(s): HEART MURMUR, LEAKY HEART VALVES (STATES PRE-MEDICATED PRIOR TO PROCEDURES). HX OF DIVERTICULITIS. IBS. BRONCHIECTASIS. MIGRAINES. HX OF STOMACH ULCERS. OVARIAN SYNDROME. HIDRADENITIS, SKIN DISORDER. "LIVER INFLAMED." "KIDNEY FUNCTION @ 60%." EDEMA BLE, WEARING YRN HOSE. Hx of herniated discs History of Any Multi-Drug Resistant Organisms: None Reported Past Surgical History: Cholecystectomy, Hernia Repair, Orthopedic Surgery, Tubal Ligation, Uterine Ablation Additional Past Surgical History / Comment(s): lt foot surgery, BUNIONECTOMY, Bilat CTR Colonoscopy, egd, left brest lesion removal Past Anesthesia/Blood Transfusion Reactions: Motion Sickness Past Psychological History: Anxiety Smoking Status: Current every day smoker Past Alcohol Use History: None Reported Past Drug Use History: None Reported - Past Family History Mother Family Medical History: Myocardial Infarction ([place]) Additional Family Medical History / Comment(s): Pacemaker. Father Family Medical History: Cancer Additional Family Medical History / Comment(s): LIVER CANCER. General Exam - General Exam Comments Initial Comments: GENERAL: Patient is well-developed and well-nourished. Patient is nontoxic and well- hydrated and is in mild distress. ENT: Neck is soft and supple. No significant lymphadenopathy is noted. Oropharynx is clear. Moist mucous membranes. Neck has full range of motion without eliciting any pain. EYES: The sclera were anicteric and conjunctiva were pink and moist. Extraocular movements were intact and pupils were equal round and reactive to light. Eyelids were unremarkable. PULMONARY: Unlabored respirations. Good breath sounds bilaterally. No audible rales rhonchi or wheezing was noted. CARDIOVASCULAR: There is a regular rate and rhythm without any murmurs gallops or rubs. ABDOMEN: Soft and nontender with normal bowel sounds. SKIN: Skin is clear with no lesions or rashes and otherwise unremarkable. NEUROLOGIC: Patient is alert and oriented x3. Cranial nerves II through XII are grossly intact. Motor and sensory are also intact. Normal speech, volume and content. Symmetrical smile. MUSCULOSKELETAL: Normal extremities with adequate strength and full range of motion. LYMPHATICS: No significant lymphadenopathy is noted PSYCHIATRIC: Normal psychiatric evaluation. Limitations: no limitations Course Vital Signs 06/20/21 06/20/21 18:01 19:33 Temperature 98.1 F Pulse Rate 79 72 Respiratory 18 18 Rate Blood Pressure 130/79 128/99 O2 Sat by Pulse 99 99 Oximetry Medical Decision Making - Medical Decision Making EKG shows sinus rhythm at 64 bpm VA interval is on a 64 QRS 104 QT interval is 422 QTC is 435. Patient's EKG shows inverted T waves in V1 and V2 and V3. Chest x-ray showed no acute abnormality. Patient was feeling much more comfortable. Patient multiple risk factors and significant symptoms so patient will be admitted. I spoke with [facility] significant mid patient admitted the patient wrote a minute orders I consult cardiology - Lab Data Result diagrams: 06/20/21 18:46 06/20/21 18:46 Lab Results 09/09/21 09/09/21 09/09/21 Range/Units 18:46 18:46 18:46 WBC 12.1 H (3.8-10.6) k/uL RBC 4.12 (3.80-5.40) m/uL Hgb 14.2 (11.4-16.0) gm/dL Hct 41.5 (34.0-46.0) % MCV 100.8 H (80.0-100.0) fL MCH 34.5 (25.0-35.0) pg MCHC 34.2 (31.0-37.0) g/dL RDW 12.6 (11.5-15.5) % Plt Count 232 (150-450) k/uL MPV 7.8 Neutrophils % 86 % Lymphocytes % 11 % Monocytes % 2 % Eosinophils % 1 % Basophils % 0 % Neutrophils # 10.3 H (1.3-7.7) k/uL Lymphocytes # 1.3 (1.0-4.8) k/uL Monocytes # 0.2 (0-1.0) k/uL Eosinophils # 0.1 (0-0.7) k/uL Basophils # 0.0 (0-0.2) k/uL PT 9.8 (9.0-12.0) sec INR 0.9 (<1.2) APTT 24.9 (22.0-30.0) sec Sodium 137 (137-145) mmol/L Potassium 4.7 (3.5-5.1) mmol/L Chloride 109 H (98-107) mmol/L Carbon Dioxide 16 L (22-30) mmol/L Anion Gap 12 mmol/L BUN 19 H (7-17) mg/dL Creatinine 1.12 H (0.52-1.04) mg/dL Est GFR (CKD-EPI)AfAm 70 (>60 ml/min/1.73 sqM) Est GFR (CKD-EPI)NonAf 60 (>60 ml/min/1.73 sqM) Glucose 131 H (74-99) mg/dL Calcium 9.5 (8.4-10.2) mg/dL Magnesium 1.9 (1.6-2.3) mg/dL Total Bilirubin 0.2 (0.2-1.3) mg/dL AST 32 (14-36) U/L ALT 32 (4-34) U/L Alkaline Phosphatase 67 (38-126) U/L Troponin I (0.000-0.034) ng/mL Total Protein 7.3 (6.3-8.2) g/dL Albumin 4.1 (3.5-5.0) g/dL 06/20/21 Range/Units 18:46 WBC (3.8-10.6) k/uL RBC (3.80-5.40) m/uL Hgb (11.4-16.0) gm/dL Hct (34.0-46.0) % MCV (80.0-100.0) fL MCH (25.0-35.0) pg MCHC (31.0-37.0) g/dL RDW (11.5-15.5) % Plt Count (150-450) k/uL MPV Neutrophils % % Lymphocytes % % Monocytes % % Eosinophils % % Basophils % % Neutrophils # (1.3-7.7) k/uL Lymphocytes # (1.0-4.8) k/uL Monocytes # (0-1.0) k/uL Eosinophils # (0-0.7) k/uL Basophils # (0-0.2) k/uL PT (9.0-12.0) sec INR (<1.2) APTT (22.0-30.0) sec Sodium (137-145) mmol/L Potassium (3.5-5.1) mmol/L Chloride (98-107) mmol/L Carbon Dioxide (22-30) mmol/L Anion Gap mmol/L BUN (7-17) mg/dL Creatinine (0.52-1.04) mg/dL Est GFR (CKD-EPI)AfAm (>60 ml/min/1.73 sqM) Est GFR (CKD-EPI)NonAf (>60 ml/min/1.73 sqM) Glucose (74-99) mg/dL Calcium (8.4-10.2) mg/dL Magnesium (1.6-2.3) mg/dL Total Bilirubin (0.2-1.3) mg/dL AST (14-36) U/L ALT (4-34) U/L Alkaline Phosphatase (38-126) U/L Troponin I <0.012 (0.000-0.034) ng/mL Total Protein (6.3-8.2) g/dL Albumin (3.5-5.0) g/dL Disposition Clinical Impression: Chest pain Disposition: ADMITTED IP TO THIS HOSP Referrals: Jose Lund MD [Primary Care Provider] - 1-2 days Time of Disposition: 19:40
[2021-06-20] MEDS ORDERED: NITROGLYCERIN SL TABS 0.4 MG TAB SUBLINGUAL PRN (19:43)
--- NOTE | 2021-06-20 20:38 | XR ---
EXAMINATION TYPE: XR chest 2V DATE OF EXAM: 06/20/2021 CLINICAL HISTORY: Chest Pain. TECHNIQUE: Frontal and lateral view of the chest. COMPARISON: 03/19/2021 FINDINGS: The cardiomediastinal silhouette is within normal limits for size. Pulmonary vasculature i s normal. There is no focal air space opacity. No pleural effusion. No pneumothorax seen. No acute d isplaced osseous fracture. IMPRESSION: No acute cardiopulmonary process.
[2021-06-21] MEDS: NITROGLYCERIN OINT 1 INCH/GM PACKET TOPICAL SCH ×2 (01:24→05:00)
[2021-06-21] MEDS: ASPIRIN 81 MG PO SCH (08:47)
[2021-06-21] MEDS ORDERED: ASPIRIN 325 MG TAB PO SCH (09:00)
[2021-06-21 10:35] LABS: LDL Cholesterol,Calculated 92.8 mg/dL (0.0-131.0); VLDL Calculation 33.2 mg/dL (5.00-40.00)
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
--- NOTE | 2021-06-21 11:49 | P.HPIM ---
History of Present Illness This is a pleasant 45 years old female with past medical history of diabetes mellitus, hypertension, hyperlipidemia, morbid obesity, osteoarthritis, hypothyroidism, GERD, mitral valve prolapse, osteoarthritis, chronic kidney disease, irritable bowel syndrome, herniated disc. History of anxiety Presents with burning chest pain and shortness of breath as well as burning with urination Patient states for the last 2 days she's been having burning and pressure sensation in the central chest radiating to the left arm, felt as 8/10 in severity, is completely resolved. Associated with little dyspnea, some nausea vomiting which is all resolved now However she still complaining of from burning with urination Smokes about 6 cigarettes per day she is trying to quit and she declines nicotine patch. no alcohol or illicit drugs Vitals are stable and patient is afebrile Labs showing mild leukocytosis at 12.1 K. Rest of the CBC is unremarkable. Creatinine at baseline which is slightly elevated at 1.1, electrolytes are normal. Times are not elevated. And troponin are negative 2 with less than 0.012. Coronavirus not detected Chest x-ray: No acute process EKG: Sinus rhythm at 64 with marked sinus arrhythmia, QTC 435, no significant ST-T changes. in emergency room she was started on aspirin 325 mg unix developer is consulted Review of Systems Review of systems CONSTITUTIONAL: No fever, no malaise, no fatigue. HEENT: No recent visual problems or hearing problems. Denied any sore throat. CARDIOVASCULAR: No orthopnea, PND, no palpitations, no syncope. PULMONARY: No shortness of breath, no cough, no hemoptysis. GASTROINTESTINAL: No diarrhea, no nausea, no vomiting, no abdominal pain. Normoactive bowel sounds. NEUROLOGICAL: No headaches, no weakness, no numbness. HEMATOLOGICAL: Denies any bleeding or petechiae. GENITOURINARY: Denies frequency, or urgency. MUSCULOSKELETAL/RHEUMATOLOGICAL: Denies any joint pain, swelling, or any muscle pain. ENDOCRINE: Denies any polyuria or polydipsia. Past Medical History Past Medical History: Diabetes Mellitus, GERD/Reflux, Hyperlipidemia, Hypertension, Mitral Valve Prolapse (MVP), Osteoarthritis (OA), Renal Disease, Respiratory Disorder, Skin Disorder, Thyroid Disorder Additional Past Medical History / Comment(s): HEART MURMUR, LEAKY HEART VALVES (STATES PRE-MEDICATED PRIOR TO PROCEDURES). HX OF DIVERTICULITIS. IBS. BRONCHIECTASIS. MIGRAINES. HX OF STOMACH ULCERS. OVARIAN SYNDROME. HIDRADENITIS, SKIN DISORDER. "LIVER INFLAMED." "KIDNEY FUNCTION @ 60%." EDEMA BLE, WEARING YRN HOSE. Hx of herniated discs History of Any Multi-Drug Resistant Organisms: None Reported Past Surgical History: Cholecystectomy, Hernia Repair, Orthopedic Surgery, Tubal Ligation, Uterine Ablation Additional Past Surgical History / Comment(s): lt foot surgery, BUNIONECTOMY, Bilat CTR Colonoscopy, egd, left brest lesion removal Past Anesthesia/Blood Transfusion Reactions: Motion Sickness Past Psychological History: Anxiety Smoking Status: Current every day smoker Past Alcohol Use History: None Reported Additional Past Alcohol Use History / Comment(s): SMOKES 0.5PPD. STARTED SMOKING AT AGE 18. Past Drug Use History: None Reported - Past Family History Mother Family Medical History: Myocardial Infarction ([place]) Additional Family Medical History / Comment(s): Pacemaker. Father Family Medical History: Cancer Additional Family Medical History / Comment(s): LIVER CANCER. Medications and Allergies Home Medications Medication Instructions Recorded Confirmed Type RX: Fluticasone Nasal [place] 1 spray EA NOSTRIL BID PRN 07/10/15 06/20/21 History [Flonase Nasal [place]] RX: Levothyroxine Sodium 88 mcg PO DAILY 07/10/15 06/20/21 History [Synthroid] RX: Baclofen [Lioresal] 10 mg PO TID PRN 08/13/16 06/20/21 History RX: gemfibroziL [Lopid] 600 mg PO BID 01/23/17 06/20/21 History RX: Dicyclomine [Bentyl] 20 mg PO HS 06/30/17 06/20/21 History RX: Ergocalciferol [Vitamin D2 50,000 unit PO Q14D 07/10/20 06/20/21 History (DRISDOL)] RX: Acetaminophen Tab [Tylenol] 1,000 mg PO BID 08/17/20 06/20/21 History RX: Furosemide [Lasix] 20 mg PO BID PRN 08/17/20 06/20/21 History RX: Linaclotide [Linzess] 145 mcg PO DAILY 08/17/20 06/20/21 History RX: Hydrocortisone Cream 1 applic TOPICAL BID PRN 03/19/21 06/20/21 History [Hydrocortisone 2.5% Cream] RX: Ketoconazole 2% Cream [Nizoral 1 applic TOPICAL BID PRN 03/19/21 06/20/21 H istory 2%] RX: Loratadine [Claritin] 10 mg PO DAILY 03/19/21 06/20/21 History RX: Ondansetron Odt [Zofran ODT] 4 mg PO BID PRN 03/19/21 06/20/21 History RX: Topiramate [Topamax] 100 mg PO BID 03/19/21 06/20/21 History Acne Medicated 5% Gel 1 applic TOPICAL BID 06/20/21 06/20/21 History Benzoyl Peroxide 10% Wash 1 applic TOPICAL DAILY 06/20/21 06/20/21 History Dicyclomine [Bentyl] 10 mg PO DAILY 06/20/21 06/20/21 History Mupirocin 2% Oint [Bactroban 2% 1 applic TOPICAL BID 06/20/21 06/20/21 History Oint] Potassium Chloride [Potassium 10 meq PO DAILY 06/20/21 06/20/21 History Chloride ER] RX: Lactulose 10 gm PO BID PRN 06/20/21 06/20/21 History RX: Omeprazole 20 mg PO BID 06/20/21 06/20/21 History RX: Potassium Chloride [Potassium 5 meq PO DAILY@1200 06/20/21 06/20/21 History Chloride ER] Spironolactone [Aldactone] 25 mg PO DAILY 06/20/21 06/20/21 History Allergies Allergy/AdvReac Type Severity Reaction Status Date / Time cephalexin monohydrate Allergy Rash/Hives Verified 06/20/21 20:37 [From Keflex] losartan Allergy Anaphylaxis Verified 06/20/21 20:37 prednisone Allergy Swelling Verified 06/20/21 20:37 of Feet sulfamethoxazole Allergy Anaphylaxis Verified 06/20/21 20:37 [From Bactrim] trimethoprim [From Bactrim] Allergy Anaphylaxis Verified 06/20/21 20:37 ibuprofen AdvReac kidney Verified 06/20/21 20:37 disease Physical Exam Vitals: Vital Signs Temp Pulse Pulse Resp BP BP Pulse Ox 06/21/21 01:20 76 18 06/21/21 01:18 98 F 76 18 104/63 99 06/20/21 22:47 66 18 06/20/21 22:27 97.8 F 66 18 108/72 98 06/20/21 20:34 65 17 126/87 99 06/20/21 19:33 72 18 128/99 99 06/20/21 18:01 98.1 F 79 18 130/79 99 Intake and Output 06/20/21 06/20/21 06/21/21 14:59 22:59 06:59 Other: # Voids 2 Weight 102.512 kg -GENERAL: The patient is alert and oriented x3, not in any acute distress. Morbidly obese HEENT: Pupils are round and equally reacting to light. EOMI. No scleral icterus. No conjunctival pallor. Normocephalic, atraumatic. No pharyngeal erythema. No thyromegaly. CARDIOVASCULAR: S1 and S2 present. No murmurs, rubs, or gallops. PULMONARY: Chest is clear to auscultation, no wheezing or crackles. ABDOMEN: Soft, nontender, nondistended, normoactive bowel sounds. No palpable organomegaly. MUSCULOSKELETAL: No joint swelling or deformity. -EXTREMITIES: No cyanosis, clubbing, . Bilateral pitting leg edema NEUROLOGICAL: Gross neurological examination did not reveal any focal deficits. SKIN: No rashes. no petechiae. Results CBC & Chem 7: 06/20/21 18:46 06/20/21 18:46 Labs: Abnormal Lab Results - Last 24 Hours (Table) 06/20/21 06/20/21 Range/Units 18:46 18:46 WBC 12.1 H (3.8-10.6) k/uL MCV 100.8 H (80.0-100.0) fL Neutrophils # 10.3 H (1.3-7.7) k/uL Chloride 109 H (98-107) mmol/L Carbon Dioxide 16 L (22-30) mmol/L BUN 19 H (7-17) mg/dL Creatinine 1.12 H (0.52-1.04) mg/dL Glucose 131 H (74-99) mg/dL Thrombosis Risk Factor Assmnt - Choose All That Apply Any of the Below Risk Factors Present?: Yes Each Factor Represents 1 point: Age 41-60 years, Obesity (BMI >25) Other Risk Factors: No Other congenital or acquired thrombophilia - If yes, enter type in comment: No Thrombosis Risk Factor Assessment Total Risk Factor Score: 2 Thrombosis Risk Factor Assessment Level: Low Risk Assessment and Plan Assessment: Chest pain, rule out cardiac causes Nicotine dependence Diabetes mellitus Hyperlipidemia Hypotension Morbid obesity History of osteoarthritis Hypothyroidism History of GERD History of mitral valve prolapse Osteoarthritis Chronic kidney disease History of irritable bowel syndrome History of herniated disc History of anxiety, not an activation. Plan: This is a pleasant 45 years old female who presents because of chest pain. Continue with aspirin, cardiology consult Check urinalysis and bladder scan Labs and medication were reviewed.. Continue same treatment. Continue with symptomatic treatment. Resume home medication. Monitor lytes and vitals. DVT and GI prophylaxis. Further recommendationsas per clinical course of the patient DVT prophylaxis: Subcutaneous heparin GI Prophylaxis: Pepcid PT/OT: Pending Prognosis is guarded
[2021-06-21 14:22] LABS: Appearance,Urine Cloudy (Clear); Bacteria,Urine Occasional /hpf; Bilirubin,Urine Negative (Negative); Blood,Urine Negative (Negative); Color,Urine Light Yellow; Glucose,Urine (UA) Negative (Negative); Ketones,Urine Negative (Negative); Leukocyte Esterase,Urine Negative (Negative); Mucus,Urine Rare /hpf; Nitrite,Urine Negative (Negative); PH, Urine 6.5 (5.0-8.0); Protein,Urine Negative (Negative); RBC,Urine <1 /hpf (0-5); Specific Gravity,Urine 1.013 (1.001-1.035); Squamous Epithelial Cell,Urine 3 /hpf (0-4); Urobilinogen,Urine <2.0 mg/dL (<2.0); WBC,Urine 1 /hpf (0-5)
[2021-06-21] MEDS ORDERED: BACLOFEN 10 MG TAB PO PRN (22:13)
[2021-06-21] MEDS ORDERED: FLUTICASONE 50MCG/SPRAY NASAL 16GM EA NOSTRIL PRN (22:13)
[2021-06-21] MEDS ORDERED: FUROSEMIDE 20 MG TAB PO PRN (22:13)
[2021-06-21] MEDS ORDERED: HYDROCORTISONE 1% CREAM 30 GM TUBE TOPICAL PRN (22:13)
[2021-06-22 01:21] VITALS: RESP 15
[2021-06-22] MEDS ORDERED: LEVOTHYROXINE 88 MCG TAB PO SCH (06:30)
[2021-06-22 08:01] VITALS: BP 117/69; PULSE 71; TEMP 97.5
[2021-06-22] MEDS: ASPIRIN 81 MG PO SCH (08:54)
[2021-06-22] MEDS ORDERED: NON FORMULARY DRUG (Linaclotide [Linzess] 145 MCG Capsule) PO SCH (09:00)
[2021-06-22] MEDS ORDERED: DICYCLOMINE 10 MG CAP PO SCH (09:00)
[2021-06-22] MEDS ORDERED: TOPIRAMATE 100 MG TAB PO SCH (09:00)
[2021-06-22] MEDS ORDERED: FENOFIBRATE 160 MG TAB PO SCH (09:00)
[2021-06-22] MEDS ORDERED: SPIRONOLACTONE 25 MG TAB PO SCH (09:00)
[2021-06-22 09:21] LABS: HCT 36.7 % (37.2-46.3); MCH 33.2 pg (27.0-32.0); MCHC 32.7 g/dL (32.0-37.0); MCV 101.7 fL (80.0-97.0); Mean Platelet Volume 10.5 fL (9.5-12.2); Platelet Count 195 X 10*3/uL (140-440); RBC 3.61 X 10*6/uL (4.10-5.20); RDW 13.4 % (11.5-14.5); WBC 9.26 X 10*3/uL (4.50-10.00)
[2021-06-22 11:15] LABS: Basophils # (A) 0.05 X 10*3/uL (0.00-0.10); Basophils % (A) 0.5 %; Eosinophils # (A) 0.01 X 10*3/uL (0.04-0.35); Eosinophils % (A) 0.1 %; Lymphocytes # (A) 3.75 X 10*3/uL (0.90-5.00); Lymphocytes % (A) 40.5 %; Monocytes # (A) 0.59 X 10*3/uL (0.20-1.00); Monocytes % (A) 6.4 %; Neutrophils # (A) 4.79 X 10*3/uL (1.80-7.70); Neutrophils % (A) 51.7 %
[2021-06-22 14:06] LABS: Hemoglobin A1C 5.5 % (4.0-6.0)
--- NOTE | 2021-06-22 21:56 | P.DS ---
Providers Date of admission: 06/20/21 19:43 Attending physician: Yovany Monteiro Primary care physician: Kevon Garcia Hospital Course: Diagnoses Chest pain, cardiac causes ruled out and dragline operator helper cleared her for discharge. Her chest pain is completely resolved upon discharge Nicotine dependence Diabetes mellitus Hyperlipidemia Hypotension Morbid obesity History of osteoarthritis Hypothyroidism History of GERD History of mitral valve prolapse Osteoarthritis Chronic kidney disease History of irritable bowel syndrome History of herniated disc History of anxiety, not an activation. Hospital course: This is a pleasant 45 years old female with past medical history of diabetes mellitus, hypertension, hyperlipidemia, morbid obesity, osteoarthritis, hypothyroidism, GERD, mitral valve prolapse, osteoarthritis, chronic kidney disease, irritable bowel syndrome, herniated disc. History of anxiety Presents with burning chest pain and shortness of breath as well as burning with urination however her urinalysis came back negative for infection and her burning is improved upon discharge. Her leukocytosis on admission came back to normal. Pathologist evaluated the patient and cleared her for discharge. Her chest pain resolved on the day of discharge and patient is back to her baseline. Coronavirus was negative, chest x-ray was negative Patient denies any other symptoms on the day of discharge and she agrees to go home today Problems and management plan were discussed with the patient and he verbalized understanding and acceptance Patient was found stable and can be discharged home however he needs follow-up as an outpatient. Patient was instructed to follow up with PCP within one week and patient agrees Dr. Leigh on sugars with the appointments made for her on 06/24. Patient was instructed to follow up with dragline operator helper Dr. Bell and she agrees with the appointments made for her on 06/25 Physical exam Gen: patient is a AAOx3, no distress CVS: S1-S2, RRR, no murmur Lungs: B/L CTA, no wheezing Abdomen: soft, no distention, no tenderness, positive bowel sounds Extremity: no leg edema or induration Time spent more than 35 minutes Plan - Discharge Summary Discharge Rx Participant: Yes New Discharge Prescriptions: Continue Levothyroxine Sodium [Synthroid] 88 mcg PO DAILY Fluticasone Nasal [place] [Flonase Nasal [place]] 1 spray EA NOSTRIL BID PRN PRN Reason: Allergy Symptoms Baclofen [Lioresal] 10 mg PO TID PRN PRN Reason: Pain gemfibroziL [Lopid] 600 mg PO BID Dicyclomine [Bentyl] 20 mg PO HS Ergocalciferol [Vitamin D2 (DRISDOL)] 50,000 unit PO Q14D Furosemide [Lasix] 20 mg PO BID PRN PRN Reason: Edema Linaclotide [Linzess] 145 mcg PO DAILY Acetaminophen Tab [Tylenol] 1,000 mg PO BID Ondansetron Odt [Zofran ODT] 4 mg PO BID PRN PRN Reason: Nausea Loratadine [Claritin] 10 mg PO DAILY Ketoconazole 2% Cream [Nizoral 2%] 1 applic TOPICAL BID PRN PRN Reason: SKIN IRRITATION ON LEGS Lactulose 10 gm PO BID PRN PRN Reason: Constipation Acne Medicated 5% Gel 1 applic TOPICAL BID Potassium Chloride [Potassium Chloride ER] 5 meq PO DAILY@1200 Omeprazole 20 mg PO BID Hydrocortisone Cream [Hydrocortisone 2.5% Cream] 1 applic TOPICAL BID PRN PRN Reason: SKIN IRRITATION ON LEGS Topiramate [Topamax] 100 mg PO BID Mupirocin 2% Oint [Bactroban 2% Oint] 1 applic TOPICAL BID Benzoyl Peroxide 10% Wash 1 applic TOPICAL DAILY Spironolactone [Aldactone] 25 mg PO DAILY Potassium Chloride [Potassium Chloride ER] 10 meq PO DAILY Dicyclomine [Bentyl] 10 mg PO DAILY Discharge Medication List Fluticasone Nasal [place] [Flonase Nasal [place]] 1 spray EA NOSTRIL BID PRN 07/10/15 [History] Levothyroxine Sodium [Synthroid] 88 mcg PO DAILY 07/10/15 [History] Baclofen [Lioresal] 10 mg PO TID PRN 08/13/16 [History] gemfibroziL [Lopid] 600 mg PO BID 01/23/17 [History] Dicyclomine [Bentyl] 20 mg PO HS 06/30/17 [History] Ergocalciferol [Vitamin D2 (DRISDOL)] 50,000 unit PO Q14D 07/10/20 [History] Acetaminophen Tab [Tylenol] 1,000 mg PO BID 08/17/20 [History] Furosemide [Lasix] 20 mg PO BID PRN 08/17/20 [History] Linaclotide [Linzess] 145 mcg PO DAILY 08/17/20 [History] Hydrocortisone Cream [Hydrocortisone 2.5% Cream] 1 applic TOPICAL BID PRN 03/19/21 [History] Ketoconazole 2% Cream [Nizoral 2%] 1 applic TOPICAL BID PRN 03/19/21 [History] Loratadine [Claritin] 10 mg PO DAILY 03/19/21 [History] Ondansetron Odt [Zofran ODT] 4 mg PO BID PRN 03/19/21 [History] Topiramate [Topamax] 100 mg PO BID 03/19/21 [History] Acne Medicated 5% Gel 1 applic TOPICAL BID 06/20/21 [History] Benzoyl Peroxide 10% Wash 1 applic TOPICAL DAILY 06/20/21 [History] Dicyclomine [Bentyl] 10 mg PO DAILY 06/20/21 [History] Lactulose 10 gm PO BID PRN 06/20/21 [History] Mupirocin 2% Oint [Bactroban 2% Oint] 1 applic TOPICAL BID 06/20/21 [History] Omeprazole 20 mg PO BID 06/20/21 [History] Potassium Chloride [Potassium Chloride ER] 5 meq PO DAILY@1200 06/20/21 [History] Potassium Chloride [Potassium Chloride ER] 10 meq PO DAILY 06/20/21 [History] Spironolactone [Aldactone] 25 mg PO DAILY 06/20/21 [History] Follow up Appointment(s)/Referral(s): Jose Lund MD [Primary Care Provider] - 06/24/21 10:40 am (we recommend to follow up your Hemoglobin A1c with your doctor ) Jay eBll MD [STAFF PHYSICIAN] - 06/25/21 11:30 am Patient Instructions/Handouts: Chest Pain (DC), Heart Healthy Diet (DC) Activity/Diet/Wound Care/Special Instructions: heart healthy diet activity is restricted till you see your doctor Discharge Disposition: HOME SELF-CARE
== END 2021-06-22 11:25 | disposition home or self-care (01) ==
LOC: EC 17:21 → 6NMEDSUR 19:43
PROVIDERS: ADMIT Hospitalist; ATTEND Hospitalist
DX: R07.9 Chest pain, unspecified (principal); Z20.822 Contact with and (suspected) exposure to COVID-19; E03.9 Hypothyroidism, unspecified; E11.22 Type 2 diabetes mellitus with diabetic chronic kidney disease; E66.01 Morbid (severe) obesity due to excess calories; E78.00 Pure hypercholesterolemia, unspecified; E78.5 Hyperlipidemia, unspecified; F17.210 Nicotine dependence, cigarettes, uncomplicated; F41.9 Anxiety disorder, unspecified; I12.9 Hypertensive chronic kidney disease with stage 1 through stage 4 chronic kidney disease, or unspecified chronic kidney disease; I34.1 Nonrheumatic mitral (valve) prolapse; M19.90 Unspecified osteoarthritis, unspecified site; N18.9 Chronic kidney disease, unspecified; Q89.9 Congenital malformation, unspecified; Z79.890 Hormone replacement therapy; Z79.899 Other long term (current) drug therapy; Z80.0 Family history of malignant neoplasm of digestive organs; Z82.49 Family history of ischemic heart disease and other diseases of the circulatory system; Z87.11 Personal history of peptic ulcer disease
CPT/HCPCS: 99285; 36415; 93005; 80061; 80053; 83735; 84484 ×2; 85025 ×2; 85610; 85730; 81001; 83036; 87635; 71046; G0378 ×3

== ENCOUNTER → 2021-11-26 | Outpatient (CLI) | payer OTHER ==
--- NOTE | 2021-11-26 16:11 | US ---
EXAMINATION TYPE: US venous doppler duplex LE LT DATE OF EXAM: 11/26/2021 3:54 PM COMPARISON: Venous Doppler dated 12/07/2020 CLINICAL HISTORY: R22.42 Swelling of left leg. SIDE PERFORMED: Left TECHNIQUE: The lower extremity deep venous system is examined utilizing real time linear array sonog willam with graded compression, doppler sonography and color-flow sonography. VESSELS IMAGED: Common Femoral Vein Deep Femoral Vein Femoral Vein Popliteal Vein Proximal Calf Veins Left Leg: Negative for DVT IMPRESSION: No evidence of DVT of the left lower extremity down to the upper calf.
== END ==
LOC: RADUSMAIN 15:31
PROVIDERS: ATTEND Internal Medicine
DX: R22.42 Localized swelling, mass and lump, left lower limb (principal); F17.200 Nicotine dependence, unspecified, uncomplicated; Z88.1 Allergy status to other antibiotic agents; Z88.8 Allergy status to other drugs, medicaments and biological substances; Z88.2 Allergy status to sulfonamides; Z88.6 Allergy status to analgesic agent

== ENCOUNTER → 2021-12-05 | Outpatient (CLI) | payer OTHER ==
--- NOTE | 2021-12-05 12:20 | FL ---
EXAMINATION TYPE: FL barium swallow w video DATE OF EXAM: 12/05/2021 MODIFIED SWALLOW / DEGLUTITION STUDY CLINICAL HISTORY: Dysphagia. TECHNIQUE: Deglutition study is performed utilizing thin liquid barium, nectar thick liquid barium, and barium coated cracker. FINDINGS: Questionable transient laryngeal penetration with the thin liquid barium. No other definite laryngeal penetration or aspiration identified. Fluoroscopic time 42 seconds. No images in PACS. IMPRESSION: As above. Please refer to speech therapist notes for further details.
== END | disposition home or self-care (01) ==
LOC: RADFLMAIN 11:28
PROVIDERS: ATTEND Internal Medicine
DX: R13.10 Dysphagia, unspecified (principal)
CPT/HCPCS: 74230

== ENCOUNTER → 2021-12-20 | Outpatient (CLI) | payer OTHER ==
[2021-12-20 17:30] LABS: Creatinine,Urine Random 103.1 mg/dL
[2021-12-20 23:46] LABS: African American GFR (CKD) 57.8 (60.0-200.0); Anion Gap 15.6 mmol/L (10.00-18.00); BUN/Creat Ratio 16.54 Ratio (12.00-20.00); Blood Urea Nitrogen 21.5 mg/dL (9.0-27.0); Calcium 8.8 mg/dL (8.7-10.3); Carbon Dioxide 18.5 mmol/L (20.0-27.5); Magnesium 1.8 mg/dL (1.5-2.4); Non-African American GFR(CKD) 49.9 (60.0-200.0); Potassium 4.1 mmol/L (3.5-5.5)
== END | disposition home or self-care (01) ==
LOC: LABWHC1 15:59
PROVIDERS: ATTEND Internal Medicine Nephrology
DX: E55.9 Vitamin D deficiency, unspecified (principal); E21.3 Hyperparathyroidism, unspecified; N25.81 Secondary hyperparathyroidism of renal origin; R80.9 Proteinuria, unspecified
CPT/HCPCS: 36415; 80048; 82306; 82570; 83735; 83970; 84100; 84156

== ENCOUNTER → 2022-07-03 | Outpatient (CLI) | payer OTHER ==
--- NOTE | 2022-07-04 07:54 | MM ---
Reason for Exam: Screening (asymptomatic). Last mammogram was performed 1 year(s) and 9 month(s) ago. Patient History: Menarche at age 10. First Full-Term at age 21. Hormonal Contraceptives, from age 15 until age 26. 07/2011, Benign Excisional Biopsy on the left side. 12/2010, Benign Excisional Biopsy on the left side. 2009, Benign Excisional Biopsy on the left side. 11/21/2020, Benign Core Biopsy on the left side. 07/27/2018, Benign Core Biopsy on the left side. Maternal grandmother had breast cancer, age 50. Mother had breast cancer, age 62. Risk Values: Ivory 5 year model risk: 4.2%. NCI Lifetime model risk: 28.4%. Prior Study Comparison: 10/09/2020 Bilateral Screening Mammogram, [facility]. 11/21/2020 Left Diagnostic Mammogram, [facility]. 06/14/2021 Left Diagnostic Mammogram, [facility]. Tissue Density: The breast tissue is heterogeneously dense. This may lower the sensitivity of mammography. Findings: Analyzed By CAD. There is no suspicious group of microcalcifications or new suspicious mass in either breast. Overall Assessment: Negative, BI-RAD 1 Management: Screening Mammogram of both breasts in 1 year. A clinical breast exam by your physician is recommended on an annual basis and results should be correlated with mammographic findings. Electronically signed and approved by: Bar Campbell M.D. Radiologis
== END | disposition home or self-care (01) ==
LOC: RADMAMWWP 16:10
PROVIDERS: ATTEND Family Medicine
DX: Z12.31 Encounter for screening mammogram for malignant neoplasm of breast (principal); Z80.3 Family history of malignant neoplasm of breast; Z98.890 Other specified postprocedural states
CPT/HCPCS: 77067

== ENCOUNTER → 2023-01-09 | Outpatient (CLI) | payer OTHER ==
--- NOTE | 2023-01-09 15:44 | XR ---
EXAMINATION TYPE: XR cervical spine w flex/ext DATE OF EXAM: 01/09/2023 TECHNIQUE: Frontal, lateral, oblique, flexion and extension lateral, and open mouth view of the cervi kacie spine are obtained. HISTORY: M54.12 patient had neck surgery November 07. COMPARISON: CTA neck 2017. MRI not 2018. FINDINGS: The cervical spine is visualized in its entirety from C1 thru the top of T1 level, it is s atisfactory and straightened in alignment The pre-vertebral soft tissue appears more prominent at the lower cervical level. There is metallic disc material and anterior fusion hardware C5-C6 level. The C1-C2 articulation is within normal limits on the open mouth view. Vertebral body heights are mainta ined. There is mild disc space narrowing and anterior spurring C4-C5 level. There is mild disc space narrowing and mild to moderate anterior spurring C6-C7 level. Dynamic imaging shows satisfactory alig nment at C5-C6 level. Overlying soft tissue is unremarkable. IMPRESSION: As above.
== END | disposition home or self-care (01) ==
LOC: RADXRMAIN 14:50
DX: M50.121 Cervical disc disorder at C4-C5 level with radiculopathy (principal); M25.78 Osteophyte, vertebrae; Z98.1 Arthrodesis status
CPT/HCPCS: 72052

== ENCOUNTER 2023-08-03 15:30 | Emergency (ER) | payer OTHER ==
[2023-08-03 16:01] VITALS: RESP 18
--- NOTE | 2023-08-03 17:01 | ED ---
General Adult HPI - General Chief complaint: Vaginal Bleeding Stated complaint: Blood in urine Time Seen by Provider: 08/03/23 16:05 Source: patient, RN notes reviewed Mode of arrival: ambulatory Limitations: no limitations - History of Present Illness Initial comments: 47-year-old female presents to the emergency department with chief complaint of pelvic pain 3 days. She states that it is worse with sitting. She states that she is unable to sit flat on her bottom because it is painful. She states she noticed vaginal bleeding today. She reports that she has not had bleeding since she was 26 years old. She does admit to the possibility of STDs. Denies fever, chills - Related Data Home Medications Medication Instructions Recorded Confirmed Fluticasone Nasal [place] [Flonase 1 spray EA NOSTRIL BID PRN 07/10/15 06/20/21 Nasal [place]] Levothyroxine Sodium [Synthroid] 88 mcg PO DAILY 07/10/15 06/20/21 Baclofen [Lioresal] 10 mg PO TID PRN 08/13/16 06/20/21 gemfibroziL [Lopid] 600 mg PO BID 01/23/17 06/20/21 Dicyclomine [Bentyl] 20 mg PO HS 06/30/17 06/20/21 Ergocalciferol [Vitamin D2 50,000 unit PO Q14D 07/10/20 06/20/21 (DRISDOL)] Acetaminophen Tab [Tylenol] 1,000 mg PO BID 08/17/20 06/20/21 Furosemide [Lasix] 20 mg PO BID PRN 08/17/20 06/20/21 Linaclotide [Linzess] 145 mcg PO DAILY 08/17/20 06/20/21 Hydrocortisone Cream 1 applic TOPICAL BID PRN 03/19/21 06/20/21 [Hydrocortisone 2.5% Cream] Ketoconazole 2% Cream [Nizoral 2%] 1 applic TOPICAL BID PRN 03/19/21 06/20/21 Loratadine [Claritin] 10 mg PO DAILY 03/19/21 06/20/21 Ondansetron Odt [Zofran ODT] 4 mg PO BID PRN 03/19/21 06/20/21 Topiramate [Topamax] 100 mg PO BID 03/19/21 06/20/21 Acne Medicated 5% Gel 1 applic TOPICAL BID 06/20/21 06/20/21 Benzoyl Peroxide 10% Wash 1 applic TOPICAL DAILY 06/20/21 06/20/21 Dicyclomine [Bentyl] 10 mg PO DAILY 06/20/21 06/20/21 Lactulose 10 gm PO BID PRN 06/20/21 06/20/21 Mupirocin 2% Oint [Bactroban 2% 1 applic TOPICAL BID 06/20/21 06/20/21 Oint] Omeprazole 20 mg PO BID 06/20/21 06/20/21 Potassium Chloride [Klor-Con M10] 5 meq PO DAILY@1200 06/20/21 06/20/21 Potassium Chloride [Klor-Con M10] 10 meq PO DAILY 06/20/21 06/20/21 Spironolactone [Aldactone] 25 mg PO DAILY 06/20/21 06/20/21 Previous Rx's Medication Instructions Recorded Doxycycline [Vibramycin] 100 mg PO BID 14 Days #28 capsule 08/03/23 metroNIDAZOLE [Flagyl] 500 mg PO BID #28 tab 08/03/23 Allergies Allergy/AdvReac Type Severity Reaction Status Date / Time cephalexin monohydrate Allergy Rash/Hives Verified 08/03/23 15:45 [From Keflex] losartan Allergy Anaphylaxis Verified 08/03/23 15:45 prednisone Allergy Swelling Verified 08/03/23 15:45 of Feet sulfamethoxazole Allergy Anaphylaxis Verified 08/03/23 15:45 [From Bactrim] trimethoprim [From Bactrim] Allergy Anaphylaxis Verified 08/03/23 15:45 ibuprofen AdvReac kidney Verified 08/03/23 15:45 disease Review of Systems ROS Statement: Those systems with pertinent positive or pertinent negative responses have been documented in the HPI. ROS Other: All systems not noted in ROS Statement are negative. Past Medical History Past Medical History: Diabetes Mellitus, GERD/Reflux, Hyperlipidemia, Hypert ension, Mitral Valve Prolapse (MVP), Osteoarthritis (OA), Renal Disease, Respiratory Disorder, Skin Disorder, Thyroid Disorder Additional Past Medical History / Comment(s): HEART MURMUR, LEAKY HEART VALVES (STATES PRE-MEDICATED PRIOR TO PROCEDURES). HX OF DIVERTICULITIS. IBS. BRONCHIECTASIS. MIGRAINES. HX OF STOMACH ULCERS. OVARIAN SYNDROME. HIDRADENITIS, SKIN DISORDER. "LIVER INFLAMED." "KIDNEY FUNCTION @ 60%." EDEMA BLE, WEARING YRN HOSE. Hx of herniated discs History of Any Multi-Drug Resistant Organisms: None Reported Past Surgical History: Cholecystectomy, Hernia Repair, Orthopedic Surgery, Tubal Ligation, Uterine Ablation Additional Past Surgical History / Comment(s): lt foot surgery, BUNIONECTOMY, Bilat CTR Colonoscopy, egd, left brest lesion removal Past Anesthesia/Blood Transfusion Reactions: Motion Sickness Past Psychological History: Anxiety Smoking Status: Current every day smoker Past Alcohol Use History: None Reported Past Drug Use History: None Reported - Past Family History Mother Family Medical History: Myocardial Infarction (CA) Additional Family Medical History / Comment(s): Pacemaker. Father Family Medical History: Cancer Additional Family Medical History / Comment(s): LIVER CANCER. General Exam Limitations: no limitations General appearance: alert, in no apparent distress ENT exam: Present: normal exam, mucous membranes moist Neck exam: Present: normal inspection. Absent: tenderness, meningismus, lymphadenopathy Respiratory exam: Present: normal lung sounds bilaterally. Absent: respiratory distress, wheezes, rales, rhonchi, stridor GI/Abdominal exam: Present: soft, normal bowel sounds. Absent: distended, tenderness, guarding, rebound, rigid Speculum exam: Present: erythema, vaginal discharge, vaginal bleeding By manual exam: Present: cervical motion tenderness, adnexal tenderness (left) Neurological exam: Present: alert, oriented X3 Psychiatric exam: Present: normal affect, normal mood Skin exam: Present: warm, dry, intact, normal color. Absent: rash Course Vital Signs 08/03/23 08/03/23 15:42 19:10 Temperature 98.1 F 98.4 F Pulse Rate 77 62 Respiratory 18 18 Rate Blood Pressure 123/78 108/72 O2 Sat by Pulse 98 98 Oximetry Medical Decision Making - Medical Decision Making Was pt. sent in by a medical professional or institution (, PA, ART CONSULTANT, urgent care, hospital, or intermediate...) When possible be specific @ -No Did you speak to anyone other than the patient for history (EMS, parent, family, police, friend...)? What history was obtained from this source @ -No Did you review nursing and triage notes (agree or disagree)? Why? @ -I reviewed and agree with nursing and triage notes Were old charts reviewed (outside hosp., previous admission, EMS record, old EKG, old radiological studies, urgent care reports/EKG's, intermediate records)? Report findings @ -No old charts were reviewed Differential Diagnosis (chest pain, altered mental status, abdominal pain women, abdominal pain men, vaginal bleeding, weakness, fever, dyspnea, syncope, headache, dizziness, GI bleed, back pain, seizure, CVA, palpatations, mental health, musculoskeletal)? @ -Gonorrhea, chlamydia, Trichomonas, PID, cervicitis, urinary tract infection, this list is not all-inclusive EKG interpreted by me (3pts min.). @ -None X-rays interpreted by me (1pt min.). @ -None done CT interpreted by me (1pt min.). @ -None done U/S interpreted by me (1pt. min.). @ -None done What testing was considered but not performed or refused? (CT, X-rays, U/S, labs)? Why? @ -None What meds were considered but not given or refused? Why? @ -None Did you discuss the management of the patient with other professionals (professionals i.e. , PA, ART CONSULTANT, lab, RT, psych nurse, social work administrator, sawmill equipment operator, teacher, security public safety officer, binder caser)? Give summary @ -No Was smoking cessation discussed for >3mins.? @ -No Was critical care preformed (if so, how long)? @ -No Were there social determinants of health that impacted care today? How? (Home lessness, low income, unemployed, alcoholism, drug addiction, transportation, low edu. Level, literacy, decrease access to med. care, half-way, rehab)? @ -No Was there de-escalation of care discussed even if they declined (Discuss DNR or withdrawal of care, Hospice)? DNR status @ -No What co-morbidities impacted this encounter? (DM, HTN, Smoking, COPD, CAD, Cancer, CVA, ARF, Chemo, Hep., AIDS, mental health diagnosis, sleep apnea, morbid obesity)? @ -None Was patient admitted / discharged? Hospital course, mention meds given and route, prescriptions, significant lab abnormalities, going to OR and other pertinent info. @ -Discharged. Patient presented emergency department chief complaint of pelvic pain and vaginal bleeding 3 days. She reports the bleeding as light. Pelvic exam preformed, purulent vaginal discharge visualized, cervical motion tenderness. Laboratory studies were obtained which shows normal white count. CMP shows sodium 139, potassium 4.671 CRP 1.5; UA shows 2+ protein, 1+ ketones, greater than 182 RBCs, greater than 182 WBCs; hCG negative, Trichomonas negative. Based on the patient's symptoms of pelvic pain and her cervical motion tenderness. Patient will be treated empirically for pelvic inflammatory disease. Patient received 500 mg of Rocephin, doxycycline, Flagyl. This regimen should be continued for 14 days. 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 Patient stable at time of discharge. Case discussed with Dr. Jc Undiagnosed new problem with uncertain prognosis? @ -No Drug Therapy requiring intensive monitoring for toxicity (Heparin, Nitro, Insulin, Cardizem)? @ -No Were any procedures done? @ -No Diagnosis/symptom? @ -PID Acute, or Chronic, or Acute on Chronic? @ -acute Uncomplicated (without systemic symptoms) or Complicated (systemic symptoms)? @ -uncomplicated Side effects of treatment? @ -No Exacerbation, Progression, or Severe Exacerbation? @ -No Poses a threat to life or bodily function? How? (Chest pain, USA, CA, pneumonia, PE, COPD, DKA, ARF, appy, cholecystitis, CVA, Diverticulitis, Homicidal, Suicidal, threat to staff... and all critical care pts) @ -No - Lab Data Result diagrams: 08/03/23 17:09 08/03/23 17:09 Lab Results 08/03/23 08/03/23 08/03/23 Range/Units 16:11 17:09 17:09 WBC 10.3 (3.8-10.6) k/uL RBC 4.29 (3.80-5.40) m/uL Hgb 14.8 (11.4-16.0) gm/dL Hct 43.7 (34.0-46.0) % MCV 101.9 H (80.0-100.0) fL MCH 34.5 (25.0-35.0) pg MCHC 33.8 (31.0-37.0) g/dL RDW 13.1 (11.5-15.5) % Plt Count 210 (150-450) k/uL MPV 8.2 Neutrophils % 75 % Lymphocytes % 21 % Monocytes % 4 % Eosinophils % 0 % Basophils % 0 % Neutrophils # 7.7 (1.3-7.7) k/uL Lymphocytes # 2.1 (1.0-4.8) k/uL Monocytes # 0.4 (0-1.0) k/uL Eosinophils # 0.0 (0-0.7) k/uL Basophils # 0.0 (0-0.2) k/uL Macrocytosis Slight Sodium (137-145) mmol/L Potassium (3.5-5.1) mmol/L Chloride (98-107) mmol/L Carbon Dioxide (22-30) mmol/L Anion Gap mmol/L BUN (7-17) mg/dL Creatinine (0.52-1.04) mg/dL Est GFR (CKD-EPI)AfAm (>60 ml/min/1.73 sqM) Est GFR (CKD-EPI)NonAf (>60 ml/min/1.73 sqM) Glucose (74-99) mg/dL Calcium (8.4-10.2) mg/dL Total Bilirubin (0.2-1.3) mg/dL AST (14-36) U/L ALT (4-34) U/L Alkaline Phosphatase (38-126) U/L C-Reactive Protein (<1.0) mg/dL Total Protein (6.3-8.2) g/dL Albumin (3.5-5.0) g/dL Urine Color Red Urine Appearance Cloudy H (Clear) Urine pH 5.5 (5.0-8.0) Ur Specific [place] >1.030 (1.001-1.035) Urine Protein 2+ H (Negative) Urine Glucose (UA) Negative (Negative) Urine Ketones 1+ H (Negative) Urine Blood Large (Negative) Urine Nitrite Negative (Negative) Urine Bilirubin Negative (Negative) Urine Urobilinogen 2.0 (<2.0) mg/dL Ur Leukocyte Esterase Large (Negative) Urine RBC >182 H (0-5) /hpf Urine WBC >182 H (0-5) /hpf Ur Squamous Epith Cells 10 H (0-4) /hpf Urine Bacteria Few H (None) /hpf Urine HCG, Qual Not Detected (Not Detectd) Trichomonas Ag (Rapid) (Negative) 08/03/23 08/03/23 Range/Units 17:09 17:09 WBC (3.8-10.6) k/uL RBC (3.80-5.40) m/uL Hgb (11.4-16.0) gm/dL Hct (34.0-46.0) % MCV (80.0-100.0) fL MCH (25.0-35.0) pg MCHC (31.0-37.0) g/dL RDW (11.5-15.5) % Plt Count (150-450) k/uL MPV Neutrophils % % Lymphocytes % % Monocytes % % Eosinophils % % Basophils % % Neutrophils # (1.3-7.7) k/uL Lymphocytes # (1.0-4.8) k/uL Monocytes # (0-1.0) k/uL Eosinophils # (0-0.7) k/uL Basophils # (0-0.2) k/uL Macrocytosis Sodium 139 (137-145) mmol/L Potassium 4.6 (3.5-5.1) mmol/L Chloride 108 H (98-107) mmol/L Carbon Dioxide 19 L (22-30) mmol/L Anion Gap 12 mmol/L BUN 18 H (7-17) mg/dL Creatinine 1.14 H (0.52-1.04) mg/dL Est GFR (CKD-EPI)AfAm 68 (>60 ml/min/1.73 sqM) Est GFR (CKD-EPI)NonAf 59 (>60 ml/min/1.73 sqM) Glucose 82 (74-99) mg/dL Calcium 9.3 (8.4-10.2) mg/dL Total Bilirubin 0.7 (0.2-1.3) mg/dL AST 32 (14-36) U/L ALT 29 (4-34) U/L Alkaline Phosphatase 82 (38-126) U/L C-Reactive Protein 1.5 H (<1.0) mg/dL Total Protein 7.6 (6.3-8.2) g/dL Albumin 4.3 (3.5-5.0) g/dL Urine Color Urine Appearance (Clear) Urine pH (5.0-8.0) Ur Specific [place] (1.001-1.035) Urine Protein (Negative) Urine Glucose (UA) (Negative) Urine Ketones (Negative) Urine Blood (Negative) Urine Nitrite (Negative) Urine Bilirubin (Negative) Urine Urobilinogen (<2.0) mg/dL Ur Leukocyte Esterase (Negative) Urine RBC (0-5) /hpf Urine WBC (0-5) /hpf Ur Squamous Epith Cells (0-4) /hpf Urine Bacteria (None) /hpf Urine HCG, Qual (Not Detectd) Trichomonas Ag (Rapid) Negative (Negative) Disposition Clinical Impression: Dysmenorrhea, PID (pelvic inflammatory disease) Disposition: HOME SELF-CARE Condition: Stable Instructions (If sedation given, give patient instructions): Pelvic Inflammatory Disease (ED), Dysmenorrhea (ED) Additional Instructions: Please follow closely with your marine radio installer and servicer. Abstain from intercourse for 2 weeks. Return to the emergency department for new or worsening symptoms. Prescriptions: metroNIDAZOLE [Flagyl] 500 mg PO BID #28 tab Doxycycline [Vibramycin] 100 mg PO BID 14 Days #28 capsule Is patient prescribed a controlled substance at d/c from ED?: No Referrals: Braulio Wiggins MD [Primary Care Provider] - 1-2 days
[2023-08-03 17:20] LABS: Bacteria,Urine Few /hpf; RBC,Urine >182 /hpf (0-5); Squamous Epithelial Cell,Urine 10 /hpf (0-4); WBC,Urine >182 /hpf (0-5)
[2023-08-03 17:21] LABS: Appearance,Urine Cloudy (Clear); PH, Urine 5.5 (5.0-8.0); Specific Gravity,Urine >1.030 (1.001-1.035)
[2023-08-03 17:22] LABS: Bilirubin,Urine Negative (Negative); Glucose,Urine (UA) Negative (Negative); Ketones,Urine 1+ (Negative)
[2023-08-03 17:23] LABS: Blood,Urine Large (Negative); Leukocyte Esterase,Urine Large (Negative); Nitrite,Urine Negative (Negative); Protein,Urine 2+ (Negative)
[2023-08-03 17:24] LABS: Color,Urine Red
[2023-08-03 17:32] LABS: Basophils % (A) 0 %; Eosinophils % (A) 0 %; HCT 43.7 % (34.0-46.0); HGB 14.8 gm/dL (11.4-16.0); Lymphocytes # (A) 2.1 k/uL (1.0-4.8); Lymphocytes % (A) 21 %; MCH 34.5 pg (25.0-35.0); MCHC 33.8 g/dL (31.0-37.0); MCV 101.9 fL (80.0-100.0); Macrocytosis Slight; Mean Platelet Volume 8.2; Monocytes # (A) 0.4 k/uL (0-1.0); Monocytes % (A) 4 %; Neutrophils # (A) 7.7 k/uL (1.3-7.7); Neutrophils % (A) 75 %; Platelet Count 210 k/uL (150-450); RBC 4.29 m/uL (3.80-5.40); RDW 13.1 % (11.5-15.5); WBC 10.3 k/uL (3.8-10.6)
[2023-08-03 17:48] LABS: ALT 29 U/L (4-34); African American GFR (CKD) 68 (>60 ml/min/1.73 sqM); Albumin 4.3 g/dL (3.5-5.0); Anion Gap 12 mmol/L; Blood Urea Nitrogen 18 mg/dL (7-17); C Reactive Protein 1.5 mg/dL (<1.0); Calcium 9.3 mg/dL (8.4-10.2); Carbon Dioxide 19 mmol/L (22-30); Chloride 108 mmol/L (98-107); Glucose 82 mg/dL (74-99); Non-African American GFR(CKD) 59 (>60 ml/min/1.73 sqM); Sodium 139 mmol/L (137-145); Total Bilirubin 0.7 mg/dL (0.2-1.3); Total Protein 7.6 g/dL (6.3-8.2)
[2023-08-03 18:06] LABS: AST 32 U/L (14-36); Alkaline Phosphatase 82 U/L (38-126); Potassium 4.6 mmol/L (3.5-5.1)
--- NOTE | 2023-08-03 18:35 | US ---
EXAMINATION TYPE: US pelvic complete DATE OF EXAM: 08/03/2023 COMPARISON: NONE CLINICAL INDICATION: Female, 47 years old with history of pelvic pain, bleeding; spotting and crampin g x 4 days. . Hx of tubal ligation and tubal ablation TECHNIQUE: . Transabdominal sonographic images of the pelvis were acquired. Date of LMP: years ago EXAM MEASUREMENTS: Uterus: 8.0 x 6.3 x 4.0 cm Endometrial Stripe: 0.9 cm Right Ovary: 2.3 x 2.1 x 2.0 cm Left Ovary: 2.0 x 1.7 x 1.6 cm 1. Uterus: Anteverted heterogeneous, but no specific fibroid visualized today 2. Endometrium: Did appear heterogeneous 3. Right Ovary: wnl 4. Left Ovary: wnl Spectral, color and waveform doppler imaging shows good arterial and venous flow within the ovaries ; there is no evidence for ovarian torsion. 5. Bilateral Adnexa: Cystic area seen in rt adnexa measuring 1.1 x 1.5 x 1.1cm 6. Posterior cul-de-sac: wnl Urinary bladder as visualized appears normal IMPRESSION: 1. Small Right ovarian cyst.
[2023-08-03] MEDS ORDERED: DOXYCYCLINE 100 MG CAP PO STA (18:52)
[2023-08-03] MEDS ORDERED: metroNIDAZOLE 500 MG TAB PO STA (18:52)
[2023-08-03 19:21] VITALS: BP 108/72; PULSE 62; TEMP 98.4
[2023-08-03] MEDS ORDERED: cefTRIAXone IN SWFI 1,000 MG/10 ML SYRINGE IVP STA (19:49)
[2023-08-03] MEDS ORDERED: diphenhydrAMINE 50 MG CAP PO STA (19:50)
[2023-08-04 04:09] LABS: Erythrocyte Sedimentation Rate 58 mm/Hr (0-20)
[2023-08-04 13:53] LABS: C. trachomatis,PCR Negative (Negative)
[2023-08-04 14:27] LABS: N. gonorrhoeae,PCR Negative (Negative)
== END 2023-08-03 20:12 | disposition home or self-care (01) ==
LOC: EC 15:30
DX: N83.201 Unspecified ovarian cyst, right side (principal); N73.9 Female pelvic inflammatory disease, unspecified; N94.6 Dysmenorrhea, unspecified; E11.9 Type 2 diabetes mellitus without complications; K21.9 Gastro-esophageal reflux disease without esophagitis; I10 Essential (primary) hypertension; E07.9 Disorder of thyroid, unspecified; F41.9 Anxiety disorder, unspecified; F17.200 Nicotine dependence, unspecified, uncomplicated; Z79.899 Other long term (current) drug therapy; Z79.890 Hormone replacement therapy; Z88.2 Allergy status to sulfonamides; Z88.8 Allergy status to other drugs, medicaments and biological substances
CPT/HCPCS: 36415; 80053; 85652; 85025; 86140; 81001; 81025; 87808; 87491; 87591; 87086; 93975; 76856; 96374; 99285; J0696

== ENCOUNTER 2023-11-13 23:03 | Emergency (ER) | payer OTHER ==
[2023-11-13 23:16] LABS: Glucose,Whole Blood 131 mg/dL (70-110)
--- NOTE | 2023-11-13 23:40 | ED ---
Chest Pain HPI - General Chief Complaint: Chest Pain Stated Complaint: CHEST PAIN Time Seen by Provider: 11/13/23 23:35 Source: EMS Mode of arrival: EMS Limitations: altered mental status - History of Present Illness MD Complaint: chest pain -: hour(s) Onset: during rest Pain Location: substernal Pain Radiation: none Severity: moderate Quality: aching Consistency: constant Improves With: nothing Worsens With: nothing Treatments Prior to Arrival: none - Related Data Home Medications Medication Instructions Recorded Confirmed Fluticasone Nasal [place] [Flonase 1 spray EA NOSTRIL BID PRN 07/10/15 06/20/21 Nasal [place]] Levothyroxine Sodium [Synthroid] 88 mcg PO DAILY 07/10/15 06/20/21 Baclofen [Lioresal] 10 mg PO TID PRN 08/13/16 06/20/21 gemfibroziL [Lopid] 600 mg PO BID 01/23/17 06/20/21 Dicyclomine [Bentyl] 20 mg PO HS 06/30/17 06/20/21 Ergocalciferol [Vitamin D2 50,000 unit PO Q14D 07/10/20 06/20/21 (DRISDOL)] Acetaminophen Tab [Tylenol] 1,000 mg PO BID 08/17/20 06/20/21 Furosemide [Lasix] 20 mg PO BID PRN 08/17/20 06/20/21 Linaclotide [Linzess] 145 mcg PO DAILY 08/17/20 06/20/21 Hydrocortisone Cream 1 applic TOPICAL BID PRN 03/19/21 06/20/21 [Hydrocortisone 2.5% Cream] Ketoconazole 2% Cream [Nizoral 2%] 1 applic TOPICAL BID PRN 03/19/21 06/20/21 Loratadine [Claritin] 10 mg PO DAILY 03/19/21 06/20/21 Ondansetron Odt [Zofran ODT] 4 mg PO BID PRN 03/19/21 06/20/21 Topiramate [Topamax] 100 mg PO BID 03/19/21 06/20/21 Acne Medicated 5% Gel 1 applic TOPICAL BID 06/20/21 06/20/21 Benzoyl Peroxide 10% Wash 1 applic TOPICAL DAILY 06/20/21 06/20/21 Dicyclomine [Bentyl] 10 mg PO DAILY 06/20/21 06/20/21 Lactulose 10 gm PO BID PRN 06/20/21 06/20/21 Mupirocin 2% Oint [Bactroban 2% 1 applic TOPICAL BID 06/20/21 06/20/21 Oint] Omeprazole 20 mg PO BID 06/20/21 06/20/21 Potassium Chloride [Klor-Con M10] 5 meq PO DAILY@1200 06/20/21 06/20/21 Potassium Chloride [Klor-Con M10] 10 meq PO DAILY 06/20/21 06/20/21 Spironolactone [Aldactone] 25 mg PO DAILY 06/20/21 06/20/21 Previous Rx's Medication Instructions Recorded Doxycycline [Vibramycin] 100 mg PO BID 14 Days #28 capsule 08/03/23 metroNIDAZOLE [Flagyl] 500 mg PO BID #28 tab 08/03/23 Allergies Allergy/AdvReac Type Severity Reaction Status Date / Time cephalexin monohydrate Allergy Rash/Hives Verified 11/13/23 23:07 [From Keflex] losartan Allergy Anaphylaxis Verified 11/13/23 23:07 prednisone Allergy Swelling Verified 11/13/23 23:07 of Feet sulfamethoxazole Allergy Anaphylaxis Verified 11/13/23 23:07 [From Bactrim] trimethoprim [From Bactrim] Allergy Anaphylaxis Verified 11/13/23 23:07 ibuprofen AdvReac kidney Verified 11/13/23 23:07 disease Review of Systems ROS Statement: Those systems with pertinent positive or pertinent negative responses have been documented in the HPI. ROS Other: All systems not noted in ROS Statement are negative. Constitutional: Denies: fever, chills Respiratory: Denies: cough, dyspnea Cardiovascular: Reports: chest pain. Denies: palpitations, edema, syncope Gastrointestinal: Denies: abdominal pain, nausea, vomiting, diarrhea Genitourinary: Denies: dysuria Musculoskeletal: Denies: back pain Skin: Denies: rash Neurological: Denies: headache, weakness EKG Findings - EKG Results: EKG: interpreted by MATILDA, sinus rhythm (Rate 73 bpm), normal axis, normal QRS - Blocks, [place], Hypertrophy, ST Abn: Repolarization changes or abnormalities: nonspecific abnormality, ST segment, and/or T wave Past Medical History Past Medical History: Diabetes Mellitus, GERD/Reflux, Hyperlipidemia, Hypertension, Mitral Valve Prolapse (MVP), Osteoarthritis (OA), Renal Disease, Respiratory Disorder, Skin Disorder, Thyroid Disorder Additional Past Medical History / Comment(s): HEART MURMUR, LEAKY HEART VALVES (STATES PRE-MEDICATED PRIOR TO PROCEDURES). HX OF DIVERTICULITIS. IBS. BRONCHIECTASIS. MIGRAINES. HX OF STOMACH ULCERS. OVARIAN SYNDROME. HIDRADENITIS, SKIN DISORDER. "LIVER INFLAMED." "KIDNEY FUNCTION @ 60%." EDEMA BLE, WEARING YRN HOSE. Hx of herniated discs History of Any Multi-Drug Resistant Organisms: None Reported Past Surgical History: Cholecystectomy, Hernia Repair, Orthopedic Surgery, Tubal Ligation, Uterine Ablation Additional Past Surgical History / Comment(s): lt foot surgery, BUNIONECTOMY, Bilat CTR Colonoscopy, egd, left brest lesion removal Past Anesthesia/Blood Transfusion Reactions: Motion Sickness Past Psychological History: Anxiety Smoking Status: Current every day smoker Past Alcohol Use History: None Reported Past Drug Use History: None Reported - Past Family History Mother Family Medical History: Myocardial Infarction (ID) Additional Family Medical History / Comment(s): Pacemaker. Father Family Medical History: Cancer Additional Family Medical History / Comment(s): LIVER CANCER. General Exam Limitations: altered mental status General appearance: alert, in no apparent distress Head exam: Present: atraumatic, normocephalic Eye exam: Present: normal appearance. Absent: scleral icterus, conjunctival injection Neck exam: Present: normal inspection Respiratory exam: Present: normal lung sounds bilaterally. Absent: respiratory distress, wheezes, rales, rhonchi, stridor, accessory muscle use Cardiovascular Exam: Present: regular rate, normal rhythm, normal heart sounds. Absent: systolic murmur, diastolic murmur, rubs, gallop GI/Abdominal exam: Present: soft. Absent: distended, tenderness, guarding, rebound, rigid, mass Extremities exam: Present: normal inspection, normal capillary refill. Absent: pedal edema, calf tenderness Back exam: Present: normal inspection. Absent: CVA tenderness (R), CVA tenderness (L) Neurological exam: Present: alert Skin exam: Present: warm, dry, intact, normal color. Absent: rash Course Vital Signs 11/13/23 11/14/23 11/14/23 23:05 00:05 01:03 Temperature 98.4 F Pulse Rate 73 65 60 Respiratory 16 16 16 Rate Blood Pressure 121/73 102/66 114/77 O2 Sat by Pulse 95 97 98 Oximetry 11/14/23 01:56 Temperature 97.9 F Pulse Rate 61 Respiratory 18 Rate Blood Pressure 118/78 O2 Sat by Pulse 98 Oximetry Chest Pain MDM - MDM The patient had a chest x-ray which I interpreted as negative for acute infiltrate, pneumothorax, congestive heart failure Was pt. sent in by a medical professional or institution (, PA, ELECTRONICS MECHANIC, urgent care, hospital, or prison...) When possible be specific @ -[No] Did you speak to anyone other than the patient for history (EMS, parent, family, police, friend...)? What history was obtained from this source @ -[No] Did you review nursing and triage notes (agree or disagree)? Why? @ -[I reviewed and agree with nursing and triage notes] Were old charts reviewed (outside hosp., previous admission, EMS record, old EKG, old radiological studies, urgent care reports/EKG's, prison records)? Report findings @ -[No old charts were reviewed] Differential Diagnosis (chest pain, altered mental status, abdominal pain women, abdominal pain men, vaginal bleeding, weakness, fever, dyspnea, syncope, headache, dizziness, GI bleed, back pain, seizure, CVA, palpatations, mental health, musculoskeletal)? @ -[Differential Chest Pain: Stable Angina, Unstable Angina, STEMI, NSTEMI Aortic Dissection, Pneumothorax, Musculoskeletal, Esophageal Spasm GERD, Cholecystitis, Pancreatitis, Zoster, this is not meant to be an all-inclusive list. EKG interpreted by me (3pts min.). @ -[I interpreted as above] X-rays interpreted by me (1pt min.). @ -[I interpreted as above CT interpreted by me (1pt min.). @ -[None done] U/S interpreted by me (1pt. min.). @ -[None done] What testing was considered but not performed or refused? (CT, X-rays, U/S, labs)? Why? @ -[None] What meds were considered but not given or refused? Why? @ -[None] Did you discuss the management of the patient with other professionals (professionals i.e. , LING, ELECTRONICS MECHANIC, lab, RT, psych nurse, dialysis social worker, flatcar whacker, teacher, neighborhood conservation officer, casey saw operator)? Give summary @ -[No] Was smoking cessation discussed for >3mins.? @ -[No] Was critical care preformed (if so, how long)? @ -[No] Were there social determinants of health that impacted care today? How? (Home lessness, low income, unemployed, alcoholism, drug addiction, transportation, low edu. Level, literacy, decrease access to med. care, mcc, rehab)? @ -[No] Was there de-escalation of care discussed even if they declined (Discuss DNR or withdrawal of care, Hospice)? DNR status @ -[No] What co-morbidities impacted this encounter? (DM, HTN, Smoking, COPD, CAD, Cancer, CVA, ARF, Chemo, Hep., AIDS, mental health diagnosis, sleep apnea, morbid obesity)? @ -[None] Was patient admitted / discharged? Hospital course, mention meds given and route, prescriptions, significant lab abnormalities, going to OR and other pertinent info. @ -[Patient is 48-year-old woman presenting with chest pain that is mostly atypical in nature. The physical exam and workup are unremarkable. We discussed the appropriate further care and follow-up and the patient will have close follow-up with cardiology as a precaution. Discussed return parameters Undiagnosed new problem with uncertain prognosis? @ -[No] Drug Therapy requiring intensive monitoring for toxicity (Heparin, Nitro, Insulin, Cardizem)? @ -[No] Were any procedures done? @ -[No] Diagnosis/symptom? @ -[Acute chest pain Acute, or Chronic, or Acute on Chronic? @ -[Acute Uncomplicated (without systemic symptoms) or Complicated (systemic symptoms)? @ -[Uncomplicated Side effects of treatment? @ -[No] Exacerbation, Progression, or Severe Exacerbation? @ -[No] Poses a threat to life or bodily function? How? (Chest pain, USA, ID, pneumonia, PE, COPD, DKA, ARF, appy, cholecystitis, CVA, Diverticulitis, Homicidal, Suicidal, threat to staff... and all critical care pts) @ -[No] Disposition Clinical Impression: Chest pain Disposition: HOME SELF-CARE Condition: Good Instructions (If sedation given, give patient instructions): Chest Pain (ED) Is patient prescribed a controlled substance at d/c from ED?: No Referrals: Braulio Wiggins MD [Primary Care Provider] - 1-2 days
[2023-11-14 00:03] LABS: Basophils # (A) 0.1 k/uL (0-0.2); Basophils % (A) 1 %; Eosinophils % (A) 0 %; HCT 42.2 % (34.0-46.0); HGB 13.9 gm/dL (11.4-16.0); Lymphocytes # (A) 6.2 k/uL (1.0-4.8); Lymphocytes % (A) 39 %; MCH 33.3 pg (25.0-35.0); MCHC 33.1 g/dL (31.0-37.0); MCV 100.9 fL (80.0-100.0); Mean Platelet Volume 8.4; Monocytes # (A) 0.9 k/uL (0-1.0); Monocytes % (A) 5 %; Neutrophils # (A) 8.5 k/uL (1.3-7.7); Neutrophils % (A) 53 %; Platelet Count 248 k/uL (150-450); RBC 4.18 m/uL (3.80-5.40); RDW 12.6 % (11.5-15.5)
[2023-11-14 00:14] LABS: ALT 17 U/L (4-34); AST 19 U/L (14-36); African American GFR (CKD) 62 (>60 ml/min/1.73 sqM); Albumin 3.4 g/dL (3.5-5.0); Alkaline Phosphatase 59 U/L (38-126); Anion Gap 7 mmol/L; Blood Urea Nitrogen 19 mg/dL (7-17); Calcium 8.2 mg/dL (8.4-10.2); Carbon Dioxide 20 mmol/L (22-30); Chloride 112 mmol/L (98-107); Glucose 118 mg/dL (74-99); INR 0.9 (<1.2); Magnesium 1.9 mg/dL (1.6-2.3); Non-African American GFR(CKD) 53 (>60 ml/min/1.73 sqM); Partial Thromboplastin Time 22.6 sec (22.0-30.0); Potassium 3.9 mmol/L (3.5-5.1); Prothrombin Time 9.8 sec (10.0-12.5); Sodium 139 mmol/L (137-145); Total Bilirubin 0.3 mg/dL (0.2-1.3); Total Protein 5.9 g/dL (6.3-8.2)
--- NOTE | 2023-11-14 00:27 | XR ---
EXAMINATION TYPE: XR chest 1V portable DATE OF EXAM: 11/14/2023 COMPARISON: Chest x-ray November 26, 2021 HISTORY: Chest pressure and pain. TECHNIQUE: Single frontal view of the chest is obtained. FINDINGS: There is no suspicious new focal air space opacity, pleural effusion, or pneumothorax seen . The cardiac silhouette size remains within normal limits. Surgical changes in the cervical spine a re redemonstrated. IMPRESSION: No acute process. No significant change from prior.
[2023-11-14 00:53] LABS: Amylase 40 U/L (30-110); Lipase 154 U/L (23-300)
[2023-11-14] MEDS: SODIUM CHLORIDE 0.9% 500 ML 500 ML IV STA (01:02)
[2023-11-14 02:22] VITALS: BP 118/78; PULSE 61; RESP 18; TEMP 97.9
== END 2023-11-14 01:57 | disposition home or self-care (01) ==
LOC: EC 23:03
DX: R07.89 Other chest pain (principal); R41.82 Altered mental status, unspecified; E11.9 Type 2 diabetes mellitus without complications; I10 Essential (primary) hypertension; E07.9 Disorder of thyroid, unspecified; K21.9 Gastro-esophageal reflux disease without esophagitis; E78.5 Hyperlipidemia, unspecified; F41.9 Anxiety disorder, unspecified; F17.200 Nicotine dependence, unspecified, uncomplicated; Z79.890 Hormone replacement therapy; Z79.899 Other long term (current) drug therapy; Z88.1 Allergy status to other antibiotic agents; Z88.2 Allergy status to sulfonamides; Z88.6 Allergy status to analgesic agent; Z88.8 Allergy status to other drugs, medicaments and biological substances
CPT/HCPCS: 36415; 71045; 80053; 82150; 83690; 83735; 84484; 85025; 85379; 85610; 85730; 93005; 96360; 99285

== ENCOUNTER → 2024-01-08 | Outpatient (CLI) | payer OTHER ==
--- NOTE | 2024-01-08 17:08 | US ---
EXAMINATION TYPE: US kidneys/renal and bladder DATE OF EXAM: 01/08/2024 COMPARISON: US 2020 CLINICAL INDICATION: Female, 48 years old with history of N18.31 CHRONIC KIDNEY DISEASE, STAGE 3A; EXAM MEASUREMENTS: Right Kidney: 11.3 x 3.8 x 4.4 cm Left Kidney: 10.0 x 4.3 x 4.4 cm Right Kidney: No hydronephrosis or masses seen , cortical medullary differentiation maintained. Left Kidney: No hydronephrosis or masses seen , cortical medullary differentiation maintained. Bladder: wnl Bilateral Jets seen: yes Normal Post Void Residual: yes There is no evidence for hydronephrosis at this point in time. No nephrolithiasis is seen. No robert s are identified. The urinary bladder is anechoic. Bilateral ureteral jets are seen. IMPRESSION: No evidence for obstructive uropathy. No post void residual.
== END | disposition home or self-care (01) ==
LOC: RADUSWWP 16:34
PROVIDERS: ATTEND Internal Medicine Nephrology
DX: N18.31 Chronic kidney disease, stage 3a (principal)
CPT/HCPCS: 76770

== ENCOUNTER → 2024-07-07 | Outpatient (CLI) | payer OTHER ==
--- NOTE | 2024-07-10 11:23 | MM ---
Reason for Exam: Screening (asymptomatic). Last screening mammogram was performed 12 month(s) ago. Patient History: Menarche at age 10. First Full-Term at age 21. Hormonal Contraceptives, from age 15 until age 26. 07/2011, Benign Excisional Biopsy on the left side. 12/2010, Benign Excisional Biopsy on the left side. 2009, Benign Excisional Biopsy on the left side. 11/21/2020, Benign Core Biopsy on the left side. 07/27/2018, Benign Core Biopsy on the left side. Maternal grandmother had breast cancer, age 50. Mother had breast cancer, age 62. Risk Values: Ivory 5 year model risk: 4.1%. NCI Lifetime model risk: 27.4%. Prior Study Comparison: 06/14/2021 Left Diagnostic Mammogram, [facility]. 07/03/2022 Bilateral MG screening mammo w CAD, [facility]. 07/06/2023 Bilateral MG 3D screening mammo w/cad, [facility]. Tissue Density: There are scattered areas of fibroglandular density. Findings: Analyzed By CAD. The pattern is symmetrical. Appears stable. Skin calcifications are within the right breast. Core markers within the left breast. No suspicious groups of microcalcifications, spiculated or lobular masses, architectural distortion or other secondary signs of malignancy are mammographically apparent. Overall Assessment: Benign, BI-RAD 2 Management: Diagnostic Mammogram of both breasts in 1 year. A negative mammogram report should not preclude additional follow up of suspicious palpable abnormalities. Patient should continue monthly self breast exam. A clinical breast exam by your physician is recommended on an annual basis and results should be correlated with mammographic findings. Note on Ivory scores and lifetime risk: 1. A Ivory score greater than 3% is considered moderate risk. If this is the case, consider specialist referral to assess eligibility for a risk reducing agent. 2. If overall lifetime risk for the development of breast cancer is 20% or higher, the patient may qualify for future screening with alternating mammogram and breast MRI. [facility], , 07/10/2024 11:21 AM. Electronically signed and approved by: Shad Arthur D.O. Radiologis
== END | disposition home or self-care (01) ==
LOC: RADMAMWWP 09:23
PROVIDERS: ATTEND Family Medicine
CPT/HCPCS: 77067

== ENCOUNTER → 2024-08-08 | Outpatient (CLI) | payer OTHER ==
[2024-08-08 20:01] LABS: Appearance,Urine Clear (Clear); Bilirubin,Urine Negative (Negative); Blood,Urine Negative (Negative); Color,Urine Yellow (Yellow); Ketones,Urine Negative (Negative); Nitrite,Urine Negative (Negative); Specific Gravity,Urine 1.019 (1.001-1.030)
[2024-08-08 20:11] LABS: Basophils # (A) 0.04 X 10*3/uL (0.00-0.10); Basophils % (A) 0.4 %; Eosinophils # (A) 0 X 10*3/uL (0.04-0.35); Eosinophils % (A) 0 %; HCT 41.6 % (37.2-46.3); HGB 13.6 g/dL (12.0-15.0); Lymphocytes # (A) 2.79 X 10*3/uL (0.90-5.00); Lymphocytes % (A) 25.2 %; MCH 33.7 pg (27.0-32.0); MCHC 32.7 g/dL (32.0-37.0); Mean Platelet Volume 11.7 FL (9.5-12.2); Monocytes # (A) 0.89 X 10*3/uL (0.20-1.00); NRBC Per 100 WBC 0 X 10*3/uL (0.00-0.01); Neutrophils # (A) 7.32 X 10*3/uL (1.80-7.70); Neutrophils % (A) 65.9 %; Platelet Count 181 X 10*3/uL (140-440); RBC 4.04 X 10*6/uL (4.10-5.20); RDW 13.9 % (11.5-14.5); WBC 11.09 X 10*3/uL (4.50-10.00)
[2024-08-08 20:34] LABS: % Iron Saturation 20.44 (12.00-45.00); Albumin 3.7 g/dL (3.8-4.9); BUN/Creat Ratio 13.83 Ratio (12.00-20.00); Blood Urea Nitrogen 16.6 mg/dL (9.0-27.0); Calcium 8.8 mg/dL (8.7-10.3); Carbon Dioxide 21.5 mmol/L (21.6-31.8); Chloride 107 mmol/L (96-109); Ferritin 34.3 ng/mL (10.0-291.0); Glucose 104 mg/dL (70-110); Iron 75 UG/DL (50-170); Magnesium 2.1 mg/dL (1.5-2.4); Phosphorus 3.8 mg/dL (2.4-5.1); Potassium 4.6 mmol/L (3.5-5.5); Sodium 139 mmol/L (135-145); Total Iron Binding Capacity 367 UG/DL (228-460); Uric Acid 4.7 mg/dL (2.9-7.7)
[2024-08-08 21:28] LABS: Microalbumin Creatinine Ratio <11 mg/g Cr (0-30)
== END | disposition home or self-care (01) ==
LOC: LABWHC1 13:11
PROVIDERS: ATTEND Nurse Practitioner Family
CPT/HCPCS: 36415; 80048; 81003; 82040; 82043; 82306; 82570; 82728; 83540; 83550; 83735; 83970; 84100; 84550; 85025

== ENCOUNTER 2024-08-15 18:38 | Emergency (ER) | payer OTHER ==
[2024-08-15 19:05] VITALS: TEMP 98
--- NOTE | 2024-08-15 20:28 | ED ---
General Adult HPI - General Chief complaint: Skin/Abscess/Foreign Body Stated complaint: boil on bottom/L thigh Time Seen by Provider: 08/15/24 19:46 Source: patient Mode of arrival: ambulatory Limitations: no limitations - History of Present Illness Initial comments: 49-year-old female with history of high vaginitis suppurativa presenting with chief complaint of abscess. Patient has one on her right buttock and 1 on her left thigh. She was trying to pop them, she has gotten some clear drainage. She is having increased pain. Also having some warmth from the areas. No fevers. No nausea vomiting or abdominal pain. - Related Data Home Medications Medication Instructions Recorded Confirmed Fluticasone Nasal [place] [Flonase 1 spray EA NOSTRIL BID PRN 07/10/15 06/20/21 Nasal [place]] Levothyroxine Sodium [Synthroid] 88 mcg PO DAILY 07/10/15 06/20/21 Baclofen [Lioresal] 10 mg PO TID PRN 08/13/16 06/20/21 gemfibroziL [Lopid] 600 mg PO BID 01/23/17 06/20/21 Dicyclomine [Bentyl] 20 mg PO HS 06/30/17 06/20/21 Ergocalciferol [Vitamin D2 50,000 unit PO Q14D 07/10/20 06/20/21 (DRISDOL)] Acetaminophen Tab [Tylenol] 1,000 mg PO BID 08/17/20 06/20/21 Furosemide [Lasix] 20 mg PO BID PRN 08/17/20 06/20/21 Linaclotide [Linzess] 145 mcg PO DAILY 08/17/20 06/20/21 Hydrocortisone Cream 1 applic TOPICAL BID PRN 03/19/21 06/20/21 [Hydrocortisone 2.5% Cream] Ketoconazole 2% Cream [Nizoral 2%] 1 applic TOPICAL BID PRN 03/19/21 06/20/21 Loratadine [Claritin] 10 mg PO DAILY 03/19/21 06/20/21 Ondansetron Odt [Zofran ODT] 4 mg PO BID PRN 03/19/21 06/20/21 Topiramate [Topamax] 100 mg PO BID 03/19/21 06/20/21 Acne Medicated 5% Gel 1 applic TOPICAL BID 06/20/21 06/20/21 Benzoyl Peroxide 10% Wash 1 applic TOPICAL DAILY 06/20/21 06/20/21 Dicyclomine [Bentyl] 10 mg PO DAILY 06/20/21 06/20/21 Lactulose 10 gm PO BID PRN 06/20/21 06/20/21 Mupirocin 2% Oint [Bactroban 2% 1 applic TOPICAL BID 06/20/21 06/20/21 Oint] Omeprazole 20 mg PO BID 06/20/21 06/20/21 Potassium Chloride [Klor-Con M10] 5 meq PO DAILY@1200 06/20/21 06/20/21 Potassium Chloride [Klor-Con M10] 10 meq PO DAILY 06/20/21 06/20/21 Spironolactone [Aldactone] 25 mg PO DAILY 06/20/21 06/20/21 Previous Rx's Medication Instructions Recorded Doxycycline [Vibramycin] 100 mg PO BID 14 Days #28 capsule 08/03/23 metroNIDAZOLE [Flagyl] 500 mg PO BID #28 tab 08/03/23 Doxycycline [Vibramycin] 100 mg PO BID 7 Days #14 capsule 08/15/24 Nystatin 100,000 Unit/gm Powd 1 applic TOPICAL BID #15 gm 08/15/24 [Mycostatin Powder] Allergies Allergy/AdvReac Type Severity Reaction Status Date / Time cephalexin monohydrate Allergy Rash/Hives Verified 08/15/24 19:05 [From Keflex] losartan Allergy Anaphylaxis Verified 08/15/24 19:05 prednisone Allergy Swelling Verified 08/15/24 19:05 of Feet sulfamethoxazole Allergy Anaphylaxis Verified 08/15/24 19:05 [From Bactrim] trimethoprim [From Bactrim] Allergy Anaphylaxis Verified 08/15/24 19:05 ibuprofen AdvReac kidney Verified 08/15/24 19:05 disease Review of Systems ROS Statement: Those systems with pertinent positive or pertinent negative responses have been documented in the HPI. ROS Other: All systems not noted in ROS Statement are negative. Past Medical History Past Medical History: Diabetes Mellitus, GERD/Reflux, Hyperlipidemia, Hypertension, Mitral Valve Prolapse (MVP), Osteoarthritis (OA), Renal Disease, Respiratory Disorder, Skin Disorder, Thyroid Disorder Additional Past Medical History / Comment(s): HEART MURMUR, LEAKY HEART VALVES (STATES PRE-MEDICATED PRIOR TO PROCEDURES). HX OF DIVERTICULITIS. IBS. BRONCHIECTASIS. MIGRAINES. HX OF STOMACH ULCERS. OVARIAN SYNDROME. HIDRA DENITIS, SKIN DISORDER. "LIVER INFLAMED." "KIDNEY FUNCTION @ 60%." EDEMA BLE, WEARING YRN HOSE. Hx of herniated discs History of Any Multi-Drug Resistant Organisms: None Reported Past Surgical History: Cholecystectomy, Hernia Repair, Orthopedic Surgery, Tubal Ligation, Uterine Ablation Additional Past Surgical History / Comment(s): lt foot surgery, BUNIONECTOMY, Bilat CTR Colonoscopy, egd, left brest lesion removal Past Anesthesia/Blood Transfusion Reactions: Motion Sickness Past Psychological History: Anxiety Smoking Status: Current every day smoker Past Alcohol Use History: None Reported Past Drug Use History: None Reported - Past Family History Mother Family Medical History: Myocardial Infarction (MT) Additional Family Medical History / Comment(s): Pacemaker. Father Family Medical History: Cancer Additional Family Medical History / Comment(s): LIVER CANCER. General Exam Limitations: no limitations General appearance: alert, in no apparent distress Head exam: Present: atraumatic, normocephalic, normal inspection Eye exam: Present: normal appearance Neck exam: Present: normal inspection Respiratory exam: Absent: respiratory distress Cardiovascular Exam: Present: regular rate Neurological exam: Present: alert, oriented X3 Psychiatric exam: Present: normal affect, normal mood Expanded Type of lesion: Present: abscess (Small indurated abscesses on the right buttock and left thigh) Course Vital Signs 08/15/24 08/15/24 19:01 20:49 Temperature 98.0 F Pulse Rate 69 70 Respiratory 18 16 Rate Blood Pressure 118/76 104/69 O2 Sat by Pulse 100 99 Oximetry Medical Decision Making - Medical Decision Making Was pt. sent in by a medical professional or institution (, PA, WHEEL ALIGNMENT MECHANIC, urgent care, hospital, or group home...) When possible be specific @ -No Did you speak to anyone other than the patient for history (EMS, parent, family, police, friend...)? What history was obtained from this source @ -No Did you review nursing and triage notes (agree or disagree)? Why? @ -I reviewed and agree with nursing and triage notes Were old charts reviewed (outside hosp., previous admission, EMS record, old EKG, old radiological studies, urgent care reports/EKG's, group home records)? Report findings @ -No old charts were reviewed Differential Diagnosis (chest pain, altered mental status, abdominal pain women, abdominal pain men, vaginal bleeding, weakness, fever, dyspnea, syncope, headache, dizziness, GI bleed, back pain, seizure, CVA, palpatations, mental health, musculoskeletal)? @ -Differential includes cellulitis, abscess, Jeronimo's angina, cyst, this is not an all-inclusive list EKG interpreted by me (3pts min.). @ -As above X-rays interpreted by me (1pt min.). @ -None done CT interpreted by me (1pt min.). @ -None done U/S interpreted by me (1pt. min.). @ -None done What testing was considered but not performed or refused? (CT, X-rays, U/S, labs)? Why? @ -None What meds were considered but not given or refused? Why? @ -None Did you discuss the management of the patient with other professionals (professionals i.e. , PA, WHEEL ALIGNMENT MECHANIC, lab, RT, psych nurse, geriatric social worker, service support representative, teacher, benefits officer, vocational case manager)? Give summary @ -No Was smoking cessation discussed for >3mins.? @ -No Was critical care preformed (if so, how long)? @ -No Were there social determinants of health that impacted care today? How? (Homelessness, low income, unemployed, alcoholism, drug addiction, transportation, low edu. Level, literacy, decrease access to med. care, assisted, rehab)? @ -No Was there de-escalation of care discussed even if they declined (Discuss DNR or withdrawal of care, Hospice)? DNR status @ -No What co-morbidities impacted this encounter? (DM, HTN, Smoking, COPD, CAD, Cancer, CVA, ARF, Chemo, Hep., AIDS, mental health diagnosis, sleep apnea, morbid obesity)? @ -None Was patient admitted / discharged? Hospital course, mention meds given and route, prescriptions, significant lab abnormalities, going to OR and other pertinent info. @ -49-year-old female with history of hidradenitis suppurativa presenting with chief complaint of painful abscesses to the right buttock and left thigh. On exam the areas are indurated, no evidence of fluctuance. There is some mild erythema and warmth. Unable to be incised today, patient started on doxycycline. Educated on wound care. Discharged. Follow-up with PCP. Report back to ER with any new or worsening symptoms. Discussed return parameters and answered all questions. Patient conveyed verbal understanding and agreed to the plan. I discussed this case in detail with my attending Dr. Brooks Undiagnosed new problem with uncertain prognosis? @ -No Drug Therapy requiring intensive monitoring for toxicity (Heparin, Nitro, Insulin, Cardizem)? @ -No Were any procedures done? @ -No Diagnosis/symptom? @ -Hidradenitis suppurativa Acute, or Chronic, or Acute on Chronic? @ -Acute on chronic Uncomplicated (without systemic symptoms) or Complicated (systemic symptoms)? @ -umcomplicated Side effects of treatment? @ -No Exacerbation, Progression, or Severe Exacerbation? @ -No Poses a threat to life or bodily function? How? (Chest pain, USA, MT, pneumonia, PE, COPD, DKA, ARF, appy, cholecystitis, CVA, Diverticulitis, Homicidal, Suicidal, threat to staff... and all critical care pts) @ -Unlikely Disposition Clinical Impression: Hidradenitis suppurativa Disposition: HOME SELF-CARE Condition: Good Instructions (If sedation given, give patient instructions): Abscess (ED) Additional Instructions: Follow-up with PCP. Report back to ER with any new or worsening symptoms. Take medication as prescribed. Use hot compresses over the sites to help express any pus Prescriptions: Nystatin 100,000 Unit/gm Powd [Mycostatin Powder] 1 applic TOPICAL BID #15 gm Doxycycline [Vibramycin] 100 mg PO BID 7 Days #14 capsule Is patient prescribed a controlled substance at d/c from ED?: No Referrals: Braulio Wiggins MD [Primary Care Provider] - 1-2 days Time of Disposition: 20:28
[2024-08-15 21:00] VITALS: BP 104/69; PULSE 70; RESP 16
== END 2024-08-15 20:49 | disposition home or self-care (01) ==
LOC: EC 18:38
DX: L73.2 Hidradenitis suppurativa (principal); F17.200 Nicotine dependence, unspecified, uncomplicated; Z88.1 Allergy status to other antibiotic agents; Z88.2 Allergy status to sulfonamides; Z88.6 Allergy status to analgesic agent; Z88.8 Allergy status to other drugs, medicaments and biological substances
CPT/HCPCS: 99283

== ENCOUNTER 2024-09-23 16:06 | Emergency (ER) | payer OTHER ==
[2024-09-23 16:16] VITALS: RESP 18
--- NOTE | 2024-09-23 16:45 | ED ---
Abdominal Pain HPI - General Chief Complaint: Abdominal Pain Stated Complaint: Abdominal Pain Time Seen by Provider: 09/23/24 16:20 Source: patient, family Mode of arrival: wheelchair Limitations: no limitations - History of Present Illness Initial Comments: This patient is a 49-year-old woman who presents to have evaluation of lower abdominal pain. She states that it had initially started Thursday and has been going on since that time. She states that it started to become more pronounced today so she presents to have evaluation. The patient also notes that she has been having intermittent constipation. The patient has not noted other symptoms, no fever or chills, nausea or vomiting. No change in urination. MD Complaint: abdominal pain Onset/Timin -: days(s) Location: LLQ, RLQ Radiation: none Migration to: no migration Severity: moderate Quality: cramping, fullness Consistency: constant Improves With: nothing Worsens With: nothing Associated Symptoms: constipation - Related Data Home Medications Medication Instructions Recorded Confirmed Fluticasone Nasal [place] [Flonase 1 spray EA NOSTRIL BID 07/10/15 09/23/24 Nasal [place]] Levothyroxine Sodium [Synthroid] 88 mcg PO DAILY 07/10/15 09/23/24 Baclofen [Lioresal] 10 mg PO QAM 08/13/16 09/23/24 gemfibroziL [Lopid] 600 mg PO BID 01/23/17 09/23/24 Linaclotide [Linzess] 145 mcg PO DAILY 08/17/20 09/23/24 Benzoyl Peroxide 10% Wash 1 applic TOPICAL HS 06/20/21 09/23/24 Mupirocin 2% Oint [Bactroban 2% 1 applic TOPICAL BID 06/20/21 09/23/24 Oint] Albuterol Sulfate [Albuterol 1 puff PO RT-QID PRN 09/23/24 09/23/24 Sulfate Hfa] Baclofen 20 mg PO HS 09/23/24 09/23/24 Cetirizine HCl [Zyrtec] 10 mg PO DAILY 09/23/24 09/23/24 Cholecalciferol (Vitamin D3) 1,250 mcg PO FR 09/23/24 09/23/24 [Vitamin D3 (1250 Mcg = 50,000 Iu)] Famotidine [Pepcid] 20 mg PO BID 09/23/24 09/23/24 Ipratropium/Albuter 20-100Mcg 2 puff INHALATION RT-BID 09/23/24 09/23/24 [Combivent Respimat 20-100Mcg Inhaler] Pantoprazole [Protonix] 40 mg PO BID 09/23/24 09/23/24 Topiramate [Topamax] 100 mg PO BID 09/23/24 09/23/24 busPIRone HCL 5 mg PO TID PRN 09/23/24 09/23/24 Previous Rx's Medication Instructions Recorded Amoxic-Pot Clav 875-125Mg 1 tab PO BID 1 Days #14 tab 09/23/24 [Augmentin 875-125] Allergies Allergy/AdvReac Type Severity Reaction Status Date / Time cephalexin monohydrate Allergy Rash/Hives Verified 09/23/24 17:35 [From Keflex] losartan Allergy Anaphylaxis Verified 09/23/24 17:35 prednisone Allergy Swelling Verified 09/23/24 17:35 of Feet - IV version ok per patient sulfamethoxazole Allergy Anaphylaxis Verified 09/23/24 17:35 [From Bactrim] trimethoprim [From Bactrim] Allergy Anaphylaxis Verified 09/23/24 17:35 ibuprofen AdvReac kidney Verified 09/23/24 17:35 disease Review of Systems ROS Statement: Those systems with pertinent positive or pertinent negative responses have been documented in the HPI. ROS Other: All systems not noted in ROS Statement are negative. Constitutional: Denies: fever, chills, weakness Respiratory: Denies: cough, dyspnea Cardiovascular: Denies: chest pain, palpitations, edema Gastrointestinal: Reports: abdominal pain, constipation. Denies: nausea, vomiting, diarrhea, melena, hematochezia Genitourinary: Denies: dysuria, frequency, hematuria Musculoskeletal: Denies: back pain Skin: Denies: rash Neurological: Denies: headache, weakness, numbness Past Medical History Past Medical History: Diabetes Mellitus, GERD/Reflux, Hyperlipidemia, Hypertension, Mitral Valve Prolapse (MVP), Osteoarthritis (OA), Renal Disease, Respiratory Disorder, Skin Disorder, Thyroid Disorder Additional Past Medical History / Comment(s): HEART MURMUR, LEAKY HEART VALVES (STATES PRE-MEDICATED PRIOR TO PROCEDURES). HX OF DIVERTICULITIS. IBS. BRONCHIECTASIS. MIGRAINES. HX OF STOMACH ULCERS. OVARIAN SYNDROME. HID RADENITIS, SKIN DISORDER. "LIVER INFLAMED." "KIDNEY FUNCTION @ 60%." EDEMA BLE, WEARING YRN HOSE. Hx of herniated discs History of Any Multi-Drug Resistant Organisms: None Reported Past Surgical History: Breast Surgery, Cholecystectomy, Hernia Repair, Orthopedic Surgery, Tubal Ligation, Uterine Ablation Additional Past Surgical History / Comment(s): lt foot surgery, BUNIONECTOMY, Bilat CTR Colonoscopy, egd, left breast lesion removal Past Anesthesia/Blood Transfusion Reactions: Motion Sickness Past Psychological History: Anxiety Smoking Status: Current every day smoker Past Alcohol Use History: None Reported Past Drug Use History: None Reported - Past Family History Mother Family Medical History: Myocardial Infarction (MS) Additional Family Medical History / Comment(s): Pacemaker. Father Family Medical History: Cancer Additional Family Medical History / Comment(s): LIVER CANCER. General Exam Limitations: no limitations General appearance: alert, in no apparent distress Head exam: Present: atraumatic, normocephalic Eye exam: Present: normal appearance. Absent: scleral icterus, conjunctival injection ENT exam: Present: mucous membranes dry Neck exam: Present: normal inspection Respiratory exam: Present: normal lung sounds bilaterally. Absent: respiratory distress, wheezes, rales, rhonchi, stridor, accessory muscle use Cardiovascular Exam: Present: regular rate, normal rhythm, normal heart sounds. Absent: systolic murmur, diastolic murmur, rubs, gallop GI/Abdominal exam: Present: soft. Absent: distended, tenderness, guarding, rebound, rigid, mass Extremities exam: Present: normal inspection, normal capillary refill. Absent: pedal edema, calf tenderness Back exam: Present: normal inspection. Absent: CVA tenderness (R), CVA tenderness (L) Neurological exam: Present: alert Skin exam: Present: warm, dry, intact, normal color. Absent: rash Course Vital Signs 09/23/24 09/23/24 09/23/24 16:12 18:56 20:45 Temperature 98.3 F 98.2 F Pulse Rate 68 61 66 Respiratory 18 18 18 Rate Blood Pressure 143/81 134/79 134/80 O2 Sat by Pulse 100 100 100 Oximetry Medical Decision Making - Medical Decision Making The patient had CT scan of the abdomen and pelvis that I interpreted as showing presence of acute diverticulitis. No evidence of free air or obstruction or other acute surgical condition. Was pt. sent in by a medical professional or institution (, [facility], [facility], urgent care, hospital, or group home...) When possible be specific @ -[No] Did you speak to anyone other than the patient for history (EMS, parent, family, police, friend...)? What history was obtained from this source @ -[No] Did you review nursing and triage notes (agree or disagree)? Why? @ -[I reviewed and agree with nursing and triage notes] Were old charts reviewed (outside hosp., previous admission, EMS record, old EKG, old radiological studies, urgent care reports/EKG's, group home records)? Report findings @ -[No old charts were reviewed] Differential Diagnosis (chest pain, altered mental status, abdominal pain women, abdominal pain men, vaginal bleeding, weakness, fever, dyspnea, syncope, headache, dizziness, GI bleed, back pain, seizure, CVA, palpatations, mental health, musculoskeletal)? @ -[Differential Abdominal Pain Women: Appendicitis, Cholecystitis, diverticulosis, ischemic bowel, pancreatitis, hepatitis, UTI, gastroenteritis, AAA, incarcerated hernia, bowel obstruction, constipation, inflammatory bowel, hepatitis, peptic ulcer disease, splenic infarction, perforated viscus, vulvitis, ovarian torsion, PID, kidney stone, placenta abruption, this is not meant to be an all-inclusive list EKG interpreted by me (3pts min.). @ -[As above] X-rays interpreted by me (1pt min.). @ -[None done] CT interpreted by me (1pt min.). @ -Interpreted as above U/S interpreted by me (1pt. min.). @ -[None done] What testing was considered but not performed or refused? (CT, X-rays, U/S, labs)? Why? @ -[None] What meds were considered but not given or refused? Why? @ -[None] Did you discuss the management of the patient with other professionals (professionals i.e. [facility], [facility], lab, RT, psych nurse, public health social worker, temporary help agency referral clerk, teacher, asset protection officer, foster care case manager)? Give summary @ -[No] Was smoking cessation discussed for >3mins.? @ -[No] Was critical care preformed (if so, how long)? @ -[No] Were there social determinants of health that impacted care today? How? (Homelessness, low income, unemployed, alcoholism, drug addiction, transportation, low edu. Level, literacy, decrease access to med. care, fdc, rehab)? @ -[No] Was there de-escalation of care discussed even if they declined (Discuss DNR or withdrawal of care, Hospice)? DNR status @ -[No] What co-morbidities impacted this encounter? (DM, HTN, Smoking, COPD, CAD, Cancer, CVA, ARF, Chemo, Hep., AIDS, mental health diagnosis, sleep apnea, morbid obesity)? @ -[History of diverticulitis Was patient admitted / discharged? Hospital course, mention meds given and route, prescriptions, significant lab abnormalities, going to OR and other pertinent info. @ -[Patient is 49-year-old woman presenting with abdominal pain. She does have tenderness on exam and sent for CT scan which does confirm clinical suspicion of acute diverticulitis. Discussed appropriate further care and follow-up as we ll as return parameters. Undiagnosed new problem with uncertain prognosis? @ -[No] Drug Therapy requiring intensive monitoring for toxicity (Heparin, Nitro, Insulin, Cardizem)? @ -[No] Were any procedures done? @ -[No] Diagnosis/symptom? @ -[Acute diverticulitis Acute, or Chronic, or Acute on Chronic? @ -[acute Uncomplicated (without systemic symptoms) or Complicated (systemic symptoms)? @ -[uncomplicated Side effects of treatment? @ -[No] Exacerbation, Progression, or Severe Exacerbation? @ -[No] Poses a threat to life or bodily function? How? (Chest pain, USA, MS, pneumonia, PE, COPD, DKA, ARF, appy, cholecystitis, CVA, Diverticulitis, Homicidal, Suicidal, threat to staff... and all critical care pts) @ -[Low risk, patient does require follow-up All treatments are based on ideal body weight as in ED triage - Lab Data Result diagrams: 09/23/24 16:41 09/23/24 16:41 Lab Results 09/23/24 09/23/24 09/23/24 Range/Units 16:41 16:41 16:41 WBC 12.8 H (3.8-10.6) k/uL RBC 4.50 (3.80-5.40) m/uL Hgb 14.6 (11.4-16.0) gm/dL Hct 44.8 (34.0-46.0) % MCV 99.6 (80.0-100.0) fL MCH 32.5 (25.0-35.0) pg MCHC 32.6 (31.0-37.0) g/dL RDW 12.8 (11.5-15.5) % Plt Count 250 (150-450) k/uL MPV 7.4 Neutrophils % 75 % Lymphocytes % 19 % Monocytes % 4 % Eosinophils % 1 % Basophils % 0 % Neutrophils # 9.6 H (1.3-7.7) k/uL Lymphocytes # 2.4 (1.0-4.8) k/uL Monocytes # 0.5 (0-1.0) k/uL Eosinophils # 0.1 (0-0.7) k/uL Basophils # 0.0 (0-0.2) k/uL Sodium 138 (137-145) mmol/L Potassium 4.1 (3.5-5.1) mmol/L Chloride 112 H (98-107) mmol/L Carbon Dioxide 20 L (22-30) mmol/L Anion Gap 6 mmol/L BUN 14 (7-17) mg/dL Creatinine 1.22 H (0.52-1.04) mg/dL Est GFR (CKD-EPI)AfAm 61 (>60 ml/min/1.73 sqM) Est GFR (CKD-EPI)NonAf 53 (>60 ml/min/1.73 sqM) Glucose 104 H (74-99) mg/dL Plasma Lactic Acid Rob (0.7-2.0) mmol/L Calcium 9.2 (8.4-10.2) mg/dL Total Bilirubin 0.4 (0.2-1.3) mg/dL AST 22 (14-36) U/L ALT 18 (4-34) U/L Alkaline Phosphatase 66 (38-126) U/L C-Reactive Protein 2.2 H (<1.0) mg/dL Total Protein 7.5 (6.3-8.2) g/dL Albumin 4.4 (3.5-5.0) g/dL Amylase 45 (30-110) U/L Lipase 168 (23-300) U/L Urine Color Colorless Urine Appearance Clear (Clear) Urine pH 6.0 (5.0-8.0) Ur Specific [place] 1.008 (1.001-1.035) Urine Protein Negative (Negative) Urine Glucose (UA) Negative (Negative) Urine Ketones Negative (Negative) Urine Blood Negative (Negative) Urine Nitrite Negative (Negative) Urine Bilirubin Negative (Negative) Urine Urobilinogen <2.0 (<2.0) mg/dL Ur Leukocyte Esterase Negative (Negative) 09/23/24 Range/Units 16:41 WBC (3.8-10.6) k/uL RBC (3.80-5.40) m/uL Hgb (11.4-16.0) gm/dL Hct (34.0-46.0) % MCV (80.0-100.0) fL MCH (25.0-35.0) pg MCHC (31.0-37.0) g/dL RDW (11.5-15.5) % Plt Count (150-450) k/uL MPV Neutrophils % % Lymphocytes % % Monocytes % % Eosinophils % % Basophils % % Neutrophils # (1.3-7.7) k/uL Lymphocytes # (1.0-4.8) k/uL Monocytes # (0-1.0) k/uL Eosinophils # (0-0.7) k/uL Basophils # (0-0.2) k/uL Sodium (137-145) mmol/L Potassium (3.5-5.1) mmol/L Chloride (98-107) mmol/L Carbon Dioxide (22-30) mmol/L Anion Gap mmol/L BUN (7-17) mg/dL Creatinine (0.52-1.04) mg/dL Est GFR (CKD-EPI)AfAm (>60 ml/min/1.73 sqM) Est GFR (CKD-EPI)NonAf (>60 ml/min/1.73 sqM) Glucose (74-99) mg/dL Plasma Lactic Acid Rob 1.0 (0.7-2.0) mmol/L Calcium (8.4-10.2) mg/dL Total Bilirubin (0.2-1.3) mg/dL AST (14-36) U/L ALT (4-34) U/L Alkaline Phosphatase (38-126) U/L C-Reactive Protein (<1.0) mg/dL Total Protein (6.3-8.2) g/dL Albumin (3.5-5.0) g/dL Amylase (30-110) U/L Lipase (23-300) U/L Urine Color Urine Appearance (Clear) Urine pH (5.0-8.0) Ur Specific [place] (1.001-1.035) Urine Protein (Negative) Urine Glucose (UA) (Negative) Urine Ketones (Negative) Urine Blood (Negative) Urine Nitrite (Negative) Urine Bilirubin (Negative) Urine Urobilinogen (<2.0) mg/dL Ur Leukocyte Esterase (Negative) Disposition Clinical Impression: Diverticulitis Disposition: HOME SELF-CARE Condition: Good Instructions (If sedation given, give patient instructions): Diverticulitis (ED) Prescriptions: Amoxic-Pot Clav 875-125Mg [Augmentin 875-125] 1 tab PO BID 1 Days #14 tab Is patient prescribed a controlled substance at d/c from ED?: No Referrals: Braulio Wiggisn MD [Primary Care Provider] - 1-2 days
[2024-09-23 16:53] LABS: Basophils % (A) 0 %; Eosinophils # (A) 0.1 k/uL (0-0.7); Eosinophils % (A) 1 %; HCT 44.8 % (34.0-46.0); HGB 14.6 gm/dL (11.4-16.0); Lymphocytes # (A) 2.4 k/uL (1.0-4.8); Lymphocytes % (A) 19 %; MCH 32.5 pg (25.0-35.0); MCHC 32.6 g/dL (31.0-37.0); MCV 99.6 fL (80.0-100.0); Mean Platelet Volume 7.4; Monocytes # (A) 0.5 k/uL (0-1.0); Monocytes % (A) 4 %; Neutrophils # (A) 9.6 k/uL (1.3-7.7); Neutrophils % (A) 75 %; Platelet Count 250 k/uL (150-450); RDW 12.8 % (11.5-15.5); WBC 12.8 k/uL (3.8-10.6)
[2024-09-23 17:05] LABS: ALT 18 U/L (4-34); AST 22 U/L (14-36); African American GFR (CKD) 61 (>60 ml/min/1.73 sqM); Albumin 4.4 g/dL (3.5-5.0); Alkaline Phosphatase 66 U/L (38-126); Amylase 45 U/L (30-110); Anion Gap 6 mmol/L; Blood Urea Nitrogen 14 mg/dL (7-17); C Reactive Protein 2.2 mg/dL (<1.0); Calcium 9.2 mg/dL (8.4-10.2); Carbon Dioxide 20 mmol/L (22-30); Chloride 112 mmol/L (98-107); Glucose 104 mg/dL (74-99); Lipase 168 U/L (23-300); Non-African American GFR(CKD) 53 (>60 ml/min/1.73 sqM); Potassium 4.1 mmol/L (3.5-5.1); Sodium 138 mmol/L (137-145); Total Bilirubin 0.4 mg/dL (0.2-1.3); Total Protein 7.5 g/dL (6.3-8.2)
[2024-09-23] MEDS: MORPHINE SULFATE 4 MG/ML SYRINGE IV STA ×2 (17:40→20:31)
[2024-09-23 17:49] LABS: Appearance,Urine Clear (Clear); Bilirubin,Urine Negative (Negative); Blood,Urine Negative (Negative); Color,Urine Colorless; Glucose,Urine (UA) Negative (Negative); Ketones,Urine Negative (Negative); Leukocyte Esterase,Urine Negative (Negative); Nitrite,Urine Negative (Negative); Protein,Urine Negative (Negative); Specific Gravity,Urine 1.008 (1.001-1.035); Urobilinogen,Urine <2.0 mg/dL (<2.0)
--- NOTE | 2024-09-23 19:30 | CT ---
EXAMINATION TYPE: CT abdomen pelvis wo con DATE OF EXAM: 09/23/2024 6:44 PM COMPARISON: 03/18/2019 CLINICAL INDICATION: Female, 49 years old with history of LLQ pain; LLQ abdominal pain TECHNIQUE: Axial CT abdomen pelvis wo con;Sagittal and coronal reformats were created on a separate workstation. Contrast used: mL of , (none if empty) Oral contrast used: without Oral Contrast (none if empty) CT DLP: 1006.5 mGycm, Automated exposure control for dose reduction was used. FINDINGS: LOWER CHEST: Unremarkable ABDOMEN LIVER: Unremarkable GALLBLADDER AND BILE DUCTS: The gallbladder is surgically absent. PANCREAS: Unremarkable. SPLEEN: Unremarkable. ADRENAL GLANDS: Left adrenal 13 mm nodule compatible with lipid rich adrenal adenoma adenomatous hype rtrophy changes versus small or adrenal adenomas in the left adrenal gland. KIDNEYS AND URETERS: No evidence of hydronephrosis or renal calculus. The ureters are unremarkable. PELVIS BLADDER: No evidence for wall thickening or mass given limitations of exam. REPRODUCTIVE: Bilateral tubal ligation clips. ABDOMEN & PELVIS STOMACH AND BOWEL: There are colonic diverticula present, one of which has adjacent fat stranding kortney nges. No organizing fluid collection or evidence of pneumoperitoneum. No evidence of bowel obstructio n. PERITONEUM/RETROPERITONEUM: No evidence of pneumoperitoneum or free fluid. VASCULATURE: No evidence of aortic aneurysm. MUSCULOSKELETAL: No acute osseous abnormalities. Moderate disc degeneration changes are present throu ghout the thoracolumbar spine. LYMPH NODES: No gross evidence for lymphadenopathy. SOFT TISSUE/ABDOMINAL WALL: Unremarkable IMPRESSION: 1. Acute uncomplicated diverticulitis. No organizing fluid collection or free air. 2. Left adrenal nodule which is increase in size from 2019. Nodular appearance of the remainder of t he left adrenal gland appears somewhat similar however. Correlate for lipid rich adrenal adenoma in t he absence of risk factors. [facility], , 09/23/2024 7:27 PM
[2024-09-23] MEDS: AMOXIC-POT CLAV 875-125MG 1 EACH TAB PO STA (20:31)
[2024-09-23 20:47] VITALS: BP 134/80; PULSE 66; TEMP 98.2
== END 2024-09-23 20:47 | disposition home or self-care (01) ==
LOC: EC 16:06
DX: K57.32 Diverticulitis of large intestine without perforation or abscess without bleeding (principal); F17.200 Nicotine dependence, unspecified, uncomplicated; Z88.1 Allergy status to other antibiotic agents; Z88.2 Allergy status to sulfonamides; Z88.6 Allergy status to analgesic agent; Z88.8 Allergy status to other drugs, medicaments and biological substances
CPT/HCPCS: 36415; 80053; 82150; 83605; 83690; 85025; 86140; 81003; 74176; 99284; 96374; 96376; J2270

== ENCOUNTER 2024-12-03 19:18 | Emergency (ER) | payer OTHER ==
--- NOTE | 2024-12-03 19:53 | ED ---
URI HPI - General Chief Complaint: Upper Respiratory Infection Stated Complaint: flu-like symptoms Time Seen by Provider: 12/03/24 19:32 Source: patient, RN notes reviewed Mode of arrival: ambulatory Limitations: no limitations - History of Present Illness Initial Comments: This is a 49-year-old female with history of CKD 3 and DM presenting with sick s ymptoms x 2 days. Patient endorses fever, chills, congestion, cough, shortness of breath, abdominal pain and nausea. Endorses recent sick contact with significant other who was recently diagnosed with influenza. Endorses use of DayQuil with minimal relief. Denies dizziness, hemoptysis, chest pain, vomiting, diarrhea, constipation. MD Complaint: fever, cough, nasal congestion Onset/Timin -: days(s) Associated Symptoms: fever, chills, abdominal pain, nausea Treatments Prior to Arrival: "cold medicine" - Related Data Home Medications Medication Instructions Recorded Confirmed Fluticasone Nasal [place] [Flonase 1 spray EA NOSTRIL BID 07/10/15 09/23/24 Nasal [place]] Levothyroxine Sodium [Synthroid] 88 mcg PO DAILY 07/10/15 09/23/24 Baclofen [Lioresal] 10 mg PO QAM 08/13/16 09/23/24 gemfibroziL [Lopid] 600 mg PO BID 01/23/17 09/23/24 Linaclotide [Linzess] 145 mcg PO DAILY 08/17/20 09/23/24 Benzoyl Peroxide 10% Wash 1 applic TOPICAL HS 06/20/21 09/23/24 Mupirocin 2% Oint [Bactroban 2% 1 applic TOPICAL BID 06/20/21 09/23/24 Oint] Albuterol Sulfate [Albuterol 1 puff PO RT-QID PRN 09/23/24 09/23/24 Sulfate Hfa] Baclofen 20 mg PO HS 09/23/24 09/23/24 Cetirizine HCl [Zyrtec] 10 mg PO DAILY 09/23/24 09/23/24 Cholecalciferol (Vitamin D3) 1,250 mcg PO FR 09/23/24 09/23/24 [Vitamin D3 (1250 Mcg = 50,000 Iu)] Famotidine [Pepcid] 20 mg PO BID 09/23/24 09/23/24 Ipratropium/Albuter 20-100Mcg 2 puff INHALATION RT-BID 09/23/24 09/23/24 [Combivent Respimat 20-100Mcg Inhaler] Pantoprazole [Protonix] 40 mg PO BID 09/23/24 09/23/24 Topiramate [Topamax] 100 mg PO BID 09/23/24 09/23/24 busPIRone HCL 5 mg PO TID PRN 09/23/24 09/23/24 Previous Rx's Medication Instructions Recorded Amoxic-Pot Clav 875-125Mg 1 tab PO BID 1 Days #14 tab 09/23/24 [Augmentin 875-125] Ondansetron [Zofran] 4 mg PO Q8HR PRN #15 tab 12/03/24 Oseltamivir [Tamiflu] 75 mg PO Q12HR #10 cap 12/03/24 Allergies Allergy/AdvReac Type Severity Reaction Status Date / Time cephalexin monohydrate Allergy Rash/Hives Verified 12/03/24 19:26 [From Keflex] losartan Allergy Anaphylaxis Verified 12/03/24 19:26 prednisone Allergy Swelling Verified 12/03/24 19:26 of Feet - IV version ok per patient sulfamethoxazole Allergy Anaphylaxis Verified 12/03/24 19:26 [From Bactrim] trimethoprim [From Bactrim] Allergy Anaphylaxis Verified 12/03/24 19:26 ibuprofen AdvReac kidney Verified 12/03/24 19:26 disease Review of Systems ROS Statement: Those systems with pertinent positive or pertinent negative responses have been documented in the HPI. ROS Other: All systems not noted in ROS Statement are negative. Past Medical History Past Medical History: Diabetes Mellitus, GERD/Reflux, Hyperlipidemia, Hypertension, Mitral Valve Prolapse (MVP), Osteoarthritis (OA), Renal Disease, Respiratory Disorder, Skin Disorder, Thyroid Disorder Additional Past Medical History / Comment(s): HEART MURMUR, LEAKY HEART VALVES (STATES PRE-MEDICATED PRIOR TO PROCEDURES). HX OF DIVERTICULITIS. IBS. BRONCHIECTASIS. MIGRAINES. HX OF STOMACH ULCERS. OVARIAN SYNDROME. HIDRADENITIS, SKIN DISORDER. "LIVER INFLAMED." "KIDNEY FUNCTION @ 60%." EDEMA BLE, WEARING YRN HOSE. Hx of herniated discs History of Any Multi-Drug Resistant Organisms: None Reported Past Surgical History: Breast Surgery, Cholecystectomy, Hernia Repair, Orthopedic Surgery, Tubal Ligation, Uterine Ablation Additional Past Surgical History / Comment(s): lt foot surgery, BUNIONECTOMY, Bilat CTR Colonoscopy, egd, left breast lesion removal Past Anesthesia/Blood Transfusion Reactions: Motion Sickness Past Psychological History: Anxiety Smoking Status: Current every day smoker Past Alcohol Use History: None Reported Past Drug Use History: None Reported - Past Family History Mother Family Medical History: Myocardial Infarction ([place]) Additional Family Medical History / Comment(s): Pacemaker. Father Family Medical History: Cancer Additional Family Medical History / Comment(s): LIVER CANCER. General Exam Limitations: no limitations General appearance: alert, in no apparent distress Head exam: Present: atraumatic, normocephalic, normal inspection Eye exam: Present: normal appearance, PERRL, EOMI. Absent: scleral icterus, conjunctival injection, periorbital swelling ENT exam: Present: normal exam, mucous membranes moist, other (Right TM is opaque without bulging. Tonsils +1 with the erythema and without exudate) Neck exam: Present: normal inspection. Absent: tenderness, meningismus, lymphadenopathy Respiratory exam: Present: wheezes, decreased breath sounds, prolonged expiratory. Absent: respiratory distress, rales, rhonchi, stridor Cardiovascular Exam: Present: regular rate, normal rhythm, normal heart sounds. Absent: systolic murmur, diastolic murmur, rubs, gallop, clicks GI/Abdominal exam: Present: soft, tenderness (Positive periumbilical tenderness without guarding), normal bowel sounds. Absent: distended, guarding, rebound, rigid Extremities exam: Present: normal inspection, full ROM, normal capillary refill. Absent: tenderness, pedal edema, joint swelling, calf tenderness Back exam: Present: normal inspection Neurological exam: Present: alert, oriented X3, CN II-XII intact Psychiatric exam: Present: normal affect, normal mood Skin exam: Present: warm, dry, intact, normal color. Absent: rash Course Vital Signs 12/03/24 12/03/24 12/03/24 19:27 20:04 20:11 Temperature 97.6 F Pulse Rate 67 71 74 Respiratory 16 18 18 Rate Blood Pressure 124/75 O2 Sat by Pulse 100 Oximetry Medical Decision Making - Medical Decision Making Was pt. sent in by a medical professional or institution (, PA, [employer], urgent care, hospital, or care home...) When possible be specific @ -No Did you speak to anyone other than the patient for history (EMS, parent, family, police, friend...)? What history was obtained from this source @ -No Did you review nursing and triage notes (agree or disagree)? Why? @ -I reviewed and agree with nursing and triage notes Were old charts reviewed (outside hosp., previous admission, EMS record, old EKG, old radiological studies, urgent care reports/EKG's, care home records)? Report findings @ -No old charts were reviewed Differential Diagnosis (chest pain, altered mental status, abdominal pain women, abdominal pain men, vaginal bleeding, weakness, fever, dyspnea, syncope, headache, dizziness, GI bleed, back pain, seizure, CVA, palpatations, mental health, musculoskeletal)? @ -Differential Fever: Pneumonia, viral URI, endocarditis, myocarditis, pericarditis, otitis, sinusitis, peritonsillar Abscess, retropharyngeal Abscess, epiglottitis, peritonitis, appendicitis, Dede cystitis, diverticulitis, hepatitis, colitis, UTI, PID, TOA, pyelonephritis, prostatitis, epididymitis, meningitis, e ncephalitis, pulmonary embolism, CVA, thyroid storm, pancreatitis, adrenal crisis, cavernous sinus thrombosis, this is not meant to be an all-inclusive list. EKG interpreted by me (3pts min.). @ -Not done X-rays interpreted by me (1pt min.). @ -CXR shows no acute cardiopulmonary process CT interpreted by me (1pt min.). @ -None done U/S interpreted by me (1pt. min.). @ -None done What testing was considered but not performed or refused? (CT, X-rays, U/S, labs)? Why? @ -None What meds were considered but not given or refused? Why? @ -None Did you discuss the management of the patient with other professionals (professionals i.e. , PA, [employer], lab, RT, psych nurse, social science teacher, circulating nurse, teacher, chief fundraising officer, case operator)? Give summary @ -No Was smoking cessation discussed for >3mins.? @ -No Was critical care preformed (if so, how long)? @ -No Were there social determinants of health that impacted care today? How? (Homelessness, low income, unemployed, alcoholism, drug addiction, vidal sportation, low edu. Level, literacy, decrease access to med. care, [facility], rehab)? @ -No Was there de-escalation of care discussed even if they declined (Discuss DNR or withdrawal of care, Hospice)? DNR status @ -No What co-morbidities impacted this encounter? (DM, HTN, Smoking, COPD, CAD, Cancer, CVA, ARF, Chemo, Hep., AIDS, mental health diagnosis, sleep apnea, morbid obesity)? @ -None Was patient admitted / discharged? Hospital course, mention meds given and route, prescriptions, significant lab abnormalities, going to OR and other pertinent info. @ -Cepheid test positive for influenza A. CXR shows no acute cardiopulmonary process. Patient initially provided DuoNeb and IM Zofran. Provided initial dose of Tamiflu upon Cepheid results. [facility] Advised follow-up with PCP as needed. Discussed patient with Dr. Vazquez. Undiagnosed new problem with uncertain prognosis? @ -No Drug Therapy requiring intensive monitoring for toxicity (Heparin, Nitro, Insulin, Cardizem)? @ -No Were any procedures done? @ -No Diagnosis/symptom? @ -Influenza A Acute, or Chronic, or Acute on Chronic? @ -Acute Uncomplicated (without systemic symptoms) or Complicated (systemic symptoms)? @ -Complicated Side effects of treatment? @ -No Exacerbation, Progression, or Severe Exacerbation? @ -No Poses a threat to life or bodily function? How? (Chest pain, [place], [place], pneumonia, PE, COPD, DKA, ARF, appy, cholecystitis, CVA, Diverticulitis, Homicidal, Suicidal, threat to staff... and all critical care pts) @ -No - Lab Data Lab Results 12/03/24 Range/Units 19:41 Influenza Type A (PCR) Detected A (Not Detectd) Influenza Type B (PCR) Not Detected (Not Detectd) RSV (PCR) Not Detected (Not Detectd) SARS-CoV-2 (PCR) Not Detected (Not Detectd) Disposition Clinical Impression: Influenza Disposition: HOME SELF-CARE Condition: Good Instructions (If sedation given, give patient instructions): Influenza (ED) Prescriptions: Oseltamivir [Tamiflu] 75 mg PO Q12HR #10 cap Ondansetron [Zofran] 4 mg PO Q8HR PRN #15 tab PRN Reason: Nausea Is patient prescribed a controlled substance at d/c from ED?: No Referrals: Braulio Wiggins MD [Primary Care Provider] - 1-2 days Time of Disposition: 20:42
[2024-12-03] MEDS: IPRATROPIUM-ALBUTEROL 3 ML NEB INHALATION STA (20:04)
[2024-12-03 20:07] VITALS: RESP 18
[2024-12-03] MEDS: ONDANSETRON 4 MG/2 ML VIAL IM STA (20:25)
[2024-12-03 20:33] LABS: Influenza A Detected (Not Detectd); Influenza B Not Detected (Not Detectd); RSV Not Detected (Not Detectd)
--- NOTE | 2024-12-03 20:52 | XR ---
EXAMINATION TYPE: XR chest 2V DATE OF EXAM: 12/03/2024 8:05 PM COMPARISON: 11/14/2023 CLINICAL INDICATION: Female, 49 years old with history of Cough, TECHNIQUE: XR chest 2V view(s) obtained. FINDINGS: The heart size is normal. The pulmonary vasculature is normal. The lungs are clear. IMPRESSION: 1. No acute pulmonary process. [facility], , 12/03/2024 8:49 PM
[2024-12-03] MEDS: OSELTAMIVIR 75 MG CAP PO STA (21:03)
[2024-12-03 21:08] VITALS: BP 126/75; PULSE 73; TEMP 97.8
== END 2024-12-03 21:08 | disposition home or self-care (01) ==
LOC: EC 19:18
DX: J10.1 Influenza due to other identified influenza virus with other respiratory manifestations (principal); R10.33 Periumbilical pain; F17.200 Nicotine dependence, unspecified, uncomplicated; Z88.1 Allergy status to other antibiotic agents; Z88.2 Allergy status to sulfonamides; Z88.6 Allergy status to analgesic agent; Z88.8 Allergy status to other drugs, medicaments and biological substances
CPT/HCPCS: 99285; 96372; 94640; 87636; 71046; J2405

== ENCOUNTER 2025-01-11 00:20 | Observation (INO) | payer OTHER ==
--- NOTE | 2025-01-11 01:20 | ED ---
General Adult HPI - General Chief complaint: Abdominal Pain Stated complaint: Abdominal Pain Time Seen by Provider: 01/11/25 00:44 Source: patient Mode of arrival: ambulatory Limitations: no limitations - History of Present Illness Initial comments: Patient is a 49-year-old female past medical history COPD, CKD presenting today for right lower quadrant abdominal pain x 1 day. Patient states that she noticed earlier this afternoon. She had a fever 101 degrees about 10 PM and took 2 extra strength Tylenol at that time. She says she has had 2 episodes of nonbloody nonbilious emesis as well. States when she walks and moves her right leg forward it hurts her abdomen. She has a prior surgical history of a prior cholecystectomy and abdominal hernia repair. No prior appendectomy. Has had a prior uterine ablation. Denies new vaginal discharge, dysuria, hematuria. Denies melena or hematochezia, has had regular bowel movements without diarrhea. Denies chest pain or shortness of breath. - Related Data Home Medications Medication Instructions Recorded Confirmed Fluticasone Nasal [place] [Flonase 1 spray EA NOSTRIL BID PRN 07/10/15 01/11/25 Nasal [place]] Levothyroxine Sodium [Synthroid] 88 mcg PO DAILY 07/10/15 01/11/25 gemfibroziL [Lopid] 600 mg PO BID 01/23/17 01/11/25 Linaclotide [Linzess] 145 mcg PO DAILY 08/17/20 01/11/25 Mupirocin 2% Oint [Bactroban 2% 1 applic TOPICAL BID PRN 06/20/21 01/11/25 Oint] Albuterol Sulfate [Albuterol 1 puff PO RT-QID PRN 09/23/24 01/11/25 Sulfate Hfa] Baclofen 20 mg PO HS 09/23/24 01/11/25 Cetirizine HCl [Zyrtec] 10 mg PO DAILY 09/23/24 01/11/25 Cholecalciferol (Vitamin D3) 1,250 mcg PO Q7D 09/23/24 01/11/25 [Vitamin D3 (1250 Mcg = 50,000 Iu)] Famotidine [Pepcid] 20 mg PO BID 09/23/24 01/11/25 Ipratropium/Albuter 20-100Mcg 2 puff INHALATION RT-BID 09/23/24 01/11/25 [Combivent Respimat 20-100Mcg Inhaler] Pantoprazole [Protonix] 40 mg PO BID 09/23/24 01/11/25 Topiramate [Topamax] 200 mg PO DAILY 09/23/24 01/11/25 busPIRone HCL 5 mg PO TID PRN 09/23/24 01/11/25 Acetaminophen Tab [Tylenol] 500 mg PO BID 01/11/25 01/11/25 Ciprofloxacin Ophth Soln [Cipro 1 drops BOTH EYES DIRECTED 01/11/25 01/11/25 0.3% Ophth Soln] Previous Rx's Medication Instructions Recorded HYDROcodone/APAP 5-325MG [[place] 1 tab PO Q6HR PRN 3 Days #12 tab 01/12/25 5-325] Levofloxacin [Levaquin] 500 mg PO DAILY 5 Days #5 tab 01/12/25 metroNIDAZOLE [Flagyl] 500 mg PO TID 5 Days #15 tab 01/12/25 Allergies Allergy/AdvReac Type Severity Reaction Status Date / Time [place] And Derivatives Allergy Unknown Swelling Verified 01/11/25 19:28 cephalexin monohydrate Allergy Rash/Hives Verified 01/11/25 09:23 [From Keflex] losartan Allergy Anaphylaxis Verified 01/11/25 09:23 prednisone Allergy Swelling Verified 01/11/25 09:23 of Feet - IV version ok per patient sulfamethoxazole Allergy Anaphylaxis Verified 01/11/25 09:23 [From Bactrim] trimethoprim [From Bactrim] Allergy Anaphylaxis Verified 01/11/25 09:23 ibuprofen AdvReac kidney Verified 01/11/25 09:23 disease Review of Systems ROS Statement: Those systems with pertinent positive or pertinent negative responses have been documented in the HPI. ROS Other: All systems not noted in ROS Statement are negative. Past Medical History Past Medical History: Diabetes Mellitus, GERD/Reflux, Hyperlipidemia, Hypertension, Mitral Valve Prolapse (MVP), Osteoarthritis (OA), Renal Disease, Respiratory Disorder, Skin Disorder, Thyroid Disorder Additional Past Medical History / Comment(s): HEART MURMUR, LEAKY HEART VALVES (STATES PRE-MEDICATED PRIOR TO PROCEDURES). HX OF DIVERTICULITIS. IBS. BRONCHIECTASIS. MIGRAINES. HX OF STOMACH ULCERS. OVARIAN SYNDROME. HIDRADENITIS, SKIN DISORDER. "LIVER INFLAMED." "KIDNEY FUNCTION @ 60%." EDEMA BLE, WEARING YRN HOSE. Hx of herniated discs History of Any Multi-Drug Resistant Organisms: None Reported Past Surgical History: Breast Surgery, Cholecystectomy, Hernia Repair, Orthopedic Surgery, Tubal Ligation, Uterine Ablation Additional Past Surgical History / Comment(s): lt foot surgery, BUNIONECTOMY, Bilat CTR Colonoscopy, egd, left breast lesion removal Past Anesthesia/Blood Transfusion Reactions: Motion Sickness Past Psychological History: Anxiety Smoking Status: Current every day smoker Past Alcohol Use History: None Reported Past Drug Use History: None Reported - Past Family History Mother Family Medical History: Myocardial Infarction ([place]) Additional Family Medical History / Comment(s): Pacemaker. Father Family Medical History: Cancer Additional Family Medical History / Comment(s): LIVER CANCER. General Exam - General Exam Comments Initial Comments: PE: CONSTITUTIONAL: no apparent distress, somewhat ill appearing SKIN: Warm, dry, no jaundice, hives or petechiae EYES: Pupils are equally round, extraocular movements intact without nystagmus, clear conjunctiva, non-icteric sclera HENT: Normocephalic, atraumatic, moist mucus membranes, oropharynx clear without exudates NECK: , Full range of motion, normal appearance PULMONARY: Clear to auscultation without wheezes, rhonchi, or rales, normal excursion, no accessory muscle use and no stridor CARDIOVASCULAR: Regular rate, rhythm, normal S1 and S2. No appreciated murmurs, rubs or gallops. Strong radial pulses with intact distal perfusion. No lower extremity edema GASTROINTESTINAL: Soft, active bowel sounds throughout, tenderness outpatient in the right lower quadrant, positive McBurney's point, periumbilical tenderness to palpation, positive psoas sign, negative Rovsing sign, non-distended, no palpable masses, no rebound; guarding palpation of the right lower quadrant no hepatosplenomegaly GENITOURINARY: MUSCULOSKELETAL: Extremities have no gross deformity, no edema, redness, or swelling. No calf swelling NEUROLOGIC:_a/o x 3, GCS 15, normal mentation and speech. Moves all extremities x 4 without motor or sensory deficit PSYCHIATRIC:_normal mood and affect, thought process is clear and linear Limitations: no limitations Course Vital Signs 01/11/25 01/11/25 01/11/25 00:34 02:15 06:54 Temperature 98.6 F 98.0 F 98.4 F Pulse Rate 77 65 Respiratory 18 18 Rate Blood Pressure 98/62 101/61 O2 Sat by Pulse 99 98 Oximetry 01/11/25 01/11/25 08:08 11:27 Temperature 97.6 F 99.3 F Pulse Rate 73 70 Respiratory 16 16 Rate Blood Pressure 97/59 95/62 O2 Sat by Pulse 98 100 Oximetry EKG Findings - EKG Comments: EKG Findings:: Sinus rhythm, rate 67 bpm normal intervals, no ST elevations or depressions, no arrhythmia Medical Decision Making - Medical Decision Making Was pt. sent in by a medical professional or institution (, PA, CAREER SERVICES REPRESENTATIVE, urgent care, hospital, or retirement...) When possible be specific @ -No Did you speak to anyone other than the patient for history (EMS, parent, family, police, friend...)? What history was obtained from this source @ -No Did you review nursing and triage notes (agree or disagree)? Why? @ -I reviewed and agree with nursing and triage notes Were old charts reviewed (outside hosp., previous admission, EMS record, old EKG, old radiological studies, urgent care reports/EKG's, retirement records)? Report findings @ -Medical records reviewed- Patient had prior abdomen pelvis CT done on 11/24/2023 which showed uncomplicated diverticulitis, Differential Diagnosis (chest pain, altered mental status, abdominal pain women, abdominal pain men, vaginal bleeding, weakness, fever, dyspnea, syncope, headache, dizziness, GI bleed, back pain, seizure, CVA, palpatations, mental health, musculoskeletal)? Differential Abdominal Pain Women: Appendicitis, Cholecystitis, diverticulosis, ischemic bowel, pancreatitis, hepatitis, UTI, gastroenteritis, AAA, incarcerated hernia, bowel obstruction, c onstipation, inflammatory bowel, hepatitis, peptic ulcer disease, splenic infarction, perforated viscus, ovarian torsion, PID, kidney stone this is not meant to be an all-inclusive list EKG interpreted by me (3pts min.). @ -As above X-rays interpreted by me (1pt min.). @ -None done CT interpreted by me (1pt min.). @I personally reviewed CT abdomen/pelvis, appears to show an enlarged and inflamed appendix consistent with appendicits, I agree with radiologist interpretation U/S interpreted by me (1pt. min.). @ -None done What testing was considered but not performed or refused? (CT, X-rays, U/S, labs)? Why? @ -None What meds were considered but not given or refused? Why? @ -None Did you discuss the management of the patient with other professionals (professionals i.e. , PA, CAREER SERVICES REPRESENTATIVE, lab, RT, psych nurse, director social service, boiling house hand, teacher, combat information center officer, case technician)? Give summary @Case discussed with Dr. Pozo, requests admission to Dr. Wilder, project management consultant for surgery today. Antibiotics ordered, admission orders placed. Was smoking cessation discussed for >3mins.? @ -No Was critical care preformed (if so, how long)? @ -No Were there social determinants of health that impacted care today? How? (Homelessness, low income, unemployed, alcoholism, drug addiction, transportation, low edu. Level, literacy, decrease access to med. care, care home, rehab)? @ -No Was there de-escalation of care discussed even if they declined (Discuss DNR or withdrawal of care, Hospice)? @ -No What co-morbidities impacted this encounter? (DM, HTN, Smoking, COPD, CAD, Cancer, CVA, ARF, Chemo, Hep., AIDS, mental health diagnosis, sleep apnea, morbid obesity)? @ COPD Was patient admitted / discharged? Hospital course, mention meds given and route, prescriptions, significant lab abnormalities, going to OR and other pertinent info. @Admission- This is a pleasant 49-year-old female presenting today for right low er quadrant pain x 1 evening, fever of 101 at home. Vital signs stable here on arrival. Exam significant for positive McBurney's point and positive psoas sign. Top consideration is appendicitis versus diverticulitis. Plan for labs, imaging IV fluids and pain control. CT consistent with acute appendicitis. Pt with cephalosporin allergy, ordered levaquin. On reassessment patient endorsed some improvement in pain, though pain is returning. Discussed with patient findings on CT and plan for admission for surgical evaluation. Patient agreeable and understanding of POC. Additional pain control ordered. Patient admitted to Dr. Wilder in stable condition. Undiagnosed new problem with uncertain prognosis? @ -No Drug Therapy requiring intensive monitoring for toxicity (Heparin, Nitro, Insulin, Cardizem)? @ -No Were any procedures done? @ -No Diagnosis/symptom? acute appendicitis Acute, or Chronic, or Acute on Chronic? @ acute Uncomplicated (without systemic symptoms) or Complicated (systemic symptoms)? @complicated Side effects of treatment? @ -No Exacerbation, Progression, or Severe Exacerbation? @ -No Poses a threat to life or bodily function? How? (Chest pain, [place], [place], pneumonia, PE, COPD, DKA, ARF, appy, cholecystitis, CVA, Diverticulitis, Homicidal, Suicidal, threat to staff... and all critical care pts) @yes if left untreated would lead to sepsis, septic shock and - Lab Data Result diagrams: 01/12/25 04:08 01/12/25 04:08 Lab Results 01/11/25 01/11/25 01/11/25 Range/Units 01:42 01:42 01:42 WBC 15.2 H (3.8-10.6) k/uL RBC 3.94 (3.80-5.40) m/uL Hgb 13.1 (11.4-16.0) gm/dL Hct 38.8 (34.0-46.0) % MCV 98.4 (80.0-100.0) fL MCH 33.2 (25.0-35.0) pg MCHC 33.8 (31.0-37.0) g/dL RDW 12.9 (11.5-15.5) % Plt Count 204 (150-450) k/uL MPV 8.2 Neutrophils % 74 % Lymphocytes % 18 % Monocytes % 5 % Eosinophils % 1 % Basophils % 0 % Neutrophils # 11.3 H (1.3-7.7) k/uL Lymphocytes # 2.7 (1.0-4.8) k/uL Monocytes # 0.8 (0-1.0) k/uL Eosinophils # 0.2 (0-0.7) k/uL Basophils # 0.0 (0-0.2) k/uL PT 10.3 (10.0-12.5) sec INR 0.9 (<1.2) APTT 24.6 (22.0-30.0) sec Sodium 136 L (137-145) mmol/L Potassium 3.9 (3.5-5.1) mmol/L Chloride 106 (98-107) mmol/L Carbon Dioxide 18 L (22-30) mmol/L Anion Gap 12 mmol/L BUN 20 H (7-17) mg/dL Creatinine 1.19 H (0.52-1.04) mg/dL Est GFR (CKD-EPI)AfAm 63 (>60 ml/min/1.73 sqM) Est GFR (CKD-EPI)NonAf 54 (>60 ml/min/1.73 sqM) Glucose 106 H (74-99) mg/dL Plasma Lactic Acid Rob (0.7-2.0) mmol/L Calcium 8.9 (8.4-10.2) mg/dL Total Bilirubin 0.4 (0.2-1.3) mg/dL AST 16 (14-36) U/L ALT 14 (4-34) U/L Alkaline Phosphatase 70 (38-126) U/L C-Reactive Protein 8.7 H (<1.0) mg/dL Total Protein 6.8 (6.3-8.2) g/dL Albumin 3.9 (3.5-5.0) g/dL Amylase 35 (30-110) U/L Lipase 169 (23-300) U/L HCG, Quant <2.4 mIU/mL Urine Color Urine Appearance (Clear) Urine pH (5.0-8.0) Ur Specific [place] (1.001-1.035) Urine Protein (Negative) Urine Glucose (UA) (Negative) Urine Ketones (Negative) Urine Blood (Negative) Urine Nitrite (Negative) Urine Bilirubin (Negative) Urine Urobilinogen (<2.0) mg/dL Ur Leukocyte Esterase (Negative) Urine RBC (0-5) /hpf Urine WBC (0-5) /hpf Ur Squamous Epith Cells (0-4) /hpf Urine Bacteria (None) /hpf Urine Yeast (Budding) (None) /hpf 01/11/25 01/11/25 Range/Units 01:42 02:15 WBC (3.8-10.6) k/uL RBC (3.80-5.40) m/uL Hgb (11.4-16.0) gm/dL Hct (34.0-46.0) % MCV (80.0-100.0) fL MCH (25.0-35.0) pg MCHC (31.0-37.0) g/dL RDW (11.5-15.5) % Plt Count (150-450) k/uL MPV Neutrophils % % Lymphocytes % % Monocytes % % Eosinophils % % Basophils % % Neutrophils # (1.3-7.7) k/uL Lymphocytes # (1.0-4.8) k/uL Monocytes # (0-1.0) k/uL Eosinophils # (0-0.7) k/uL Basophils # (0-0.2) k/uL PT (10.0-12.5) sec INR (<1.2) APTT (22.0-30.0) sec Sodium (137-145) mmol/L Potassium (3.5-5.1) mmol/L Chloride (98-107) mmol/L Carbon Dioxide (22-30) mmol/L Anion Gap mmol/L BUN (7-17) mg/dL Creatinine (0.52-1.04) mg/dL Est GFR (CKD-EPI)AfAm (>60 ml/min/1.73 sqM) Est GFR (CKD-EPI)NonAf (>60 ml/min/1.73 sqM) Glucose (74-99) mg/dL Plasma Lactic Acid Rob 1.2 (0.7-2.0) mmol/L Calcium (8.4-10.2) mg/dL Total Bilirubin (0.2-1.3) mg/dL AST (14-36) U/L ALT (4-34) U/L Alkaline Phosphatase (38-126) U/L C-Reactive Protein (<1.0) mg/dL Total Protein (6.3-8.2) g/dL Albumin (3.5-5.0) g/dL Amylase (30-110) U/L Lipase (23-300) U/L HCG, Quant mIU/mL Urine Color Colorless Urine Appearance Clear (Clear) Urine pH 6.5 (5.0-8.0) Ur Specific [place] 1.010 (1.001-1.035) Urine Protein Negative (Negative) Urine Glucose (UA) Negative (Negative) Urine Ketones Negative (Negative) Urine Blood Negative (Negative) Urine Nitrite Negative (Negative) Urine Bilirubin Negative (Negative) Urine Urobilinogen <2.0 (<2.0) mg/dL Ur Leukocyte Esterase Small H (Negative) Urine RBC 1 (0-5) /hpf Urine WBC 4 (0-5) /hpf Ur Squamous Epith Cells 4 (0-4) /hpf Urine Bacteria Many H (None) /hpf Urine Yeast (Budding) Rare H (None) /hpf Disposition Clinical Impression: Acute appendicitis Disposition: ADMITTED IP TO THIS HOSP Condition: Stable
[2025-01-11] MEDS: LACTATED RINGERS 1,000 ML IV ONE (02:00)
[2025-01-11 02:01] LABS: Basophils % (A) 0 %; Eosinophils # (A) 0.2 k/uL (0-0.7); Eosinophils % (A) 1 %; HCT 38.8 % (34.0-46.0); HGB 13.1 gm/dL (11.4-16.0); Lymphocytes # (A) 2.7 k/uL (1.0-4.8); Lymphocytes % (A) 18 %; MCH 33.2 pg (25.0-35.0); MCHC 33.8 g/dL (31.0-37.0); MCV 98.4 fL (80.0-100.0); Mean Platelet Volume 8.2; Monocytes # (A) 0.8 k/uL (0-1.0); Monocytes % (A) 5 %; Neutrophils # (A) 11.3 k/uL (1.3-7.7); Neutrophils % (A) 74 %; Platelet Count 204 k/uL (150-450); RBC 3.94 m/uL (3.80-5.40); RDW 12.9 % (11.5-15.5); WBC 15.2 k/uL (3.8-10.6)
[2025-01-11] MEDS: MORPHINE SULFATE 4 MG/ML SYRINGE IVP STA ×2 (02:01→05:26)
[2025-01-11] MEDS: ONDANSETRON 4 MG/2 ML VIAL IVP STA ×2 (02:01→05:26)
[2025-01-11 02:12] LABS: ALT 14 U/L (4-34); AST 16 U/L (14-36); African American GFR (CKD) 63 (>60 ml/min/1.73 sqM); Albumin 3.9 g/dL (3.5-5.0); Alkaline Phosphatase 70 U/L (38-126); Amylase 35 U/L (30-110); Anion Gap 12 mmol/L; Blood Urea Nitrogen 20 mg/dL (7-17); C Reactive Protein 8.7 mg/dL (<1.0); Calcium 8.9 mg/dL (8.4-10.2); Carbon Dioxide 18 mmol/L (22-30); Chloride 106 mmol/L (98-107); Glucose 106 mg/dL (74-99); Lipase 169 U/L (23-300); Non-African American GFR(CKD) 54 (>60 ml/min/1.73 sqM); Potassium 3.9 mmol/L (3.5-5.1); Sodium 136 mmol/L (137-145); Total Bilirubin 0.4 mg/dL (0.2-1.3); Total Protein 6.8 g/dL (6.3-8.2)
[2025-01-11 02:24] LABS: INR 0.9 (<1.2); Partial Thromboplastin Time 24.6 sec (22.0-30.0); Prothrombin Time 10.3 sec (10.0-12.5)
[2025-01-11 02:26] LABS: HCG,Quantitative Serum <2.4 mIU/mL
[2025-01-11 02:50] LABS: Appearance,Urine Clear (Clear); Bacteria,Urine Many /hpf; Bilirubin,Urine Negative (Negative); Blood,Urine Negative (Negative); Budding Yeast,Urine Rare /hpf; Color,Urine Colorless; Glucose,Urine (UA) Negative (Negative); Ketones,Urine Negative (Negative); Leukocyte Esterase,Urine Small (Negative); Nitrite,Urine Negative (Negative); PH, Urine 6.5 (5.0-8.0); Protein,Urine Negative (Negative); RBC,Urine 1 /hpf (0-5); Squamous Epithelial Cell,Urine 4 /hpf (0-4); Urobilinogen,Urine <2.0 mg/dL (<2.0); WBC,Urine 4 /hpf (0-5)
--- NOTE | 2025-01-11 06:14 | CT ---
EXAM: CT Abdomen and Pelvis With Intravenous Contrast CLINICAL HISTORY: ITS.REASON CT Reason: RLQ ab pain, appy vsdiverticulitis? TECHNIQUE: Axial computed tomography images of the abdomen and pelvis with intravenous contrast. CTDI is 33 mGy and DLP is 1526.8 mGy-cm. This CT exam was performed using one or more of the following dose reduction techniques: automated exposure control, adjustment of the mA and/or kV according to patient size, and/or use of iterative reconstruction technique. COMPARISON: No relevant prior studies available. FINDINGS: Lung bases: Unremarkable. No mass. No consolidation. Coronary artery calcifications. ABDOMEN: Liver: Unremarkable. No mass. Gallbladder and bile ducts: Cholecystectomy changes. The common duct measures up to 9 mm which can be seen with reservoir effect. Pancreas: Unremarkable. No mass. No ductal dilation. Spleen: Unremarkable. No splenomegaly. Adrenals: Left adrenal nodules, the largest measuring up to 1.6 cm. ACR White Paper guidelines (Lopez et al. JACR 2017; 14(8):1038- 1044) suggest the following. If there is no history of malignancy consider a follow-up low dose, non-contrast adrenal CT or chemical-shift adrenal MRI in 12 months. If there is a history of malignancy recommend a low dose, non-emergent, non-contrast adrenal CT or chemical-shift adrenal MRI follow-up study. Kidneys and ureters: Unremarkable. No solid mass. No hydronephrosis. Stomach and bowel: No evidence of bowel obstruction or ileus. No mucosal thickening. PELVIS: Appendix: Acute appendicitis with a dilated and inflamed appendix measuring up to 1.3 cm in luminal cross-sectional diameter. Associated with this is obstructive appendicolith measuring up to 1.3 cm. Prominent adjacent inflammatory change noted which is likely reactive. Recommend surgical consultation. No evidence of appendiceal perforation or abscess. Bladder: Unremarkable. No mass. Reproductive: Unremarkable as visualized. ABDOMEN and PELVIS: Intraperitoneal space: Unremarkable. No free air. No significant fluid collection. Bones/joints: Degenerative changes in the spine. No acute fracture. No dislocation. Soft tissues: Unremarkable. Vasculature: Atherosclerotic disease. No abdominal aortic aneurysm. Lymph nodes: Unremarkable. No enlarged lymph nodes. IMPRESSION: 1. Acute appendicitis with a dilated and inflamed appendix measuring up to 1.3 cm in luminal cross-sectional diameter. Associated with this is obstructive appendicolith measuring up to 1.3 cm. Prominent adjacent inflammatory change noted which is likely reactive. Recommend surgical consultation. 2. No evidence of appendiceal perforation or abscess. 3. No evidence of bowel obstruction or ileus. 4. Left adrenal nodules, the largest measuring up to 1.6 cm. ACR White Paper guidelines (Lopez et al. JACR 2017; 14(8):9261-4418) suggest the following. If there is no history of malignancy consider a follow-up low dose, non-contrast adrenal CT or chemical-shift adrenal MRI in 12 months. If there is a history of malignancy recommend a low dose, non- emergent, non-contrast adrenal CT or chemical-shift adrenal MRI follow-up study. 5. Other incidental findings as described. <MYCVCSECTION> Communications: 01/11/25 06:25 Verify Receipt Verified receipt with RAMANA Purdy in ER for Dr. Harrell on 01/11 06:24 (-04:00)
[2025-01-11] MEDS ORDERED: NALOXONE 0.4 MG/ML 1 ML VIAL IV PRN (07:43)
[2025-01-11] MEDS ORDERED: ALPRAZolam 0.25 MG TAB PO PRN (07:43)
[2025-01-11] MEDS ORDERED: HYDROmorphone 1 MG/ML 1 ML SYRINGE IVP PRN (07:43)
[2025-01-11] MEDS ORDERED: ONDANSETRON 4 MG/2 ML VIAL IVP PRN (07:43)
[2025-01-11] MEDS ORDERED: ACETAMINOPHEN IV (For NPO) 1,000 MG in EMPTY BAG 1 BAG IVPB PRN (07:46)
[2025-01-11] MEDS: metroNIDAZOLE-NS PMX 500 MG in SALINE 1 100ML.BAG IVPB STA (08:12)
[2025-01-11] MEDS: PANTOPRAZOLE 40 MG/10 ML VIAL IV SCH (09:35)
[2025-01-11] MEDS: LEVOFLOXACIN 750MG-D5W PMX 750 MG in DEXTROSE/WATER 1 150ML.BAG IVPB STA (09:39)
[2025-01-11] MEDS: DEXTROSE 5%-0.45% NACL 1,000 ML IV SCH ×2 (11:32→21:54)
--- NOTE | 2025-01-11 11:47 | P.GSHP ---
History of Present Illness H&P Date: 01/11/25 CHIEF COMPLAINT: Abdominal pain HISTORY OF PRESENT ILLNESS: This is a 49-year-old female who presented with right lower quadrant abdominal pain x 2 days. She reports having nausea and vomiting. She did have a temp of 101 at home. She reports that pain also radiated from the right lower quadrant into the umbilicus area. She had a CT scan abdomen pelvis reporting acute appendicitis. Patient started on IV antibiotics and admitted to surgical service. BP on the lower side. Past surgical history includes cholecystectomy and an abdominal hernia repair. Medical history includes COPD, chronic kidney disease, diabetes mellitus, mitral valve prolapse and nicotine dependence. PAST MEDICAL HISTORY: See below PAST SURGICAL HISTORY: See below MEDICATIONS: See below ALLERGIES: See below SOCIAL HISTORY: No illicit drug use. REVIEW OF SYSTEMS: CONSTITUTIONAL: Denies fever or chills. HEENT: Denies blurred vision, vision changes, or eye pain. Denies hemoptysis CARDIOVASCULAR: Denies chest pain or pressure. RESPIRATORY: No shortness of breath. GASTROINTESTINAL: See HPI for pertinent findings HEMATOLOGIC: Denies bleeding disorders. GENITOURINARY: Denies any blood in urine or increased urinary frequency. SKIN: Denies pruitis. Denies rash. PHYSICAL EXAM: VITAL SIGNS: Reviewed GENERAL: Well-developed in no acute distress. HEENT: No sclera icterus. Extraocular movements grossly intact. Moist buccal mucosa. Head is atraumatic, normocephalic. No nasal drainage. ABDOMEN: Soft. Nondistended. Tenderness palpation right lower quadrant and umbilicus. No rebound or guarding noted. NEUROLOGIC: Alert and oriented. Cranial nerves II through XII grossly intact. LABORATORY DATA: WBC 15.2 Hgb 13.1 platelets 204 Sodium 136 potassium 3.9 creatinine 1.19 Lactic acid 1.2 HCG less than 2.4 IMAGING: CT scan abdomen pelvis reports acute appendicitis with dilated and inflamed appendix measuring up to 1.3 cm. Associated with this is obstructive appendicolith measuring 1.3 cm. No evidence of perforation or abscess. Left adrenal nodules. ASSESSMENT: 1. Acute appendicitis PLAN: -Patient scheduled for laparoscopic appendectomy today with Dr. Wilder -Keep patient n.p.o. -Continue IV antibiotics -Increase IV fluids to 100 mL/h Physician Diabetes Nurse note has been reviewed by physician. Signing provider agrees with the documented findings, assessment, and plan of care. Attestation Patient seen and examined at bedside. Presented with chief complaint of abdominal pain for 2 days. On workup she is found to have acute appendicitis. Plan is to start IV antibiotics and continue IV fluids. Keep n.p.o. with plan for laparoscopic appendectomy. Further recommendations after procedure is completed. Nicole Wilder DO Past Medical History Past Medical History: Diabetes Mellitus, GERD/Reflux, Hyperlipidemia, Hypertension, Mitral Valve Prolapse (MVP), Osteoarthritis (OA), Renal Disease, Respiratory Disorder, Skin Disorder, Thyroid Disorder Additional Past Medical History / Comment(s): HEART MURMUR, LEAKY HEART VALVES (STATES PRE-MEDICATED PRIOR TO PROCEDURES). HX OF DIVERTICULITIS. IBS. BRONC HIECTASIS. MIGRAINES. HX OF STOMACH ULCERS. OVARIAN SYNDROME. HIDRADENITIS, SKIN DISORDER. "LIVER INFLAMED." "KIDNEY FUNCTION @ 60%." EDEMA BLE, WEARING YRN HOSE. Hx of herniated discs History of Any Multi-Drug Resistant Organisms: None Reported Past Surgical History: Breast Surgery, Cholecystectomy, Hernia Repair, Orthopedic Surgery, Tubal Ligation, Uterine Ablation Additional Past Surgical History / Comment(s): lt foot surgery, BUNIONECTOMY, Bilat CTR Colonoscopy, egd, left breast lesion removal Past Anesthesia/Blood Transfusion Reactions: Motion Sickness Past Psychological History: Anxiety Smoking Status: Current every day smoker Past Alcohol Use History: None Reported Past Drug Use History: None Reported - Past Family History Mother Family Medical History: Myocardial Infarction (VT) Additional Family Medical History / Comment(s): Pacemaker. Father Family Medical History: Cancer Additional Family Medical History / Comment(s): LIVER CANCER. Medications and Allergies Home Medications Medication Instructions Recorded Confirmed Type Fluticasone Nasal [place] [Flonase 1 spray EA NOSTRIL BID PRN 07/10/15 01/11/25 History Nasal [place]] Levothyroxine Sodium [Synthroid] 88 mcg PO DAILY 07/10/15 01/11/25 History Baclofen [Lioresal] 10 mg PO DAILY 08/13/16 01/11/25 History gemfibroziL [Lopid] 600 mg PO BID 01/23/17 01/11/25 History Linaclotide [Linzess] 145 mcg PO DAILY 08/17/20 01/11/25 History Mupirocin 2% Oint [Bactroban 2% 1 applic TOPICAL BID PRN 06/20/21 01/11/25 History Oint] Albuterol Sulfate [Albuterol 1 puff PO RT-QID PRN 09/23/24 01/11/25 History Sulfate Hfa] Baclofen 20 mg PO HS 09/23/24 01/11/25 History Cetirizine HCl [Zyrtec] 10 mg PO DAILY 09/23/24 01/11/25 History Cholecalciferol (Vitamin D3) 1,250 mcg PO Q7D 09/23/24 01/11/25 History [Vitamin D3 (1250 Mcg = 50,000 Iu)] Famotidine [Pepcid] 20 mg PO BID 09/23/24 01/11/25 History Ipratropium/Albuter 20-100Mcg 2 puff INHALATION RT-BID 09/23/24 01/11/25 History [Combivent Respimat 20-100Mcg Inhaler] Pantoprazole [Protonix] 40 mg PO BID 09/23/24 01/11/25 History Topiramate [Topamax] 200 mg PO DAILY 09/23/24 01/11/25 History busPIRone HCL 5 mg PO TID PRN 09/23/24 01/11/25 History Acetaminophen Tab [Tylenol Tab] 500 mg PO BID 01/11/25 01/11/25 History Ciprofloxacin Ophth Soln [Cipro 1 drops BOTH EYES DIRECTED 01/11/25 01/11/25 History 0.3% Ophth Soln] SUMAtriptan succinate [Imitrex] 25 mg PO DAILY PRN 01/11/25 01/11/25 History Allergies Allergy/AdvReac Type Severity Reaction Status Date / Time cephalexin monohydrate Allergy Rash/Hives Verified 01/11/25 09:23 [From Keflex] losartan Allergy Anaphylaxis Verified 01/11/25 09:23 prednisone Allergy Swelling Verified 01/11/25 09:23 of Feet - IV version ok per patient sulfamethoxazole Allergy Anaphylaxis Verified 01/11/25 09:23 [From Bactrim] trimethoprim [From Bactrim] Allergy Anaphylaxis Verified 01/11/25 09:23 ibuprofen AdvReac kidney Verified 01/11/25 09:23 disease Surgical - Exam Osteopathic Statement: *. No significant issues noted on an osteopathic structural exam other than those noted in the History and Physical/Consult. Vital Signs Temp Pulse Resp BP Pulse Ox 98.6 F 77 18 98/62 99 01/11/25 00:34 01/11/25 00:34 01/11/25 00:34 01/11/25 00:34 01/11/25 00:34 Results - Labs 01/11/25 01:42 01/11/25 01:42 Abnormal Lab Results - Last 24 Hours (Table) 01/11/25 01/11/25 01/11/25 Range/Units 01:42 01:42 02:15 WBC 15.2 H (3.8-10.6) k/uL Neutrophils # 11.3 H (1.3-7.7) k/uL Sodium 136 L (137-145) mmol/L Carbon Dioxide 18 L (22-30) mmol/L BUN 20 H (7-17) mg/dL Creatinine 1.19 H (0.52-1.04) mg/dL Glucose 106 H (74-99) mg/dL C-Reactive Protein 8.7 H (<1.0) mg/dL Ur Leukocyte Esterase Small H (Negative) Urine Bacteria Many H (None) /hpf Urine Yeast (Budding) Rare H (None) /hpf Diabetes panel 01/11/25 Range/Units 01:42 Sodium 136 L (137-145) mmol/L Potassium 3.9 (3.5-5.1) mmol/L Chloride 106 (98-107) mmol/L Carbon Dioxide 18 L (22-30) mmol/L BUN 20 H (7-17) mg/dL Creatinine 1.19 H (0.52-1.04) mg/dL Glucose 106 H (74-99) mg/dL Calcium 8.9 (8.4-10.2) mg/dL AST 16 (14-36) U/L ALT 14 (4-34) U/L Alkaline Phosphatase 70 (38-126) U/L Total Protein 6.8 (6.3-8.2) g/dL Albumin 3.9 (3.5-5.0) g/dL Calcium panel 01/11/25 Range/Units 01:42 Calcium 8.9 (8.4-10.2) mg/dL Albumin 3.9 (3.5-5.0) g/dL Pituitary panel 01/11/25 Range/Units 01:42 Sodium 136 L (137-145) mmol/L Potassium 3.9 (3.5-5.1) mmol/L Chloride 106 (98-107) mmol/L Carbon Dioxide 18 L (22-30) mmol/L BUN 20 H (7-17) mg/dL Creatinine 1.19 H (0.52-1.04) mg/dL Glucose 106 H (74-99) mg/dL Calcium 8.9 (8.4-10.2) mg/dL Adrenal panel 01/11/25 Range/Units 01:42 Sodium 136 L (137-145) mmol/L Potassium 3.9 (3.5-5.1) mmol/L Chloride 106 (98-107) mmol/L Carbon Dioxide 18 L (22-30) mmol/L BUN 20 H (7-17) mg/dL Creatinine 1.19 H (0.52-1.04) mg/dL Glucose 106 H (74-99) mg/dL Calcium 8.9 (8.4-10.2) mg/dL Total Bilirubin 0.4 (0.2-1.3) mg/dL AST 16 (14-36) U/L ALT 14 (4-34) U/L Alkaline Phosphatase 70 (38-126) U/L Total Protein 6.8 (6.3-8.2) g/dL Albumin 3.9 (3.5-5.0) g/dL
[2025-01-11] MEDS: IV FLUID CONTINUATION 1,000 ML IV ONE (11:59)
[2025-01-11] MEDS: IPRATROPIUM-ALBUTEROL 3 ML NEB INHALATION STA (12:24)
[2025-01-11] MEDS: DEXAMETHASONE SOD PHOSPHATE 4 MG/ML 1 ML VIAL IVP STA (12:25)
[2025-01-11] MEDS: HEPARIN SODIUM,PORCINE 5,000 UNIT/ML 1 ML VIAL SQ STA (12:27)
[2025-01-11] MEDS: FAMOTIDINE 20 MG/2 ML VIAL IV STA (12:33)
[2025-01-11] MEDS ORDERED: fentaNYL (PF) 50 MCG/ML 2 ML AMP ONE (12:57)
[2025-01-11] MEDS ORDERED: LIDOCAINE 1% INJ 10MG/ML (20 ML MDV) ONE (12:57)
[2025-01-11] MEDS ORDERED: SUCCINYLCHOLINE CHLORIDE 200 MG/10 ML VIAL IV ONE (12:57)
[2025-01-11] MEDS ORDERED: PROPOFOL 10 MG/ML 20 ML VIAL IV ONE (12:57)
[2025-01-11] MEDS ORDERED: GLYCOPYRROLATE 0.2 MG/ML 2 ML VIAL ONE (12:57)
[2025-01-11] MEDS ORDERED: ROCURONIUM 10 MG/ML (5 ML VIAL) IV ONE (12:57)
[2025-01-11] MEDS ORDERED: MIDAZOLAM 2 MG/2 ML VIAL ONE (12:57)
[2025-01-11] MEDS ORDERED: PHENYLEPHRINE-0.9% NACL SYG 1,000 MCG/10 ML SYRINGE ONE (12:57)
[2025-01-11] MEDS ORDERED: NEOSTIGMINE 1 MG/ML 10 ML VIAL ONE (12:57)
[2025-01-11] MEDS: LIDOCAINE 1%-EPI 1:100,000 20 ML VIAL SQ ONE (13:19)
[2025-01-11] MEDS ORDERED: HYDROcodone/APAP 5-325MG 1 EACH TAB PO PRN (14:44)
--- NOTE | 2025-01-11 14:47 | P.OP ---
Date of Procedure: 01/11/25 Preoperative Diagnosis: Acute appendicitis Postoperative Diagnosis: Acute appendicitis Procedure(s) Performed: Laparoscopic appendectomy Anesthesia: JAMI Surgeon: Nicole Wilder Pathology: other (Appendix) Condition: stable Disposition: floor Indications for Procedure: 49-year-old female presented to the emergency department with complaint of abdominal pain. On workup she is found to have acute appendicitis. Plan is for laparoscopic appendectomy. Risks, benefits and alternatives were provided to the patient. All questions answered. Operative Findings: Gangrenous appearing appendix Description of Procedure: Patient is brought to the operative suite placed in supine position on the operative table. Sedation was provided by anesthesia and the patient underwent endotracheal intubation. The patient was then prepped and draped in regular st erile fashion. Incision was made at Esqueda's point and the abdomen was entered under direct visualization using a 5 mm trocar. Pneumoperitoneum was achieved. Additional 5 mm trocar was placed at the suprapubic region and at the infraumbilical oriented. Patient was then positioned appropriately. The cecum was noted to have some purulent changes surrounding it and on evaluation appendix was noted to be adhered to the small bowel and was gangrenous appearing. This was peeled away from surrounding tissue and base of the appendix was clearly identified. A window was created between the appendix and the mesoappendix. LigaSure device was used to ligate the appendix from the mesoappendix. Stapler device was fired across the base of the appendix. Hemostasis was noted to be maintained. No evidence of bowel leakage. Appendix was placed in an Endo Catch bag and removed from the abdomen from the infraumbilical incision site. Irrigation was placed in the right lower quadrant and suction. Turbid fluid was drained from the pelvis. The infraumbilical incision was closed using 0 Vicryl suture under direct visualization and Chucky Haas device. Pneumoperitoneum was released. All ports removed from the abdomen. All skin incision sites were closed with 4-0 Vicryl subcuticular suture. Sterile dressing was applied. The patient was awakened in the operating suite and taken to postanesthesia care in stable condition.
[2025-01-11] MEDS: HEPARIN SODIUM 1,000 UN/ML (10ML VL) IVP STA (15:55)
[2025-01-11] MEDS: metroNIDAZOLE-NS PMX 500 MG in SALINE 1 100ML.BAG IVPB SCH (16:51)
[2025-01-11] MEDS ORDERED: [UNRECOGNIZED DRUG - OTHER] BOTH EYES SCH (18:30)
[2025-01-11] MEDS ORDERED: CIPROFLOXACIN BOTH EYES SCH (18:30)
[2025-01-11 20:49] LABS: Glucose,Whole Blood 129 mg/dL (70-110)
[2025-01-11] MEDS: IPRATROPIUM-ALBUTEROL 3 ML NEB INHALATION SCH (21:19)
[2025-01-11] MEDS: ACETAMINOPHEN TAB 500 MG TAB PO SCH (21:53)
[2025-01-11] MEDS: FAMOTIDINE 20 MG TAB PO SCH (21:54)
--- NOTE | 2025-01-12 02:04 | CONS ---
CONSULTATION CHIEF COMPLAINT: Abdominal pain and vomiting. HISTORY OF PRESENT ILLNESS: This lady presented to the emergency room after she developed lower abdominal pain with nausea and vomiting. CT suggested that there was an acute appendix and she was taken to the operating room. REVIEW OF SYSTEMS: She has had no other symptoms. Past medical history, family history, personal and social histories are otherwise essentially noncontributory. ALLERGIES: She is allergic to Singulair, losartan, sulfa, and cephalosporins. MEDICATIONS: She is on: 1. Topiramate 100 mg 2 a day. 2. Gemfibrozil 600 mg twice a day. 3. Baclofen 10 mg twice a day. 4. Levothyroxine 0.088 once a day. 5. Fluticasone. 6. Ventolin. 7. Combivent. 8. Pantoprazole 40 mg twice a day. 9. Linzess 145 mcg once a day. 10.Pepcid 20 mg once a day. 11.BuSpar 5 mg t.i.d. p.r.n. 12.Vitamin D. Her history is otherwise unremarkable. She does smoke. PHYSICAL EXAMINATION: VITAL SIGNS: Temperature is 100. HEAD, EARS, EYES, NOSE, MOUTH AND THROAT: Normal. CHEST: Clear. CARDIAC: Normal. ABDOMEN: Soft and she is tender in the right lower quadrant. Bowel sounds are absent. EXTREMITIES: Normal. NEUROLOGICAL: She is intact. She is admitted to the hospital with diagnoses of: 1. Acute appendicitis. 2. Chronic obstructive pulmonary disease. 3. History of gastritis. 4. Hypothyroidism. 5. Hyperlipidemia. RECOMMENDATIONS: None. MMODL / IJN: [id number] /
[2025-01-12 08:00] VITALS: BP 107/70; RESP 18; TEMP 97.9
[2025-01-12 08:29] LABS: ALT 12 U/L (8-44); AST 16 U/L (13-35); Albumin 3.4 g/dL (3.8-4.9); Albumin/Globulin Ratio 1.31 Ratio (1.60-3.17); Alkaline Phosphatase 62 U/L (41-126); Blood Urea Nitrogen 12.9 mg/dL (9.0-27.0); Calcium 8.3 mg/dL (8.7-10.3); Carbon Dioxide 19.5 mmol/L (21.6-31.8); Chloride 109 mmol/L (96-109); Globulin 2.6 g/dL (1.6-3.3); Glucose 112 mg/dL (70-110); Potassium 3.8 mmol/L (3.5-5.5); Sodium 138 mmol/L (135-145); Total Bilirubin 0.3 mg/dL (0.3-1.2)
[2025-01-12 08:44] LABS: Basophils # (A) 0.02 X 10*3/uL (0.00-0.10); Basophils % (A) 0.1 %; Eosinophils # (A) 0 X 10*3/uL (0.04-0.35); Eosinophils % (A) 0 %; HCT 32.6 % (37.2-46.3); HGB 10.6 g/dL (12.0-15.0); Lymphocytes # (A) 2.01 X 10*3/uL (0.90-5.00); Lymphocytes % (A) 14.7 %; MCH 32.7 pg (27.0-32.0); MCHC 32.5 g/dL (32.0-37.0); MCV 100.6 FL (80.0-97.0); Monocytes # (A) 0.93 X 10*3/uL (0.20-1.00); Monocytes % (A) 6.8 %; NRBC Per 100 WBC 0 X 10*3/uL (0.00-0.01); Neutrophils # (A) 10.68 X 10*3/uL (1.80-7.70); Platelet Count 188 X 10*3/uL (140-440); RBC 3.24 X 10*6/uL (4.10-5.20)
[2025-01-12] MEDS: TOPIRAMATE 100 MG TAB PO SCH (08:53)
[2025-01-12] MEDS: LEVOFLOXACIN 500MG-D5W PMX 500 MG in DEXTROSE/WATER 1 100ML.BAG IVPB SCH (08:54)
[2025-01-12] MEDS: MORPHINE SULFATE 2 MG/ML SYRINGE IVP PRN (09:00)
[2025-01-12 10:45] VITALS: PULSE 57
--- NOTE | 2025-01-12 12:52 | P.DS ---
Providers Date of admission: 01/11/25 07:45 Expected date of discharge: 01/12/25 Attending physician: Nicole Wilder DO Consults: 01/11/25 14:16 Consult Physician Routine Consulting Provider: Braulio Wiggins Consult Reason/Comments: medical management Do you want consulting provider notified?: Yes Primary care physician: Braulio Wiggins Hospital Course: Discharge diagnosis 1. Acute gangrenous appendicitis status post laparoscopic appendectomy Hospital course This is a 49-year-old female who presented with right lower quadrant abdominal pain x [address] scan abdomen pelvis had reported acute appendicitis. She is status post laparoscopic appendectomy. Patient tolerated surgery well. Her pain is controlled. She is tolerating diet. She denies any difficulty urinating. She has been up and ambulating. She is afebrile. She will be discharged with antibiotics. She is stable for discharge. Please refer to chart for any further details. Physician Cannon Pinion Adjuster note has been reviewed by physician. Signing provider agrees with the documented findings, assessment, and plan of care. Patient Condition at Discharge: Stable Plan - Discharge Summary Discharge Rx Participant: No New Discharge Prescriptions: New HYDROcodone/APAP 5-325MG [[place] 5-325] 1 tab PO Q6HR PRN 3 Days #12 tab PRN Reason: Pain Levofloxacin [Levaquin] 500 mg PO DAILY 5 Days #5 tab metroNIDAZOLE [Flagyl] 500 mg PO TID 5 Days #15 tab Continue Levothyroxine Sodium [Synthroid] 88 mcg PO DAILY Fluticasone Nasal [place] [Flonase Nasal [place]] 1 spray EA NOSTRIL BID PRN PRN Reason: Allergy Symptoms gemfibroziL [Lopid] 600 mg PO BID Linaclotide [Linzess] 145 mcg PO DAILY Baclofen 20 mg PO HS Famotidine [Pepcid] 20 mg PO BID Albuterol Sulfate [Albuterol Sulfate Hfa] 1 puff PO RT-QID PRN PRN Reason: Shortness Of Breath busPIRone HCL 5 mg PO TID PRN PRN Reason: Anxiety Ipratropium/Albuter 20-100Mcg [Combivent Respimat 20-100Mcg Inhaler] 2 puff INHALATION RT-BID Ciprofloxacin Ophth Soln [Cipro 0.3% Ophth Soln] 1 drops BOTH EYES DIRECTED Acetaminophen Tab [Tylenol] 500 mg PO BID Mupirocin 2% Oint [Bactroban 2% Oint] 1 applic TOPICAL BID PRN PRN Reason: Skin Irritation Cetirizine HCl [Zyrtec] 10 mg PO DAILY Topiramate [Topamax] 200 mg PO DAILY Cholecalciferol (Vitamin D3) [Vitamin D3 (1250 Mcg = 50,000 Iu)] 1,250 mcg PO Q7D Pantoprazole [Protonix] 40 mg PO BID Discontinued Baclofen [Lioresal] 10 mg PO DAILY SUMAtriptan succinate [Imitrex] 25 mg PO DAILY PRN PRN Reason: Migraine Headache Discharge Medication List Fluticasone Nasal [place] [Flonase Nasal [place]] 1 spray EA NOSTRIL BID PRN 07/10/15 [History] Levothyroxine Sodium [Synthroid] 88 mcg PO DAILY 07/10/15 [History] gemfibroziL [Lopid] 600 mg PO BID 01/23/17 [History] Linaclotide [Linzess] 145 mcg PO DAILY 08/17/20 [History] Mupirocin 2% Oint [Bactroban 2% Oint] 1 applic TOPICAL BID PRN 06/20/21 [History] Albuterol Sulfate [Albuterol Sulfate Hfa] 1 puff PO RT-QID PRN 09/23/24 [History] Baclofen 20 mg PO HS 09/23/24 [History] Cetirizine HCl [Zyrtec] 10 mg PO DAILY 09/23/24 [History] Cholecalciferol (Vitamin D3) [Vitamin D3 (1250 Mcg = 50,000 Iu)] 1,250 mcg PO Q7D 09/23/24 [History] Famotidine [Pepcid] 20 mg PO BID 09/23/24 [History] Ipratropium/Albuter 20-100Mcg [Combivent Respimat 20-100Mcg Inhaler] 2 puff INHALATION RT-BID 09/23/24 [History] Pantoprazole [Protonix] 40 mg PO BID 09/23/24 [History] Topiramate [Topamax] 200 mg PO DAILY 09/23/24 [History] busPIRone HCL 5 mg PO TID PRN 09/23/24 [History] Acetaminophen Tab [Tylenol] 500 mg PO BID 01/11/25 [History] Ciprofloxacin Ophth Soln [Cipro 0.3% Ophth Soln] 1 drops BOTH EYES DIRECTED 01/11/25 [History] HYDROcodone/APAP 5-325MG [[place] 5-325] 1 tab PO Q6HR PRN 3 Days #12 tab 01/12/25 [Rx] Levofloxacin [Levaquin] 500 mg PO DAILY 5 Days #5 tab 01/12/25 [Rx] metroNIDAZOLE [Flagyl] 500 mg PO TID 5 Days #15 tab 01/12/25 [Rx] Follow up Appointment(s)/Referral(s): Braulio Wiggins MD [Primary Care Provider] - 1-2 days Nicole Wilder DO [Doctor of Osteopathic Medicine] - 1 Week Activity/Diet/Wound Care/Special Instructions: No driving while taking [place] No lifting over 10 pounds Shower daily. No soaking or tub baths for 2 weeks Very light activity until you are reevaluated at your follow up appointment with your surgeon Patient can continue taking her baclofen home dose and Imitrex at home dose Discharge Disposition: HOME SELF-CARE
--- NOTE | 2025-01-13 01:16 | PN ---
PROGRESS NOTE CHIEF COMPLAINT: Acute appendicitis. HISTORY OF PRESENT ILLNESS: This lady is doing well. She has not had any fever or chills. She is not vomiting. She is urinating and passing gas. PHYSICAL EXAMINATION: CHEST: Clear. CARDIAC EXAM: Normal. IMPRESSION: Status post appendectomy. PLAN: Probably home today. MMODL / IJN: [id number] /
[2025-01-13] MEDS ORDERED: FAMOTIDINE 20 MG TAB PO SCH (09:00)
== END 2025-01-12 14:55 | disposition home or self-care (01) ==
LOC: EC 00:20 → 6NMEDSUR 07:45 → 4SSUR 14:37
PROVIDERS: ADMIT Surgery; ATTEND Surgery
DX: K35.891 Other acute appendicitis without perforation, with gangrene (principal); I12.9 Hypertensive chronic kidney disease with stage 1 through stage 4 chronic kidney disease, or unspecified chronic kidney disease; N18.9 Chronic kidney disease, unspecified; E11.22 Type 2 diabetes mellitus with diabetic chronic kidney disease; K57.90 Diverticulosis of intestine, part unspecified, without perforation or abscess without bleeding; K38.1 Appendicular concretions; J44.9 Chronic obstructive pulmonary disease, unspecified; I34.1 Nonrheumatic mitral (valve) prolapse; E03.9 Hypothyroidism, unspecified; E78.5 Hyperlipidemia, unspecified; F17.200 Nicotine dependence, unspecified, uncomplicated; Z79.890 Hormone replacement therapy; Z79.899 Other long term (current) drug therapy; Z88.1 Allergy status to other antibiotic agents; Z88.2 Allergy status to sulfonamides; Z88.8 Allergy status to other drugs, medicaments and biological substances; Z88.6 Allergy status to analgesic agent; Z91.018 Allergy to other foods; Z90.49 Acquired absence of other specified parts of digestive tract; Z98.890 Other specified postprocedural states; Z87.19 Personal history of other diseases of the digestive system
CPT/HCPCS: 96376; 96361; 96374; 96375; 99285; 36415; 94640 ×2; 93005; 81025; 88304; 80053 ×2; 82150; 83605; 83690; 85025 ×2; 85610; 85730; 86140; 81001; 84702; 74177; 44970; G0378 ×3; J2250; J0330; J2270 ×2; J1644; J1100; J2710; J2405; J1956 ×2; J2003; J3010; J3490; J2704; Q9967; J2371; J1836 ×2; J1596; J2470 ×2

== ENCOUNTER 2025-01-21 12:32 | Emergency (ER) | payer OTHER ==
[2025-01-21 12:45] VITALS: RESP 18
--- NOTE | 2025-01-21 14:11 | ED ---
Abdominal Pain HPI - General Source: patient, family, RN notes reviewed Mode of arrival: ambulatory Limitations: no limitations <Sonali Gunn - Last Filed: 01/21/25 16:41> <Rina Sheriff - Last Filed: 01/21/25 17:09> - General Chief Complaint: Abdominal Pain Stated Complaint: abd pain Time Seen by Provider: 01/21/25 14:10 - History of Present Illness Initial Comments: 49-year-old female presented to the ER for evaluation of abdominal pain. Patient underwent appendectomy with Dr. Wilder on 01 10 25. She states for the past 24 hours she has been endorsing a burning/sharp lower abdominal discomfort. Patient states pain does make her feel nauseous but denies any vomiting. Patient reports recent diarrhea but did recently finish up Levaquin and Flagyl approximately 3 days ago. She is taken [id number] Tylenol for her symptoms without any relief. Patient denies any fevers, chills, chest pain, sh ortness of breath, vaginal bleeding/discharge or urinary complaints. Patient is scheduled to follow-up with Dr. Wilder postoperatively on 01 24 25. (Sonali Gunn) - Related Data Home Medications Medication Instructions Recorded Confirmed Fluticasone Nasal [place] [Flonase 2 spray EA NOSTRIL BID PRN 07/10/15 01/21/25 Nasal [place]] Levothyroxine Sodium [Synthroid] 88 mcg PO DAILY 07/10/15 01/21/25 gemfibroziL [Lopid] 600 mg PO BID 01/23/17 01/21/25 Linaclotide [Linzess] 145 mcg PO DAILY 08/17/20 01/21/25 Mupirocin 2% Oint [Bactroban 2% 1 applic TOPICAL BID PRN 06/20/21 01/21/25 Oint] Albuterol Sulfate [Albuterol 1 puff INHALATION RT-QID PRN 09/23/24 01/21/25 Sulfate Hfa] Baclofen 20 mg PO HS 09/23/24 01/21/25 Cetirizine HCl [Zyrtec] 10 mg PO DAILY 09/23/24 01/21/25 Cholecalciferol (Vitamin D3) 1,250 mcg PO Q7D 09/23/24 01/21/25 [Vitamin D3 (1250 Mcg = 50,000 Iu)] Famotidine [Pepcid] 20 mg PO BID 09/23/24 01/21/25 Ipratropium/Albuter 20-100Mcg 2 puff INHALATION RT-BID 09/23/24 01/21/25 [Combivent Respimat 20-100Mcg Inhaler] Pantoprazole [Protonix] 40 mg PO BID 09/23/24 01/21/25 Topiramate [Topamax] 200 mg PO DAILY 09/23/24 01/21/25 busPIRone HCL 5 mg PO TID PRN 09/23/24 01/21/25 Acetaminophen Tab [Tylenol] 500 mg PO BID 01/11/25 01/21/25 Baclofen [Lioresal] 10 mg PO DAILY 01/21/25 01/21/25 Previous Rx's Medication Instructions Recorded HYDROcodone/APAP 5-325MG [[place] 1 tab PO Q6HR PRN 3 Days #12 tab 01/12/25 5-325] Allergies Allergy/AdvReac Type Severity Reaction Status Date / Time [place] And Derivatives Allergy Unknown Swelling Verified 01/21/25 15:33 cephalexin monohydrate Allergy Rash/Hives Verified 01/21/25 15:33 [From Keflex] losartan Allergy Anaphylaxis Verified 01/21/25 15:33 prednisone Allergy Swelling Verified 01/21/25 15:33 of Feet - IV version ok per patient sulfamethoxazole Allergy Anaphylaxis Verified 01/21/25 15:33 [From Bactrim] trimethoprim [From Bactrim] Allergy Anaphylaxis Verified 01/21/25 15:33 ibuprofen AdvReac kidney Verified 01/21/25 15:33 disease Review of Systems ROS Other: All systems not noted in ROS Statement are negative. <Sonali Gunn - Last Filed: 01/21/25 16:41> ROS Other: All systems not noted in ROS Statement are negative. <Rina Sheriff - Last Filed: 01/21/25 17:09> ROS Statement: Those systems with pertinent positive or pertinent negative responses have been documented in the HPI. Past Medical History Past Medical History: Diabetes Mellitus, GERD/Reflux, Hyperlipidemia, Hypertension, Mitral Valve Prolapse (MVP), Osteoarthritis (OA), Renal Disease, Respiratory Disorder, Skin Disorder, Thyroid Disorder Additional Past Medical History / Comment(s): HEART MURMUR, LEAKY HEART VALVES (STATES PRE-MEDICATED PRIOR TO PROCEDURES). HX OF DIVERTICULITIS. IBS. BRONCHIECTASIS. MIGRAINES. HX OF STOMACH ULCERS. OVARIAN SYNDROME. HIDRADENITIS, SKIN DISORDER. "LIVER INFLAMED." "KIDNEY FUNCTION @ 60%." EDEMA BLE, WEARING YRN HOSE. Hx of herniated discs History of Any Multi-Drug Resistant Organisms: None Reported Past Surgical History: Breast Surgery, Cholecystectomy, Hernia Repair, Orthopedic Surgery, Tubal Ligation, Uterine Ablation Additional Past Surgical History / Comment(s): lt foot surgery, BUNIONECTOMY, Bilat CTR Colonoscopy, egd, left breast lesion removal Past Anesthesia/Blood Transfusion Reactions: Motion Sickness Past Psychological History: Anxiety Smoking Status: Current every day smoker Past Alcohol Use History: None Reported Past Drug Use History: None Reported - Past Family History Mother Family Medical History: Myocardial Infarction ([place]) Additional Family Medical History / Comment(s): Pacemaker. Father Family Medical History: Cancer Additional Family Medical History / Comment(s): LIVER CANCER. <Sonali Gunn - Last Filed: 01/21/25 16:41> General Exam Limitations: no limitations General appearance: alert, in no apparent distress Respiratory exam: Present: normal lung sounds bilaterally. Absent: respiratory distress, wheezes, rales, rhonchi, stridor Cardiovascular Exam: Present: regular rate, normal rhythm, normal heart sounds. Absent: systolic murmur, diastolic murmur, rubs, gallop, clicks GI/Abdominal exam: Present: soft, tenderness (lower quadrants), normal bowel sounds, other (3 surgical laparoscopic incisions noted on abdomen. Left lower quadrant incision has surrounding contusion. No purulent drainage. Minimal dehiscence of umbilical wound) Extremities exam: Present: normal inspection, full ROM, normal capillary refill. Absent: tenderness, pedal edema, joint swelling, calf tenderness Neurological exam: Present: alert, oriented X3, CN II-XII intact Skin exam: Present: warm, dry, intact, normal color. Absent: rash <Sonali Gunn - Last Filed: 01/21/25 16:41> - General Exam Comments Initial Comments: Visual Physical Exam Vital signs reviewed General: Well-appearing, nontoxic, no acute distress. Head: Normocephalic, atraumatic Eyes: PERRLA, EOMI ENT: Airway patent Chest: Nonlabored breathing Skin: No visual rash, normal skin tone Neuro: Alert and oriented 3 Musculoskeletal: No gross abnormalities (Sonali Gunn) Course <Sonali Gunn - Last Filed: 01/21/25 16:41> Vital Signs 01/21/25 12:43 Temperature 98.1 F Pulse Rate 67 Respiratory 18 Rate Blood Pressure 126/82 O2 Sat by Pulse 100 Oximetry - Reevaluation(s) Reevaluation #1: 01/21/25 16:45 Case signed out to Rina Sheriff PA-C. (Sonali Gunn) Medical Decision Making - Lab Data Result diagrams: 01/21/25 14:51 01/21/25 14:51 <Sonali Gunn - Last Filed: 01/21/25 16:41> - Lab Data Result diagrams: 01/21/25 14:51 01/21/25 14:51 <Rina Sheriff - Last Filed: 01/21/25 17:09> - Medical Decision Making I performed the quick note portion of this chart. Electronically signed by Sonali Gunn PA-C Was pt. sent in by a medical professional or institution ([facility], MAINTENANCE SHOP MANAGER, urgent care, hospital, or group home...) When possible be specific @ -No Did you speak to anyone other than the patient for history (EMS, parent, family, police, friend...)? What history was obtained from this source @ -No Did you review nursing and triage notes (agree or disagree)? Why? @ -I reviewed and agree with nursing and triage notes Were old charts reviewed (outside hosp., previous admission, EMS record, old EKG, old radiological studies, urgent care reports/EKG's, group home records)? Report findings @ -No old charts were reviewed Differential Diagnosis (chest pain, altered mental status, abdominal pain women, abdominal pain men, vaginal bleeding, weakness, fever, dyspnea, syncope, headache, dizziness, GI bleed, back pain, seizure, CVA, palpatations, mental health, musculoskeletal)? @ -Differential Abdominal Pain Women:Appendicitis, Cholecystitis, dive rticulosis, ischemic bowel, pancreatitis, hepatitis, UTI, gastroenteritis, AAA, incarcerated hernia, bowel obstruction, constipation, inflammatory bowel, hepatitis, peptic ulcer disease, splenic infarction, perforated viscus, vulvitis, ovarian torsion, PID, kidney stone, placenta abruption, this is not meant to be an all-inclusive list EKG interpreted by me (3pts min.). @ -None done X-rays interpreted by me (1pt min.). @ -None done CT interpreted by me (1pt min.). @ - Pending U/S interpreted by me (1pt. min.). @ -None done What testing was considered but not performed or refused? (CT, X-rays, U/S, labs)? Why? @ -None What meds were considered but not given or refused? Why? @ -None Did you discuss the management of the patient with other professionals (professionals i.e. , PA, MAINTENANCE SHOP MANAGER, lab, RT, psych nurse, social work nurse, learning program manager, teacher, catapult and arresting gear officer, corrections caseworker)? Give summary @ -No Was smoking cessation discussed for >3mins.? @ -No Was critical care preformed (if so, how long)? @ -No Were there social determinants of health that impacted care today? How? (Homelessness, low income, unemployed, alcoholism, drug addiction, transportation, low edu. Level, literacy, decrease access to med. care, retirement, rehab)? @ -No Was there de-escalation of care discussed even if they declined (Discuss DNR or withdrawal of care, Hospice)? DNR status @ -No What co-morbidities impacted this encounter? (DM, HTN, Smoking, COPD, CAD, Cancer, CVA, ARF, Chemo, Hep., AIDS, mental health diagnosis, sleep apnea, morbid obesity)? @ -Diabetes mellitus, GERD, hyperlipidemia, hypertension, mitral valve prolapse, renal disease, thyroid disorder, smoker Was patient admitted / discharged? Hospital course, mention meds given and route, prescriptions, significant lab abnormalities, going to OR and other pertinent info. @ -49 year old female presenting to the Er for evlauation of abdominal pain. Patient underwent appendectomy on [address] Wilder. Vitals within acceptable limits. Laboratory studies obtained unimpressive. Urinalysis unremarkable. Symptomatic control in the ER. CT abdomen pelvis obtained and pending at time of sign out to Rina Sheriff PA-C. (Velia,Sonali) Patient was signed out to me pending CT results and disposition. CT imaging of the abdomen pelvis with IV contrast no acute abnormality within the abdomen or pelvis, stomach and duodenum are unremarkable, no evidence hydronephrosis or renal calculus. On reevaluation, patient states that she is feeling better and is informed of today's results. Patient stable for discharge with close follow- up as scheduled with general surgeon on the . Return parameters discussed. Case discussed with Dr. Rivas ([facility]) - Lab Data Lab Results 01/21/25 01/21/25 01/21/25 Range/Units 13:00 14:51 14:51 WBC 9.85 (4.50-10.00) 10*3/uL RBC 4.41 (4.10-5.20) 10*6/uL Hgb 14.6 (12.0-15.0) g/dL Hct 42.9 (37.2-46.3) % MCV 97.3 H (80.0-97.0) fL MCH 33.1 H (27.0-32.0) pg MCHC 34.0 (32.0-37.0) g/dL Plt Count 242 (140-440) 10*3/uL MPV 10.0 (9.5-12.2) fL Immature Gran % (Auto) 0.4 % Neutrophils % 57.6 % Lymphocytes % 33.7 % Monocytes % 7.6 % Eosinophils % 0.2 % Basophils % 0.5 % Immature Gran # 0.04 (0.00-0.04) 10*3/uL Neutrophils # 5.67 (1.80-7.70) 10*3/uL Lymphocytes # 3.32 (0.90-5.00) 10*3/uL Monocytes # 0.75 (0.20-1.00) 10*3/uL Eosinophils # 0.02 L (0.04-0.35) 10*3/uL Basophils # 0.05 (0.00-0.10) 10*3/uL Sodium 137 (137-145) mmol/L Potassium 5.2 H (3.5-5.1) mmol/L Chloride 107 (98-107) mmol/L Carbon Dioxide 21 L (22-30) mmol/L Anion Gap 9 mmol/L BUN 16 (7-17) mg/dL Creatinine 1.06 H (0.52-1.04) mg/dL Est GFR (CKD-EPI)AfAm 73 (>60 ml/min/1.73 sqM) Est GFR (CKD-EPI)NonAf 63 (>60 ml/min/1.73 sqM) Glucose 96 (74-99) mg/dL Plasma Lactic Acid Rob (0.7-2.0) mmol/L Calcium 9.4 (8.4-10.2) mg/dL Total Bilirubin 0.7 (0.2-1.3) mg/dL AST 31 (14-36) U/L ALT 20 (4-34) U/L Alkaline Phosphatase 56 (38-126) U/L Total Protein 7.8 (6.3-8.2) g/dL Albumin 4.4 (3.5-5.0) g/dL Amylase 41 (30-110) U/L Lipase 175 (23-300) U/L Urine Color Colorless Urine Appearance Clear (Clear) Urine pH 6.5 (5.0-8.0) Ur Specific [place] 1.010 (1.001-1.035) Urine Protein Negative (Negative) Urine Glucose (UA) Negative (Negative) Urine Ketones Negative (Negative) Urine Blood Negative (Negative) Urine Nitrite Negative (Negative) Urine Bilirubin Negative (Negative) Urine Urobilinogen <2.0 (<2.0) mg/dL Ur Leukocyte Esterase Negative (Negative) 01/21/25 Range/Units 14:51 WBC (4.50-10.00) 10*3/uL RBC (4.10-5.20) 10*6/uL Hgb (12.0-15.0) g/dL Hct (37.2-46.3) % MCV (80.0-97.0) fL MCH (27.0-32.0) pg MCHC (32.0-37.0) g/dL Plt Count (140-440) 10*3/uL MPV (9.5-12.2) fL Immature Gran % (Auto) % Neutrophils % % Lymphocytes % % Monocytes % % Eosinophils % % Basophils % % Immature Gran # (0.00-0.04) 10*3/uL Neutrophils # (1.80-7.70) 10*3/uL Lymphocytes # (0.90-5.00) 10*3/uL Monocytes # (0.20-1.00) 10*3/uL Eosinophils # (0.04-0.35) 10*3/uL Basophils # (0.00-0.10) 10*3/uL Sodium (137-145) mmol/L Potassium (3.5-5.1) mmol/L Chloride (98-107) mmol/L Carbon Dioxide (22-30) mmol/L Anion Gap mmol/L BUN (7-17) mg/dL Creatinine (0.52-1.04) mg/dL Est GFR (CKD-EPI)AfAm (>60 ml/min/1.73 sqM) Est GFR (CKD-EPI)NonAf (>60 ml/min/1.73 sqM) Glucose (74-99) mg/dL Plasma Lactic Acid Rob 1.1 (0.7-2.0) mmol/L Calcium (8.4-10.2) mg/dL Total Bilirubin (0.2-1.3) mg/dL AST (14-36) U/L ALT (4-34) U/L Alkaline Phosphatase (38-126) U/L Total Protein (6.3-8.2) g/dL Albumin (3.5-5.0) g/dL Amylase (30-110) U/L Lipase (23-300) U/L Urine Color Urine Appearance (Clear) Urine pH (5.0-8.0) Ur Specific [place] (1.001-1.035) Urine Protein (Negative) Urine Glucose (UA) (Negative) Urine Ketones (Negative) Urine Blood (Negative) Urine Nitrite (Negative) Urine Bilirubin (Negative) Urine Urobilinogen (<2.0) mg/dL Ur Leukocyte Esterase (Negative) Disposition <Sonali Gunn - Last Filed: 01/21/25 16:41> Is patient prescribed a controlled substance at d/c from ED?: No Time of Disposition: 17:08 <Rina Sheriff - Last Filed: 01/21/25 17:09> Clinical Impression: Postoperative abdominal pain Disposition: HOME SELF-CARE Condition: Good Instructions (If sedation given, give patient instructions): Abdominal Pain (ED) Additional Instructions: Please return to the Emergency Department if symptoms worsen or any other concerns. Follow-up as scheduled with general surgeon this week for further evaluation. Referrals: Braulio Wiggins MD [Primary Care Provider] - 1-2 days
[2025-01-21] MEDS: SODIUM CHLORIDE 0.9% 1,000 ML IV ONE (14:58)
[2025-01-21] MEDS: ACETAMINOPHEN TAB 325 MG TAB PO STA (15:00)
[2025-01-21] MEDS: ONDANSETRON 4 MG/2 ML VIAL IVP STA (15:00)
[2025-01-21] MEDS: HYDROmorphone 1 MG/ML 1 ML SYRINGE IVP STA (15:01)
[2025-01-21 15:02] LABS: Basophils # (A) 0.05 10*3/uL (0.00-0.10); Basophils % (A) 0.5 %; Eosinophils # (A) 0.02 10*3/uL (0.04-0.35); Eosinophils % (A) 0.2 %; HCT 42.9 % (37.2-46.3); HGB 14.6 g/dL (12.0-15.0); Lymphocytes # (A) 3.32 10*3/uL (0.90-5.00); Lymphocytes % (A) 33.7 %; MCH 33.1 pg (27.0-32.0); MCV 97.3 fL (80.0-97.0); Monocytes # (A) 0.75 10*3/uL (0.20-1.00); Monocytes % (A) 7.6 %; Neutrophils # (A) 5.67 10*3/uL (1.80-7.70); Neutrophils % (A) 57.6 %; Platelet Count 242 10*3/uL (140-440); RBC 4.41 10*6/uL (4.10-5.20); RDW 13.2 % (11.5-14.5); WBC 9.85 10*3/uL (4.50-10.00)
[2025-01-21 15:06] LABS: Appearance,Urine Clear (Clear); Bilirubin,Urine Negative (Negative); Blood,Urine Negative (Negative); Color,Urine Colorless; Glucose,Urine (UA) Negative (Negative); Ketones,Urine Negative (Negative); Leukocyte Esterase,Urine Negative (Negative); Nitrite,Urine Negative (Negative); PH, Urine 6.5 (5.0-8.0); Protein,Urine Negative (Negative); Urobilinogen,Urine <2.0 mg/dL (<2.0)
[2025-01-21 15:16] LABS: ALT 20 U/L (4-34); African American GFR (CKD) 73 (>60 ml/min/1.73 sqM); Amylase 41 U/L (30-110); Anion Gap 9 mmol/L; Blood Urea Nitrogen 16 mg/dL (7-17); Calcium 9.4 mg/dL (8.4-10.2); Carbon Dioxide 21 mmol/L (22-30); Chloride 107 mmol/L (98-107); Glucose 96 mg/dL (74-99); Lipase 175 U/L (23-300); Non-African American GFR(CKD) 63 (>60 ml/min/1.73 sqM); Sodium 137 mmol/L (137-145); Total Bilirubin 0.7 mg/dL (0.2-1.3)
[2025-01-21 15:40] LABS: AST 31 U/L (14-36); Albumin 4.4 g/dL (3.5-5.0); Potassium 5.2 mmol/L (3.5-5.1); Total Protein 7.8 g/dL (6.3-8.2)
[2025-01-21 15:41] LABS: Alkaline Phosphatase 56 U/L (38-126)
--- NOTE | 2025-01-21 16:51 | CT ---
EXAMINATION TYPE: CT abdomen pelvis w con DATE OF EXAM: 01/21/2025 4:40 PM COMPARISON: Multiple prior CT studies, most recently dated 01/11/2025. CLINICAL INDICATION: Female, 49 years old with history of Lower abdominal pain status post appendecto my; Lower abdominal pain status post appendectomy. TECHNIQUE: Axial CT abdomen pelvis w con;Sagittal and coronal reformats were created on a separate w orkstation. Contrast used:100 ml mL of Isovue 300 with IV Contrast, (none if empty) Oral contrast used: without Oral Contrast (none if empty) CT DLP: 1605.4 mGycm, Automated exposure control for dose reduction was used. FINDINGS: LOWER CHEST: Unremarkable ABDOMEN LIVER: Diffusely hypoattenuating parenchyma. GALLBLADDER AND BILE DUCTS: The gallbladder is surgically absent. PANCREAS: Unremarkable. SPLEEN: Unremarkable. ADRENAL GLANDS: Unremarkable. KIDNEYS AND URETERS: No evidence of hydronephrosis or renal calculus. The ureters are unremarkable. PELVIS BLADDER: No evidence for wall thickening or mass given limitations of exam. REPRODUCTIVE: Unremarkable. ABDOMEN & PELVIS STOMACH AND BOWEL: Stomach and duodenum are unremarkable. Scattered diverticula are noted throughout the colon. No evidence of bowel obstruction. PERITONEUM/RETROPERITONEUM: No evidence of pneumoperitoneum or free fluid. VASCULATURE: No evidence of aortic aneurysm. MUSCULOSKELETAL: No acute osseous abnormalities LYMPH NODES: No gross evidence for lymphadenopathy. SOFT TISSUE/ABDOMINAL WALL: Unremarkable IMPRESSION: No acute abnormality in the abdomen/pelvis or CT findings to explain reported symptoms. [facility], , 01/21/2025 4:48 PM
[2025-01-21 17:19] VITALS: BP 131/88; PULSE 72; TEMP 98.4
== END 2025-01-21 17:19 | disposition home or self-care (01) ==
LOC: EC 12:32
DX: G89.18 Other acute postprocedural pain (principal); R10.32 Left lower quadrant pain; E11.9 Type 2 diabetes mellitus without complications; K21.9 Gastro-esophageal reflux disease without esophagitis; E78.5 Hyperlipidemia, unspecified; I10 Essential (primary) hypertension; I34.1 Nonrheumatic mitral (valve) prolapse; E07.9 Disorder of thyroid, unspecified; F17.200 Nicotine dependence, unspecified, uncomplicated; Z88.1 Allergy status to other antibiotic agents; Z88.2 Allergy status to sulfonamides; Z88.6 Allergy status to analgesic agent; Z88.8 Allergy status to other drugs, medicaments and biological substances
CPT/HCPCS: 36415; 80053; 82150; 83605; 83690; 85025; 81003; 74177; 99284; 96374; 96375; 96361; J2405; J1171; Q9967

== ENCOUNTER → 2025-02-09 | Outpatient (CLI) | payer OTHER ==
[2025-02-09 15:35] LABS: Basophils # (A) 0.05 X 10*3/uL (0.00-0.10); Basophils % (A) 0.6 %; Eosinophils # (A) 0 X 10*3/uL (0.04-0.35); Eosinophils % (A) 0 %; Lymphocytes # (A) 1.83 X 10*3/uL (0.90-5.00); Lymphocytes % (A) 22.7 %; MCH 32.7 pg (27.0-32.0); MCHC 31.7 g/dL (32.0-37.0); Monocytes # (A) 0.79 X 10*3/uL (0.20-1.00); Monocytes % (A) 9.8 %; NRBC Per 100 WBC 0 X 10*3/uL (0.00-0.01); Neutrophils # (A) 5.34 X 10*3/uL (1.80-7.70); Neutrophils % (A) 66.4 %; Platelet Count 191 X 10*3/uL (140-440); RBC 3.98 X 10*6/uL (4.10-5.20); RDW 13.4 % (11.5-14.5); WBC 8.05 X 10*3/uL (4.50-10.00)
[2025-02-09 15:50] LABS: Appearance,Urine Clear (Clear); Bilirubin,Urine Negative (Negative); Blood,Urine Negative (Negative); Color,Urine Yellow (Yellow); Ketones,Urine Negative (Negative); Nitrite,Urine Negative (Negative); PH, Urine 5.5; Specific Gravity,Urine 1.018 (1.001-1.030)
[2025-02-09 16:01] LABS: Bacteria,Urine None Seen (None Seen)
[2025-02-09 16:14] LABS: % Iron Saturation 20.55 (12.00-45.00); BUN/Creat Ratio 12.25 Ratio (12.00-20.00); Blood Urea Nitrogen 14.7 mg/dL (9.0-27.0); Calcium 8.8 mg/dL (8.7-10.3); Carbon Dioxide 16.9 mmol/L (21.6-31.8); Chloride 109 mmol/L (96-109); Ferritin 21.2 ng/mL (10.0-291.0); Glucose 106 mg/dL (70-110); Iron 75 UG/DL (50-170); Magnesium 1.9 mg/dL (1.5-2.4); Phosphorus 3.5 mg/dL (2.4-5.1); Potassium 4.3 mmol/L (3.5-5.5); Sodium 140 mmol/L (135-145); Total Iron Binding Capacity 365 UG/DL (228-460); Uric Acid 4.6 mg/dL (2.9-7.7)
== END | disposition home or self-care (01) ==
LOC: LABWHC1 09:27
PROVIDERS: ATTEND Internal Medicine Nephrology
DX: N18.31 Chronic kidney disease, stage 3a (principal); N25.81 Secondary hyperparathyroidism of renal origin; M10.9 Gout, unspecified; N39.0 Urinary tract infection, site not specified; D63.1 Anemia in chronic kidney disease; R80.9 Proteinuria, unspecified; E55.9 Vitamin D deficiency, unspecified
CPT/HCPCS: 36415; 80048; 81001; 82040; 82043; 82306; 82570; 82728; 83540; 83550; 83735; 83970; 84100; 84550; 85025

== ENCOUNTER 2025-02-28 18:16 | Emergency (ER) | payer OTHER ==
[2025-02-28] MEDS: FAMOTIDINE 20 MG TAB PO STA (18:43)
[2025-02-28] MEDS: methylPREDNISolone SOD SUCCI 125 MG/2 ML VIAL IM ONE (18:43)
[2025-02-28] MEDS: diphenhydrAMINE 50 MG CAP PO STA (18:43)
--- NOTE | 2025-02-28 19:09 | ED ---
General Adult HPI - General Chief complaint: Skin/Abscess/Foreign Body Stated complaint: Post-op abd pain Time Seen by Provider: 02/28/25 18:26 Source: patient Mode of arrival: ambulatory Limitations: no limitations - History of Present Illness Initial comments: 49-year-old female presenting with chief complaint of rash. Patient has some red bumps around her appendectomy incision. Patient had an appendectomy last month. These red bumps burn according to the patient. She is having no discharge from the area. No new foods. She is on day 4 of Augmentin prescribed by her PCP for sore throat. No nausea vomiting or abdominal pain. No diarrhea. No difficulty breathing or swallowing. No new soaps, lotions, or other topical products. - Related Data Home Medications Medication Instructions Recorded Confirmed Fluticasone Nasal [place] [Flonase 2 spray EA NOSTRIL BID PRN 07/10/15 01/21/25 Nasal [place]] Levothyroxine Sodium [Synthroid] 88 mcg PO DAILY 07/10/15 01/21/25 gemfibroziL [Lopid] 600 mg PO BID 01/23/17 01/21/25 Linaclotide [Linzess] 145 mcg PO DAILY 08/17/20 01/21/25 Mupirocin 2% Oint [Bactroban 2% 1 applic TOPICAL BID PRN 06/20/21 01/21/25 Oint] Albuterol Sulfate [Albuterol 1 puff INHALATION RT-QID PRN 09/23/24 01/21/25 Sulfate Hfa] Baclofen 20 mg PO HS 09/23/24 01/21/25 Cetirizine HCl [Zyrtec] 10 mg PO DAILY 09/23/24 01/21/25 Cholecalciferol (Vitamin D3) 1,250 mcg PO Q7D 09/23/24 01/21/25 [Vitamin D3 (1250 Mcg = 50,000 Iu)] Famotidine [Pepcid] 20 mg PO BID 09/23/24 01/21/25 Ipratropium/Albuter 20-100Mcg 2 puff INHALATION RT-BID 09/23/24 01/21/25 [Combivent Respimat 20-100Mcg Inhaler] Pantoprazole [Protonix] 40 mg PO BID 09/23/24 01/21/25 Topiramate [Topamax] 200 mg PO DAILY 09/23/24 01/21/25 busPIRone HCL 5 mg PO TID PRN 09/23/24 01/21/25 Acetaminophen Tab [Tylenol] 500 mg PO BID 01/11/25 01/21/25 Baclofen [Lioresal] 10 mg PO DAILY 01/21/25 01/21/25 Previous Rx's Medication Instructions Recorded HYDROcodone/APAP 5-325MG [[place] 1 tab PO Q6HR PRN 3 Days #12 tab 01/12/25 5-325] Allergies Allergy/AdvReac Type Severity Reaction Status Date / Time [place] And Derivatives Allergy Unknown Swelling Verified 02/28/25 18:24 cephalexin monohydrate Allergy Rash/Hives Verified 02/28/25 18:24 [From Keflex] losartan Allergy Anaphylaxis Verified 02/28/25 18:24 prednisone Allergy Swelling Verified 02/28/25 18:24 of Feet - IV version ok per patient sulfamethoxazole Allergy Anaphylaxis Verified 02/28/25 18:24 [From Bactrim] trimethoprim [From Bactrim] Allergy Anaphylaxis Verified 02/28/25 18:24 ibuprofen AdvReac kidney Verified 02/28/25 18:24 disease Review of Systems ROS Statement: Those systems with pertinent positive or pertinent negative responses have been documented in the HPI. ROS Other: All systems not noted in ROS Statement are negative. Past Medical History Past Medical History: Diabetes Mellitus, GERD/Reflux, Hyperlipidemia, Hypertension, Mitral Valve Prolapse (MVP), Osteoarthritis (OA), Renal Disease, Respiratory Disorder, Skin Disorder, Thyroid Disorder Additional Past Medical History / Comment(s): HEART MURMUR, LEAKY HEART VALVES (STATES PRE-MEDICATED PRIOR TO PROCEDURES). HX OF DIVERTICULITIS. IBS. BRONCHIECTASIS. MIGRAINES. HX OF STOMACH ULCERS. OVARIAN SYNDROME. HIDRADENITIS, SKIN DISORDER. "LIVER INFLAMED." "KIDNEY FUNCTION @ 60%." EDEMA BLE, WEARING YRN HOSE. Hx of herniated discs History of Any Multi-Drug Resistant Organisms: None Reported Past Surgical History: Breast Surgery, Cholecystectomy, Hernia Repair, Orthopedic Surgery, Tubal Ligation, Uterine Ablation Additional Past Surgical History / Comment(s): lt foot surgery, BUNIONECTOMY, Bilat CTR Colonoscopy, egd, left breast lesion removal Past Anesthesia/Blood Transfusion Reactions: Motion Sickness Past Psychological History: Anxiety Smoking Status: Current every day smoker Past Alcohol Use History: None Reported Past Drug Use History: None Reported - Past Family History Mother Family Medical History: Myocardial Infarction ([place]) Additional Family Medical History / Comment(s): Pacemaker. Father Family Medical History: Cancer Additional Family Medical History / Comment(s): LIVER CANCER. General Exam Limitations: no limitations General appearance: alert, in no apparent distress Head exam: Present: atraumatic, normocephalic, normal inspection Eye exam: Present: normal appearance, EOMI. Absent: periorbital swelling ENT exam: Present: normal oropharynx, mucous membranes moist Neck exam: Present: normal inspection. Absent: meningismus Respiratory exam: Absent: respiratory distress, wheezes, stridor Cardiovascular Exam: Present: regular rate Neurological exam: Present: alert, oriented X3 Psychiatric exam: Present: normal affect, normal mood Skin exam: Present: rash (There are some red bumps around her appendectomy incision) Course Vital Signs 02/28/25 02/28/25 18:22 20:06 Temperature 98.6 F 98.1 F Pulse Rate 79 63 Respiratory 18 20 Rate Blood Pressure 121/81 110/71 O2 Sat by Pulse 100 100 Oximetry Medical Decision Making - Medical Decision Making Was pt. sent in by a medical professional or institution (, [place], [employer], urgent care, hospital, or chcf...) When possible be specific @ -No Did you speak to anyone other than the patient for history (EMS, parent, family, police, friend...)? What history was obtained from this source @ -No Did you review nursing and triage notes (agree or disagree)? Why? @ -I reviewed and agree with nursing and triage notes Were old charts reviewed (outside hosp., previous admission, EMS record, old EKG, old radiological studies, urgent care reports/EKG's, chcf records)? Report findings @ -No old charts were reviewed Differential Diagnosis (chest pain, altered mental status, abdominal pain women, abdominal pain men, vaginal bleeding, weakness, fever, dyspnea, syncope, headache, dizziness, GI bleed, back pain, seizure, CVA, palpatations, mental health, musculoskeletal)? @ -Differential includes allergic reaction, cellulitis, Vázquez-Juan F syndrome, not an all-inclusive list EKG interpreted by me (3pts min.). @ -As above X-rays interpreted by me (1pt min.). @ -None done CT interpreted by me (1pt min.). @ -None done U/S interpreted by me (1pt. min.). @ -None done What testing was considered but not performed or refused? (CT, X-rays, U/S, labs)? Why? @ -None What meds were considered but not given or refused? Why? @ -None Did you discuss the management of the patient with other professionals (professionals i.e. , PA, [employer], lab, RT, psych nurse, social media job titles, rn picu, teacher, protective officer, director of casework services)? Give summary @ -No Was smoking cessation discussed for >3mins.? @ -No Was critical care preformed (if so, how long)? @ -No Were there social determinants of health that impacted care today? How? (Homelessness, low income, unemployed, alcoholism, drug addiction, transportation, low edu. Level, literacy, decrease access to med. care, long-term, rehab)? @ -No Was there de-escalation of care discussed even if they declined (Discuss DNR or withdrawal of care, Hospice)? DNR status @ -No What co-morbidities impacted this encounter? (DM, HTN, Smoking, COPD, CAD, Cancer, CVA, ARF, Chemo, Hep., AIDS, mental health diagnosis, sleep apnea, morbid obesity)? @ -None Was patient admitted / discharged? Hospital course, mention meds given and route, prescriptions, significant lab abnormalities, going to OR and other pertinent info. @ -49-year-old female presenting with chief complaint of rash. Patient has a small area of red bumps around her appendectomy incision. No difficulty breathing or swallowing. No vomiting or diarrhea. She has not taken anything at home for this. Started today. History and physical examination are conducted. She is given Benadryl, Solu-Medrol, and Pepcid. On reassessment she is resting comfortably showing no acute signs of distress. She is educated on today's findings and supportive management at home. Follow-up with PCP. Report back to ER with any new or worsening symptoms. Discussed return parameters and answered all questions. Patient conveyed verbal understanding and agreed to the plan. I discussed this case in detail with my attending Dr. Hernandez Undiagnosed new problem with uncertain prognosis? @ -No Drug Therapy requiring intensive monitoring for toxicity (Heparin, Nitro, Insulin, Cardizem)? @ -No Were any procedures done? @ -No Diagnosis/symptom? @ -Rash Acute, or Chronic, or Acute on Chronic? @ -Acute Uncomplicated (without systemic symptoms) or Complicated (systemic symptoms)? @ -Uncomplicated Side effects of treatment? @ -No Exacerbation, Progression, or Severe Exacerbation? @ -No Poses a threat to life or bodily function? How? (Chest pain, [place], [place], pneumonia, PE, COPD, DKA, ARF, appy, cholecystitis, CVA, Diverticulitis, Homicidal, Suicidal, threat to staff... and all critical care pts) @ -Unlikely Disposition Clinical Impression: Rash Disposition: HOME SELF-CARE Condition: Good Instructions (If sedation given, give patient instructions): Acute Rash (ED) Additional Instructions: Follow-up with your PCP and surgeon. Report back to ER with any new or worsening symptoms. Take Benadryl as needed per package instructions. Is patient prescribed a controlled substance at d/c from ED?: No Referrals: Braulio Wiggins MD [Primary Care Provider] - 1-2 days Time of Disposition: 19:59
[2025-02-28 20:07] VITALS: BP 110/71; PULSE 63; RESP 20; TEMP 98.1
== END 2025-02-28 20:07 | disposition home or self-care (01) ==
LOC: EC 18:16
DX: R21 Rash and other nonspecific skin eruption (principal); F17.200 Nicotine dependence, unspecified, uncomplicated; Z88.1 Allergy status to other antibiotic agents; Z88.8 Allergy status to other drugs, medicaments and biological substances; Z88.2 Allergy status to sulfonamides; Z88.6 Allergy status to analgesic agent; Z91.048 Other nonmedicinal substance allergy status
CPT/HCPCS: 99282; 96372; J2919

== ENCOUNTER 2025-03-29 17:26 | Emergency (ER) | payer OTHER ==
[2025-03-29 17:32] VITALS: TEMP 98
--- NOTE | 2025-03-29 18:04 | ED ---
General Adult HPI - General Chief complaint: Chest Pain Stated complaint: Chest Pain Time Seen by Provider: 03/29/25 17:39 Source: patient, RN notes reviewed, old records reviewed Mode of arrival: ambulatory Limitations: no limitations - History of Present Illness Initial comments: 49-year-old female history of diabetes, current smoker, presenting for e valuation of chest pain which has been present throughout the day today. Patient states this did begin as left arm pain and she thought it was related to her left shoulder. She states the pain is now in her upper chest. She denies prior history of cardiac disease. Denies associated vomiting or diaphoresis. - Related Data Home Medications Medication Instructions Recorded Confirmed RX: Fluticasone Nasal [place] 2 spray EA NOSTRIL BID PRN 07/10/15 01/21/25 [Flonase Nasal [place]] RX: Levothyroxine Sodium 88 mcg PO DAILY 07/10/15 01/21/25 [Synthroid] RX: gemfibroziL [Lopid] 600 mg PO BID 01/23/17 01/21/25 RX: Linaclotide [Linzess] 145 mcg PO DAILY 08/17/20 01/21/25 RX: Mupirocin 2% Oint [Bactroban 1 applic TOPICAL BID PRN 06/20/21 01/21/25 2% Oint] RX: Albuterol Sulfate [Albuterol 1 puff INHALATION RT-QID PRN 09/23/24 01/21/25 Sulfate Hfa] RX: Baclofen 20 mg PO HS 09/23/24 01/21/25 RX: Cetirizine HCl [Zyrtec] 10 mg PO DAILY 09/23/24 01/21/25 RX: Cholecalciferol (Vitamin D3) 1,250 mcg PO Q7D 09/23/24 01/21/25 [Vitamin D3 (1250 Mcg = 50,000 Iu)] RX: Famotidine [Pepcid] 20 mg PO BID 09/23/24 01/21/25 RX: Ipratropium/Albuter 20-100Mcg 2 puff INHALATION RT-BID 09/23/24 01/21/25 [Combivent Respimat 20-100Mcg Inhaler] RX: Pantoprazole [Protonix] 40 mg PO BID 09/23/24 01/21/25 RX: Topiramate [Topamax] 200 mg PO DAILY 09/23/24 01/21/25 RX: busPIRone HCL 5 mg PO TID PRN 09/23/24 01/21/25 RX: Acetaminophen Tab [Tylenol] 500 mg PO BID 01/11/25 01/21/25 Baclofen [Lioresal] 10 mg PO DAILY 01/21/25 01/21/25 Previous Rx's Medication Instructions Recorded HYDROcodone/APAP 5-325MG [[place] 1 tab PO Q6HR PRN 3 Days #12 tab 01/12/25 5-325] Allergies Allergy/AdvReac Type Severity Reaction Status Date / Time [place] And Derivatives Allergy Unknown Swelling Verified 03/29/25 17:32 cephalexin monohydrate Allergy Rash/Hives Verified 03/29/25 17:32 [From Keflex] losartan Allergy Anaphylaxis Verified 03/29/25 17:32 prednisone Allergy Swelling Verified 03/29/25 17:32 of Feet - IV version ok per patient sulfamethoxazole Allergy Anaphylaxis Verified 03/29/25 17:32 [From Bactrim] trimethoprim [From Bactrim] Allergy Anaphylaxis Verified 03/29/25 17:32 ibuprofen AdvReac kidney Verified 03/29/25 17:32 disease Review of Systems ROS Statement: Those systems with pertinent positive or pertinent negative responses have been documented in the HPI. ROS Other: All systems not noted in ROS Statement are negative. Past Medical History Past Medical History: Diabetes Mellitus, GERD/Reflux, Hyperlipidemia, Hypertension, Mitral Valve Prolapse (MVP), Osteoarthritis (OA), Renal Disease, Respiratory Disorder, Skin Disorder, Thyroid Disorder Additional Past Medical History / Comment(s): HEART MURMUR, LEAKY HEART VALVES (STATES PRE-MEDICATED PRIOR TO PROCEDURES). HX OF DIVERTICULITIS. IBS. BRONCHIECTASIS. MIGRAINES. HX OF STOMACH ULCERS. OVARIAN SYNDROME. HIDRADENITIS, SKIN DISORDER. "LIVER INFLAMED." "KIDNEY FUNCTION @ 60%." EDEMA BLE, WEARING YRN HOSE. Hx of herniated discs History of Any Multi-Drug Resistant Organisms: None Reported Past Surgical History: Breast Surgery, Cholecystectomy, Hernia Repair, Orthopedic Surgery, Tubal Ligation, Uterine Ablation Additional Past Surgical History / Comment(s): lt foot surgery, BUNIONECTOMY, Bilat CTR Colonoscopy, egd, left breast lesion removal Past Anesthesia/Blood Transfusion Reactions: Motion Sickness Past Psychological History: Anxiety Smoking Status: Current every day smoker Past Alcohol Use History: None Reported Past Drug Use History: None Reported - Past Family History Mother Family Medical History: Myocardial Infarction ([place]) Additional Family Medical History / Comment(s): Pacemaker. Father Family Medical History: Cancer Additional Family Medical History / Comment(s): LIVER CANCER. General Exam Limitations: no limitations General appearance: alert, in no apparent distress Head exam: Present: atraumatic, normocephalic Eye exam: Present: normal appearance, PERRL ENT exam: Present: normal exam Neck exam: Present: normal inspection. Absent: tenderness, meningismus Respiratory exam: Present: normal lung sounds bilaterally. Absent: respiratory distress, wheezes Cardiovascular Exam: Present: regular rate, normal rhythm GI/Abdominal exam: Present: soft. Absent: distended, tenderness Extremities exam: Present: normal inspection, normal capillary refill Neurological exam: Present: alert, oriented X3, CN II-XII intact. Absent: motor sensory deficit Psychiatric exam: Present: normal affect, normal mood Skin exam: Present: warm, dry, intact. Absent: cyanosis, diaphoretic Course Vital Signs 03/29/25 03/29/25 17:30 18:36 Temperature 98.0 F Pulse Rate 68 70 Respiratory 17 16 Rate Blood Pressure 114/73 141/87 O2 Sat by Pulse 99 100 Oximetry Medical Decision Making - Medical Decision Making Was pt. sent in by a medical professional or institution ([place], [employer] TECHNICIAN, urgent care, hospital, or chcf...) When possible be specific @ -No Did you speak to anyone other than the patient for history (EMS, parent, family, police, friend...)? What history was obtained from this source @ -No Did you review nursing and triage notes (agree or disagree)? Why? @ -I reviewed and agree with nursing and triage notes Were old charts reviewed (outside hosp., previous admission, EMS record, old EKG, old radiological studies, urgent care reports/EKG's, chcf records)? Report findings @ -No old charts were reviewed Differential Chest Pain: Stable Angina, Unstable Angina, STEMI, NSTEMI Aortic Dissection, Pneumothorax, Musculoskeletal, Esophageal Spasm GERD, Cholecystitis, Pancreatitis, Zoster, this is not meant to be an all-inclusive list. EKG interpreted by me (3pts min.). @ -[Sinus rhythm rate of 72, MT interval 159, QRS duration 100, QTc 419, no ST segment elevation X-rays interpreted by me (1pt min.). @ -Chest x-ray negative for acute cardiopulmonary findings CT interpreted by me (1pt min.). @ -None done U/S interpreted by me (1pt. min.). @ -[CT angiogram negative for pulmonary embolism or acute aortic pathologyt testing was considered but not performed or refused? (CT, X-rays, U/S, labs)? Why? @ -None What meds were considered but not given or refused? Why? @ -None Did you discuss the management of the patient with other professionals (professionals i.e. , PA, COMPUTER HARDWARE TECHNICIAN, lab, RT, psych nurse, clinical social work aide, automotive diagnostic technician, teacher, credit officer, case coordinator)? Give summary @ -No Was smoking cessation discussed for >3mins.? @ -No Was critical care preformed (if so, how long)? @ -No Were there social determinants of health that impacted care today? How? (Homelessness, low income, unemployed, alcoholism, drug addiction, transpor tation, low edu. Level, literacy, decrease access to med. care, fdc, rehab)? @ -No Was there de-escalation of care discussed even if they declined (Discuss DNR or withdrawal of care, Hospice)? DNR status @ -No What co-morbidities impacted this encounter? (DM, HTN, Smoking, COPD, CAD, Cancer, CVA, ARF, Chemo, Hep., AIDS, mental health diagnosis, sleep apnea, morbid obesity)? @Diabetes hypertension Was patient admitted / discharged? Hospital course, mention meds given and route, prescriptions, significant lab abnormalities, going to OR and other pertinent info. @ -49-year-old female with chest discomfort, left shoulder discomfort. Patient initially thought this was related to her shoulder but presents to the emergency department after the development of some upper chest discomfort which began earlier today. EKG is sinus without ST segment elevation. Chest x-ray is negative for acute cardiopulmonary findings. Patient has a minimally elevated D-dimer which is evaluated by CT angiography which was negative. Troponin is negative. When I went to reevaluate the patient she was eager for discharge with no further symptoms. Patient states she will follow-up with her primary care provider. Undiagnosed new problem with uncertain prognosis? @ -No Drug Therapy requiring intensive monitoring for toxicity (Heparin, Nitro, Insulin, Cardizem)? @ -No Were any procedures done? @ -No Diagnosis/symptom? @ -Chest pain Acute, or Chronic, or Acute on Chronic? @ -Default Uncomplicated (without systemic symptoms) or Complicated (systemic symptoms)? @ -Default Side effects of treatment? @ -No Exacerbation, Progression, or Severe Exacerbation? @ -No Poses a threat to life or bodily function? How? (Chest pain, [place], [place], pneumonia, PE, COPD, DKA, ARF, appy, cholecystitis, CVA, Diverticulitis, Homicidal, Suicidal, threat to staff... and all critical care pts) @ -Low risk at this time - Lab Data Result diagrams: 03/29/25 17:57 03/29/25 17:57 Lab Results 03/29/25 03/29/25 03/29/25 Range/Units 17:57 17:57 17:57 WBC 7.84 (4.50-10.00) 10*3/uL RBC 3.80 L (4.10-5.20) 10*6/uL Hgb 12.8 (12.0-15.0) g/dL Hct 37.5 (37.2-46.3) % MCV 98.7 H (80.0-97.0) fL MCH 33.7 H (27.0-32.0) pg MCHC 34.1 (32.0-37.0) g/dL Plt Count 189 (140-440) 10*3/uL MPV 10.4 (9.5-12.2) fL Immature Gran % (Auto) 0.3 % Neutrophils % 56.3 % Lymphocytes % 34.4 % Monocytes % 8.5 % Eosinophils % 0.0 % Basophils % 0.5 % Immature Gran # 0.02 (0.00-0.04) 10*3/uL Neutrophils # 4.41 (1.80-7.70) 10*3/uL Lymphocytes # 2.70 (0.90-5.00) 10*3/uL Monocytes # 0.67 (0.20-1.00) 10*3/uL Eosinophils # 0.00 L (0.04-0.35) 10*3/uL Basophils # 0.04 (0.00-0.10) 10*3/uL Manual Slide Review Performed PT 10.2 (10.0-12.5) sec INR 0.9 (<1.2) APTT 24.2 (22.0-30.0) sec D-Dimer 0.60 H (<0.60) mg/L FEU Sodium 139 (137-145) mmol/L Potassium 4.4 (3.5-5.1) mmol/L Chloride 110 H (98-107) mmol/L Carbon Dioxide 18 L (22-30) mmol/L Anion Gap 11 mmol/L BUN 20 H (7-17) mg/dL Creatinine 1.56 H (0.52-1.04) mg/dL Est GFR (CKD-EPI)AfAm 45 (>60 ml/min/1.73 sqM) Est GFR (CKD-EPI)NonAf 39 (>60 ml/min/1.73 sqM) Glucose 95 (74-99) mg/dL Calcium 9.4 (8.4-10.2) mg/dL Magnesium 1.9 (1.6-2.3) mg/dL Total Bilirubin 0.2 (0.2-1.3) mg/dL AST 22 (14-36) U/L ALT 21 (4-34) U/L Alkaline Phosphatase 62 (38-126) U/L Troponin I (0.000-0.034) ng/mL Total Protein 6.9 (6.3-8.2) g/dL Albumin 4.0 (3.5-5.0) g/dL 03/29/25 Range/Units 17:57 WBC (4.50-10.00) 10*3/uL RBC (4.10-5.20) 10*6/uL Hgb (12.0-15.0) g/dL Hct (37.2-46.3) % MCV (80.0-97.0) fL MCH (27.0-32.0) pg MCHC (32.0-37.0) g/dL Plt Count (140-440) 10*3/uL MPV (9.5-12.2) fL Immature Gran % (Auto) % Neutrophils % % Lymphocytes % % Monocytes % % Eosinophils % % Basophils % % Immature Gran # (0.00-0.04) 10*3/uL Neutrophils # (1.80-7.70) 10*3/uL Lymphocytes # (0.90-5.00) 10*3/uL Monocytes # (0.20-1.00) 10*3/uL Eosinophils # (0.04-0.35) 10*3/uL Basophils # (0.00-0.10) 10*3/uL Manual Slide Review PT (10.0-12.5) sec INR (<1.2) APTT (22.0-30.0) sec D-Dimer (<0.60) mg/L FEU Sodium (137-145) mmol/L Potassium (3.5-5.1) mmol/L Chloride (98-107) mmol/L Carbon Dioxide (22-30) mmol/L Anion Gap mmol/L BUN (7-17) mg/dL Creatinine (0.52-1.04) mg/dL Est GFR (CKD-EPI)AfAm (>60 ml/min/1.73 sqM) Est GFR (CKD-EPI)NonAf (>60 ml/min/1.73 sqM) Glucose (74-99) mg/dL Calcium (8.4-10.2) mg/dL Magnesium (1.6-2.3) mg/dL Total Bilirubin (0.2-1.3) mg/dL AST (14-36) U/L ALT (4-34) U/L Alkaline Phosphatase (38-126) U/L Troponin I <0.012 (0.000-0.034) ng/mL Total Protein (6.3-8.2) g/dL Albumin (3.5-5.0) g/dL Disposition Clinical Impression: Chest pain Disposition: HOME SELF-CARE Condition: Fair Instructions (If sedation given, give patient instructions): Chest Pain (ED) Is patient prescribed a controlled substance at d/c from ED?: No Referrals: Brauloi Wiggins MD [Primary Care Provider] - 1-2 days Time of Disposition: 20:50
[2025-03-29 18:20] LABS: Basophils # (A) 0.04 10*3/uL (0.00-0.10); Basophils % (A) 0.5 %; HCT 37.5 % (37.2-46.3); HGB 12.8 g/dL (12.0-15.0); Lymphocytes % (A) 34.4 %; MCH 33.7 pg (27.0-32.0); MCHC 34.1 g/dL (32.0-37.0); MCV 98.7 fL (80.0-97.0); Mean Platelet Volume 10.4 fL (9.5-12.2); Monocytes # (A) 0.67 10*3/uL (0.20-1.00); Monocytes % (A) 8.5 %; Neutrophils # (A) 4.41 10*3/uL (1.80-7.70); Neutrophils % (A) 56.3 %; Platelet Count 189 10*3/uL (140-440); RDW 13.4 % (11.5-14.5); WBC 7.84 10*3/uL (4.50-10.00)
[2025-03-29 18:34] LABS: INR 0.9 (<1.2); Partial Thromboplastin Time 24.2 sec (22.0-30.0); Prothrombin Time 10.2 sec (10.0-12.5)
[2025-03-29 18:39] LABS: ALT 21 U/L (4-34); AST 22 U/L (14-36); African American GFR (CKD) 45 (>60 ml/min/1.73 sqM); Alkaline Phosphatase 62 U/L (38-126); Anion Gap 11 mmol/L; Blood Urea Nitrogen 20 mg/dL (7-17); Calcium 9.4 mg/dL (8.4-10.2); Carbon Dioxide 18 mmol/L (22-30); Chloride 110 mmol/L (98-107); Glucose 95 mg/dL (74-99); Magnesium 1.9 mg/dL (1.6-2.3); Non-African American GFR(CKD) 39 (>60 ml/min/1.73 sqM); Potassium 4.4 mmol/L (3.5-5.1); Sodium 139 mmol/L (137-145); Total Bilirubin 0.2 mg/dL (0.2-1.3); Total Protein 6.9 g/dL (6.3-8.2)
--- NOTE | 2025-03-29 19:07 | XR ---
EXAMINATION TYPE: XR chest 2V DATE OF EXAM: 03/29/2025 6:54 PM COMPARISON: Prior chest radiograph 12/01/2024. CLINICAL INDICATION: Female, 49 years old with history of Chest Pain; [facility] TECHNIQUE: XR chest 2V Frontal and lateral views of the chest. FINDINGS: Lungs/Pleura: There is no evidence of pleural effusion, focal consolidation, or pneumothorax. Pulmonary vascularity: Unremarkable. Heart/mediastinum: Cardiomediastinal silhouette is unremarkable. Musculoskeletal: No acute osseous pathology. Other findings: None IMPRESSION: No acute cardiopulmonary disease/process. [facility], , 03/29/2025 7:05 PM
[2025-03-29] MEDS: SODIUM CHLORIDE 0.9% 1,000 ML IV ONE (19:41)
--- NOTE | 2025-03-29 20:39 | CT ---
EXAMINATION TYPE: CT angio chest DATE OF EXAM: 03/29/2025 8:14 PM COMPARISON: Previous CT chest study dated 03/18/2019. CLINICAL INDICATION: Female, 49 years old with history of chest pain, pos dimer; chest pain TECHNIQUE/CONTRAST: CTA scan of the thorax is performed with IV Contrast, patient injected with 80 mL of Isovue 370, MIP images are created and reviewed these are created on a separate workstation.. CT DLP: 662.1 mGycm, Automated exposure control for dose reduction was used. FINDINGS: Pulmonary Artery: There is no evidence for a filling defect within the pulmonary vasculature to sugge st acute pulmonary embolism. The pulmonary artery is of normal size. Lungs/Pleura: No evidence of focal consolidation, pleural effusion or pneumothorax. Airway: Large airways are patent. Heart: Heart is within normal limits for size. Vasculature: No evidence of aortic aneurysm. Mediastinum: No gross evidence of adenopathy. Musculoskeletal: No acute osseous abnormalities Soft Tissues/lymph nodes: Unremarkable. Lower neck: No significant findings. Upper Abdomen: No significant acute findings. Benign adenomatous nodular thickening of the adrenal gl ands. Previous cholecystectomy. IMPRESSION: No evidence of acute pulmonary edema more acute pulmonary pathology. [facility], , 03/29/2025 8:37 PM
[2025-03-29 21:08] VITALS: BP 152/90; PULSE 68; RESP 18
== END 2025-03-29 21:08 | disposition home or self-care (01) ==
LOC: EC 17:26
DX: R07.9 Chest pain, unspecified (principal); E11.9 Type 2 diabetes mellitus without complications; I10 Essential (primary) hypertension; F17.200 Nicotine dependence, unspecified, uncomplicated; Z88.2 Allergy status to sulfonamides; Z88.1 Allergy status to other antibiotic agents; Z88.6 Allergy status to analgesic agent; Z88.8 Allergy status to other drugs, medicaments and biological substances
CPT/HCPCS: 36415; 93005; 85379; 80053; 83735; 84484; 85025; 85610; 85730; 71046; 71275; 99285; 96360; Q9967

== ENCOUNTER → 2025-04-06 | Outpatient (CLI) | payer OTHER ==
--- NOTE | 2025-04-06 14:14 | US ---
EXAMINATION TYPE: US venous doppler duplex LE LT DATE OF EXAM: 04/06/2025 1:51 PM COMPARISON: NONE CLINICAL INDICATION: Female, 49 years old with history of M79.662 PAIN IN L LOWER LIMB R22.42 SWELLIN G L; Pain and swelling. TECHNIQUE: The lower extremity deep venous system is examined utilizing real time linear array sonog willam with graded compression, color doppler sonography, and spectral doppler. SIDE PERFORMED: Left FINDINGS: VESSELS IMAGED: Common Femoral Vein Deep Femoral Vein Greater Saphenous Vein * Femoral Vein Popliteal Vein Small Saphenous Vein * Proximal Calf Veins Posterior tibial veins (* superficial vessels) Left Leg: *No evidence of DVT. Peroneal veins were not visualized. IMPRESSION: No evidence for DVT within the left lower extremity to the extent visualized. [facility], , 04/06/2025 2:11 PM
== END | disposition home or self-care (01) ==
LOC: RADUSWWP 13:31
PROVIDERS: ATTEND Family Medicine
DX: M79.662 Pain in left lower leg (principal); R22.42 Localized swelling, mass and lump, left lower limb